=== PATIENT | male | born 1950 ===

== ENCOUNTER 2019-06-25 10:15 | Outpatient (REF) | payer MEDICARE, SELFPAY ==
[2019-06-25 19:25] LABS: Abs Immature Grans 0.01 k/cumm (0.0-0.09); Absolute Basophil Count 0.08 k/cumm (0.0-0.2); Absolute Eosinophil Count 0.44 k/cumm (0.0-0.7); Absolute Lymphocyte Count 1.58 k/cumm (1.2-3.4); Absolute Monocyte Count 0.69 k/cumm (0.11-0.7); Absolute Neutrophil Count 3.56 k/cumm (1.2-6.7); Basophils % 1.3; Eosinophils % 6.9; HCT 45.3 % (40.0-50.0); HGB 15.1 g/dL (13.5-17.5); Immature Grans % 0.2; Lymphocytes % 24.8; Mean Corp. HGB Concentration 33.3 g/dL (32.0-36.0); Mean Corpuscular Hemoglobin 30.9 pg (27.0-33.0); Mean Corpuscular Volume 92.6 fL (80-95); Mean Platelet Volume 9.4 fL (8.0-11.0); Monocytes % 10.8; Platelet Count 316 x1000/uL (130-400); RBC 4.89 m/cumm (4.50-6.00); RBC Distribution Width 13.6 % (11.8-14.1); White Blood Cell Count 6.36 k/cumm (4.4-10.8)
[2019-06-25 19:59] LABS: Anion Gap 9.7 mmol/L (3-11); BUN 18 mg/dL (7-18); CO2 27.3 mmol/L (21.0-32.0); CREATININE 1.27 mg/dL (0.70-1.30); Calcium 10.9 mg/dL (8.5-10.1); Chloride 105 mmol/L (98-107); Estimated GFR 56.74 (mL/min/1.73m2); Glucose 99 mg/dL (74-106); Potassium 5.6 mmol/L (3.5-5.1); Sodium 142 mmol/L (136-145); TSH (W/Ref FT4) 1.16 uIU/mL (0.36-3.74); Vitamin B12 272 pg/mL (193-986)
[2019-06-26 14:32] LABS: ALT 32 U/L (16-63); AST 23 U/L (15-37); Albumin 4.5 g/dL (3.4-5.0); Alkaline Phosphatase 120 U/L (46-116); Bilirubin, Direct 0.14 mg/dL (0.00-0.20); Bilirubin, Total 0.6 mg/dL (0.2-1.0); Total Protein 7.9 g/dL (6.4-8.2)
[2019-06-27 16:11] LABS: Lyme Ab w Rflx to Lyme Confirm Equivocal (Negative)
[2019-07-02 15:36] LABS: IgG Band(s) p45; IgG Immunoblot Negative (Negative); IgM Immunoblot Negative (Negative)
== END 2019-06-25 10:35 ==
LOC: NCHCN 10:15
PROVIDERS: PCP Family Medicine; Visit Provider Nurse Practitioner Family
DX: R20.2 Paresthesia of skin (principal); E87.5 Hyperkalemia; E83.52 Hypercalcemia
CPT/HCPCS: 80048; 80076; 86617; 82607; 84443; 85025; 86618

== ENCOUNTER 2019-06-28 09:00 | Outpatient (CLI) | payer MEDICARE, SELFPAY ==
[2019-06-28 11:06] LABS: ALT 32 U/L (16-63); AST 26 U/L (15-37); Alkaline Phosphatase 108 U/L (46-116); Bilirubin, Direct 0.14 mg/dL (0.00-0.20); Bilirubin, Total 0.5 mg/dL (0.2-1.0); Total Protein 7.2 g/dL (6.4-8.2)
== END 2019-06-28 09:20 ==
PROVIDERS: PCP Family Medicine; Visit Provider Family Medicine
DX: E87.5 Hyperkalemia (principal); E83.52 Hypercalcemia
CPT/HCPCS: 36415; 80076

== ENCOUNTER 2019-07-15 07:04 | Outpatient (CLI) | payer MEDICARE, SELFPAY ==
[2019-07-15 07:38] LABS: Bilirubin Negative (Negative); Blood Negative (Negative); Clarity Clear (Clear); Glucose Negative (Negative); Ketones Negative (Negative); Leukocyte Esterase Negative (Negative); Nitrite Negative (Negative); Specific Gravity 1.025 (1.005-1.025); Urobilinogen 0.2 EU/dL (Up TO 0.2); pH 5.5 (5-8)
[2019-07-15 08:43] LABS: ALT 34 U/L (16-63); AST 34 U/L (15-37); Albumin 4.2 g/dL (3.4-5.0); Alkaline Phosphatase 127 U/L (46-116); Anion Gap 10.6 mmol/L (3-11); BUN 14 mg/dL (7-18); Bilirubin, Total 0.4 mg/dL (0.2-1.0); CO2 26.4 mmol/L (21.0-32.0); CREATININE 1.33 mg/dL (0.70-1.30); Calcium 10.2 mg/dL (8.5-10.1); Chloride 104 mmol/L (98-107); GGT 57 U/L (15-85); Glucose 98 mg/dL (74-106); Potassium 4.4 mmol/L (3.5-5.1); Sodium 141 mmol/L (136-145); Total Protein 7.3 g/dL (6.4-8.2)
[2019-07-15 08:56] LABS: Bilirubin, Direct 0.12 mg/dL (0.00-0.20)
[2019-07-16 10:26] LABS: Parathyroid Hormone,Intact 32 pg/mL (19-88)
[2019-07-18 14:19] LABS: Total Protein 7.5 g/dL (6.3-8.2)
== END 2019-07-15 07:24 ==
PROVIDERS: PCP Family Medicine; Visit Provider Nurse Practitioner Family
DX: R74.8 Abnormal levels of other serum enzymes (principal); E83.52 Hypercalcemia; E87.5 Hyperkalemia; E03.9 Hypothyroidism, unspecified
CPT/HCPCS: 36415; 80048; 80076; 81003; 82977; 83915; 83970; 84165

== ENCOUNTER 2019-07-26 07:11 | Outpatient (CLI) | payer MEDICARE, SELFPAY ==
[2019-07-29 06:16] LABS: Vitamin D 25 Total 28.7 ng/ml (30-100)
[2019-07-29 10:42] LABS: PSA, Screening 0.5 ng/mL (0.0-4.5)
[2019-07-31 16:11] LABS: PTH-Related Peptide 0.5 pmol/L (< or = 4.2)
== END 2019-07-26 07:31 ==
PROVIDERS: PCP Family Medicine; Visit Provider Family Medicine
DX: E83.52 Hypercalcemia (principal); Z12.5 Encounter for screening for malignant neoplasm of prostate
CPT/HCPCS: 36415; 82306; 84153; 82397

== ENCOUNTER 2020-09-07 15:41 | Outpatient (REF) | payer OTHER, SELFPAY ==
[2020-09-07 16:17] LABS: Anion Gap 6.9 mmol/L (3-11); BUN 15 mg/dL (7-18); CO2 26.1 mmol/L (21.0-32.0); CREATININE 1.3 mg/dL (0.70-1.30); Calcium 10.1 mg/dL (8.5-10.1); Chloride 106 mmol/L (98-107); Glucose 108 mg/dL (74-106); Potassium 4.6 mmol/L (3.5-5.1); Sodium 139 mmol/L (136-145); TSH (W/Ref FT4) 1.51 uIU/mL (0.36-3.74)
== END 2020-09-07 15:42 | disposition home or self-care (01) ==
LOC: NCHCN 15:41
PROVIDERS: PCP Family Medicine; Visit Provider Family Medicine
DX: E83.52 Hypercalcemia (principal); E03.9 Hypothyroidism, unspecified
CPT/HCPCS: 80048; 82040; 84443

== ENCOUNTER 2021-01-18 19:38 | Outpatient (REF) | payer OTHER, SELFPAY ==
[2021-01-19 16:59] LABS: PSA, Screening 0.8 ng/mL (0.0-4.5)
== END 2021-01-18 19:39 | disposition home or self-care (01) ==
LOC: NCHCN 19:38
PROVIDERS: PCP Family Medicine; Visit Provider Family Medicine
DX: Z00.00 Encounter for general adult medical examination without abnormal findings (principal); Z80.42 Family history of malignant neoplasm of prostate; Z12.5 Encounter for screening for malignant neoplasm of prostate
CPT/HCPCS: 84153

== ENCOUNTER → 2022-03-02 14:29 | Outpatient (BNVA) | payer OTHER, SELFPAY | PROVIDERS: PCP Family Medicine; Referring Provider Family Medicine; Visit Provider Surgery | DX: K21.9 Gastro-esophageal reflux disease without esophagitis (principal); Z86.010 Personal history of colon polyps; K62.5 Hemorrhage of anus and rectum | CPT/HCPCS: 99203 ==

== ENCOUNTER 2022-03-04 00:57 | Outpatient (CLI) | payer OTHER, SELFPAY ==
[2022-03-04 15:46] LABS: Source Nasal/Nares
[2022-03-04 16:00] LABS: HCT 44.3 % (40.0-50.0); HGB 14.5 g/dL (13.5-17.5); MCH 30.3 pg (27.0-33.0); MCHC 32.7 % (32.0-36.0); MCV 93 fL (80-95); MPV 8.9 fL (8.0-11.0); Platelet Count 316 10^3/uL (130-400); RBC 4.79 10^6/uL (4.36-5.78); RDW 12.9 % (11.8-14.1); RDW-SD 43.7 fL; WBC 8.11 10^3/uL (4.4-10.8)
[2022-03-04 16:48] LABS: Calculated LDL 147 mg/dL (<100); Cholesterol 230 mg/dL (<200); HDL Cholesterol 66 mg/dL (40-60); TSH (W/Ref FT4) 0.16 uIU/mL (0.36-3.74); Triglyceride 87 mg/dL (<150)
[2022-03-04 17:12] LABS: FREE T4 1.31 ng/dL (0.76-1.46)
[2022-03-04 18:32] LABS: COVID-19 PCR Negative (Negative)
[2022-03-04 21:24] LABS: ALT 31 U/L (16-63); AST 16 U/L (15-37); Albumin 4.1 g/dL (3.4-5.0); Alkaline Phosphatase 131 U/L (46-116); Anion Gap 6.5 mmol/L (3-11); BUN 15 mg/dL (7-18); Bilirubin, Total 0.4 mg/dL (0.2-1.0); CO2 27.5 mmol/L (21.0-32.0); CREATININE 1.3 mg/dL (0.70-1.30); Calcium 10.3 mg/dL (8.5-10.1); Chloride 104 mmol/L (98-107); Estimated GFR 54.73 (mL/min/1.73m2); Glucose 105 mg/dL (74-106); Sodium 138 mmol/L (136-145); Total Protein 7.8 g/dL (6.4-8.2)
[2022-03-07 05:45] LABS: Vitamin D 25 Total 30.1 ng/mL (30-100)
== END 2022-03-04 00:58 | disposition home or self-care (01) ==
LOC: LBO 00:57
PROVIDERS: PCP Family Medicine; Visit Provider Surgery
DX: Z01.818 Encounter for other preprocedural examination (principal); E03.9 Hypothyroidism, unspecified; K92.1 Melena; E83.52 Hypercalcemia; R74.8 Abnormal levels of other serum enzymes
CPT/HCPCS: 36415; 80053; 80061; 82306; 85027; 87635; 84439; 84443

== ENCOUNTER 2022-03-07 10:38 | Day surgery (SDC) | payer OTHER, SELFPAY ==
--- NOTE | 2022-03-07 06:42 | COLE_ITS ---
Colonoscopy Report Date of procedure: 03/07/22 Pre-op diagnosis general: Colonoscopy/EGD Post-op diagnosis procedure note: other (mild inflammation of the stomach and esophagus, diverticulosis, inflammation of the colon, polyps) Procedure: 1. EGD with biopsies 2. Colonoscopy with biopsies and polypectomy Surgeon: Augustina Salcido Anesthesia Type: General:No Airway Estimated blood loss (mL): 3 Pathology: other (bx of duodenum, antrum and GE junction, bx of sigmoid inflammation, Transverse polyp and sigmoid polyps x2) Complications: None Disposition: same day Indications: We talked about the differential diagnosis for hematochezia, with hemorrhoids and diverticulosis the unlikely culprits in this scenario.? However, given his history of colorectal polyps, in the interval since his last colonoscopy, I think it is very reasonable to proceed with another colon to help better define any colorectal pathology.? Additionally, given his longstanding symptoms of gastroesophageal reflux disease, and what sounds like some noncompliance with medical therapy 3 years, I think diagnostic esophagogastroduodenoscopy is also indicated here.? We will make arrangements for this procedures in the coming weeks trying to accommodate his schedule which includes an upcoming wedding (that of his daughter). Prep: Miralax/Dulcolax Procedure Start Time: 12:33 Procedure End Time: 13:02 Retraction Time: 9 minutes Findings: Inflammation of the duodenum, stomach and esophagus Colorectal polyps colon diverticulosis 4 cm area of inflammation Procedure Description: After informed consent was obtained the patient was take to the procedure room and placed in a supine position. Monitors were applied and a time out was done. The patients name, date of , procedure type, allergies to medications and metal in their body was reviewed. A bite block was placed and the patient was sedated. Once sedated and comfortable the gastroscope was advanced through the oropharynx which was grossly normal into the esophagus. The proximal and mid- esophagus were notrmal. In the distal esophagus there was mild inflammation noted. The scope was advanced into the stomach and through the pylorus into the 3rd portion of the duodenum. The duodenum was noted to have some mild inflammation in the first portion of the duodenum. Biopsies were done. The scope was retracted back into the stomach. There was mild inflammation noted in the antrum. Biopsies were done to rule out H. pylori. There were no ulcers. The scope was retro-flexed. The cardia and fundus were noted to be normal. There was no hiatal hernia noted. There was a solitary diverticulum noted in the fundus of the stomach. The scope was retracted back into the esophagus and biopsies were done of the GE junction to rule out Garnett's. The Z line was regular. The GE junction was at 34 cm. While the patient was still sedated they were placed in a left decubitous position. A rectal exam was done. External exam was normal. Internal exam revealed a normal sphincter tone and no palpable masses. The prostate felt s lightly enlarged but smooth. The scope was then introduced and retro-flexed. No internal hemorrhoids, masses or polyps were identified on retroflexion. The scope was then advanced to the cecum without difficulty. The ileocecal valve and appendiceal orifice were identified. The prep was good. The scope was then slowly retracted over 9 minutes back into the rectum. Polyps were removed with cold snare in the descending colon and with cold forvceps in the transverse colon and sigmoid colon x2. There was mild diverticulosis noted in the descending and sigmoid colon. There was inflammation and edema noted at around 20 cm in the sigmoid colon. The scope was removed and the patient was woken up and taken back to Same day surgery in stable condition. The patient tolerated the procedure well and there were no immediate complications.
--- NOTE | 2022-03-07 06:45 | W.PM.DSUDISC ---
Discharge Plan Disposition Patient Disposition: HOME Condition: Good Discharge Details Reason For Visit: colonoscopy/EGD Attending Provider: Augustina Salcido Primary Care Provider: Jakub Abrams Home Meds and New Rx's Prescriptions: Continued levothyroxine [Synthroid] 150 mcg tablet 150 mcg PO DAILY omeprazole magnesium [Prilosec OTC] 20 mg tablet,delayed release (DR/EC) 20 mg PO DAILY Discontinued polyethylene glycol 3350 17 gram/dose powder 238 g PO ONCE Qty: 238 0RF Rx Instructions: take per colonoscopy instructions bisacodyl [Dulcolax (bisacodyl)] 5 mg tablet,delayed release (DR/EC) 5 mg PO ONCE Qty: 4 0RF Rx Instructions: take per colonoscopy instructions Discharge Instructions Instructions: Colorectal Polyps (DC), Diverticulosis (DC) Additional Instructions: Findings: mild inflammation of the duodenum and distal esophagus colorectal polyps diverticulosis inflammation of small area of the large intestine Follow up: will depend on pathology results Please call if you develop: fevers >101.5 Nausea or Vomiting Abdominal pain that is not transient Rectal bleeding that is more then a tbsp A hard abdomen and inability to pass gas DAY SURGERY UNIT POST ENDOSCOPY INSTRUCTIONS Instructions for everyone who is given Anesthesia: For your safety, please do the following for the next 24 Hours: a. Do not drive or operate dangerous equipment b. Do not drink alcohol beverages or use any recreational drugs for the first 24 hours or while taking pain medications. The medications in your body may have a reaction that can be dangerous. c. Do not make any important decisions or sign any important papers 1. Generally there are no restrictions on your activity after a day or so has gone by, but you may feel a bit fatigued for a few days. 2. After you arrive home you may have a light meal and return to a normal diet as you can tolerate it without feeling sick to your stomach. 3. After surgery, you may feel pain or discomfort. This should be only transient, but if it persists please contact your doctor. 4. If there are any questions regarding the findings of your procedure, please feel free to contact your doctor. 6. If you are unable to contact your doctor with a problem, contact the hospital at [phone]. 7. Continue all your regular medications unless directed otherwise. I understand the above instructions and have no questions. Signature of Patient or Responsible Adult Escort Date/Time Name of Responsible Adult Escort Signature of Nurse Date/Time Activity:: Activity as Tolerated Diet:: As Tolerated Discharge Orders Discharge Orders: Discharge Order (Routine); Ordered 03/07/22 Ordered By: Augustina Salcido
[2022-03-07 10:55] VITALS: BP 123/90; PULSE 73; RESP 19; TEMP 36.2; O2SAT 95
[2022-03-07] MEDS: Lactated Ringers 1,000 ML 80 ML IV (11:15)
--- NOTE | 2022-03-07 11:58 | ANES.PREOP_ITS ---
General Info Date of Service Date Performed: 03/07/22 Height: 6 ft Weight: 92.9 kg Body Mass Index (BMI): 27.8 Surgical Procedure: Operation Date: 03/07/22 13:35 Proposed Procedure Side Surgeon p Colonoscopy/Gastroscopy Augustina Salcido MD Meds Allergies and Home Medications Allergies Allergy/AdvReac Type Severity Reaction Status Date / Time No Known Allergies Allergy Verified 03/07/22 11:05 Home Medication Medication Instructions Recorded bisacodyl 5 mg tablet,delayed 5 mg PO ONCE colonscopy bowel prep 03/02/22 release (Dulcolax (bisacodyl)) #4 tabs levothyroxine 150 mcg tablet 150 mcg PO DAILY 03/02/22 (Synthroid) omeprazole magnesium 20 mg 20 mg PO DAILY 03/02/22 tablet,delayed release (Prilosec OTC) polyethylene glycol 3350 17 238 g PO ONCE colonoscopy prep 03/02/22 gram/dose oral powder #238 grams Current Visit Medications: Current Medications Generic Name Dose Route Start Last Admin Trade Name Bruna PRN Reason Stop Dose Admin Hyoscyamine Sulfate 0.125 mg 03/07/22 06:45 Hyoscyamine 0.125 Mg Sl/Oral/Chew SL DIRECTED PRN Ringer's Solution 1,000 mls @ 80 mls/hr 03/07/22 06:00 03/07/22 11:15 IV 04/03/22 23:59 80 mls/hr INFUSION ANNA Administration IV Miscellaneous Supplies 1 each 03/07/22 06:00 Iv Access IV 04/03/22 23:59 DIRECTED ANNA Ondansetron HCl 4 mg 03/07/22 06:45 Ondansetron 4 Mg/2 Ml Vial IVP Q4H PRN PRN Nausea / Vomiting Sodium Chloride 0 ml 03/07/22 06:00 Normal Saline Flush 10 Ml Syr IV 04/03/22 23:59 PRN PRN Sodium Chloride 0 ml 03/07/22 06:00 Normal Saline 10 Ml Vial IJ 04/03/22 23:59 DIRECTED PRN Sterile Water 0 ml 03/07/22 06:00 Water,Injection,Sterile 10 Ml Vial IJ 04/03/22 23:59 DIRECTED PRN PFSH Active Problems Active Problems: Problem Status Onset Code Shoulder pain M25.519 Blood in stool K92.1 Medical History Medical History Adenomatous colon polyp (~12/02/13) Dr. Sorenson 2013 was to repeat in 3 yrs. 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 Dystrophic nail Elevated alkaline phosphatase level Hypercalcemia Hyperlipidemia Hypothyroidism Osteoarthritis Polyp of colon Tingling sensation Surgical History Surgical History History of umbilical hernia repair Tobacco Smoking/Tobacco Use Status: Never Alcohol Alcohol Intake: current Alcohol intake frequency: holidays/special occasions only Substance Use Substance use: Never Substance use type: does not use Vital Signs and Lab Results Vital Signs Most Recent Vital Signs in EMR: Most Recent Vital Signs Temp Pulse Resp BP Pulse Ox 36.2 C L 73 19 123/90 95 03/07/22 10:55 03/07/22 10:55 03/07/22 10:55 03/07/22 10:55 03/07/22 10:55 Lab Results Blood Type / Crossmatch: No Data to Display Complete Blood Count: White Blood Count 8.11 10^3/uL (4.4-10.8) 03/04/22 15:53 Red Blood Count 4.79 10^6/uL (4.36-5.78) 03/04/22 15:53 Hemoglobin 14.5 g/dL (13.5-17.5) 03/04/22 15:53 Hematocrit 44.3 % (40.0-50.0) 03/04/22 15:53 Platelet Count 316 10^3/uL (130-400) 03/04/22 15:53 Complete Metabolic Panel: Sodium Level 138 mmol/L (136-145) 03/04/22 15:53 Potassium Level 4.0 mmol/L (3.5-5.1) 03/04/22 15:53 Chloride Level 104 mmol/L (98-107) 03/04/22 15:53 Carbon Dioxide Level 27.5 mmol/L (21.0-32.0) 03/04/22 15:53 Blood Urea Nitrogen 15 mg/dL (7-18) 03/04/22 15:53 Creatinine 1.3 mg/dL (0.70-1.30) 03/04/22 15:53 Estimated GFR/1.73 m2 54.73 (mL/min/1.73m2) 03/04/22 15:53 Calcium Level 10.3 mg/dL (8.5-10.1) H 03/04/22 15:53 Albumin 4.1 g/dL (3.4-5.0) 03/04/22 15:53 Glucose Level 105 mg/dL (74-106) 03/04/22 15:53 Liver Function Panel: Alanine Aminotransferase (ALT/SGPT) 31 U/L (16-63) 03/04/22 15: 53 Aspartate Amino Transf (AST/SGOT) 16 U/L (15-37) 03/04/22 15:53 Coagulation Panel: No Data to Display Cardiac Panel: No Data to Display Arterial Blood Gas: No Data to Display Venous Blood Gas: 2 No Data to Display Pancreas Panel: No Data to Display Thyroid Panel: Thyroid Stimulating Hormone (TSH) 0.16 uIU/mL (0.36-3.74) L 03/04/22 15:53 Infectious Disease: Coronavirus (COVID-19)(PCR) Negative (Negative) 03/04/22 15:45 Coronavirus 2019 Source Nasal/Nares 03/04/22 15:45 Blood Cultures: No Data to Display Toxicology Panel: No Data to Display Anesthesia Assessment and Plan Anesthesia History Personal History: No History of Anesthesia Complications Family History: No Family History of Anesthesia Complications Exercise Tolerance Exercise Tolerance: Metabolic Equivalents>4 Pertinent Negatives Pertinent Negatives: No Major Cardiovascular Symptoms or Complaints, No Major Pulmonary Symptoms or Complaints and No History of CVA/TIA Cardiac & Pulmonary Exam Cardiac Exam: Normal S1/S2 Heart Sounds Pulmonary Exam: Clear Bilateral Breath Sounds Implantable Cardiac Device Does patient have a Pacemaker or an ICD?: No Airway Exam Known Difficult Airway: No Mallampati Class: 2 Mouth Opening: Normal (> 3cm) Thyromental Distance: Greater than 3 cm Neck Range of Motion: Full ROM Neck Circumference: Normal Teeth Condition: Normal Dentition ASA Classification ASA Score: ASA 2 Emergency Case?: No NPO Status NPO Status: NPO Clears >2 hours, Solids >8 hours Anesthesia Plan Resuscitation Status: Full Code Anesthesia Technique: General Anesthesia Airway Planned: Natural Airway Monitors Used: Standard Monitors
[2022-03-07 12:24] VITALS: BMI 27.8
--- NOTE | 2022-03-07 12:36 | BOWEL_PTH ---
PATIENT: Jakub Fuller LOC: [facility] U#:[id number] AGE/SX: 71/M ROOM: RE03/07/[address]: Augustina Salcido MD : 1950 BED: DIS: 03/07/2022 SPEC #: [id number] RECD: 03/07/22 14:43 STATUS: NIURKA RE #: [id number] MATT: 03/07/22 12:[address]: Augustina Salcido DEPT: Surgical Specimen RECD BY: Dalila Mullins ENTERED: 03/07/22 14:46 SP TYPE: Bowel OTHR DR: Jakub Abrams Tissues: 1 - BIOPSY BOWEL 2 - STOMACH BIOPSY 3 - ESOPHAGUS BIOPSY 4 - BIOPSY BOWEL 5 - BIOPSY BOWEL 6 - BIOPSY BOWEL 7 - BIOPSY BOWEL Procedures: GROSS AND MICRO LEVEL 4 Comments: [id number]
--- NOTE | 2022-03-07 13:12 | W.ANESPOSTOP ---
Postoperative Evaluation Date, Time and Location Date Performed: 03/07/22 Time Performed: 13:12 Patient Location: Day Surgery Unit Vital Signs Most Recent Imported Vital Signs: Most Recent Vital Signs Temp Pulse Resp BP Pulse Ox 36.2 C L 73 19 123/90 95 03/07/22 10:55 03/07/22 10:55 03/07/22 10:55 03/07/22 10:55 03/07/22 10:55 Most Recent Manually Entered Vital Signs: Adult Blood Pressure: 108/63 Heart Rate: 68 Respirations: 12 Oxygen Saturation (%): 94 Temperature (C): 36.3 C Pain Score (0-10 Scale): 0 Pain Score Most Recent Pain Score: Most Recent Pain Score Pain Level 0 03/07/22 10:55 Assessment Mental Status: Awake (Alert & Oriented to Patient Baseline) Airway and Respiratory Function: Patent airway with normal (patient baseline) respiratory exam Cardiovascular Function: Hemodynamically Stable Hydration Status: Adequately Hydrated Nausea & Vomiting: No Nausea or Vomiting Pain: Pt. Denies Any Pain Peripheral Nerve Block: Patient did not receive a nerve block
[2022-03-07 13:13] VITALS: BP 108/63; PULSE 68; RESP 12; TEMPC 36.3; O2SAT 94
[2022-03-07 13:14] VITALS: BP 108/63; PULSE 70; RESP 17; TEMP 36.7; O2SAT 95
[2022-03-07 13:35] VITALS: BP 123/88; PULSE 67; RESP 18; TEMP 36.5; O2SAT 95
== END 2022-03-07 14:18 | disposition home or self-care (01) ==
PROVIDERS: PCP Family Medicine; Visit Provider Surgery
PROC: (CPT 45385; principal; 2022-03-07 13:30)
DX: K62.5 Hemorrhage of anus and rectum (principal); K57.30 Diverticulosis of large intestine without perforation or abscess without bleeding; K20.90 Esophagitis, unspecified without bleeding; K29.70 Gastritis, unspecified, without bleeding; K31.4 Gastric diverticulum; K63.5 Polyp of colon; K52.9 Noninfective gastroenteritis and colitis, unspecified; Z86.010 Personal history of colon polyps; E78.5 Hyperlipidemia, unspecified; E03.9 Hypothyroidism, unspecified; K29.80 Duodenitis without bleeding; K31.89 Other diseases of stomach and duodenum; K22.89 Other specified disease of esophagus; K63.89 Other specified diseases of intestine
CPT/HCPCS: 45385; 45380; 43239; 88305

== ENCOUNTER → 2022-04-05 07:30 | Outpatient (BNVA) | payer OTHER, SELFPAY | PROVIDERS: PCP Family Medicine; Referring Provider Family Medicine; Visit Provider Surgery | DX: K52.9 Noninfective gastroenteritis and colitis, unspecified (principal) | CPT/HCPCS: 99212 ==

== ENCOUNTER 2022-04-05 08:01 | Outpatient (CLI) | payer OTHER, SELFPAY ==
[2022-04-05 08:20] LABS: ESR 9 mm/hr (0-20)
[2022-04-05 17:16] LABS: CRP, High Sensitivity 4.85 mg/L (See Note)
[2022-04-12 12:14] LABS: ACCA 60 units (0-90); ALCA 33 units (0-60); gASCA 55 units (0-50)
[2022-04-12 12:16] LABS: AMCA 11 units (0-100)
== END 2022-04-05 08:02 | disposition home or self-care (01) ==
LOC: LBO 08:04
PROVIDERS: PCP Family Medicine; Visit Provider Surgery
DX: K52.9 Noninfective gastroenteritis and colitis, unspecified (principal)
CPT/HCPCS: 36415; 83516; 85652; 86141; 86671

== ENCOUNTER → 2022-04-19 07:28 | Outpatient (BNVA) | payer OTHER, SELFPAY | PROVIDERS: PCP Family Medicine; Referring Provider Family Medicine; Visit Provider Surgery | DX: K62.5 Hemorrhage of anus and rectum (principal) | CPT/HCPCS: 99212 ==

== ENCOUNTER 2022-05-02 16:26 | Outpatient (REF) | payer OTHER, SELFPAY ==
[2022-05-02 15:24] LABS: TSH (W/Ref FT4) 0.37 uIU/mL (0.36-3.74)
== END 2022-05-02 16:27 | disposition home or self-care (01) ==
LOC: NCHCN 16:26
PROVIDERS: PCP Family Medicine; Visit Provider Family Medicine
DX: E03.9 Hypothyroidism, unspecified (principal)
CPT/HCPCS: 84443

== ENCOUNTER 2023-01-26 10:46 | Observation (INO) | payer OTHER, SELFPAY ==
[2023-01-26] VITALS (104 sets, daily range): BP systolic 86–125; BP diastolic 51–92; PULSE 52–94; RESP 12–80; TEMP 36.3–37.1; O2SAT 90–99
--- NOTE | 2023-01-26 11:00 | DI.CT_ITS ---
Exam(s) CT HEAD WO EXAM: CT HEAD WO CLINICAL HISTORY: new onset headache. TECHNIQUE: Imaging Protocol: Axial computed tomography images with coronal and sagittal reformatted images were created and reviewed COMPARISON: No exams were available for comparison FINDINGS: Ventricles and Extra axial spaces: Normal in size and morphology for the patient's age. Hemorrhage: None. Cerebral parenchyma: Normal. Midline shift: None. Brainstem/Cerebellum: Normal. Calvarium: Normal. Visualized Paranasal sinuses/Mastoids: Mild ethmoid sinus mucosal thickening. Small amount of fluid in the lower right mastoid air cells. Soft Tissues: Unremarkable. IMPRESSION: No acute intracranial process. RADIATION DOSE DELIVERED: 832.81mGy.cm Total DLP DATA REPOSITORY: All CT scans at this facility are submitted to the National Radiology Data Registry (NRDR) Dose Index Registry (DIR) with the [employer] ([employer]). RADIATION OPTIMIZATION: All CT scans at this facility use at least one of these dose optimization te chniques: automated exposure control; mA and/or kV adjustment per patient size (includes targeted exa ms where dose is matched to clinical indication); or iterative reconstruction.
--- NOTE | 2023-01-26 11:00 | RT.EKG_ITS ---
APPROVED REPORT Exam: Resting ECG Reason for Exam: weakness, pre syncope Patient Location: E HR:76 bpm ECG Measurements Heart Rate 76 AXIS MO 158 P 63 QRSd 97 QRS 15 QT 352 T 17 QTc 398 Conclusion Sinus rhythm...normal P axis, V-rate 60- 99 sinus rhythm, normal axis, normal intervals, non ischemic
[2023-01-26] MEDS: Lactated Ringers 1,000 ML 1000 ML IV ×3 (11:22→15:45)
[2023-01-26 11:26] LABS: Abs Immature Grans 0.02 10^3/uL (0.0-0.06); Absolute Basophil Count 0.02 10^3/uL (0.0-0.2); Absolute Lymphocyte Count 0.27 10^3/uL (1.2-3.4); Absolute Monocyte Count 0.12 10^3/uL (0.1-0.8); Absolute Neutrophil Count 4.62 10^3/uL (1.2-6.7); Basophils % 0.4; HCT 42.3 % (40.0-50.0); HGB 14.3 g/dL (13.5-17.5); Immature Grans % 0.4; Lymphocytes % 5.3; MCH 30.7 pg (27.0-33.0); MCHC 33.8 % (32.0-36.0); MCV 91 fL (80-95); MPV 8.9 fL (8.0-11.0); Monocytes % 2.4; Neutrophils % 91.5; Platelet Count 156 10^3/uL (130-400); RBC 4.66 10^6/uL (4.36-5.78); RDW 13.9 % (11.8-14.1); RDW-SD 46.3 fL; WBC 5.05 10^3/uL (4.4-10.8)
[2023-01-26 11:43] LABS: Source Nasal/Nares
[2023-01-26] MEDS: Prochlorperazine 10 MG/2 ML VIAL 5 MG IVP ×2 (11:44→12:20)
[2023-01-26] MEDS: ACETAMINOPHEN 1,000 MG/100 ML BTL 400 MG IVPB (11:44)
[2023-01-26 11:50] LABS: ALT 39 U/L (16-63); AST 39 U/L (15-37); Albumin 3.5 g/dL (3.4-5.0); Alkaline Phosphatase 144 U/L (46-116); Anion Gap 11.8 mmol/L (3-11); BUN 13 mg/dL (7-18); Bilirubin, Total 0.7 mg/dL (0.2-1.0); CO2 22.2 mmol/L (21.0-32.0); CREATININE 1.4 mg/dL (0.70-1.30); Chloride 100 mmol/L (98-107); Creatine Kinase 65 U/L (39-308); Estimated GFR 54.07 (mL/min/1.73m2); Glucose 162 mg/dL (74-106); Lipase 37 U/L (16-77); Magnesium 1.7 mg/dL (1.8-2.4); Potassium 3.9 mmol/L (3.5-5.1); Sodium 134 mmol/L (136-145); TSH (W/Ref FT4) 0.41 uIU/mL (0.36-3.74); Total Protein 7.5 g/dL (6.4-8.2); Troponin I < 50 ng/L (<or=60)
[2023-01-26] MEDS: Ketorolac 15 MG/ML VIAL IVP (12:20)
[2023-01-26 12:51] LABS: Procalcitonin 0.8 ng/mL
--- NOTE | 2023-01-26 13:42 | DI.RAD_ITS ---
Exam(s) XR PORTABLE CHEST AP EXAM: XR PORTABLE CHEST AP CLINICAL HISTORY: weakness TECHNIQUE: 2D digital imaging was performed. COMPARISON: CR CHEST 2 VIEWS PA,LAT from 07/16/2012 FINDINGS: Leads overlie the chest. LUNGS: Clear. No pleural abnormality seen. HEART: Normal size. AORTA: Normal diameter. BONES: Advanced degenerative changes both shoulders. Soft tissues: Unremarkable. IMPRESSION: No acute findings. DATA REPOSITORY: RADIATION DOSE DELIVERED:
[2023-01-26 13:52] LABS: COVID-19 PCR Negative (Negative)
[2023-01-26] MEDS: Dexamethasone 10 MG/ML VIAL IVP (14:16)
--- NOTE | 2023-01-26 14:26 | NUR.NOTE ---
Nursing Note: App[facility]. for pt made @ [facility] for MondayJanuary 30 @ [id number].
--- NOTE | 2023-01-26 14:49 | W.ED.GENAD ---
Discharge Plan Disposition Patient Disposition: Admit to [facility] Discharge Details Clinical Impression: Tick bite, Weakness, Acute hypotension Admit Date/Time: 01/26/23 15:17 Admit Provider: Cintia Portillo Attending Provider: Cintia Portillo Primary Care Provider: Jakub Abrams ED Provider: Paula Vang Discharge Data Discharge Date/Time-TO BE ENTERED AT DEPARTURE: 01/26/23 16:20 Medical Decision Making 72-year-old male is alert and oriented, he appears tired, his vitals are relatively stable but his blood pressure is on the low end of normal, his discharge blood pressure is 115/70 2:06 liters of fluid, I do suspect there is an element of dehydration but he does have persistent although improved headache He is fully alert and oriented and of decisional capacity, he has no meningismus clinically, his headache is improved mildly per patient He is ambulatory with steady gait, his left hip has no tenderness and the the operative site looks great His abdomen is nontender, his lungs are clear to auscultation, his chest x-ray per radiology interpretation and my review does not show evidence of acute abnormality, his neurology exam is nonfocal he is not orthostatic, he is ambulatory with steady gait His lactate is within normal limits he has no leukocytosis he has lymphopenia which is curious to know what to make of this I am going to treat him empirically for Lyme disease with the mild elevation in LFT and the lymphopenia, blood cultures are pending at this time He will need close outpatient follow-up, he is requesting to leave the hospital He will leave pending blood culture and tick panel return On reassessment, nurse has rechecked his blood pressure and he is 90/60, at this time I am very uncomfortable with the patient leaving the hospital I will initiate ceftriaxone and doxycycline after discussing the case with the hospitalist On reassessment, patient appears generally unwell again, he is laying down, he appears quite tired and his blood pressure is now soft at 90/60, the remainder of his vitals are within normal limits, temperature has been reassessed and is 0.6 orally He still alert and oriented although appears very fatigued His procalcitonin was 0.8 and he does have mild lymphopenia, certainly sepsis is in the differential and I did consider this, I will treat him empirically for bacterial etiology of his complaints at this time, ceftriaxone 2 g and doxycycline [address] Portillo is agreeable to admitting the patient at this time He is alert and oriented without meningismus with resolving headache and in no acute pain complaints Pending blood cultures, tick panel, and urinalysis Medical Records Medical records reviewed: Yes I reviewed the patient's medical records. Lab Data Lab results reviewed: Yes I reviewed the patient's lab results. HPI General Date/Time Provider Initiated Documentation: 01/26/23 11:02. HPI Narrative: This 72-year-old male presents with report of weakness, fatigue, generally feeling unwell, headache which all started approximately 3 days ago. Patient is status post left hip replacement approximately 5 weeks ago, he has no pain to this area and states he feels otherwise great in regard to his left hip, he does state he was bitten by a tick a few weeks ago and is wondering if this could be contributing. He states he does not have a history of headache. Its been persistent for 3 days. He has not taken any [id number] medication. He denies chest pain, shortness of breath. He feels exhausted per patient. He denies any illicit drug use or alcohol consumption. He does state he works fairly hard and moved a bunch of [employer] 3 days prior to arrival. He denies any additional new medications. He does have a history of IBD, but denies any current abdominal pain. Related Data Home Medications Medication Instructions Recorded Confirmed levothyroxine 150 mcg tablet 150 mcg PO DAILY 03/02/22 01/26/23 (Synthroid) omeprazole magnesium 20 mg 20 mg PO DAILY 03/02/22 01/26/23 tablet,delayed release (Prilosec OTC) balsalazide 750 mg capsule 2,250 mg PO TID 05/02/22 01/26/23 magnesium 250 mg tablet 250 mg PO DAILY #10 tabs 01/26/23 ondansetron 4 mg disintegrating 4 mg PO Q8H PRN #10 tabs 01/26/23 tablet doxycycline hyclate 100 mg tablet 100 mg PO BID #28 tabs 01/27/23 Previous Rx's Medication Instructions Recorded magnesium 250 mg tablet 250 mg PO DAILY #10 tabs 01/26/23 ondansetron 4 mg disintegrating 4 mg PO Q8H PRN #10 tabs 01/26/23 tablet doxycycline hyclate 100 mg tablet 100 mg PO BID #28 tabs 01/27/23 Allergies Allergy/AdvReac Type Severity Reaction Status Date / Time No Known Allergies Allergy Verified 01/26/23 10:57 General Stated Complaint: Headache PURA: 3 PFSH All Active Problems (Updated 01/28/23 @ 00:01 by DOMENICA BULLOCK) Weakness (Acute) Tick bite (Acute) Gastritis (Acute) Inflammatory polyps (Acute) Hyperplastic colon polyp (Acute) Tubular adenoma of colon (Acute) Inflammatory bowel diseases (IBD) (Acute) Shoulder pain (Acute) Blood in stool (Acute) Medical History Adenomatous colon polyp (~12/02/13) Dr. Sorenson 2013 was to repeat in 3 yrs. 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 Dystrophic nail Elevated alkaline phosphatase level Hypercalcemia Hyperlipidemia Hypothyroidism Osteoarthritis Polyp of colon Tingling sensation Surgical History History of colonoscopy (~02/2022) History of esophagogastroduodenoscopy (EGD) (~02/2022) History of umbilical hernia repair Family History (Updated 01/26/23 @ 20:01 by Cintia Portillo MD) Brother Cancer prostate Brother IBD (inflammatory bowel disease) Social History Smoking/Tobacco Use Status: Never Smoking risk assessment performed?: Yes Alcohol Intake: current Alcohol Intake frequency: holidays/special occasions only Drug use: Never Substance use type: does not use Housing: apartment Do you feel safe at home: Yes Do you feel safe in your relationship?: Yes Exam Const General: cooperative, no acute distress and ill appearing Eyes Conjunctivae: conjunctivae normal Sclera: sclerae normal Pupils: PERRL Neck Other: no meningismus Resp Effort & Inspection: normal respiratory effort Auscultation: clear to auscultation bilaterally Cardio Rate: regular rate Rhythm: regular rhythm Heart Sounds: no murmurs GI Inspection: normal to inspection Auscultation: normal bowel sounds Other: non-tender no abdominal bruit or pulsatile mass Back/Spine/Pelvis Other: no midline back tenderness Skin General skin exam: no rashes or lesions noted Neuro General: patient alert and patient oriented x3 Cranial Nerves: CN's II-XI intact bilaterally and tongue midline Cognition: normal cognition Extrem General: normal to inspection Other: distal pulses intact no erythema or swelling overlying left hip, ROM intact Course Vital Signs Vital signs: Vital Signs Temperature 36.9 C 01/26/23 10:54 Pulse 85 01/26/23 10:54 Respiratory Rate 16 01/26/23 10:54 Blood Pressure 91/69 L 01/26/23 10:54 Pulse Oximetry 95 01/26/23 10:54 Temperature 37.0 C 01/26/23 12:25 Temperature Source Oral 01/26/23 12:25 Pulse 58 L 01/26/23 14:30 Pulse 62 01/26/23 14:31 Respiratory Rate 14 01/26/23 14:31 Respiratory Effort Normal 01/26/23 11:09 Blood Pressure 102/65 01/26/23 14:30 Blood Pressure Mean 72 01/26/23 14:30 Blood Pressure Position Supine 01/26/23 11:04 Pulse Oximetry 94 01/26/23 14:31 Oxygen Delivery Method Nasal Cannula 01/26/23 12:25 Oxygen Flow Rate 2.5 01/26/23 12:25 Pain Level 9 01/26/23 10:54 Lab/Test Results Lab/Test Results: 01/26/23 14:12 Blood Blood Culture - Pending 01/26/23 14:12 Blood Blood Culture - Pending Laboratory Tests Range/Units 01/26/23 01/26/23 01/26/23 11:15 11:15 11:15 WBC (4.4-10.8) 10^3/uL 5.05 RBC (4.36-5.78) 10^6/uL 4.66 Hgb (13.5-17.5) g/dL 14.3 Hct (40.0-50.0) % 42.3 MCV (80-95) fL 91 MCH (27.0-33.0) pg 30.7 MCHC (32.0-36.0) % 33.8 RDW (11.8-14.1) % 13.9 Plt Count (130-400) 10^3/uL 156 MPV (8.0-11.0) fL 8.9 Immature Gran % 0.4 Neutrophils % 91.5 Lymphocytes % 5.3 Monocytes % 2.4 Eosinophils % 0.0 Basophils % 0.4 Nucleated RBC % (0.0-0.3) % 0.0 Absolute Neutrophils (1.2-6.7) 10^3/uL 4.62 Absolute Lymphocytes (1.2-3.4) 10^3/uL 0.27 L Absolute Monocytes (0.1-0.8) 10^3/uL 0.12 Absolute Eosinophils (0.0-0.7) 10^3/uL 0.00 Absolute Basophils (0.0-0.2) 10^3/uL 0.02 VBG Lactate (0.6-1.4) mmol/L Sodium (136-145) mmol/L 134 L Potassium (3.5-5.1) mmol/L 3.9 Chloride (98-107) mmol/L 100 Carbon Dioxide (21.0-32.0) mmol/L 22.2 Anion Gap (3-11) mmol/L 11.8 H BUN (7-18) mg/dL 13 Creatinine (0.70-1.30) mg/dL 1.4 H Est GFR (CKD-EPI 2020) (mL/min/1.73m2) 54.07 Glucose (74-106) mg/dL 162 H Calcium (8.5-10.1) mg/dL 10.0 Magnesium (1.8-2.4) mg/dL 1.7 L Total Bilirubin (0.2-1.0) mg/dL 0.7 AST (15-37) U/L 39 H ALT (16-63) U/L 39 Alkaline Phosphatase (46-116) U/L 144 H Creatine Kinase (39-308) U/L 65 Troponin I (<or=60) ng/L < 50 Cancelled Total Protein (6.4-8.2) g/dL 7.5 Albumin (3.4-5.0) g/dL 3.5 Lipase (16-77) U/L 37 Procalcitonin ng/mL TSH (0.36-3.74) uIU/mL 0.41 COVID-19 Source SARS-CoV-2 (PCR) (Negative) Range/Units 01/26/23 01/26/23 11:41 12:10 WBC (4.4-10.8) 10^3/uL RBC (4.36-5.78) 10^6/uL Hgb (13.5-17.5) g/dL Hct (40.0-50.0) % MCV (80-95) fL MCH (27.0-33.0) pg MCHC (32.0-36.0) % RDW (11.8-14.1) % Plt Count (130-400) 10^3/uL MPV (8.0-11.0) fL Immature Gran % Neutrophils % Lymphocytes % Monocytes % Eosinophils % Basophils % Nucleated RBC % (0.0-0.3) % Absolute Neutrophils (1.2-6.7) 10^3/uL Absolute Lymphocytes (1.2-3.4) 10^3/uL Absolute Monocytes (0.1-0.8) 10^3/uL Absolute Eosinophils (0.0-0.7) 10^3/uL Absolute Basophils (0.0-0.2) 10^3/uL VBG Lactate (0.6-1.4) mmol/L 1.0 Sodium (136-145) mmol/L Potassium (3.5-5.1) mmol/L Chloride (98-107) mmol/L Carbon Dioxide (21.0-32.0) mmol/L Anion Gap (3-11) mmol/L BUN (7-18) mg/dL Creatinine (0.70-1.30) mg/dL Est GFR (CKD-EPI 2020) (mL/min/1.73m2) Glucose (74-106) mg/dL Calcium (8.5-10.1) mg/dL Magnesium (1.8-2.4) mg/dL Total Bilirubin (0.2-1.0) mg/dL AST (15-37) U/L ALT (16-63) U/L Alkaline Phosphatase (46-116) U/L Creatine Kinase (39-308) U/L Troponin I (<or=60) ng/L Total Protein (6.4-8.2) g/dL Albumin (3.4-5.0) g/dL Lipase (16-77) U/L Procalcitonin ng/mL 0.8 TSH (0.36-3.74) uIU/mL COVID-19 Source Nasal/Nares SARS-CoV-2 (PCR) (Negative) Negative
[2023-01-26] MEDS: cefTRIAXone 2 GM/50 ML BAG IVPB (15:37)
[2023-01-26] MEDS: DOXYCYCLINE 100 MG in Normal Saline 100 ML IVPB (16:14)
[2023-01-26 16:25] LABS: Troponin I < 50 ng/L (<or=60)
[2023-01-26 16:36] LABS: Lab Add On Test DONE
[2023-01-26 16:43] LABS: Bilirubin Negative (Negative); Blood Negative (Negative); Clarity Clear (Clear); Glucose Negative (Negative); Ketones Negative (Negative); Leukocyte Esterase Negative (Negative); Nitrite Negative (Negative); pH 5.5 (5-8)
[2023-01-26 17:24] LABS: C-Reactive Protein 10.57 mg/dL (0.0-0.3)
[2023-01-26] MEDS: Enoxaparin 40 MG/0.4 ML SYR SC (17:28)
--- NOTE | 2023-01-26 18:44 | HPE_ITS ---
Date of service: 01/26/23 Time of Service: 18:45 Assessment and Plan Assessment and plan (1) Acute hypotension: Status: Acute Assessment and plan: I worry that this could be impending sepsis. Given h/o recent surgery, bacteremia is a possibility. I have added vancomycin to ceftriaxone and doxycycline ordered in the ED. Await blood cultures. Will continue intravenous hydration for another liter. Introduce TEDs. Consider midodrine. OBtain an echocardiogram. Trend CRP and procalcitonin. (2) Tick bite: Status: Acute Assessment and plan: Started on empiric doxycycline/ceftriaxone. Await tick studies. (3) Hypomagnesemia: Status: Acute Assessment and plan: Replete. (4) Orthostasis: Status: Acute Assessment and plan: Continue IVF. TEDs. Consider midodrine. Monitor orthostatics twice daily (5) Myalgia: Status: Acute Assessment and plan: No evidence of rhabdo. I suspect this is a combination of systemic effects of either tick-borne illness or bacteremia (6) DVT prophylaxis: Status: Acute Assessment and plan: SC enoxaparin (7) Discharge planning issues: Status: Acute Assessment and plan: Full code Admit to the ICU History of Present Illness History of Present Illness Chief Complaint: weakness, maylgias, headache Narrative: Mr Fuller is a 72 year old male with PMHx of non-oxygen dependent COPD, IBD, hyp othyroidism, GERD, who [place] L [place] 5 [place] [facility] [place] had [facility] ED today c/o feeling weak, exhausted, having a headache x 3 days, which he describes as mild since arriving to the hospital, but was severe for three days. He also reported having had a recent tick bite, possibly a week ago, although it could have been a skin tag that he had pulled off - he is not s ure. He had worked outside for the last several days and felt he might be dehydrated. In the ED, he was found to be orthostatic and symptomatic. While he was afebrile and did not have leucocytosis, he did have am elevated procalcitonin of 0.8 and a CRP of 10.57. His hip was not painful and the jacinta gical site did not look infected. He was empirically started on ceftriaxone and doxycycline. He received 3L of IVF in the ER. Hospitalist admission was requested. Since arrival to the ICU, the patient has had an episode of symptomatic orthostatic hypotension with BPs going down to 94/58 and with the symptom of dizziness. Since arrival to the ICU, he has been having episodes of sweating. Denies fevers, chills, runny nose, sore throat, cough, CP, SOB, abdominal pain. He did vomit this morning after having an orage gatorade. He is constipated - he cannot tell us the exact date of his last BM. He has no visual changes, numbness, tingling. He has no neck pain. Headache is now mild and frontal. Review of Systems All systems reviewed & are unremarkable except as noted in HPI and below PFSH All Active Problems (Updated 01/26/23 @ 18:58 by Cintia Portillo MD) Discharge planning issues (Acute) DVT prophylaxis (Acute) Myalgia (Acute) Orthostasis (Acute) Hypomagnesemia (Acute) Weakness (Acute) Tick bite (Acute) Acute hypotension (Acute) Gastritis (Acute) Inflammatory polyps (Acute) Hyperplastic colon polyp (Acute) Tubular adenoma of colon (Acute) Inflammatory bowel diseases (IBD) (Acute) Shoulder pain (Acute) Blood in stool (Acute) Medical History Adenomatous colon polyp (~12/02/13) Dr. Sorenson 2013 was to repeat in 3 yrs. 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 Dystrophic nail Elevated alkaline phosphatase level Hypercalcemia Hyperlipidemia Hypothyroidism Osteoarthritis Polyp of colon Tingling sensation Surgical History History of colonoscopy (~02/2022) History of esophagogastroduodenoscopy (EGD) (~02/2022) History of umbilical hernia repair Family History (Updated 01/26/23 @ 20:01 by Cinita Portillo MD) Brother Cancer prostate Brother IBD (inflammatory bowel disease) Social History Smoking/Tobacco Use Status: Never Smoking risk assessment performed?: Yes Alcohol Intake: current Alcohol Intake frequency: holidays/special occasions only Drug use: Never Substance use type: does not use Housing: apartment Do you feel safe at home: Yes Do you feel safe in your relationship?: Yes Meds Allergies and Home Medications Allergies Allergy/AdvReac Type Severity Reaction Status Date / Time No Known Allergies Allergy Verified 01/26/23 10:57 Home Medications Medication Instructions Recorded Confirmed Type levothyroxine 150 mcg tablet 150 mcg PO DAILY 03/02/22 01/26/23 History (Synthroid) omeprazole magnesium 20 mg 20 mg PO DAILY 03/02/22 01/26/23 History tablet,delayed release (Prilosec OTC) budesonide 3 mg See Rx Instructions PO DAILY #126 04/12/22 01/26/23 Rx capsule,delayed,extended release caps balsalazide 750 mg capsule 2,250 mg PO TID 05/02/22 01/26/23 History doxycycline hyclate 100 mg capsule 100 mg PO BID 10 days #20 caps 01/26/23 Rx magnesium 250 mg tablet 250 mg PO DAILY #10 tabs 01/26/23 Rx ondansetron 4 mg disintegrating 4 mg PO Q8H PRN #10 tabs 01/26/23 Rx tablet Exam Narrative Exam Narrative: General: Pleasant male who is resting, easily arousable, A&Ox3, appears comfortable in bed Neurological: A&Ox3, no focal deficits Psychiatric: Appropriate speech pattern/content Skin: A small erythematous lesion in R axilla which appears to be either a small area of folliculitis or a tick bite HEENT: Atraumatic, normocephalic, EOMI, dry MM, clear oropharynx, no submandibular or cervical lymphadenopathy, no goiter or JVD Cardiovascular: RRR, no m/r/g Lungs: CTAB Gastrointestinal: soft, nontender, nondistended Genitourinary: deferred Extremities: L hip incision well healed, no evidence of erythema/drainage, no edema, clubbing, or cyanosis, wearing TEDS Results Imaging Additional studies: CT head: No acute intracranial process. CXR: No acute? findings. Labs 01/26/23 11:15 01/26/23 11:15 Labs: Laboratory Results - last 24 hr 01/26/23 01/26/23 01/26/23 11:15 11:15 11:15 WBC 5.05 RBC 4.66 Hgb 14.3 Hct 42.3 MCV 91 MCH 30.7 MCHC 33.8 RDW 13.9 Plt Count 156 MPV 8.9 Immature Gran % 0.4 Neutrophils % 91.5 Lymphocytes % 5.3 Monocytes % 2.4 Eosinophils % 0.0 Basophils % 0.4 Nucleated RBC % 0.0 Absolute Neutrophils 4.62 Absolute Lymphocytes 0.27 L Absolute Monocytes 0.12 Absolute Eosinophils 0.00 Absolute Basophils 0.02 VBG Lactate Sodium 134 L Potassium 3.9 Chloride 100 Carbon Dioxide 22.2 Anion Gap 11.8 H BUN 13 Creatinine 1.4 H Est GFR (CKD-EPI 2020) 54.07 Glucose 162 H Calcium 10.0 Magnesium 1.7 L Total Bilirubin 0.7 AST 39 H ALT 39 Alkaline Phosphatase 144 H Creatine Kinase 65 Troponin I < 50 Cancelled C-Reactive Protein Total Protein 7.5 Albumin 3.5 Lipase 37 Procalcitonin TSH 0.41 Urine Color Urine Clarity Urine pH Ur Specific [place] Urine Protein Urine Ketones Urine Blood Urine Nitrite Urine Bilirubin Urine Urobilinogen Ur Leukocyte Esterase Urine Glucose COVID-19 Source SARS-CoV-2 (PCR) Add-On Test Request 01/26/23 01/26/23 01/26/23 11:41 12:10 16:04 WBC RBC Hgb Hct MCV MCH MCHC RDW Plt Count MPV Immature Gran % Neutrophils % Lymphocytes % Monocytes % Eosinophils % Basophils % Nucleated RBC % Absolute Neutrophils Absolute Lymphocytes Absolute Monocytes Absolute Eosinophils Absolute Basophils VBG Lactate 1.0 Sodium Potassium Chloride Carbon Dioxide Anion Gap BUN Creatinine Est GFR (CKD-EPI 2020) Glucose Calcium Magnesium Total Bilirubin AST ALT Alkaline Phosphatase Creatine Kinase Troponin I < 50 C-Reactive Protein Total Protein Albumin Lipase Procalcitonin 0.8 TSH Urine Color Urine Clarity Urine pH Ur Specific [place] Urine Protein Urine Ketones Urine Blood Urine Nitrite Urine Bilirubin Urine Urobilinogen Ur Leukocyte Esterase Urine Glucose COVID-19 Source Nasal/Nares SARS-CoV-2 (PCR) Negative Add-On Test Request 01/26/23 01/26/23 01/26/23 16:04 16:04 16:21 WBC RBC Hgb Hct MCV MCH MCHC RDW Plt Count MPV Immature Gran % Neutrophils % Lymphocytes % Monocytes % Eosinophils % Basophils % Nucleated RBC % Absolute Neutrophils Absolute Lymphocytes Absolute Monocytes Absolute Eosinophils Absolute Basophils VBG Lactate Sodium Potassium Chloride Carbon Dioxide Anion Gap BUN Creatinine Est GFR (CKD-EPI 2020) Glucose Calcium Magnesium Total Bilirubin AST ALT Alkaline Phosphatase Creatine Kinase Troponin I C-Reactive Protein 10.57 H Total Protein Albumin Lipase Procalcitonin TSH Urine Color Yellow Urine Clarity Clear Urine pH 5.5 Ur Specific [place] 1.010 Urine Protein Negative Urine Ketones Negative Urine Blood Negative Urine Nitrite Negative Urine Bilirubin Negative Urine Urobilinogen 1.0 H Ur Leukocyte Esterase Negative Urine Glucose Negative COVID-19 Source SARS-CoV-2 (PCR) Add-On Test Request DONE Last Vital Signs Temp 36.3 C L 01/26/23 17:19 Pulse 66 01/26/23 18:31 Resp 18 01/26/23 18:31 BP 93/58 L 01/26/23 18:31 Pulse Ox 95 01/26/23 18:16 PAWSS Have you Been Recently Intoxicated or Drunk Within the Last 30 days?: No Have you Ever Experienced Previous Episodes of Alcohol Withdrawal?: No Have you ever Experienced Withdrawal Seizures?: No Have you ever Experienced Delirium Tremens(DT)s?: No Have you ever undergone Alcohol Rehabilitation Treatment (i.e, inpt ot outpatient treatment programs)?: No Have you ever Experienced Blackouts?: No Have you ever Combined Alcohol with other Downers within the last 90 days?: No Have you ever Combined Alcohol with any other Substance of Abuse during the last 90 days?: No Positive Blood Alcohol level on Presentation? [PCS.BAL]: No Evidence of Increased Autonomic Activity (i.e. HR>120, tremor, sweating, agitation, nausea)?: No Result: 0 Time Spent Time spent with Patient: 40-54 minutes Time was spent: preparing to see the patient(eg.review tests), obtaining and/or reviewing separately otained hiistory, ordering medications,tests, procedures, referring, communicating with other health lawn care technician, indepentently interpreting results, counseling the patient and care coordination
[2023-01-26] MEDS: Lactated Ringers 1,000 ML 150 ML IV (19:39)
[2023-01-26] MEDS: MAGNESIUM SULFATE 2 GM/50 ML BAG IVPB (19:39)
[2023-01-26] MEDS: Docusate Sodium 100 MG CAP PO (20:27)
[2023-01-26] MEDS: VANCOMYCIN 2,000 MG in Normal Saline 500 ML 250 MG IVPB (20:45)
[2023-01-26] MEDS: Normal Saline Flush 10 ML SYR IVP (21:23)
[2023-01-27] VITALS (68 sets, daily range): BP systolic 94–124; BP diastolic 57–87; PULSE 56–86; RESP 13–24; TEMP 36.7–37.5; O2SAT 91–97
[2023-01-27] MEDS: DOXYCYCLINE 100 MG in Normal Saline 100 ML IVPB (03:56)
[2023-01-27] MEDS: Levothyroxine 75 MCG TAB 150 MCG PO (06:03)
[2023-01-27] MEDS: Acetaminophen 325 MG TAB PO (06:10)
[2023-01-27 07:30] LABS: Abs Immature Grans 0.01 10^3/uL (0.0-0.06); Absolute Lymphocyte Count 0.43 10^3/uL (1.2-3.4); Absolute Monocyte Count 0.29 10^3/uL (0.1-0.8); Absolute Neutrophil Count 2.81 10^3/uL (1.2-6.7); HCT 38.1 % (40.0-50.0); HGB 12.8 g/dL (13.5-17.5); Immature Grans % 0.3; Lymphocytes % 12.1; MCH 30.7 pg (27.0-33.0); MCHC 33.6 % (32.0-36.0); MCV 91 fL (80-95); MPV 10.5 fL (8.0-11.0); Monocytes % 8.2; Neutrophils % 79.4; Platelet Count 122 10^3/uL (130-400); RBC 4.17 10^6/uL (4.36-5.78); RDW 13.8 % (11.8-14.1); RDW-SD 46.7 fL; WBC 3.54 10^3/uL (4.4-10.8)
[2023-01-27 07:52] LABS: Anion Gap 7.5 mmol/L (3-11); BUN 11 mg/dL (7-18); C-Reactive Protein 7.31 mg/dL (0.0-0.3); CO2 25.5 mmol/L (21.0-32.0); Calcium 10.1 mg/dL (8.5-10.1); Chloride 105 mmol/L (98-107); Estimated GFR 80.97 (mL/min/1.73m2); Glucose 134 mg/dL (74-106); Magnesium 1.9 mg/dL (1.8-2.4); Potassium 4.1 mmol/L (3.5-5.1); Sodium 138 mmol/L (136-145)
[2023-01-27] MEDS: Omeprazole 20 MG CAPCR PO (08:20)
[2023-01-27] MEDS: Docusate Sodium 100 MG CAP PO (08:20)
--- NOTE | 2023-01-27 11:08 | PT.INIE ---
PT Notes Visit Reasons: ?Impending Septic Shock, Tick-Borne Illness Inpatient Physical Therapy Evaluation Date: 01/27/23 Referring Doctor: Dr. Portillo PT Orders: PT CONSULT: limited ability to ambulate Precautions: standard Patient Profile/Admitting Diagnosis: Patient admitted 01/26/23 after presenting to ED with headache and fatigue. Admitted to ICU for hypotension and possible sepsis. He is 6 weeks s/p left RAFIQ (Mr. Umaña, [facility] [place]) PMHX: All Active Problems?(Updated 01/26/23 @ 18:58 by Cintia Portillo MD) Discharge planning issues (Acute) DVT prophylaxis (Acute) Myalgia (Acute) Orthostasis (Acute) Hypomagnesemia (Acute) Weakness (Acute) Tick bite (Acute) Acute hypotension (Acute) Gastritis (Acute) Inflammatory polyps (Acute) Hyperplastic colon polyp (Acute) Tubular adenoma of colon (Acute) Inflammatory bowel diseases (IBD) (Acute) Shoulder pain (Acute) Blood in stool (Acute) Medical History? Adenomatous colon polyp (~12/02/13) Dr. Sorenson 2013 was to repeat in 3 yrs.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 Dystrophic nail Elevated alkaline phosphatase level Hypercalcemia Hyperlipidemia Hypothyroidism Osteoarthritis Polyp of colon Tingling sensation Social History/Home Situation: Active and independent. 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 Equipment Owned/DME: [employer] post-operatively; does not use currently or at baseline Subjective: Jakub states that he's feeling really good. He is hopeful that he just overdid it yesterday and that he'll be cleared to go home today. He's currently awaiting test results. He denies dizziness or lightheadedness. Feels somewhat fatigued, which he attributes to being in bed all day. States that he had been participating in outpatient PT for post-op rehab following his recent left RAFIQ. That's been going well. No pain in the left hip currently. Objective: General Observation: Resting in bed. No lines. Mental Status: A&Ox3. Somewhat impulsive with movement during evaluation. Pain: denies ROM: Right Upper Extremity: WFL Left Upper Extremity: WFL Right Lower Extremity: WFL Left Lower Extremity: WFL Strength: Right Upper Extremity: WFL Left Upper Extremity: WFL Right Lower Extremity: Hip flexion 5/5. Quads 5/5. Hamstrings 5/5. Ankle DF 5/5 Left Lower Extremity: Hip flexion 5/5. Quads 5/5. Hamstrings 5/5. Ankle DF 5/5 Bed Mobility/Transfers: supine-sit: independent sit-supine: independent sit-stand: independent stand-sit: independent Gait: Ambulates 300' without AD, independent. No path deviation or losses of balance. Post-ambulation, BP 116/69. Balance: Static Sitting: NL Dynamic Sitting: NL Static Standing: NL Dynamic Standing: NL 4-Position Balance Test: Small DAVINA: 10 seconds Partial Tandem: 10 seconds Full Tandem: 10 seconds Single Leg Stance: 20 seconds right, 10 seconds left Special Tests: Mobility Limitations Standardized Measure [facility] AM-PAC 6 clicks Basic Mobility Inpatient Short Form: Raw Score: 24 CMS Score: 0% impairment Informed Consent/Education: Patient instructed in purpose of PT consult and plan of care. Treatment: Initial Evaluation (15332) Therapeutic Exercises ([id number]): Review HEP and encourage continuation during hospitalization: 1. glute sets 2. quad sets 3. standing heel raises 4. standing hip AB- verbal and tactile cues for avoidance of compensatory trunk motion 5. bridges Assessment: Patient is a 72 year old male referred to physical therapy services with the diagnosis of limited ability to ambulate. On evaluation today, he demonstrates good independence with transfers and ambulation. He is safe for independent ambulation during hospital stay, and has been encouraged to walk and resume his HEP for post-op management of his hip. He is appropriate for safe discharge to community once medically stable, with recommendation of resumption of outpatient PT services at that time. No further PT intervention required in acute care setting. He currently demonstrates the following impairment level findings: 1. decreased single leg stand time on the left vs right Impairments are contributing to the following functional limitations: 1. minor balance impairment, consistent with post-op status Patient is assessed as a Low 80743 complexity based on the following: History: Jakub is an active and independent 72 year old male, presenting for evaluation of mobility during acute care stay for possible sepsis. He is 6 weeks s/p left RAFIQ. Examination: functional limitations as above Presentation: evolving Decision Making: low complexity Plan of Care/Treatment Plan: No further PT intervention required during acute care stay. Resume PT HEP independently in room. DISCHARGE RECOMMENDATIONS: Home with outpatient PT TREATMENT CODE/TIME: 50063, [id number] 11:10-11:40 Anjana Wilkins, PT, DPT [facility]
[2023-01-27 11:41] LABS: Lyme Ab w Rflx to Lyme Confirm Negative (Negative)
[2023-01-27] MEDS: VANCOMYCIN/WATER (PEG) 1.5 GM/300 ML BAG IVPB (13:32)
[2023-01-27] MEDS: cefTRIAXone 2 GM/50 ML BAG IVPB (13:32)
--- NOTE | 2023-01-27 14:46 | INITIAL_ITS ---
Date of service: 01/27/23 Time of Service: 14:46 Care Management Initial Assmt Initial Assessment REASON FOR HOSPITALIZATION:: Acute hypotension PREVIOUS FUNCTIONAL STATUS/SOCIAL/FAMILY SUPPORTS:: Jakub lives in [place], alone. His brother, Moise lives in [place]. He also has two daughters, whom he is close with. His neighbor is helpful in the event he needs support, but he is overall very independent. 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 He stays busy doing projects on his home, drives, and is independent with all ADL's. CURRENT FUNCTIONAL STATUS:: Jakub was lying in bed when CM met with him. He stated that he is feeling much better today, and is looking forward to being discharged. Per MD, if his blood cultures are negative he will be discharged today, which were still pending at the time CM met with him. He stated that he is very independent and does not require any services in the community at this time. CM will continue to follow. ADVANCE DIRECTIVES:: Not on file, CM will offer forms. Has patient been provided with info about the portal/API?: Yes Did the patient sign up for the portal?: Yes CODE STATUS:: Full Code INSURANCE COVERAGE / FINANCIAL ISSUES:: [employer], MCR replacement CURRENT HOME/COMMUNITY SERVICES/EQUIPMENT:: none known PRIMARY CARE PHYSICIAN:: Jakub Abrams POTENTIAL DISCHARGE NEEDS:: Evaluations for further needs, follow up appointments. PATIENT/FAMILY EDUCATION NEEDS:: Review discharge instructions and limitations, discussion of self care needs including ask me three. ANTICIPATED BARRIERS TO DISCHARGE:: None identified. TRANSPORTATION:: Via private vehicle. PLAN:: Anticipate Jakub will return home once medically cleared, and will transport via private vehicle. He will follow up with his PCP and discharge plan of care. CM will continue to follow. PFSH All Active Problems (Updated 01/27/23 @ 15:45 by Cintia Portillo MD) Discharge planning issues (Acute) DVT prophylaxis (Acute) Weakness (Acute) Tick bite (Acute) Gastritis (Acute) Inflammatory polyps (Acute) Hyperplastic colon polyp (Acute) Tubular adenoma of colon (Acute) Inflammatory bowel diseases (IBD) (Acute) Shoulder pain (Acute) Blood in stool (Acute) Medical History Adenomatous colon polyp (~12/02/13) Dr. Yas Lockwood was to repeat in 3 yrs. 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 Dystrophic nail Elevated alkaline phosphatase level Hypercalcemia Hyperlipidemia Hypothyroidism Osteoarthritis Polyp of colon Tingling sensation Surgical History History of colonoscopy (~02/2022) History of esophagogastroduodenoscopy (EGD) (~02/2022) History of umbilical hernia repair Family History (Updated 01/26/23 @ 20:01 by Cintia Portillo MD) Brother Cancer prostate Brother IBD (inflammatory bowel disease) Social History Smoking/Tobacco Use Status: Never Smoking risk assessment performed?: Yes Alcohol Intake: current Alcohol Intake frequency: holidays/special occasions only Drug use: Never Substance use type: does not use Housing: apartment Do you feel safe at home: Yes Do you feel safe in your relationship?: Yes
--- NOTE | 2023-01-27 15:11 | CHAPLAIN ---
Jakub was resting in bed when I visited. He is a member of the [facility] but declined my offer to contact the sikh for him. Jakub said he thinks he'll be discharged after he gets the results from some tests. He's being checked for Lymn disease and a staff infection. Jakub explained that he was up early yesterday doing some physical work, was very active thorough out the day, then stayed out late to watch fireworks, without probably drinking enough on day with very high temperatures. Jakub remember Rev. Tammi De, the first manager club here. 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
--- NOTE | 2023-01-27 15:42 | W.PM.DS.N ---
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 (5) Lyme disease: Status: Suspected (6) Dehydration: Status: Resolved (7) Hypomagnesemia: Status: Resolved (8) Myalgia: Status: Resolved Discharge Plan Disposition Patient Disposition: Home Condition: Improving Discharge Details Reason For Visit: ?Impending Septic Shock, Tick-Borne Illness Admit Date/Time: 01/26/23 15:17 Admit Provider: Cintia Portillo Attending Provider: Cintia Portillo Primary Care Provider: Jakub Abrams [facility] Hospital Course: Mr Fuller is a 72 year old male with PMHx of non-oxygen dependent COPD, IBD, L total hip replacement 5 weeks ago ([facility] [place]), hypothyroidism, who was admitted to [facility] ICU under the hospitalist service having presented with systemic symptoms of headache, fatigue, generalized weakness, myalgias, and nausea/vomiting. While some of this could have been due to dehydration, with the patient admitting to spending three days outdoors without sufficient fluid intake, he did also report a possible recent tick bite. There were no meningeal signs. There was no evidence of infection of his L hip - no pain, no fever, no erythema/drainage. He was hypotensive in the ED (and orthostatic). He was started on empiric doxycycline, ceftriaxone, and, due to the history of a recent hip surgery, vancomycin, as well as aggressive IV hydration as he was hypotensive and orthostatic. His BP normalized by the 2nd day in the hospital, and we were able to transfer him to the medical surgical floor. His blood cultures came back negative, as I have confirmed with microbiology. While his tick panel is pending at the time of discharge, there is a strong clinical suspicion for anaplasmosis and Lyme disease based on the symptoms. The patient is being prescribed a two week course of doxycycline on discharge. He is medically stable and ready for discharge home today. He should follow up with his PCP in 1-2 weeks. Care for patient as well as completion of his discharge summary on day of discharge took 45 minutes. Home Meds and New Rx's Prescriptions: New magnesium 250 mg tablet 250 mg PO DAILY Qty: 10 0RF ondansetron 4 mg tablet,disintegrating 4 mg PO Q8H PRNQty: 10 0RF doxycycline hyclate 100 mg tablet 100 mg PO BID Qty: 28 0RF Continued levothyroxine [Synthroid] 150 mcg tablet 150 mcg PO DAILY omeprazole magnesium [Prilosec OTC] 20 mg tablet,delayed release (DR/EC) 20 mg PO DAILY balsalazide 750 mg capsule 2,250 mg PO TID Discharge Instructions Instructions: Doxycycline (By mouth), Tick Bite (ED), Weakness (ED) Additional Instructions: Take the doxycycline as prescribed. Return to the hospital with any fever, bleeding, chest pain, or shortness of breath. Stay well hydrated! Wear bug spray! Doxycycline causes sun sensitivity - it is important to stay out of the sun while on therapy. Follow up with the PCP in 1-2 weeks. Referrals: Jakub Abrams [Primary Care Provider] - Activity:: Activity as Tolerated Equipment/Supplies:: No Equipment Needed Diet:: As Tolerated Discharge Orders Discharge Orders: Discharge Order (Routine); Ordered 01/27/23 Ordered By: Cintia Portillo DS: Summary Time Spent with Patient providing and/or coordinating discharge services: Greater than 30 minutes Status at Discharge Functional status at discharge: independent ambulation Overall status at discharge: patient is progressing back to baseline Mental Status: mental status grossly normal Speech and Movement: speech and movement normal Mood: congruent mood Affect: normal affect Exam Narrative Exam Narrative: General: Patient seen ambulating in the garcia, looks much better HEENT: EOMI, MMM Cardiovascular: RRR, no m/r/g Lungs: CTAB Gastrointestinal: soft, nontender, nondistended Extremities: L hip incision well healed, no evidence of erythema/drainage, no edema, clubbing, or cyanosis Psych Mental Status: mental status grossly normal Speech and Movement: speech and movement normal Mood: congruent mood Affect: normal affect DS: Data Vitals/I&O Vitals and I&O: Vital Signs Temperature 37.5 C 01/27/23 14:32 Temperature Source Temporal Artery Scan 01/27/23 14:32 Pulse 66 01/27/23 11:34 Pulse 64 01/27/23 09:30 Respiratory Rate 16 01/27/23 09:30 Respiratory Effort Normal 01/27/23 07:37 Respiratory Depth Normal 01/27/23 07:37 Respiratory Pattern Normal 01/27/23 07:37 Blood Pressure 116/69 01/27/23 11:34 Blood Pressure Mean 79 01/27/23 11:34 Blood Pressure Position Sitting 01/26/23 17:10 Pulse Oximetry 96 01/27/23 09:30 Oxygen Delivery Method Room Air 01/27/23 07:37 Oxygen Flow Rate 0 01/27/23 07:37 Pain Level 0 01/27/23 08:00 Intake & Output 01/26/23 01/27/23 01/27/23 23:59 11:59 23:59 Intake Total 3270 / 3270 2240 / 2830 590 / 2830 Output Total 1999 1950 / 2675 725 / 2675 Balance 1270 / 1270 290 / 155 -135 / 155 Weight 93.4 kg Intake: IV 3270 / 3270 1600 / 1950 350 / 1950 Oral 640 / 880 240 / 880 Output: Urine 1999 1450 / 2175 725 / 2175 Stool 500 / 500 Other: Urine Color Light Gabriella Yellow Yellow Urine Appearance Clear Clear Clear Urine Odor Normal Normal None Comment Pt voided 525 mL into urinal has voided a large amount so far this shift. Uses urinal without difficulty Stool Size Large Stool Characteristics Soft Formed Voiding Methods Urinal Bedside Commode Urinal Data Completed and Pending Completed studies during hospitalization [Text1]: CT head w/o contrast: No acute intracranial process. CXR: No acute? findings. Labs on day of discharge: Labs from last 24 hours 01/27/23 01/27/23 01/27/23 18:00 06:15 06:15 WBC 3.54 L RBC 4.17 L Hgb 12.8 L Hct 38.1 L MCV 91 MCH 30.7 MCHC 33.6 RDW 13.8 Plt Count 122 L MPV 10.5 Immature Gran % 0.3 Neutrophils % 79.4 Lymphocytes % 12.1 Monocytes % 8.2 Eosinophils % 0.0 Basophils % 0.0 Nucleated RBC % 0.0 Absolute Neutrophils 2.81 Absolute Lymphocytes 0.43 L Absolute Monocytes 0.29 Absolute Eosinophils 0.00 Absolute Basophils 0.00 Sodium 138 Potassium 4.1 Chloride 105 Carbon Dioxide 25.5 Anion Gap 7.5 BUN 11 Creatinine 1.0 Est GFR (CKD-EPI 2021) 80.97 Glucose 134 H Calcium 10.1 Magnesium 1.9 Troponin I C-Reactive Protein 7.31 H Urine Color Urine Clarity Urine pH Ur Specific [place] Urine Protein Urine Ketones Urine Blood Urine Nitrite Urine Bilirubin Urine Urobilinogen Ur Leukocyte Esterase Urine Glucose Vancomycin Trough Pending Lyme Disease Antibody Add-On Test Request 01/26/23 01/26/23 01/26/23 16:21 16:04 16:04 WBC RBC Hgb Hct MCV MCH MCHC RDW Plt Count MPV Immature Gran % Neutrophils % Lymphocytes % Monocytes % Eosinophils % Basophils % Nucleated RBC % Absolute Neutrophils Absolute Lymphocytes Absolute Monocytes Absolute Eosinophils Absolute Basophils Sodium Potassium Chloride Carbon Dioxide Anion Gap BUN Creatinine Est GFR (CKD-EPI 2020) Glucose Calcium Magnesium Troponin I C-Reactive Protein 10.57 H Urine Color Yellow Urine Clarity Clear Urine pH 5.5 Ur Specific [place] 1.010 Urine Protein Negative Urine Ketones Negative Urine Blood Negative Urine Nitrite Negative Urine Bilirubin Negative Urine Urobilinogen 1.0 H Ur Leukocyte Esterase Negative Urine Glucose Negative Vancomycin Trough Lyme Disease Antibody Add-On Test Request DONE 01/26/23 01/26/23 16:04 12:10 WBC RBC Hgb Hct MCV MCH MCHC RDW Plt Count MPV Immature Gran % Neutrophils % Lymphocytes % Monocytes % Eosinophils % Basophils % Nucleated RBC % Absolute Neutrophils Absolute Lymphocytes Absolute Monocytes Absolute Eosinophils Absolute Basophils Sodium Potassium Chloride Carbon Dioxide Anion Gap BUN Creatinine Est GFR (CKD-EPI 2020) Glucose Calcium Magnesium Troponin I < 50 C-Reactive Protein Urine Color Urine Clarity Urine pH Ur Specific [place] Urine Protein Urine Ketones Urine Blood Urine Nitrite Urine Bilirubin Urine Urobilinogen Ur Leukocyte Esterase Urine Glucose Vancomycin Trough Lyme Disease Antibody Negative Add-On Test Request 01/26/23 21:53 Nose MRSA Screen - Pending 01/26/23 14:48 Blood Blood Culture - Pending 01/26/23 14:38 Blood Blood Culture - Pending Preliminary micro results at discharge 01/26/23 16:21 Urine Culture - Preliminary Urine - Voided 01/26/23 21:53 MRSA Screen - Pending Nose 01/26/23 14:48 Blood Culture - Pending Blood 01/26/23 14:38 Blood Culture - Pending Blood PFSH All Active Problems (Updated 01/27/23 @ 15:45 by Cintia Portillo MD) Discharge planning issues (Acute) DVT prophylaxis (Acute) Weakness (Acute) Tick bite (Acute) Gastritis (Acute) Inflammatory polyps (Acute) Hyperplastic colon polyp (Acute) Tubular adenoma of colon (Acute) Inflammatory bowel diseases (IBD) (Acute) Shoulder pain (Acute) Blood in stool (Acute) Medical History Adenomatous colon polyp (~12/02/13) Dr. Sorenson 2013 was to repeat in 3 yrs. 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 Dystrophic nail Elevated alkaline phosphatase level Hypercalcemia Hyperlipidemia Hypothyroidism Osteoarthritis Polyp of colon Tingling sensation Surgical History History of colonoscopy (~02/2022) History of esophagogastroduodenoscopy (EGD) (~02/2022) History of umbilical hernia repair Family History (Updated 01/26/23 @ 20:01 by Cintia Portillo MD) Brother Cancer prostate Brother IBD (inflammatory bowel disease) Social History Smoking/Tobacco Use Status: Never Smoking risk assessment performed?: Yes Alcohol Intake: current Alcohol Intake frequency: holidays/special occasions only Drug use: Never Substance use type: does not use Housing: apartment Do you feel safe at home: Yes Do you feel safe in your relationship?: Yes Time Spent with Patient Time Spent with Patient: 45-69 minutes Time was spent: preparing to see the patient(eg.review tests), obtaining and/or reviewing separately otained hiistory, ordering medications,tests, procedures, referring, communicating with other health personal care worker, indepentently interpreting results, counseling the patient and care coordination
--- NOTE | 2023-01-27 18:41 | PDOC.CMDIS ---
Date of service: 01/27/23 Time of Service: 18:41 LACE Index Scoring Tool Questions: Length of Stay (in days): 1 Was the patient admitted via the E.D.?: Yes E.D. Visits: 0 Answers: Total Score: 4 Risk of Readmission: Low Risk Care Management Discharge Plan Reason for Hospitalization: Acute hypotension Discharge Plan: Jakub will return home today with no new services, after his blood cultures returned negative, per MD. His neighbor will drive him home via private vehicle. He will follow up with his PCP and discharge plan of care. He is happy to be going home. Patient/Family Education Needs: Review discharge instructions and limitations, discussion of self care needs including ask me three.
[2023-01-29 16:58] LABS: B. miyamotoi PCR Negative (Negative); Babesia divergens/MO-1 Negative (Negative); Babesia duncani Negative (Negative); Babesia microti Negative (Negative); Ehrlichia chaffeensis Negative (Negative); Ehrlichia ewingii/canis Negative (Negative); Ehrlichia muris eauclairensis Negative (Negative)
[2023-01-29 18:03] LABS: Anaplasma phagocytophilum Positive (Negative)
== END 2023-01-27 16:40 | disposition home or self-care (01) | DRG 868 ==
LOC: ER 16:01 → ICU 18:08
PROVIDERS: Admitting Provider Internal Medicine; Emergency Provider Physician Assistant; PCP Family Medicine; Visit Provider Internal Medicine
DX: A77.49 Other ehrlichiosis (principal); I95.1 Orthostatic hypotension; R53.1 Weakness; E83.42 Hypomagnesemia; M79.10 Myalgia, unspecified site; E86.0 Dehydration; J44.9 Chronic obstructive pulmonary disease, unspecified; K58.9 Irritable bowel syndrome, unspecified; K21.9 Gastro-esophageal reflux disease without esophagitis; Z96.642 Presence of left artificial hip joint; K57.30 Diverticulosis of large intestine without perforation or abscess without bleeding; S40.861A Insect bite (nonvenomous) of right upper arm, initial encounter; E03.9 Hypothyroidism, unspecified; W57.XXXA Bitten or stung by nonvenomous insect and other nonvenomous arthropods, initial encounter
CPT/HCPCS: 36415; 80048; 80053; 82550; 83690; 84145; 87040; 87081; 87635; 87798; 93005; 96361; 96365; 96366; 96368; 96375; 96376; 97110; 97161; 99285; J1650; 70450; 71045; 80202; 81003; 83605; 83735; 84443; 84484; 85025; 86140; 86618; 87086; 93010; 99223; 99239; J0131; J0780; J1100; J1885

== ENCOUNTER → 2023-04-06 01:13 | Outpatient (CLI) | payer OTHER, SELFPAY ==
--- NOTE | 2023-04-06 08:30 | DI.DEXA_ITS ---
Exam(s) XR DEXA BONE DENSITY W/WO ALEX EXAM: XR DEXA BONE DENSITY W/WO ALEX CLINICAL HISTORY: PRIMARY HYPERPARATHYROIDISM, E21.0,EVAL 1/3 RADIUS TECHNIQUE: Routine DEXA evaluation of the lumbar spine, hip, or forearm. COMPARISON: No exams were available for comparison FINDINGS: Performed on a Hologic unit. Lateral image: No compression fracture evident. Lumbar Spine total T-score: 1.3 Hip total T-score:-1.1 Independent reading at the level of the femoral neck yields T-score of -1.6 Forearm total T-score: -0.5 IMPRESSION: Bone mineral density measures in the osteopenia range. Fracture risk is moderate. Note: Any spine fracture indicates 5x risk for subsequent spine fracture and 2x risk for subsequent h ip fracture. World Health Organization criteria for BMD interpretation classify patients: Normal...... T- Score at or above -1.0 Osteopenic... T- Score between -1.0 and -2.5 Osteoporosis... T-Score at or below -2.5
== END ==
PROVIDERS: PCP Family Medicine; Visit Provider Internal Medicine Endocrinology, Diabetes & Metabolism
DX: E21.0 Primary hyperparathyroidism (principal); Z13.820 Encounter for screening for osteoporosis; M81.0 Age-related osteoporosis without current pathological fracture
CPT/HCPCS: 77080

== ENCOUNTER 2023-05-24 09:40 | Outpatient (REF) | payer OTHER, SELFPAY ==
[2023-05-25 09:07] LABS: Calcium Urine 11.1 mg/dL (See Note); Calcium Urine 24 hr 361 mg/24hr (100-300); Timed Urine Volume 3250 mL
== END 2023-05-24 09:41 | disposition home or self-care (01) ==
LOC: LBN 09:40
PROVIDERS: PCP Family Medicine; Visit Provider Internal Medicine Endocrinology, Diabetes & Metabolism
DX: E83.52 Hypercalcemia (principal)
CPT/HCPCS: 81050; 82340

== ENCOUNTER 2023-06-05 20:52 | Outpatient (CLI) | payer OTHER, SELFPAY ==
[2023-06-05 16:05] LABS: Abs Immature Grans 0.02 10^3/uL (0.0-0.06); Absolute Basophil Count 0.11 10^3/uL (0.0-0.2); Absolute Eosinophil Count 0.57 10^3/uL (0.0-0.7); Absolute Lymphocyte Count 2.38 10^3/uL (1.2-3.4); Absolute Neutrophil Count 4.81 10^3/uL (1.2-6.7); Basophils % 1.3; Eosinophils % 6.6; HCT 50.6 % (40.0-50.0); HGB 16.9 g/dL (13.5-17.5); Immature Grans % 0.2; Lymphocytes % 27.7; MCH 31.3 pg (27.0-33.0); MCHC 33.4 % (32.0-36.0); MCV 94 fL (80-95); MPV 8.7 fL (8.0-11.0); Monocytes % 8.1; Neutrophils % 56.1; Platelet Count 322 10^3/uL (130-400); RDW 14.2 % (11.8-14.1); RDW-SD 49.5 fL; WBC 8.59 10^3/uL (4.4-10.8)
[2023-06-05 16:32] LABS: ALT 24 U/L (16-63); AST 12 U/L (15-37); Albumin 4.2 g/dL (3.4-5.0); Alkaline Phosphatase 178 U/L (46-116); Anion Gap 8.5 mmol/L (3-11); BUN 18 mg/dL (7-18); Bilirubin, Total 0.3 mg/dL (0.2-1.0); CO2 28.5 mmol/L (21.0-32.0); CREATININE 1.4 mg/dL (0.70-1.30); Chloride 104 mmol/L (98-107); Estimated GFR 54.07 (mL/min/1.73m2); Glucose 109 mg/dL (74-106); Potassium 4.2 mmol/L (3.5-5.1); Sodium 141 mmol/L (136-145); Total Protein 8.6 g/dL (6.4-8.2)
[2023-06-05 16:41] LABS: Calcium 11.6 mg/dL (8.5-10.1)
[2023-06-07 10:32] LABS: Lyme Ab w Rflx to Lyme Confirm Negative (Negative)
== END 2023-06-05 20:53 | disposition home or self-care (01) ==
LOC: LBO 20:53
PROVIDERS: PCP Family Medicine; Visit Provider Family Medicine
DX: D69.9 Hemorrhagic condition, unspecified (principal)
CPT/HCPCS: 36415; 80053; 85025; 86618

== ENCOUNTER → 2023-10-17 13:11 | Outpatient (CLI) | payer OTHER, SELFPAY ==
--- NOTE | 2023-10-17 13:03 | DI.RAD_ITS ---
Exam(s) XR WRIST RT COMPLETE EXAM: XR WRIST RT COMPLETE CLINICAL HISTORY: M25.5603 Pain in right wrist, assess for arthritis. TECHNIQUE: 2D digital imaging was performed of the right wrist. Three views were obtained. PA, lat eral and oblique views were obtained. COMPARISON: No exams were available for comparison FINDINGS: BONES: No acute fracture is present. No bony destructive lesion is seen. JOINTS: The carpal bones are normally aligned. No significant arthritic changes seen. No joint space narrowing or osteophytes are seen. No periarticular osteopenia or erosions are present. SOFT TISSUE: Normal. IMPRESSION: No acute abnormality. The joint spaces are all well maintained. DATA REPOSITORY: RADIATION DOSE DELIVERED:
== END ==
PROVIDERS: PCP Family Medicine; Visit Provider Student in an Organized Health Care Education/Training Program
DX: M25.561 Pain in right knee (principal)
CPT/HCPCS: 73110

== ENCOUNTER 2023-10-17 20:26 | Outpatient (REF) | payer OTHER, SELFPAY ==
[2023-10-17 15:08] LABS: Abs Immature Grans 0.01 10^3/uL (0.0-0.06); Absolute Basophil Count 0.07 10^3/uL (0.0-0.2); Absolute Eosinophil Count 0.41 10^3/uL (0.0-0.7); Absolute Lymphocyte Count 1.59 10^3/uL (1.2-3.4); Absolute Monocyte Count 0.72 10^3/uL (0.1-0.8); Absolute Neutrophil Count 3.31 10^3/uL (1.2-6.7); Basophils % 1.1; Eosinophils % 6.7; HCT 45.6 % (40.0-50.0); HGB 15.4 g/dL (13.5-17.5); Immature Grans % 0.2; MCH 31.5 pg (27.0-33.0); MCHC 33.8 % (32.0-36.0); MCV 93 fL (80-95); MPV 8.8 fL (8.0-11.0); Monocytes % 11.8; Neutrophils % 54.2; Platelet Count 304 10^3/uL (130-400); RBC 4.89 10^6/uL (4.36-5.78); RDW 12.6 % (11.8-14.1); RDW-SD 43.6 fL; WBC 6.11 10^3/uL (4.4-10.8)
[2023-10-17 15:35] LABS: ALT 29 U/L (16-63); AST 22 U/L (15-37); Albumin 3.9 g/dL (3.4-5.0); Alkaline Phosphatase 124 U/L (46-116); Anion Gap 7.4 mmol/L (3-11); BUN 16 mg/dL (7-18); Bilirubin, Total 0.5 mg/dL (0.2-1.0); C-Reactive Protein < 0.50 mg/dL (<or=0.5); CO2 27.6 mmol/L (21.0-32.0); CREATININE 1.3 mg/dL (0.70-1.30); Calcium 10.1 mg/dL (8.5-10.1); Chloride 104 mmol/L (98-107); Estimated GFR 58.73 (mL/min/1.73m2); Glucose 114 mg/dL (74-106); Potassium 4.8 mmol/L (3.5-5.1); Sodium 139 mmol/L (136-145); TSH (W/Ref FT4) 3.88 uIU/mL (0.36-3.74); Total Protein 7.2 g/dL (6.4-8.2)
[2023-10-17 15:52] LABS: FREE T4 0.93 ng/dL (0.76-1.46)
== END 2023-10-17 20:27 | disposition home or self-care (01) ==
LOC: NCHCN 20:26
PROVIDERS: PCP Family Medicine; Referring Provider Student in an Organized Health Care Education/Training Program; Visit Provider Student in an Organized Health Care Education/Training Program
DX: E03.9 Hypothyroidism, unspecified (principal); N28.9 Disorder of kidney and ureter, unspecified; K51.011 Ulcerative (chronic) pancolitis with rectal bleeding
CPT/HCPCS: 80053; 84439; 84443; 85025; 86140

== ENCOUNTER 2023-12-07 14:59 | Outpatient (REF) | payer OTHER, SELFPAY ==
[2023-12-07 20:32] LABS: Abs Immature Grans 0.03 10^3/uL (0.0-0.06); Absolute Basophil Count 0.07 10^3/uL (0.0-0.2); Absolute Lymphocyte Count 1.91 10^3/uL (1.2-3.4); Absolute Monocyte Count 0.65 10^3/uL (0.1-0.8); Absolute Neutrophil Count 4.75 10^3/uL (1.2-6.7); Basophils % 0.9 %; Eosinophils % 5.1 %; HCT 44.3 % (40.0-50.0); HGB 14.7 g/dL (13.5-17.5); Immature Grans % 0.4 %; Lymphocytes % 24.5 %; MCHC 33.2 % (32.0-36.0); MCV 94 fL (80-95); MPV 9.1 fL (8.0-11.0); Monocytes % 8.3 %; Neutrophils % 60.8 %; Platelet Count 316 10^3/uL (130-400); RBC 4.74 10^6/uL (4.36-5.78); RDW 12.6 % (11.8-14.1); RDW-SD 43.4 fL; WBC 7.81 10^3/uL (4.4-10.8)
[2023-12-07 20:37] LABS: ESR 20 mm/hr (0-20)
[2023-12-07 20:45] LABS: ALT 40 U/L (16-63); AST 23 U/L (15-37); Albumin 4.1 g/dL (3.4-5.0); Alkaline Phosphatase 133 U/L (46-116); Anion Gap 9.1 mmol/L (3-11); BUN 19 mg/dL (7-18); Bilirubin, Total 0.6 mg/dL (0.2-1.0); CO2 25.9 mmol/L (21.0-32.0); CREATININE 1.7 mg/dL (0.70-1.30); Calcium 8.7 mg/dL (8.5-10.1); Chloride 106 mmol/L (98-107); Estimated GFR 42.57 (mL/min/1.73m2); Glucose 119 mg/dL (74-106); Potassium 4.3 mmol/L (3.5-5.1); Sodium 141 mmol/L (136-145); Total Protein 7.6 g/dL (6.4-8.2)
== END 2023-12-07 15:00 | disposition home or self-care (01) ==
LOC: NCHCN 14:59
PROVIDERS: PCP Student in an Organized Health Care Education/Training Program; Visit Provider Student in an Organized Health Care Education/Training Program
DX: K51.011 Ulcerative (chronic) pancolitis with rectal bleeding (principal)
CPT/HCPCS: 80053; 85652; 85025; 86140

== ENCOUNTER 2024-02-21 17:12 | Outpatient (REF) | payer OTHER, SELFPAY ==
--- OUTSIDE RECORDS SUMMARY | 2024-02-21 17:15 | XMS_ITS | Encounter Summary ---
Author Organization [facility] [place] [address] Care Team Providers Care Autocad Designer Name Role Phone Armond Morel Primary Care Provider + Encounter Details Date Type Department Care Team (J[address] st Contact Info) Description 12/14/2023 [place]phone [place] [phone] Meagan Guerrero Social History Tobacco Use Types Packs/Day Years Used Date Smoking Tobacco: Never Smokeless Tobacco: Never Alcohol Use Standard Drinks/Week Comments Not Currently 0 (1 standard drink = 0.6 oz pur e alcohol) occasional [facility] Inpatient Questions Answer Date Recorded Does Anyone Try to Keep You From Having Contact with Others or Doing Things Outside Your Home? no 10/24/2023 Feels Threatened by Someone no 08/2023 Feels Unsafe at Home or Work/School no 10/24/2023 Physical Signs of Abuse Present no 10/24/2023 Sex and Gender Information Value Date Recorded Sex Assigned at Not on file Gender Identity Not on file Sexual Orientation Not on file documented as of this encounter Plan of Treatment Not on file documented as of this encounter Visit Diagnoses Not on filedocumented in this encounter Care Teams Autocad Designer Relationship Specialty Start Date End Date Armond Morel PA [address] [place] [address] [place] [address] PCP - General Internal Medicine 10/19/23 documented as of this encounter
--- OUTSIDE RECORDS SUMMARY | 2024-02-21 17:15 | XMS_ITS | Encounter Summary ---
[place] [address] Care Team Providers Care Director Industrial Name Role Phone Armond Morel Primary Care Provider + Encounter Details Date Type Department Care Team (Latest Contact Info) Description 11/20/2023 Travel Social History Tobacco Use Types Packs/Day Years Used Date Smoking Tobacco: Never Smokeless Tobacco: Never Alcohol Use Standard Drinks/Week Comments Not Currently 0 (1 standard drink = 0.6 oz pur e alcohol) occasional [facility] Inpatient Questions Answer Date Recorded Does Anyone [...] on filedocumented in this encounter Care Teams Director Industrial Relationship Specialty Start Date End [place] [address] PCP - General Internal Medicine 10/19/23 documented as of this encounter
--- OUTSIDE RECORDS SUMMARY | 2024-02-21 17:15 | XMS_ITS | Encounter Summary ---
Author Organization Formerly [facility] [place] [address] Care Team Providers Care Human Resources Analyst Name Role Phone Jakub Abrams MD Primary Care Provider [phone] Encounter Details Date Type Department Care Team (Late st Contact Info) Description 10/17/2023 Ancillary Procedure [place] [address] Mikel Anaya MD [facility] DR [place] [address] Social History Tobacco Use Types Packs/Day Years Used Date Smoking Tobacco: Never Smokeless Tobacco: Never Alcohol Use Standard Drinks/Week Comments Not Currently 0 (1 standard drink = 0.6 oz pur e alcohol) occasional [facility] Inpatient Questions Answer Date Recorded Does Anyone Try to Keep You From Having Contact with Others or Doing Things Outside Your Home? no 12/05/2022 Feels Threatened by Someone no 11/21 Feels Unsafe at Home or Work/School no 12/05/2022 Physical Signs of Abuse Present no 12/05/2022 Sex and Gender Information Value Date Recorded Sex Assigned at Not on file Gender Identity Not on file Sexual Orientation Not on file documented as of this encounter Plan of Treatment Not on file documented as of this encounter Procedures Procedure Name Priority Date/Time Associated Diagnosis Comments FILM LIBRARY STORAGE ONLY DX WRIST Routine 10/17/2023 12:00 AM EDT documented in this encounter Results * Film Library- Storage Only DX Wrist (10/17/2023 12:00 AM EDT) Narrative [facility] - 11/20/2023 9:59 AM EDT This exam is auto-finalizing. It's purpose is for storage only. Mikel Anaya MD IMG FILM LIBRARY ORD ERABLES [place], [place] documented in this encounter Visit Diagnoses Not on filedocumented in this encounter Care Teams Human Resources Analyst Relationship Specialty Start Date End Date Jakub Abrams MD [address] [place] [address] PCP - General Family Medicine 04/05/21 10/18/23 documented as of this encounter
--- OUTSIDE RECORDS SUMMARY | 2024-02-21 17:15 | XMS_ITS | Encounter Summary ---
Author Organization Formerly [facility] Address [facility] [address] [place] [id number] Care Team Providers Care Glass Decorator Name Role Phone Jakub Abrams MD Primary Care Provider Reason for Visit * Reason Comments Establish Care * Consultation (Routine) - Closed Specialty Diagnoses / Procedures Referred By Contjocelyn t Referred To Contact General Surgery Diagnoses Primary hyperparathyroidism Eva Hernandez MD [facility] [place] [address] Sussy Moraes MD [facility] [place] [address] Referral ID Status Reason Start Date Expiration Date V isits Requested Visits Authorized [id number] Closed Consult, Test & Treat 07/03/2023 07/02/2024 1 1 Encounter Details Date Type Department Care Team (Late st Contact Info) Description 08/10/2023 9:00 AM EST Office Visit General Surgery at [place] [phone] Sussy Moraes MD [facility] [place] [address] Linda Hoffman APRN [facility] [address] Thyroid nodule Social History Tobacco Use Types Packs/Day Years [...] on file documented as of this encounter Last Filed Vital Signs Vital Sign Reading Time Taken Comments Blood Pressure 149/92 08/10/2023 9:11 AM EST Pulse 67 08/10/2023 9:11 AM EST Temperature 36.6 ??C (97.9 ??F) 08/10/2023 9:11 AM ES T Respiratory Rate 16 08/10/2023 9:11 AM EST Oxygen Saturation 96% 08/10/2023 9:11 AM EST Inhaled Oxygen Concentration - - Weight 99 kg (218 lb 3.2 oz) 08/10/2023 9:11 AM EST Height 182.9 cm (6' 0.01) 08/10/2023 9:11 AM ES T Body Mass Index 29.59 08/10/2023 9:11 AM EST documented in this encounter Progress Notes * Sussy Moraes MD - 08/10/2023 9:00 AM EST Endocrine Surgery Initial Consultation HPI: Mr. Jakub Fuller is a very pleasant 72 y.o. year old male who presents for evaluation of primary hyperparathyroidism as a referral from Dr. Hernandez. His hypercalcemia was initially detected on routine labs There is not a history of nephrolithiasis. He does not have a history of osteoporosis. There isnot a recent history of fractures. He reports symptoms of hyperparathyroidism includingfatigue. There is not a history of previous anterior neck surgery. He has a family history of possible thyroid cancer in his sister (she was on speaker phone today and stated that her nodules were precancerous), no other endocrinopathies, hypercalcemia or endocrine malignancy. He presents today for consideration of surgical management of his hyperparathyroidism. Recent labs: Serum calcium Lab Results Component Value Date CALCIUM 10.7 (H) 03/13/2023 mg/dL PTH Lab Results Component Value Date PTH 54 03/13/2023 pg/mL 25-OH Vitamin D Lab Results Component Value Date 25OHVITD 31 03/13/2023 ng/mL Ionized Calcium mmol/L Phosphorus Lab Results Component Value Date PHOS 2.6 03/13/2023 mg/dL 24 hour urine calcium 361 mg/24hr Recent studies: Recent DEXA scan: osteopenia (lowest T score -1.6 in the femoral neck) Sestamibi scan: 11 mm sestamibi avid nodule in the right high paratracheal region approximately 2 cm above the sternal notch, highly suspicious for a parathyroid adenoma. Cervical ultrasound has not yet been performed. Past Medical History: Diagnosis Date Diverticulitis Hypothyroid Ulcerative colitis Has chronic bleeding with his UC. Past Surgical History: Procedure Laterality Date PRG RADEX HIP UNILATERAL WITH PELVIS MINIMUM 4 VIEWS Left 12/13/2022 HIP INTRAOP RADIOLOGIC EXAMINATION, UNILATERAL, W PELVIS; 4+ VIEWS (WRVU 0.27) performed by Mynor Umaña MD at [facility] MAIN OR PRO ARTHROPLASTY ACETABULAR/PROX FEM PROSTC AGRFT/ALGRFT Left 12/13/2022 TOTAL HIP ARTHROPLASTY, ANTERIOR APPROACH (WRVU 19.6) performed by Mynor Umaña MD at [facility] MAIN OR UMBILICAL HERNIA REPAIR XR FLUORO INJECTION DRAINAGE JOINT LG LEFT Left 04/19/2021 XR Fluoro Guided Joint Injection Large Left 04/19/2021 [facility] RAD XRAY XR FLUORO INJECTION DRAINAGE JOINT LG LEFT Left 05/10/2021 XR Fluoro Guided Joint Injection Large Left 05/10/2021 Keri Dugan MD [facility] RAD XRAY XR FLUORO INJECTION DRAINAGE JOINT LG RIGHT Right 05/10/2021 XR Fluoro Guided Joint Injection Large Right 05/10/2021 Keri Dugan MD [facility] RAD XRAY Current Outpatient Medications on File Prior to Visit Medication Sig Dispense Refill celecoxib (CeleBREX) 200 mg Capsule Take 200 mg by mouth as needed. Synthroid 137 mcg Tablet Take 137 mcg by mouth daily. No current facility-administered medications on file prior to visit. Allergies as of 08/10/2023 (No Known Allergies) Family History: Sister had a thyroidectomy for precancerous nodules. No pituitary, pancreas or adrenal tumors. No parathyroid disease. Social History: He lives alone. He is not working. He does not smoke. Occasional etoh. No professional public speaking or singing Review of Systems: 10 of 14 systems reviewed and all negative except as per HPI Encounter Vitals: BP (!) 149/92 Pulse 67 Temp 36.6 ??C (97.9 ??F) Resp 16 Ht 182.9 cm (6' 0.01) Wt 99 kg (218 lb 3.2 oz) SpO2 96% BMI 29.59 kg/m?? Physical Exam: System Normal Abnl Findings General [x] [] Well nourished, appears well Skin [x] [] Warm and dry Neck [x] [] No thyromegaly, no masses, trachea midline Lymph Nodes [x] [] No cervical lymphadenopathy Lungs [x] [] Normal respiratory effort, clear to auscultation bilaterally Cardiovascular [x] [] Regular rate and rhythm, no murmurs Extremities [x] [] Warm, no edema, full ROM Neuro [x] [] Motor intact, voice normal Psych [x] [] Normal mood and affect; responds to questions appropriately Procedures performed this visit: Thyroid, Parathyroid and Cervical Ultrasound I performed a thyroid, parathyroid and cervical ultrasound at the time of the clinic visit today using the 12 mHz linear ultrasound transducer. The thyroid, parathyroid and central and bilateral lateral neck lymph node basins were evaluated. The findings include: Thyroid Isthmus: Thickness: 0.16 cm Nodules: none Right lobe: Lobe: 2.75 x 1.01 x 0.94 cm Nodules: atrophied, heterogeneous Left lobe: Lobe: 3.17 x 0.98 x 1.14 cm Nodules: there is a nodule measuring 1.15 x 0.71 x 0.80cm with anterior interrupted eggshell calcifications causing significant posterior shadowing preventing further characterization of the nodule In the right lower parathyroid location is a hypoechoic nodule measuring 1.46 x 0.77 x 0.86cm that is located just above the medial head of the right clavicle Cervical lymph nodes Central neck: Normal ultrasonographic appearing lymph nodes Right lateral neck: Normal ultrasonographic appearing lymph nodes Left lateral neck: Normal ultrasonographic appearing lymph nodes Ultrasound-Guided Thyroid Nodule Fine Needle Aspiration (FNA) I attempted to perform an ultrasound-guided fine needle aspiration biopsy today in clinic as a separately identifiable procedure. I first performed a diagnostic thyroid and cervical ultrasound with the findings as noted above. Verbal informed consent was then obtained after discussing the risks of fine needle biopsy, including bleeding, infection, and damage to surrounding structures. Then, usingthe 12mHz ultrasound transducer for guidance, I prepped the area with alcohol and infiltrated the dermal layer with 1% lidocaine with epinephrine. I then attempted to sample the left thyroid nodule. The path of the needle was in very close proximity to the carotid artery, and the calcified rim of the nodule could not be penetrated. Three needle passes were attempted and ultimately I decided to abort the attempt at biopsy. Assessment and Plan: Mr. Jakub Fuller is a 72 y.o. year old male with symptomatic biochemical primary hyperparathyroidism. Localization studies including ultrasound and sestamibi scan indicate a right lower parathyroid abnormality. We discussed the typical work up and management of primary hyperparathyroidism. In addition, he has the intermediately-suspicious left thyroid nodule that I was unable to biopsy today. We discussed empiric total thyroidectomy, especially since he is already on 137mcg synthroid daily. However, he was not enthusiastic about doing this if it was unnecessary. We talked about trying to keep his parathyroidectomy targeted to the right side, but planning to at least do a left hemithyroidectomy if we needed to explore the left side as part of the parathyroid operation. I discussed the risks of parathyroidectomy with the patient including, but not limited to, nerve injury resulting in voice changes or hoarseness of voice, low calcium related to removal of parathyroid tissue, bleeding which may require reoperation, infection and complications related to anesthesia.He confirmed understanding of these risks and consent was obtained today. Surgery will be scheduledfor the soonest mutually convenient date. [facility] Patient Characteristics Body mass index is 29.59 kg/m??. Prior neck irradiation: no Prior anterior neck surgery: no Pre-operative laryngoscopy: no Anti-coagulation meds (warfarin, heparin, oral thrombin or factor Xa inhibitors): no Plan to hold for surgery: no Anti-platelet meds (aspirin, clopidogrel): no Plan to hold for surgery: no Disease Characteristics Primary Pre-Operative Diagnosis: sporadic primary hyperparathyroidism Persistent/Recurrent Hyperparathyroidism: No Calcium: high 24-hour Urine calcium: high GFR decreased: No PTH:normal [id number] D: normal Subjective Symptoms: yes Objective Symptoms: yes Imaging Studies: Localization studies performed: yes Localization study type: sestamibi Ultrasound result: Localized single gland with high confidence Sestamibi result: Localized single gland with high confidence documented in this encounter Plan of Treatment Not on file documented as of this encounter Procedures Procedure Name Priority Date/Time Associated Diagnosis Comments CYTOPATHOLOGY NON-GYNECOLOGICAL Routine 08/10/2023 12:37 PM EST Thyroid nodule documented in this encounter Results * Cytopathology Non-Gynecological (08/10/2023 12:37 PM EST) AP Specimen 08/10/2023 12:3 7 PM EST 08/10/2023 12:37 PM EST Narrative [facility] - 08/10/2023 12:37 PM EST Specimen requisition ordered. ??Separate Pathology report to follow Sussy Moraes MD PATHOLOGY/CYTOLOG Y ORDERABLES Performing Organization Address City/State/[facility] Co de Phone Number [facility] [place] [address] documented in this encounter Visit Diagnoses Diagnosis Thyroid nodule Nontoxic uninodular goiter documented in this encounter Care Teams Glass Decorator Relationship Specialty Start Date End Date Jakub Abrams MD [address] [place] [address] PCP - General Family Medicine 04/05/21 10/18/23 documented as of this encounter
--- OUTSIDE RECORDS SUMMARY | 2024-02-21 17:15 | XMS_ITS | Encounter Summary ---
Author Organization [facility] Address [facility] [place] [address] Care Team Providers Care Radio Technician Name Role Phone Jakub Abrams MD Primary Care Provider [phone] Reason for Visit * Diagnostic Test (Routine) - Closed Specialty Diagnoses / Procedures Referred By Louann t Referred To Contact Radiology Diagnoses Primary hyperparathyroidism Procedures NM Parathyroid w Spect CT & Thyroid Imaging ([facility]eb) Eva Hernandez MD [facility] [place] [address] [place] [address] Referral ID Status Reason Start Date Expiration Date V isits Requested Visits Authorized [id number] Closed Specialty Service Requested 07/03/2023 01/01/2025 1 1 Encounter Details Date Type Department Care Team (Late st Contact Info) Description 07/20/2023 10:19 AM EST - 07/20/2023 11:59 PM [facility] Hospital [place] [phone] Eva Hernandez MD [facility] [address] Discharge Disposition: Home Social History Tobacco Use Types Packs/Day Years [...] on file documented as of this encounter Medications at Time of Discharge Medication Sig Dispensed Refills Start Date End Date celecoxib (CeleBREX) 200 mg Capsule Take 200 mg by mouth as needed. 07/19/2022 Synthroid 137 mcg Tablet Take 137 mcg by mouth daily. 07/12/2022 documented as of this encounter Plan of Treatment Not on file documented as of this encounter Procedures Procedure Name Priority Date/Time Associated Diagnosis Comments NM PARATHYROID W/SPECT CT AND THYROID IMAGING Routine 07/20/2023 11:19 AM EST Primary hyperparathyroidism documented in this encounter Results * NM Parathyroid w Spect CT & Thyroid Imaging (Leb) (07/20/2023 11:19 AM EST) Anatomical Region Laterality Modality Nuclear Medicine Impressions 07/20/2023 3:24 PM EST 11 mm sestamibi avid nodule in the right high paratracheal region approximately 2 cm above the sternal notch, highly suspicious for a parathyroid adenoma. Thank you for letting us participate in the care of this patient. ??If you are a health care provider and have any questions regarding this report, please contact the number below. ??For patients who have questions please contact the health daycare provider that requested your imaging first. ? Narrative 07/20/2023 3:24 PM EST EXAMINATION: NM PARATHYROID W SPECT CT AND THYROID IMAGING (LEB) CLINICAL HISTORY: primary hyperparathyroidism, evaluate for parathyroid adenoma TECHNIQUE: Technetium-99m sestamibi was administered intravenously at a dose of 20 mCi. 15 minutes later, anterior image of the neck and chest was obtained. Two hours later, the anterior image of the neck and chest was repeated. Tomographic imaging of the neck and chest was then performed with the images reconstruction in the axial, coronal and sagittal planes. A low dose CT scan was acquired for attenuation correction and anatomic localization. Technetium-99m pertechnetate was then administered intravenously at a dose of 20 mCi. 20 minutes later, the anterior image of the neck and chest was repeated. COMPARISON: None FINDINGS: Early and delayed planar sestamibi scans: Small focus of sestamibi uptake in the right high paratracheal region, with mild persistence on delayed imaging. SPECT-CT sestamibi scan: Confirms the presence of an 11 mm sestamibi avid nodule in the right high paratracheal region approximately 2 cm above the sternal notch (CT axial image 46). Pertechnetate thyroid scan: No pertechnetate uptake consistent with status post thyroidectomy. Incidental CT findings: Aortic calcifications. Procedure Note Sea Ramos MD - 07/20/2023 EXAMINATION: NE PARATHYROID W SPECT CT AND THYROID IMAGING (LEB) CLINICAL HISTORY: primary hyperparathyroidism, evaluate for parathyroidadenoma TECHNIQUE: Technetium-99m sestamibi was administered intravenously at a dose of 20mCi. 15 minutes later, anterior image of the neck and chest was obtained. Two hours later, the anterior image of the neck and chest was repeated. Tomographic imaging of the neck and chest was then performed with theimages reconstruction in the axial, coronal and sagittal planes. A low dose CTscan was acquired for attenuation correction and anatomic localization. Technetium-99m pertechnetate was then administered intravenously at a doseof 20 mCi. 20 minutes later, the anterior image of the neck and chest wasrepeated. COMPARISON: None FINDINGS: Early and delayed planar sestamibi scans: Small focus of sestamibi uptakein the right high paratracheal region, with mild persistence on delayedimaging. SPECT-CT sestamibi scan: Confirms the presence of an 11 mm sestamibi avidnodule in the right high paratracheal region approximately 2 cm above the sternalnotch (CT axial image 46). Pertechnetate thyroid scan: No pertechnetate uptake consistent with statuspost thyroidectomy. Incidental CT findings: Aortic calcifications. IMPRESSION 11 mm sestamibi avid nodule in the right high paratracheal regionapproximately 2 cm above the sternal notch, highly suspicious for a parathyroidadenoma. Thank you for letting us participate in the care of this patient. If youare a health care provider and have any questions regarding this report,please contact the number below. For patients who have questions please contactthe health daycare provider that requested your imaging first. Eva Hernandez MD IMG NM ORDERABLES documented in this encounter Visit Diagnoses Not on filedocumented in this encounter Care Teams Radio Technician Relationship Specialty Start Date End Date Jakub Abrams MD [facility] [place] [address] PCP - General Family Medicine 04/05/21 10/18/23 documented as of this encounter
--- OUTSIDE RECORDS SUMMARY | 2024-02-21 17:15 | XMS_ITS | Encounter Summary ---
Author Organization [facility] [place] [address] Care Team Providers Care Canal Equipment Mechanic Name Role Phone Armond Morel Primary Care Provider + Encounter Details Date Type Department Care Team (Late st Contact Info) Description 11/09/2023 Telephone [place] [phone] Linda Hoffman ORDER CHECKER PACKER PROCESSER [facility] [place] [address] Social History Tobacco Use Types Packs/Day Years Used Date Smoking Tobacco: Never Smokeless Tobacco: Never Alcohol Use Standard Drinks/Week Comments Not Currently 0 (1 standard drink = 0.6 oz pur e alcohol) occasional [facility] Inpatient Questions Answer Date Recorded Does Anyone [...] on file documented as of this encounter Miscellaneous Notes * Telephone Encounter - Linda Hoffman APRN - 11/09/2023 2:45 PM EDT I called Mr. Jakub Fuller today to discuss the results of his pathology. Specifically, this demonstrated: A - RIGHT UPPER PARATHYROID, excision: - Hypercellular parathyroid tissue with oncocytic changes, 0.15 g. B - RIGHT LOWER PARATHYROID, excision: - Hypercellular parathyroid tissue, 1.54 g. He is doing well. His voice sounds normal. He is not complaining of perioral numbness/tingling, numbness/tingling in the hands, or muscle spasms. He will taper off his calcium supplementation. I answered his questions, and we will discuss further at his regularly-scheduled postoperative follow up appointment. Linda Hoffman APRN documented in this encounter Plan of Treatment Not on file documented as of this encounter Visit Diagnoses Not on filedocumented in this encounter Care Teams Canal Equipment Mechanic Relationship Specialty Start Date End Date Armond Morel [place] [address] PCP - General Internal Medicine 10/19/23 documented as of this encounter
--- OUTSIDE RECORDS SUMMARY | 2024-02-21 17:15 | XMS_ITS | Continuity of Care Document ---
Author Organization [facility] Address [address] [place] [address] Care Team Providers Care Barrel Tester And Drainer Name Role Phone ANNIE LANDAVERDE Primary Care Physician Encounter [facility] NBR [id number] Date(s): 07/21/22 - 07/21/22 [facility] [address] [place] [phone] Social History Social History Type Response Sex Male Patient Care team information Personnel Name: ANNIE LANDAVERDE Address: Address: [address] [place] [id number]
--- OUTSIDE RECORDS SUMMARY | 2024-02-21 17:15 | XMS_ITS | Encounter Summary ---
[place] [address] Care Team Providers Care Branch Sales Manager Name Role Phone Jakub Abrams MD Primary Care Provider [phone] Reason for Referral * Diagnostic Test (Routine) - Closed Specialty Diagnoses / Procedures Referred By Contac t Referred To Contact Radiology Diagnoses Primary hyperparathyroidism Procedures NM Parathyroid w Spect CT & Thyroid Imaging (Leb) Eva Hernandez MD [facility] [place] [address] [place] [address] Referral ID Status Reason Start Date Expiration Date V isits Requested Visits Authorized [id number] Closed Specialty Service Requested 07/03/2023 01/01/2025 1 1 Reason for Visit * Diagnostic Test (Routine) - Closed Specialty Diagnoses / Procedures Referred By Contac t Referred To Contact Radiology Diagnoses Primary hyperparathyroidism Procedures NM Parathyroid w Spect CT & Thyroid Imaging (Leb) Eva Hernandez MD [facility] [place] [address] [place] [address] Referral ID Status Reason Start Date Expiration Date V isits Requested Visits Authorized [id number] Closed Specialty Service Requested 07/03/2023 01/01/2025 1 1 Encounter Details Date Type Department Care Team (Latest Contact Info) Description 07/20/2023 7:50 AM EST - 07/20/2023 7:51 AM EST Hospital En[place] [address] Eva Hernandez MD [facility] [place] [address] Primary hyperparathyroidism Discharge Disposition: Home Social History Tobacco Use [...] who have questions please contact the health wound care coordinator that requested your imaging first. ? Narrative [...] Note Sea Ramos MD - 07/20/2023 EXAMINATION: NM PARATHYROID W SPECT CT AND [...] patients who have questions please contactthe health wound care coordinator that requested your imaging first. Eva Hernandez MD [facility] NM ORDERABLES documented in this encounter Visit Diagnoses Diagnosis Primary hyperparathyroidism documented in this encounter Administered Medications Inactive Administered Medications - up to 3 most recent administrations Medication Order MAR Action Action Date Dose Rate Site technetium (Tc-99m) sestamibi injection 0-30 mCi 0-30 mCi, Intravenous, 2 TIMES DAILY PRN, 2 doses, Starting on Alysha 07/20/23 at 0839, Until 07/21/23 at 0432, Per Protocol, Radiology Contrast, Routine Given 07/20/2023 8:35 AM EST 20 mCi Right Arm documented in this encounter Care Teams Branch Sales Manager Relationship Specialty Start Date End Date Jakub Abrams MD [address] [place] [address] PCP - General Family Medicine 04/05/21 10/18/23 documented as of this encounter
--- OUTSIDE RECORDS SUMMARY | 2024-02-21 17:15 | XMS_ITS | Encounter Summary ---
Author Organization [facility] Address [facility] [place] [address] Care Team Providers Care Industrial Design Engineer Name Role Phone Armond Morel Primary Care Provider + Reason for Visit * Reason Comments Follow-up Encounter Details Date Type Department Care Team (Late st Contact Info) Description 11/23/2023 11:20 AM EDT Office [place] [address] Sussy Moraes MD [facility] [place] [address] S/P parathyroidectomy Social History Tobacco Use Types Packs/Day Years [...] Sign Reading Time Taken Comments Blood Pressure - - Pulse - - Temperature 36.3 ??C (97.4 ??F) 11/23/2023 12:04 PM E DT Respiratory Rate - - Oxygen Saturation - - Inhaled Oxygen Concentration - - Weight 96.3 kg (212 lb 6.4 oz) 11/23/2023 12:04 PM EDT Height 181.6 cm (5' 11.5) 11/23/2023 12:04 PM E DT Body Mass Index 29.21 11/23/2023 12:04 PM EDT documented in this encounter Progress Notes * Sussy Moraes MD - 11/23/2023 11:20 AM EDT Parathyroidectomy Post-Op Visit Subjective: Mr. Jakub Fuller is a very pleasant 73 y.o. year old male who is 6 weeks s/p right upper and rightlower parathyroidectomy for primary hyperparathyroidism. IOPTH fell from 72 to 15. He states that he got worse in terms of overall well- being after surgery, with increased joint pain and even his teeth are hurting. He is having some intermittent symptoms that may be associated with hypoparathyroidism with cramps in calves and left arm. No issues with pain or difficulty swallowing. He is still taking once-a-day calcium (600mg) and vitamin D3 (1000 IU). He did not get his labs drawn prior to our appointment, so I was unable to discuss them in person. Exam: Patient Vitals for the past 24 hrs: Temp 11/23/23 1204 36.3 ??C (97.4 ??F) Healing anterior neck incision with underlying healing ridge. No hematoma or seroma. Voice appears normal. Pathology results: A - RIGHT UPPER PARATHYROID, excision: - Hypercellular parathyroid tissue with oncocytic changes, 0.15 g. B - RIGHT LOWER PARATHYROID, excision: - Hypercellular parathyroid tissue, 1.54 g. Labs: Latest Reference Range & Units 11/23/23 12:47 Calcium 8.5 - 10.5 mg/dL 9.3 25-OH Vit D Total 21 - 100 ng/mL 30 25-OH Vit D Interp Sufficient TSH 0.27 - 4.20 mcIU/mL 1.81 PTH 15 - 65 pg/mL 51 Assessment and Plan: Mr. Jakub Fuller is a very pleasant 73 y.o. year old male s/p right-sided parathyroidectomy (both glands removed) for primary hyperparathyroidism who is doing very well post-operatively without evidence of complications. I discussed the pathology results with the patient and recommended no furthertreatment. Of note, he had a left-sided thyroid nodule that could not be biopsied due to its calcification, and he elected not to have this removed. His TSH was checked today and remains normal on his stable dose of synthroid. Labs resulted after our visit and are consistent with biochemical cure. I called him to discuss. Delfino not need to continue taking post-operative supplemental doses of calcium. His vitamin D level remains borderlines, so I encouraged him to continue vitamin D and encouraged him to discuss calciumsupplementation for general bone health purposes with his PCP. I explained that he should have his s deanna calcium checked annually, and that we do not need to follow PTH levels unless his calcium level rises again. I discussed scar massage with vitamin E to aid in incisional appearance and discussed the importance of UV light protection on scar healing. I recommended follow up with me on an as needed basis hereafter. Unfortunately, I cannot explain his worsening joint and tooth pain, and encouraged him to follow up with his PCP as needed. documented in this encounter Plan of Treatment Not on file documented as of this encounter Results * TSH (11/23/2023 12:47 PM EDT) TSH 1.81 0.27 - 4.20 mcIU/mL [facility] Comment: Reference Interval (mcIU/mL): Females: ??First Trimester: 0.23-3.88 ??Second Trimester: 0.22-3.90 ??Third Trimester: 0.44-4.66 Blood 11/23/2023 12:4 7 PM EDT 11/23/2023 1:10 PM EDT Narrative Resulting Agency Comment Spec In Lab Sussy Moraes MD CHEMISTRY ORDERAB LES [facility] [place] [address] * Calcium (11/23/2023 12:47 PM EDT) Calcium 9.3 8.5 - 10.5 mg/dL [facility] Blood 11/23/2023 12:4 7 PM EDT 11/23/2023 1:10 PM EDT Narrative Resulting Agency Comment Spec In Lab Sussy Moraes MD CHEMISTRY ORDERAB LES Performing Organization Address City/[facility]/ZIP Co de Phone Number [facility] [place] [address] * PTH (11/23/2023 12:47 PM EDT) PTH 51 15 - 65 pg/mL [facility] Blood 11/23/2023 12:4 7 PM EDT 11/23/2023 1:10 PM EDT Narrative Resulting Agency Comment Spec In Lab Sussy Moraes MD CHEMISTRY ORDERAB LES Performing Organization Address City/[facility] Co de Phone Number [facility] [place] [address] * Vitamin D, 25-Hydroxy (11/23/2023 12:47 PM EDT) 25-OH Vit D Total 30 21 - 100 ng/mL [facility] 25-OH Vit D Interp Sufficient [facility] Blood 11/23/2023 12:4 7 PM EDT 11/23/2023 1:10 PM EDT Narrative Resulting Agency Comment Spec In Lab Sussy Moraes MD CHEMISTRY ORDERAB LES Performing Organization Address City/[facility]/ZIP Co de Phone Number [facility] [place] [address] documented in this encounter Visit Diagnoses Diagnosis S/P parathyroidectomy Other postprocedural status documented in this encounter Care Teams Industrial Design Engineer Relationship Specialty Start Date End Date Armond Morel [place] [address] [place] [address] PCP - General Internal Medicine 10/19/23 documented as of this encounter
--- OUTSIDE RECORDS SUMMARY | 2024-02-21 17:15 | XMS_ITS | Continuity of Care Document ---
Author Organization [facility] Address [address] [place] [address] Care Team Providers Care Software Implementation Project Manager Name Role Phone ANNIE LANDAVERDE MD Primary Care Physician [phone] Encounter [facility] NBR [id number] Date(s): 09/15/22 - 09/15/22 [facility] [address] [place], [place] [address] Encounter Diagnosis History of total hip arthroplasty(Discharge Diagnosis) - 09/15/22 Arthritis of left hip(Discharge Diagnosis) - 09/15/22 Discharge Disposition: Home or Self Care Attending Physician: uJs Morelos DO Allergies, Adverse Reactions, Alerts No Known Allergies Assessment and Plan Future Appointments Functional Status 09/15/22 Other exposure to Infectious Disease Non e Medications CeleBREX 200 mg oral capsule 200 mg = 1 cap, Oral, Daily, PRN as needed for pain, # 10 cap, 0 Refill(s) Start Date: 09/14/22 Status: Ordered Synthroid 137 mcg (0.137 mg) oral tablet 137 mcg = 1 tab, Oral, Daily, 0 Refill(s) Start Date: 09/14/22 Status: Ordered Problem List Condition Confirmation Course Effective Dates Status Health St atus Informant Diverticulitis Confirmed Active Hyperlipidemia Confirmed Active Hypothyroidism Confirmed Active Ulcerative colitis Confirmed Active Vital Signs Most recent to oldest [Reference Range]: 1 Peripheral Pulse Rate [60-100 bpm] 73 bp m (09/15/22 8:12 AM) Blood Pressure [90-140/60-90 mmHg] 116/7 2mmHg (09/15/22 8:12 AM) Weight 91.63 kg (09/15/22 8:12 AM) Weight Measured (lbs) 202.009 lb (09/15/22 8:12 AM) Height 180.97 cm (09/15/22 8:12 AM) Height/Length Measured (inches) 71.25 in ch (09/15/22 8:12 AM) BSA Measured 2.15 m2 (09/15/22 8:12 AM) Body Mass Index 27.98 kg/m2 (09/15/22 8:12 AM) Social History Social History Type Response Tobacco Never tobacco user T obacco Use:. 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 He has had progressive and insidious left hip pain??and??although I do not have notes to review he has apparently been??seen at [facility]??and has discussed??left total hip arthroplasty.?? He complains of progressive and insidious??left groin pain, thigh pain, mid buttocks pain and progressive loss of range of motion.?? He has treated this with stretching??and attempts at strengthening, Celebrex 200 mg daily on an as-needed basis.?? Despite that over the past 2 years his function and pain??has??progressed??with increasing pain and decreasing function and he is finding it debilitating.?? He is here today to discuss potential left anterior total hip arthroplasty.?? He has a history of ulcerative colitis but he does not take any medication for it and he handles it mainly with diet. Review of Systems Constitutional:?No??fevers,?No??chills,?No??sweats Eye:?No??recent visual problems ENT:?No??ear pain,?No??nasal congestion,?No??sore throat Respiratory:?No??shortness of breath,?No??cough Cardiovascular:?No??Chest pain,?No??palpitations,?No??syncope Gastrointestinal:?Nonausea,?No??vomiting,?No??diarrhea Genitourinary:?No??hematuria Yobany/Lymph:?No??bruising tendency,?No??swollen lymph glands Endocrine:?No??excessive thirst,??No??excessive hunger Musculoskeletal:??No??back pain,??No??neck pain,??Positive for??joint pain,??No??muscle pain,??No??decreased range of motion Integumentary:?No??rash,?No??pruritus,?No??abrasions Neurologic: Alert & oriented X 4 Psychiatric:?No??anxiety,?No??depression Physical Exam Vitals & Measurements HR:??73??(Peripheral)?? BP:??116/72?? SpO2:??97%?? HT:??180.97??cm?? WT:??91.63??kg?? BMI:??27.98?? BSA:??2.15?? He Beth physical exam he is well-dressed and pleasant and cooperative. ??He ambulates in the officewith a slightly antalgic gait. ??Laying on the exam table leg lengths are approximately symmetric.?? The affected??left hip??is nontender at the trochanter. ??He extends to neutral in a guarded manner. ??He flexes??to about 80 degrees. ??5 degrees of external rotation is his position of comfort. ??He has no internal rotation available and attempting to do so??causes fairly marked left groin pain.??He externally rotates only to about 20 degrees.?? Intact distally. 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 Assessment/Plan 1.??Arthritis of left hip??M16.12 We reviewed his images together as well as models and perioperative protocols and risk stratification??and reasonable??postop expectations and protocols.?? To proceed with left anterior total hip.?? We will??request a preoperative medical optimization visit with his primary care provider and get him on schedule at his convenience.?? Discussing??all of this information??takes place in 35 minutes wi th 30 of those 35 minutes direct [id number] counseling discussing this. Ordered: Surgical Procedure Booking Request LTTL, 09/15/22 11:30:00 EST, 12/13/22 8:00:00 EDT, left hip osteoarthrosis, Arthritis of left hip, Outpatient, Left total hip arthroplas, Primary Procedure, 90, Special equipment needed (include C-Arm requests)?, Veneer Taper contacted by ?, Spinal, 27,... ?? History of total hip arthroplasty??Z96.649 ?? Problem List/Past Medical History Ongoing Diverticulitis Hyperlipidemia Hypothyroidism Ulcerative colitis Historical No qualifying data Medications CeleBREX 200 mg oral capsule, 200 mg= 1 cap, Oral, Daily, PRN Synthroid 137 mcg (0.137 mg) oral tablet, 137 mcg= 1 tab, Oral, Daily Allergies No Known Allergies Electronically Signed on 09/15/22 12:00 PM Jus Morelos, Patient Care team information Care Team Personnel Name: ANNIE LANDAVERDE MD Position: No Access Member Role: Primary Care Physician Address: Address: [address] [place] [address]- Care Team Related Persons Name: JAJA CARY Address: Home [address] [place] [address], [phone]
--- OUTSIDE RECORDS SUMMARY | 2024-02-21 17:15 | XMS_ITS | Encounter Summary ---
Author Organization [facility] [place] [address] Care Team Providers Care It Program Manager Name Role Phone Armond Morel Primary Care Provider + Encounter Details Date Type Department Care Team (Late st Contact Info) Description 11/01/2023 Telephone General Surgery at [facility] [place] [phone] Teresa Bartlett, RN Social History Tobacco Use Types Packs/Day Years Used Date Smoking Tobacco: Never Smokeless Tobacco: Never Alcohol Use Standard Drinks/Week Comments Not Currently 0 (1 standard drink = 0.6 oz pur e alcohol) occasional DH [facility] Inpatient Questions Answer Date Recorded Does [...] encounter Miscellaneous Notes * Telephone Encounter - Teresa Bartlett RN - 11/01/2023 11:12 AM EDT Jakub Fuller is a 73 y.o. male patient of Dr. Moraes who is s/p: PARATHYROIDECTOMY OR EXPLORATION OF PARATHYROID(S) with FACIAL NERVE MONITORING, SETUP LARYNGEAL on10/24/23. Specimen: Right upper parathyroid and right lower parathyroid. Jakub left a VM on the clinic line today hoping to discuss the details of his procedure, and what was actually removed. I called Jakub back, he was unable to answer my call at the time. I was unable toleave the patient a VM as he had no identifying information on his VM message. He does not have [facility] setup at this time either. Addendum: Attempted to call Santy second time later in the day, he was again unable to answer my call. documented in this encounter Plan of Treatment Not on file documented as of this encounter Visit Diagnoses Not on filedocumented in this encounter Care Teams It Program Manager Relationship Specialty Start Date End Date Armond Morel PA [address] [place] [address] PCP - General Internal Medicine 10/19/23 documented as of this encounter
--- OUTSIDE RECORDS SUMMARY | 2024-02-21 17:15 | XMS_ITS | Encounter Summary ---
Author Organization [facility] [place] [address] Care Team Providers Care Freight Loader Name Role Phone Armond Morel Primary Care Provider + Reason for Visit * Auth/Cert (Routine) Specialty Diagnoses / Procedures Referred By Contjocelyn t Referred To Contact Diagnoses Hyperparathyroidism Hyperparathyroidism Procedures PRO EXPLORE PARATHYROID GLANDS PRG EMG, LARYNX PARATHYROIDECTOMY OR EXPLORATION OF PARATHYROID(S) (WRVU 15.6) FACIAL NERVE MONITORING, SETUP LARYNGEAL (WRVU 1.57) Jeremie Angelo MD [facility] [place] [address] [place] [address] [facility] Referral ID Status Reason Start Date Expiration Date Visits Re quested Visits Authorized [id number] 1 1 Encounter Details Date Type Department Care Team (Late st Contact Info) Description 10/24/2023 7:30 AM EDT - 10/24/2023 9:56 AM EDT Surgery [place] [address] Jeremie Angelo MD [facility] [place] [address] [place] [address] PARATHYROIDECTOMY OR EXPLORATION OF PARATHYROID(S) (WRVU 15.6) Social History Tobacco Use Types Packs/Day Years [...] no 10/24/2023 Feels Threatened by Someone no 0 08/2023 Feels Unsafe at Home or Work/School no 10/24/2023 Physical Signs of Abuse Present no 10/24/2023 Sex and Gender Information Value Date Recorded Sex Assigned at Not on file Gender Identity Not on file Sexual Orientation Not on file documented as of this encounter Last Filed Vital Signs Vital Sign Reading Time Taken Comments Blood Pressure 128/88 10/24/2023 9:45 AM EDT Pulse 60 10/24/2023 9:45 AM EDT Temperature 36 ??C (96.8 ??F) 10/24/2023 9:09 AM EDT Respiratory Rate 14 10/24/2023 9:45 AM EDT Oxygen Saturation 95% 10/24/2023 9:45 AM EDT Inhaled Oxygen Concentration - - Weight 93.9 kg (207 lb) 10/24/2023 6:27 AM EDT Height 181.6 cm (5' 11.5) 10/24/2023 6:27 AM ED T Body Mass Index 28.47 10/24/2023 6:27 AM EDT documented in this encounter Discharge Instructions * Discharge Instructions* Tina Hyatt RN - 10/24/2023 6:25 AM EDT General Anesthesia Discharge Instructions Go home and rest. You may be sleepy for several hours. Take it easy as sudden position changes may cause nausea and/or dizziness. Use caution on stairs. Do not smoke if you are alone. Follow a light to regular diet as tolerated today. If nausea occurs, start with clear liquids, and progress slowly to a regular diet. Do not drive, operate machinery, drink alcoholic beverages or make any legal decisions after havinggeneral anesthesia. The medications given change your reaction time and alter your judgement. IV site -- slight redness is normal, you can use warm compresses. If tenderness and redness increases or foul drainage occurs, please contact your M.D. Patients who have had endotracheal tubes/LMA (tubes used by the anesthesia staff to ensure a safe airway during your operation) may have a sore throat. This is normal and cold liquids or soothing lozenges will help ease this discomfort. Narcotic pain medications can cause constipation, please ask the surgeons office what they recommend for prevention of this. Some non-pharmaceutical means of constipation prevention include increasing intake of fluids, eating more fruits and vegetables as well as fruit juices. If you are uncomfortable and/or unable to urinate within 8 hours of discharge and it is before 5 pm, call your physician. If it is after 5pm go to the closest emergency room or call the hospital audio/visual operator at [phone] and ask for physician data center solutions architect covering for your physician. Questions or problems after 5pm or on a weekend: Call the [facility] audio/visual operator at and ask for the physician data center solutions architect covering for your doctor. You received Toradol, an nsaid medication at 0900 am. Your next dose should not be taken before 3 pm today. * Patient Instructions* Carmela Pinon MD - 10/24/2023 7:25 AM EDT PARATHYROIDECTOMY PATIENT DISCHARGE INSTRUCTIONS What to Expect Following Surgery: Swelling and/or bruising under and around the incision is normal. It is usually greatest on the second or third day following surgery. You may also feel the sensation of swelling or firmness that canlast for a month or more Your scar will be most visible for 1-2 months following your operation and will gradually fade overthe next 6-8 months. As it heals, a scar often looks more pink or red than the skin around it. You may feel a ???healing ridge?? directly under the incision. This is completely normal and is the result of swelling, healing, and scar formation. Usually, this will go away when healing is complete in 3-6 months. The skin just above and below your incision will feel numb. This will improve over several months but some patients may have long-term decrease in sensation over these areas. You may notice minor difficulty in swallowing which will improve over time. Your voice may be hoarse or weak at first--this is normal and does not mean there was damage done to the nerves that make the vocal cords move. Your voice will usually go back to normal after severaldays to a few weeks. Incision Care: Neck incisions heal rapidly--usually within a week or two. The incision can get wet in the shower 24 hours after surgery. However, do not submerge the incision underwater (i.e. bath tub, swimming pool, hot tub, etc.) for at least 2 weeks after your operation. Pat the incision dry immediately following your shower. Do not scrub the area vigorously for the next 2 weeks. You have a skin glue closure, and you may notice tiny pieces of yellow/white/silva material on your washcloth or there may be a thin clear or purplish/silva crust around the edges of the incision. Thisis normal. The glue will start to come off about a week after surgery. Do not pull off the skin glue in order to allow time for the incision to heal completely. If there is still some glue on your skin 2 weeks after surgery, you may gently wash it away. Do not use any ointments/salves/Vitamin E on the incision for 2 weeks as these may impair early wound healing. After 2 weeks (and after the skin glue is gone), you may apply vitamin E oil or scar creams to the incision. Gentle massage may help soften your scar tissue. Incisions are sensitive to sunlight. For at least 1 year after surgery you should use sunscreen when outdoors for long periods of time to prevent permanent darkening of the scar. This includes tanning booths. Pain Management: You may apply ice or cold packs to the incision for 15-20 minutes several times a day for the first2-3 days following surgery to help with discomfort. You may feel some stiffness/soreness in your shoulders, back, and neck. This may take a few days orweeks to go away completely. You may use moist warm heat, a heating pad, or massage to these areas for 15-20 minutes several times a day. Do not be afraid to move your neck - gently flexing and stretching your neck muscles and light massage will help prevent stiffness NSAIDs (non-steroidal anti-inflammatory drugs) such as ibuprofen (Motrin, Advil) and naproxen (Naprosyn, Aleve) or acetaminophen (Tylenol) are most helpful for the pain experienced after surgery. Generally, these are even more effective than the stronger pain medications (narcotics or opioids) after parathyroid surgery. Take NSAIDS or Tylenol every 6 hours [id number]-[id number] for the first 3-5 days following surgery to help minimize pain. It is unusual to require opioid pain medications after parathyroid surgery. If you were prescribed oxycodone, use only for severe pain, and never take with alcohol. Opioid medications typically causeconstipation, so we suggest using a stool softener in addition (metamucil, colace...etc.). Diet & Activity: No restrictions in your diet are necessary. Activity as tolerated by your comfort level. You may return to work as soon as you would like. However, if your job requires heavy lifting or strenuous physical activity, your surgeon may ask you to wait to return to work for two weeks. NO DRIVING for at least 8 hours following any dose of an opioid pain medication if one was prescribed for you. Pathology Report: All specimens removed at surgery are analyzed by a pathologist. This report usually takes approximately 5-7 business days to be ready. As of October 2020, the reports are released directly to your electronic patient portal as soon as they are available. THIS MAY MEAN THAT YOU WILL SEE THE RESULTS BEFORE YOUR SURGEON DOES!!! Dr. Angelo or Linda Hoffman APRN, will call you to discuss the report within 72 hours of its release. Follow-up Appointment: Will be scheduled with Dr. Angelo and/or Linda Hoffman APRN, in 6 weeks If you do not already have a follow up appointment, the date and time as well as any required labs will be mailed to you Please call [phone] to confirm the date and time of your appointment if you do not hear from us in the next 2 weeks Call Doctor for: Call if you have trouble talking or breathing (call 911 if this is severe) Call if you develop numbness or tingling around your mouth/lips or on the tips of your fingers or your hands, as this may mean your calcium is low. This may also be related to pain medication, where the breathing tube was positioned against your lips, the positioning of your arms and hands in the operating room, or how you were positioned when sleeping. If the sensation does not go away within a half hour, or if it worsens prior to that, call us immediately so we can discuss increasing your calcium if we think you need it. Call if your incision becomes red or begins to drain fluid. Call if you have fevers greater than 101 degrees F Call if you have persistent nausea or vomiting (this may be related to opioid pain medications). Call if you begin feeling worse, rather than better, several days after surgery. Information about Calcium Supplementation WHAT IS THE EFFECT OF SURGERY ON MY CALCIUM LEVELS? The parathyroid glands are responsible for controlling the body???s calcium levels, and you probably needed parathyroid surgery because your calcium level was too high. However, after we remove the abnormal gland(s), the remaining parathyroids frequently do not work perfectly right away. This can result in a decrease in blood calcium levels. This is usually temporary and the remaining parathyroidglands almost always make a full recovery. WHAT ARE THE SYMPTOMS OF LOW CALCIUM? If the calcium level in the blood stream decreases after surgery, you may experience symptoms of numbness, tingling, or cramps in the fingers, toes, legs, or around the mouth. WHAT ARE CALCIUM SUPPLEMENTS? Each over the counter calcium supplement tablet is approximately 500-600 mg. There are several different types of calcium sold over the counter. Some of the more common brands you will see include: Tums, Viactiv, Citracal, Caltrate. The two main forms of calcium in supplements are carbonate and citrate. Calcium carbonate (Tums, Viactiv) is absorbed most efficiently when taken with food, whereas calcium citrate (Citracal) is absorbed equally well when taken with or without food. HOW MUCH CALCIUM SHOULD I TAKE AFTER SURGERY? The exact dose of calcium that is right for you after surgery depends on several factors including the type and extent of surgery. Most patients will temporarily require some extra calcium as the parathyroid glands recover. You probably already purchased calcium supplements after reviewing your preoperative handout. A good guideline is to start with 600-1200 mg (1-2 over the counter supplements) twice a day. If you notice symptoms of numbness/tingling, you may need to take it more frequently (up to 3-4 times perday). If you have no symptoms, the dose can be gradually decreased and the extra calcium stopped altogether within a few days of surgery. WHAT ABOUT VITAMIN D? Vitamin D can be very helpful with calcium levels, as adequate vitamin D stores in the body help your body absorb calcium. If you were on Vitamin D prior to surgery, this can be resumed post-operatively. Additional Vitamin D may be included in your calcium supplement, this is fine as well. If you are not on Vitamin D and would like to start after surgery, an over the counter supplement of 400-800 IU is the usual recommended dosage, however, if you are on other medications or have otherhealth issues, you will want to discuss this with your PCP. If your surgeon is concerned about your calcium levels, (s)he may prescribe a different form of vitamin D called Rocaltrol (Calcitriol). This should be taken as instructed. Note that this is not a replacement for calcium, it should be taken in addition to the recommended calcium supplements to helpwith absorption. COMMONLY ASKED QUESTIONS: Are there side effects to calcium supplements? The most common side effect is constipation and stomach upset. If you are taking high doses of calcium after surgery, be sure to include a stool softener or laxative as needed. Minimize narcotics, as these can also cause constipation. Finally, decreaseyour calcium supplements if you note no symptoms of low calcium as noted above. Do I need a blood test after surgery to check my calcium levels? Your calcium level will be checkedat your routine follow up visit to make sure it has returned to normal. You will most likely be offthe postoperative supplements by then. Our bodies will signal us that the calcium level is low withthe symptoms noted above. If you do not have these symptoms, then most likely your calcium level isjust fine. Should I take a long-term calcium supplement? Routine calcium supplements can be good for general bone health, especially if you have osteoporosis as a result of your hyperparathyroidism. We recommend that you discuss long-term supplementation with your PCP. Phone number for questions: [phone] before 5 PM on weekdays [phone] after 5 PM and on weekends/holidays. Ask for the general surgery resident data center solutions architect. documented in this encounter Medications at Time of Discharge Medication Sig Dispensed Refills Start Date End Date celecoxib (CeleBREX) 200 mg Capsule Take 200 mg by mouth as needed. 07/19/2022 Synthroid 137 mcg Tablet Take 137 mcg by mouth daily. 07/12/2022 documented as of this encounter Progress Notes * Tina Hyatt RN - 10/24/2023 10:01 AM EDT Discharge instructions, AVS, and medications reviewed with patient and escort. All questions answered and written copy sent home with patient. Tylenol x1 for reported pain. Patient ambulated to car for discharge accompanied by [facility] staff member. documented in this encounter H&P Notes * Carmela Pinon MD - 10/24/2023 7:18 AM EDT Patient Name: Jakub Fuller Patient Age: 73 y.o. Birthdate: 1950 Admit date: 10/24/2023 Attending Physician: Jeremie Angelo MD HPI obtained from 08/10 clinic note: Mr. Jakub Fuller is a 72 y.o. [...] side as part of the parathyroid operation. He denies any changes in health (medications, allergies, emergency room visits, hospitalizations, procedures); he also denies fevers, chills, nausea, vomiting. Objective: BP (!) 134/92 (BP Location (NBP): Left arm) Pulse 55 Temp 36.4 ??C (97.5 ??F) (Temporal) Resp16 Ht 181.6 cm (5' 11.5) Wt 93.9 kg (207 lb) SpO2 98% BMI 28.47 kg/m?? GA: NAD CV: RRR Pulm: Breathing comfortably on RA Abd: Non-tender, non-distended Assessment and Plan: 73 y.o. male presents for parathyroidectomy possible hemithyroidectomy. Carmela Pinon MD 10/24/23 documented in this encounter Miscellaneous Notes * Brief Op Note - Jeremie Angelo MD - 10/24/2023 9:08 AM EDT Brief Operative Note Patient Name: Jakub Fuller : [id number] MR#: [id number] Case Date: 10/24/2023 Surgeon: Surgeon(s) and Role: * Jeremie Angelo MD - Primary * Carmela Pinon MD Preoperative diagnosis: Hyperparathyroidism Postoperative diagnosis: Hyperparathyroidism Procedure(s) (LRB): PARATHYROIDECTOMY OR EXPLORATION OF PARATHYROID(S) (WRVU 15.6) (N/A) FACIAL NERVE MONITORING, SETUP LARYNGEAL (WRVU 1.57) (N/A) Anesthesia: General Findings: markedly enlarged right lower parathyroid in the thyrothymic ligament. Normal-appearing right upper parathyroid, removed due to shared soft tissue attachments with the right lower parathyroid. Right RLN preserved throughout. Baseline PTH 74. Final level to be checked in PACU. Complications: none apparent Intake: Intraprocedure Crystalloid Total Intake lactated ringers 700.00 mL Total Intake 700 mL Output Blood Loss 11 mL Total Output 11 mL Net Net Volume 689 mL Transfusion No data found in the last 1 encounters. Output: Estimated Blood Loss: 11 mL Urine Output:: (no urine output recorded) Other Output: (no other output recorded) Drains: none Specimens removed during surgery: Order Name Source Comment Collection Info Order Time PATHOLOGY ORDER UPDATE 10/24/2023 8:24 AM Additional information: Cancellation Enter requested changes: NO PRE-EXCISION DRAWN eD-H Order Id number [id number] SPECIMEN TO PATHOLOGY Hyperparathyroidism RIGHT UPPER PARATHYROID excision 10/24/2023 8:38 AM Time specimen removed from patient: 8:38 AM Number of tissue samples (in container) 1 SPECIMEN TO PATHOLOGY Hyperparathyroidism RIGHT LOWER PARATHYROID excision 10/24/2023 8:38 AM Time specimen removed from patient: 8:38 AM Number of tissue samples (in container) 1 Disposition: awakened from anesthesia, extubated and taken to the recovery room in a stable condition, having suffered no apparent untoward event. Condition: doing well without problems Attestation: Case Date: 10/24/2023 I was present and I participated during the entire procedure (does not need to include opening and closing). (Please see the Surgical Encounter Summary for any Implant and Specimen details pertinent to this patient.) Surgical Infection Prevention Bundle Used? N/A * Op Note - Jeremie Angelo MD - 10/24/2023 8:08 AM EDT [facility] Operative Note Patient Name: Jakub Fuller : [id number] MR#: [id number] Case Date: 10/24/2023 Surgeon: Surgeon(s) and Role: * Jeremie Angelo MD - Primary * Carmela Pinon MD Preoperative diagnosis: Hyperparathyroidism Postoperative diagnosis: Hyperparathyroidism Procedure(s) (LRB): PARATHYROIDECTOMY OR EXPLORATION OF PARATHYROID(S) (WRVU 15.6) (N/A) FACIAL NERVE MONITORING, SETUP LARYNGEAL (WRVU 1.57) (N/A) Anesthesia: General Estimated Blood Loss: Specimens removed during surgery: Order Name Source Comment Collection Info Order Time PATHOLOGY ORDER UPDATE 10/24/2023 8:24 AM Additional information: Cancellation Enter requested changes: NO PRE-EXCISION DRAWN eD-H Order Id number [id number] SPECIMEN TO PATHOLOGY Hyperparathyroidism RIGHT UPPER PARATHYROID excision 10/24/2023 8:38 AM Time specimen removed from patient: 8:38 AM Number of tissue samples (in container) 1 SPECIMEN TO PATHOLOGY Hyperparathyroidism RIGHT LOWER PARATHYROID excision 10/24/2023 8:38 AM Time specimen removed from patient: 8:38 AM Number of tissue samples (in container) 1 Drains: * No LDAs found * Surgical Closure: Primary Closure - skin incision is completely closed without any wires, kaiden, drains or other devices Disposition: awakened from anesthesia, extubated and taken to the recovery room in a stable condition, having suffered no apparent untoward event. Condition: doing well without problems (Please see the Surgical Encounter Summary for any Implant and Specimen details pertinent to this patient.) HPI/Surgical Indications: Mr. Jakub Fuller is a 72 y.o. year old male with symptomatic biochemicalprimary hyperparathyroidism. Localization studies including ultrasound and sestamibi scan indicate a right lower parathyroid abnormality. We discussed the typical work up and management of primary hyp erparathyroidism. In addition, he has an intermediately-suspicious left thyroid nodule that could not be biopsied due to calcifications. We discussed empiric total thyroidectomy, especially since he is already on 137mcg synthroid daily. However, he was not enthusiastic about doing this if it was unnecessary. We talked about trying to keep his parathyroidectomy targeted to the right side, but planning to at least do a left hemithyroidectomy if we needed to explore the left side as part of the parathyroid operation. Procedure Description: The patient was taken to the operating room and placed on the operating table in the supine position. Adequate general anesthesia was completed by anesthesiology with the Gild recurrent laryngeal nerve monitoring system. A crease on the anterior neck was identified and marked, and this area was infiltrated with 10 cc 0.25% marcaine with epinephrine. He was then prepped and draped in the usual sterile fashion over theanterior neck. A timeout procedure was done, and all members of the OR team were in agreement. The procedure began by making a curvilinear incision along the lower anterior neck along the previously marked skin crease with a scalpel. Electrocautery was used to continue dissection through the subcutaneous tissue and through the platysma muscle. Subplatysmal flaps were created in cranial and caudal directions. The median raphe of the strap muscles was divided with electrocautery. We developed a plane between the right strap muscles down to the right internal jugular vein. The internal jugular vein was accessed with a catheter and syringe. Samples drawn during the case were sent to the bio chemistry lab with results reported and interpreted in real-time while in the operating room to inform the need for further exploration. We ra a baseline PTH from the internal jugular vein. IOPTH levels are noted in the table below. We then dissected the strap muscles off the markedly atrophied right thyroid lobe out to its lateral aspect. We dissected into the paratracheal and paraesophageal space and identified the recurrent laryngeal nerve as it ran into the tracheoesophageal groove and carefully preserved this. We identified a right lower parathyroid gland in the normal anatomic position (thyrothymic ligament) which was markedly enlarged. We also visualized a normal-appearing right upper parathyroid gland essentially adjacent to the enlarged right lower gland. Weremoved the right lower parathyroid gland by ligating its vascular pedicle with the Ligasure device. After removing it, we inspected the specimen and realized the right upper gland had also come out due to soft tissue attachments. The glands were and passed off the table as permanent specimens. We elected not to explore the left side since it had been the patient's preference not to have the thyroidectomy and since we did not think it was indicated from a parathyroid pathology perspective. We then irrigated the operative field. A Valsalva to 30 millimeters of mercury was accomplished by Anesthesia. Hemostasis was assured. The recurrent laryngeal nerve was tested again, and it was fullyfunctional on the nerve monitor. We placed Surgicel in the paratracheal space, closed the strap muscles using running 3-0 Vicryl suture, the platysma with interrupted 3-0 Vicryl suture, and the skin with running 5-0 Prolene subcuticular suture. We then placed Dermabond on the incision and removed the Prolene suture. A final PTH level will be checked in recovery. IOPTH findings: Baseline: 74 pg/mL Surgical Infection Prevention Bundle Used? N/A Attestation: Case Date: 10/24/2023 I was present and I participated during the entire procedure (does not need to include opening and closing). JEREMIE ANGELO MD 10/24/2023 documented in this encounter Plan of Treatment Not on file documented as of this encounter Procedures Procedure Name Priority Date/Time Associated Diagnosis Comments HC PARATHYROID HORMONE(PTH INTACT Routine 10/24/2023 9:20 AM EDT SPECIMEN TO PATHOLOGY Routine 10/24/2023 8:39 AM EDT SPECIMEN TO PATHOLOGY Routine 10/24/2023 8:39 AM EDT SURGICAL PATHOLOGY REPORT Routine 2023 8:38 AM EDT HC INTRAOPERATIVE PTH STAT 10/24/2023 8:19 AM EDT Needle Electromyography, Larynx Global (18499) 10/24/2023 7:36 AM EDT Hyperparathyroidi sm Explore Parathyroid Glands ([id number]) 10/24/2023 7:36 AM EDT Hyperparathyroidi sm FACIAL NERVE MONITORING, SETUP LARYNGEAL Routine 10/24/2023 6:24 AM EDT PARATHYROIDECTOMY OR EXPLORATION OF PARATHYROID(S) Routine 10/24/2023 6:24 AM EDT documented in this encounter Results * PTH (10/24/2023 9:20 AM EDT) PTH 15 15 - 65 pg/mL [facility] Blood 10/24/2023 9:20 AM EDT 10/24/2023 9:37 AM EDT Narrative Resulting Agency Comment Spec In Lab Jeremie Angelo MD CHEMISTRY ORDERAB LES Performing Organization Address City/[facility]/ZIP Co de Phone Number [facility] [place] [address] * Specimen to Pathology (10/24/2023 8:39 AM EDT) AP Specimen 10/24/2023 8:39 AM EDT 10/24/2023 8:39 AM EDT Narrative [facility] - 10/24/2023 8:39 AM EDT Specimen requisition ordered. ??Separate Pathology report to follow Jeremie Angelo MD PATHOLOGY/CYTOLOG Y ORDERABLES Performing Organization Address City/[facility]/[place] [address] * Specimen to Pathology (10/24/2023 8:39 AM EDT) AP Specimen 10/24/2023 8:39 AM EDT 10/24/2023 8:39 AM EDT Narrative [facility] - 10/24/2023 8:39 AM EDT Specimen requisition ordered. ??Separate Pathology report to follow Jeremie Angelo MD PATHOLOGY/CYTOLOG Y ORDERABLES Performing Organization Address City/[facility]/ZIP Co de Phone Number [facility] [place] [address] * Surgical Pathology Report (10/24/2023 8:38 AM EDT) FINAL DIAGNOSIS (AP) [id number] ? Location: [facility] The signing pathologist has (i) examined the relevant preparation(s) for the specimen(s) and (ii) rendered or confirmed the diagnosis(es). . ?Surgical Pathology DIAGNOSIS A - RIGHT UPPER PARATHYROID, excision: - Hypercellular parathyroid tissue with oncocytic changes, 0.15 g. B - RIGHT LOWER PARATHYROID, excision: - Hypercellular ??parathyroid tissue, 1.54 g. Electronically signed by: ?Bladimir Mendoza MD Verified: ??10/30/2023 14:08 ??Pathologist Performed at: ??-[facility] Dept. of Pathology, [place] [address] Schedule Analyst: Jose Koenig MD, FCAP, ??CLIA Certificate: [id number] SPECIMEN(S) SUBMITTED A - RIGHT UPPER PARATHYROID, excision (1) B - RIGHT LOWER PARATHYROID, excision (1) CLINICAL INFORMATION Hyperparathyroidi sm SPECIMEN PROCESSING A - Labeled/Fixative: Right upper parathyroid, formalin. Quantity/Size/Serjio ght: Single, 0.8 x 0.7 x 0.3 cm, 0.15 g. Tissue Description: Yellow-brown soft tissue. Sections/Processi ng: Entirely submitted in 1 cassette labeled A1. B - Labeled/Fixative: Right lower parathyroid, formalin. Quantity/Size/Serjio ght: Single, 2.9 x 1.0 x 0.8 cm, 1.54 g. Tissue Description: Red-brown nodular tissue. Sections/Processi ng: Bisected and entirely submitted in 2 cassettes labeled B1-B2. ??ajw 10/30/2023 2:08 PM EDT [facility] PARATHYROID STRUCTURE / Unknown 10/24/2023 8:38 AM EDT 10/24/2023 8:38 AM EDT PARATHYROID STRUCTURE / Unknown 10/24/2023 8:38 AM EDT 10/24/2023 8:38 AM EDT Jeremie Angelo MD PATHOLOGY/CYTOLOG Y ORDERABLES Performing Organization Address [facility] Co de Phone Number [facility] [place] [address] * (ABNORMAL) Intraoperative PTH ([facility]) (10/24/2023 8:19 AM EDT) Intraoper PTH 74(H) 15 - 65 pg/mL [facility] Comment: BASELINE Called by: lopez, Read back by: Jeremie Angelo, Date/Time:10/24/23 08:54. A 50 % decrease in venous iPTH levels at 10 min post adenoma excision is expected if all the hypersecreting parathyroid tissue has been removed (Taiwo GL et al. Surgery 1993:114; 2893-1289) Blood 10/24/2023 8:19 AM EDT 10/24/2023 8:32 AM EDT Narrative Resulting Agency Comment Spec In Lab Jeremie Angelo MD CHEMISTRY ORDERAB LES Performing Organization Address [facility] Co de Phone Number [facility] [place] [address] documented in this encounter Visit Diagnoses Not on filedocumented in this encounter Administered Medications Inactive Administered Medications - up to 3 most recent administrations Medication Order MAR Action Action Date Dose Rate Site acetaminophen (Tylenol) 325 mg tablet 1 dose, Starting on Mon10/24/23 at 0925, Until Mon10/24/23 at 0926, Tina Hyatt: cabinet override acetaminophen (Tylenol) tablet 975 mg 975 mg, Oral, ONCE, 1 dose, On Mon10/24/23 at 0945, Administer with a SIP of water only. Maximum dose of acetaminophen is 4,000 mg from all sources in 24 hours., PACU Recovery, Routine Given 10/24/2023 9:26 AM EDT 975 mg BUpivacaine-EPINEPHrine (Marcaine-epiNEPHrine) 0.25 %-1:200,000 injection PRN, Starting on Mon10/24/23 at 0753, Until Mon10/24/23 at 1201, Intra-Operative (Intra-Procedure), Routine Given 10/24/2023 7:53 AM EDT 10 mLs 19- Surgical Site documented in this encounter Active and Recently Administered Medications Times are shown in EDT. Scheduled Medication Order 10/22/2023 10/23/2023 10/24/2023 acetaminophen (Tylenol) tablet 975 mg (COMPLETED) 975 mg, Oral, ONCE, 1 dose, On Mon10/24/23 at 0945, Administer with a SIP of water only. Maximum dose of acetaminophen is 4,000 mg from all sources in 24 hours., PACU Recovery, Routine 09 (Given - Provid er: Tina Hyatt RN) PRN Medication Order 10/22/2023 10/23/2023 10/24/2023 BUpivacaine-EPINEPHrine (Marcaine-epiNEPHrine) 0.25 %-1:200,000 injection (CANCELED) PRN, Starting on Mon10/24/23 at 0753, Until Mon10/24/23 at 1201, Intra-Operative (Intra-Procedure), Routine 0753 (Given - Provid er: Jeremie Angelo MD) documented in this encounter Care Teams Freight Loader Relationship Specialty Start Date End Date Armond Morel [place] [address] PCP - General Internal Medicine 10/19/23 documented as of this encounter
--- OUTSIDE RECORDS SUMMARY | 2024-02-21 17:15 | XMS_ITS | Encounter Summary ---
Author Organization [facility] Address [facility] [place] [address] Care Team Providers Care Production Control Analyst Name Role Phone Armond Morel Primary Care Provider + Reason for Referral * Occupational Therapy (Routine) - Authorized Specialty Diagnoses / Procedures Referred By Louann dawson Referred To Contact Occupational Therapy Diagnoses Subluxation of right extensor carpi ulnaris tendon, initial encounter Bekah Hui PA [facility] [place] [address] [facility] [address] [place] [address] Referral ID Status Reason Start Date Expiration Date Visits Requested Visits Authorized [id number] Authorized Evaluate and Treat 11/20/2023 11/19/2024 12 12 Reason for Visit * Reason Comments Follow-up XR (REQ [facility]) R W RIST PAIN DOI: 2022 * Consultation (Routine) - Authorized Specialty Diagnoses / Procedures Referred By Louann dawson Referred To Contact Orthopaedics Diagnoses Right wrist pain PT WITH RIGHT WRIST PAIN WITH UNSATISFACTORY PAIN RELIEF AFTER DOING PT. PAIN IS MOSTLY ON EXTENSION, BUT HE WILL HAVE PAIN WITH KYLE AND BACKHAND WHILE PLAYING TENNIS. ON EXAM THERE IS CREPITUS IN WRIST ON EXTENION, HE IS PAIN LIMITED TO STRENGHT TESTING ON WRIST EXTENSION. HE HAS FROM IN THE WRIST, BUT IT IS A BIT PAINFUL. Armond Morel PA [address] [place] [address] [facility] [address] [place] [phone] Referral ID Status Reason Start Date Expiration Date Visits Requested Visits Authorized [id number] Authorized Consult, Test & Treat PCP Updated and/or Approved 10/17/2023 10/16/2024 6 6 Encounter Details Date Type Department Care Team (Late st Contact Info) Description 11/20/2023 9:00 AM EDT Office [place] [address] Bekah Hui PA [facility] [place] [address] Subluxation of right extensor carpi ulnaris tendon, initial encounter Social History Tobacco Use Types Packs/Day Years Used Date Smoking Tobacco: Never Smokeless Tobacco: Never Alcohol Use Standard Drinks/Week Comments Not Currently 0 (1 standard drink = 0.6 oz pur e alcohol) occasional IPV Inpatient Questions Answer Date Recorded Does [...] on file documented as of this encounter Progress Notes * Bekah Hui PA - 11/20/2023 9:00 AM EDT PATIENT NAME: Jakub Fuller AGE: 73 y.o. MR#: [id number] DATE OF VISIT: 11/20/2023 DATE OF INJURY/ONSET: Summer 2022 STAFF: Dr. Anaya CHIEF COMPLAINT: Right wrist pain/clicking HISTORY OF PRESENT ILLNESS: Mr. Fuller is a right hand dominant 73 y.o. male who comes into clinic today for evaluation of the right wrist. He states he injured his right wrist last summer while playing tennis. He reports that he forcefully swung his tennis racquet and developed pain along the ulnar aspect of his wrist and forearm. He states he immobilized his wrist for about 1 week after the inju ry. He also completed a course of physical therapy. He states he was working on strengthening in therapy. He is not having much pain at this point. He would like to return to playing tennis and he isunsure whether he would be able to do so because he still has noticed some clicking in his wrist. He was able to return to pickleball without increased symptoms. He has not had any prior wrist or hand surgery. Medications and Allergies were reviewed in [facility]D-[facility] PAST MEDICAL HX: Past Medical History: Diagnosis Date Diverticulitis Hypothyroid Ulcerative colitis Has chronic bleeding with his UC. PAST SURGICAL HX: Past Surgical History: Procedure Laterality Date PRG EMG, LARYNX N/A 10/24/2023 FACIAL NERVE MONITORING, SETUP LARYNGEAL (WRVU 1.57) performed by Sussy Moraes MD at [facility] PRG RADEX HIP UNILATERAL WITH PELVIS MINIMUM 4 VIEWS Left 12/13/2022 HIP INTRAOP RADIOLOGIC EXAMINATION, UNILATERAL, W PELVIS; 4+ VIEWS (WRVU 0.27) performed by Mynor Umaña MD at [facility] MAIN OR PRO ARTHROPLASTY ACETABULAR/PROX FEM PROSTC AGRFT/ALGRFT Left 12/13/2022 TOTAL HIP ARTHROPLASTY, ANTERIOR APPROACH (WRVU 19.6) performed by Mynor Umaña MD at [facility] MAIN OR PRO EXPLORE PARATHYROID GLANDS N/A 10/24/2023 PARATHYROIDECTOMY OR EXPLORATION OF PARATHYROID(S) (WRVU 15.6) performed by Sussy Moraes MD at [facility] UMBILICAL HERNIA REPAIR XR FLUORO INJECTION DRAINAGE JOINT LG LEFT Left 04/19/2021 XR Fluoro Guided Joint Injection Large Left 04/19/2021 [facility] RAD XRAY XR FLUORO INJECTION DRAINAGE JOINT LG LEFT Left 05/10/2021 XR Fluoro Guided Joint Injection Large Left 05/10/2021 Keri Dugan MD [facility] RAD XRAY XR FLUORO INJECTION DRAINAGE JOINT LG RIGHT Right 05/10/2021 XR Fluoro Guided Joint Injection Large Right 05/10/2021 Keri Dugan MD [facility] RAD XRAY SOCIAL HX: Social History Occupational History 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 Tobacco Use Smoking status: Never Smokeless tobacco: Never Vaping Use Vaping Use: Never used Substance and Sexual Activity Alcohol use: Not Currently Comment: occasional Drug use: Never Sexual activity: Yes Partners: Female 01/16/2023 General Health, Prior Treatments, PreExisting Condition, Health Habits, About You PROMIS-10 General Health Excellent PROMIS-10 Quality of Life Excellent PROMIS-10 Physical Health Excellent PROMIS-10 Mental Health Excellent PROMIS-10 Social Activity Very Good PROMIS-10 Everyday Activities Completely PROMIS-10 Pain 1 PROMIS-10 Fatigue Mild PROMIS-10 Social Roles Excellent PROMIS-10 Anxious or Depressed Rarely PROMIS PHYSICAL SCORE (range 16-68) 57.7 PROMIS MENTAL SCORE (range 21-68) 59 HOOS JR Scores 92.34 RAFIQ Grade 10 01/16/2023 [facility] Response HOOS JR Scores 92.34 01/16/2023 [facility] Response HOOS JR Scores 92.34 PHYSICAL EXAM: Mr. Fuller is a 73 y.o. male who is in no apparent distress, alert, and cooperative. Inspection: There is some swelling over the ulnar styloid. There is no erythema or ecchymosis Palpation: There is palpable clicking over the ulnar styloid which seems to be related to subluxation of the ECU tendon. He does not have any significant point tenderness elsewhere in the wrist. He has some mild discomfort when his clicking occurs. ROM/Strength: He is able to flex and extend all of his fingers without significant restriction. He is able to perform active wrist range of motion without significant stiffness, but he is able to reproduce clicking over the ulnar aspect of the wrist with forearm rotation Orthopedic testing: DRUJ remains stable with piano hartman testing in all planes. There is no evidence of any midcarpal instability Neurovascular: Sensate distally with good perfusion DIAGNOSTIC STUDIES: X-rays of the right wrist were obtained from [facility] and were personally reviewed.No acute fracture or dislocation is appreciated. His joint space remains intact, but there is some mild spurring involving the wrist joints consistent with mild arthritis ASSESSMENT: Right ulnar-sided wrist pain and clicking consistent with ECU subluxation PLAN: She continues to have clicking over the ulnar aspect of his wrist. His pain does not seem to be as severe. He very much would like to return to playing tennis. We discussed that he could try stabilizing his wrist with a soft wrist wrap to see if this would control his symptoms enough to allowhim to return to playing tennis. He may want to try using a wrist widget. He will also meet with hand therapy today to discuss other splinting options. If his symptoms are not adequately controlled by splinting then we may need to discuss whether a period of cast immobilization would be helpful. Italso would be helpful to obtain a dynamic ultrasound to confirm the diagnosis. We also discussed that surgical reconstruction of the ECU subsheath can be an option, but both cast immobilization or surgery would keep him out of playing tennis for several months. He will contact us for follow-up if his symptoms fail to improve. The patient understands to contact us if they have any other questions or concerns. The above documentation was completed using [employer] voice recognition software. documented in this encounter Plan of Treatment Scheduled Referrals Name Type Priority Associated Diagnoses Order Schedule Referral to Occupational Therapy Outpatient Referral Routine Subluxation of right extensor carpi ulnaris tendon, initial encounter Ordered: 11/20/2023 documented as of this encounter Visit Diagnoses Diagnosis Subluxation of right extensor carpi ulnaris tendon, initial encounter documented in this encounter Care Teams Production Control Analyst Relationship Specialty Start Date End Date Armond [place] [address] [place] [address] PCP - General Internal Medicine 10/19/23 documented as of this encounter
--- OUTSIDE RECORDS SUMMARY | 2024-02-21 17:15 | XMS_ITS | Continuity of Care Document ---
Author Organization [facility] Address [address] [place] [phone] Care Team Providers Care Pulpwood Contractor Name Role Phone SAIMA ZARCO, ANNIE Wiggins Primary Care Physician Encounter [facility] FIN NBR [id number] Date(s): 09/15/22 - 09/15/[address] [address]- [place] Discharge Disposition: Home or Self Care Attending Physician: Jus Morelos DO Admitting Physician: Jus Morelos DO Allergies, Adverse Reactions, Alerts No Known Allergies Assessment and Plan Future Appointments Medications CeleBREX 200 mg oral capsule 200 mg = 1 cap, Oral, Daily, PRN as needed for pain, # 10 cap, 0 Refill(s) Start Date: 09/14/22 Status: Ordered Synthroid 137 mcg (0.137 mg) oral tablet 137 mcg = 1 tab, Oral, Daily, 0 Refill(s) Start Date: 09/14/22 Status: Ordered Problem List Condition Confirmation Course Effective Dates Status [facility] at Informant Diverticulitis Confirmed Active Hyperlipidemia Confirmed Active Hypothyroidism Confirmed Active Ulcerative colitis Confirmed Active Results Radiology Reports * Exam Date Time Procedure Performing Provider Status 09/15/22 9:53 AM XR Hip 2-3 Views w/AP Pelvis Left Perr as, Bozena; Joe (Verified) Notes: (XR Hip 2-3 Views w/AP Pelvis Left) Reason For Exam: left hip pain XR Hip 2-3 Views w/AP Pelvis Left EXAM DESCRIPTION: XR Hip 2-3 Views w/AP Pelvis Left 09/15/2022 INDICATION: LEFT HIP PAIN TECHNIQUE: Pelvis and left hip, three views COMPARISON: None IMPRESSION: No acute fracture or dislocation. SI joints appear symmetric and pubic symphysis appears intact. Significant left hip arthritic changes with significant joint space narrowing most pronounced superiorly with subchondral sclerosis and subchondral cystic change involving the superior femoral head and superior acetabulum. Sclerotic changes in the femoral head raise the possibility of underlying AVN. No significant right hip arthritic changes Spondylotic changes in the visualized lower lumbar spine. JOB #: [id number] Final Signed by: Chetan Ribeiro MD Signed (Electronic Signature): 09/15/2022 9:58 am Social History Social History Type Response Tobacco Never tobacco user T obacco Use:. Sex Male XR Pelvis and Hip - right 2 Views * Chetan Ribeiro MD: VERIFY, VERIFY Event Display: Report EXAM DESCRIPTION: XR Hip 2-3 Views w/AP Pelvis Left 09/15/2022 INDICATION: LEFT HIP PAIN TECHNIQUE: Pelvis and left hip, three views COMPARISON: None IMPRESSION: No acute fracture or dislocation. SI joints appear symmetric and pubic symphysis appears intact. Significant left hip arthritic changes with significant joint space narrowing most pronounced superiorly with subchondral sclerosis and subchondral cystic change involving the superior femoral head and superior acetabulum. Sclerotic changes in the femoral head raise the possibility of underlying AVN. No significant right hip arthritic changes Spondylotic changes in the visualized lower lumbar spine. JOB #: [id number] Final Signed by: Chetan Ribeiro MD Signed (Electronic Signature): 09/15/2022 9:58 am Patient Care team information Care Team Personnel Name: ANNIE LANDAVERDE MD Position: No Access Member Role: Primary Care Physician Address: Address: [address] [place] [address]- Care Team Related Persons Name: JAJA CARY Anselmo Address: Home [address] [place] [phone]
--- OUTSIDE RECORDS SUMMARY | 2024-02-21 17:15 | XMS_ITS | Encounter Summary ---
[place] [address] Care Team Providers Care Operations Supervisor 2Nd Shift Name Role Phone Armond Morel Primary Care Provider + Reason for Referral * Consultation (Routine) - Authorized Specialty Diagnoses / Procedures Referred By Louann t Referred To Contact Orthopaedics Diagnoses Right wrist pain PT WITH RIGHT WRIST PAIN WITH UNSATISFACTORY PAIN RELIEF AFTER DOING PT. PAIN IS MOSTLY ON EXTENSION, BUT HE WILL HAVE PAIN WITH YKLE AND BACKHAND WHILE PLAYING TENNIS. ON EXAM THERE IS CREPITUS IN WRIST ON EXTENION, HE IS PAIN LIMITED TO STRENGHT TESTING ON WRIST EXTENSION. HE HAS FROM IN THE WRIST, BUT IT IS A BIT PAINFUL. Armond Morel PA [address] [place] [address] [facility] [address] [place] [phone] Referral ID Status Reason Start Date Expiration Date Visits Requested Visits Authorized [id number] Authorized Consult, Test & Treat PCP Updated and/or Approved 10/17/2023 10/16/2024 6 6 Encounter Details Date Type Department Care Team (Late st Contact Info) Description 10/23/2023 Transcribe Orders eDH Incoming Referrals [phone] Armond Morel PA [address] [place] [address] Right wrist pain Social History Tobacco Use Types Packs/Day Years [...] as of this encounter Plan of Treatment Scheduled Referrals Name Type Priority Associated Diagnoses Order Schedule Referral to Orthopaedics Outpatient Referral Routine Right wrist pain Ordered: 10/23/2023 documented as of this encounter Visit Diagnoses Diagnosis Right wrist pain Pain in joint, forearm documented in this encounter Care Teams Operations Supervisor 2Nd Shift Relationship Specialty Start Date End Date Armond [place] [address] PCP - General Internal Medicine 10/19/23 documented as of this encounter
--- OUTSIDE RECORDS SUMMARY | 2024-02-21 17:15 | XMS_ITS | Encounter Summary ---
[place] [address] Care Team Providers Care Ball Racker Name Role Phone Jakub Abrams MD Primary Care Provider [phone] Encounter Details Date Type Department Care Team (Latest Contact Info) Description 07/03/2023 Travel Social History Tobacco Use Types Packs/Day [...] on filedocumented in this encounter Care Teams Ball Racker Relationship Specialty Start Date End [place] [address] PCP - General Family Medicine 04/05/21 10/18/23 documented as of this encounter
--- OUTSIDE RECORDS SUMMARY | 2024-02-21 17:15 | XMS_ITS | Encounter Summary ---
Author Organization [facility] Address [facility] [place] [address] Care Team Providers Care National Van Owner Operator Name Role Phone Jakub Abrams MD Primary Care Provider [phone] Reason for Visit * Diagnostic Test (Routine) - Closed Specialty Diagnoses / Procedures Referred By Louann t Referred To Contact Radiology Diagnoses Primary hyperparathyroidism Procedures NM Parathyroid w Spect CT & Thyroid Imaging (Leb) Eva Hernandez MD [facility] [place] [address] [place] [address] Referral ID Status Reason Start Date Expiration Date V isits Requested Visits Authorized [id number] Closed Specialty Service Requested 07/03/2023 01/01/2025 1 1 Encounter Details Date Type Department Care Team (Late st Contact Info) Description 07/20/2023 7:52 AM EST - 07/20/2023 10:18 AM [facility] Hospital En[place] [phone] Eva Hernandez MD [facility] [place] [address] Discharge Disposition: Home Social History [...] EST Primary hyperparathyroidism documented in this encounter Visit Diagnoses Not on filedocumented in this encounter Administered Medications Inactive Administered Medications - up to 3 most recent administrations Medication Order MAR Action Action Date Dose Rate Site technetium (Tc-99m) pertechnetate (TC04) injection 0-20 mCi 0-20 mCi, Intravenous, ONCE PRN, 1 dose, Starting on Alysha 07/20/23 at 1546, Until Alysha 07/20/23 at 1015, Per Protocol, Radiology Contrast, Routine Given 07/20/2023 10:15 AM EST 20 mCi Right Arm documented in this encounter Care Teams National Van Owner Operator Relationship Specialty Start Date End Date Jakub Abrams [place] [phone] PCP - General Family Medicine 04/05/21 10/18/23 documented as of this encounter
--- OUTSIDE RECORDS SUMMARY | 2024-02-21 17:15 | XMS_ITS | Encounter Summary ---
[place] [address] Care Team Providers Care Lap Cutter Truer Operator Name Role Phone Jakub Abrams MD Primary Care Provider Encounter Details Date Type Department Care Team (Latest Contact Info) Description 08/10/2023 Travel Social History Tobacco Use Types Packs/Day [...] on filedocumented in this encounter Care Teams Lap Cutter Truer Operator Relationship Specialty Start Date End [place] [address] PCP - General Family Medicine 04/05/21 10/18/23 documented as of this encounter
--- OUTSIDE RECORDS SUMMARY | 2024-02-21 17:15 | XMS_ITS | Encounter Summary ---
[place] [address] Care Team Providers Care Senior Clinical Project Manager Name Role Phone Armond Morel Primary Care Provider + Encounter Details Date Type Department Care Team (Latest Contact Info) Description 11/23/2023 10:20 AM EDT Laboratory Appointment Lab [address] [place] [id number] S/P parathyroidectomy Social History Tobacco Use Types [...] Diagnosis Comments HC PARATHYROID HORMONE(PTH INTACT Routine 11/23/2023 12:47 PM EDT S/P parathyroidectomy HC VITAMIN D TOTAL-25 HYDROXY Routine 11/23/2023 12:47 PM EDT S/P parathyroidectomy HC THYROID STIMULATING HORMONE, SERUM Routine 11/23/2023 12:47 PM EDT S/P parathyroidectomy HC CALCIUM, SERUM Routine 11/23/2023 12: 47 PM EDT S/P parathyroidectomy documented in this encounter Results * Vitamin D, 25-Hydroxy (11/23/2023 12:47 PM EDT) 25-OH Vit D Total 30 21 - 100 ng/mL [facility] 25-OH Vit D Interp Sufficient [facility] Blood 11/23/2023 12:4 7 PM EDT 11/23/2023 1:10 PM EDT Narrative Resulting Agency Comment Spec In Lab Sussy Moraes MD CHEMISTRY ORDERAB LES Performing Organization Address City/[facility]/ZIP Co de Phone Number [facility] [place] [address] * PTH (11/23/2023 12:47 PM EDT) PTH 51 15 - 65 pg/mL [facility] Blood 11/23/2023 12:4 7 PM EDT 11/23/2023 1:10 PM EDT Narrative Resulting Agency Comment Spec In Lab Sussy Moraes MD CHEMISTRY ORDERAB LES Performing Organization Address City/[facility]/ZIP Co de Phone Number [facility] [place] [address] * Calcium (11/23/2023 12:47 PM EDT) Calcium 9.3 8.5 - 10.5 mg/dL [facility] Blood 11/23/2023 12:4 7 PM EDT 11/23/2023 1:10 PM EDT Narrative Resulting Agency Comment Spec In Lab Sussy Moraes MD CHEMISTRY ORDERAB LES Performing Organization Address City/[facility]/ZIP Co de Phone Number [facility] [place] [address] * TSH (11/23/2023 12:47 PM EDT) TSH 1.81 0.27 - 4.20 mcIU/mL [facility] Comment: Reference Interval (mcIU/mL): Females: ??First Trimester: 0.23-3.88 ??Second Trimester: 0.22-3.90 ??Third Trimester: 0.44-4.66 Blood 11/23/2023 12:4 7 PM EDT 11/23/2023 1:10 PM EDT Narrative Resulting Agency Comment Spec In Lab Sussy Moraes MD CHEMISTRY ORDERAB LES [facility] [place] [address] documented in this encounter Visit Diagnoses Diagnosis S/P parathyroidectomy Other postprocedural status documented in this encounter Care Teams Senior Clinical Project Manager Relationship Specialty Start Date End Date Armond [place] [address] PCP - General Internal Medicine 10/19/23 documented as of this encounter
--- OUTSIDE RECORDS SUMMARY | 2024-02-21 17:15 | XMS_ITS | Encounter Summary ---
[place] [address] Care Team Providers Care Water Resource Agent Name Role Phone Armond Morel Primary Care Provider + Encounter Details Date Type Department Care Team (Latest Contact Info) Description 11/23/2023 Travel Social History Tobacco Use Types Packs/Day [...] on filedocumented in this encounter Care Teams Water Resource Agent Relationship Specialty Start Date End [place] [address] PCP - General Internal Medicine 10/19/23 documented as of this encounter
--- OUTSIDE RECORDS SUMMARY | 2024-02-21 17:15 | XMS_ITS | Encounter Summary ---
[place] [address] Care Team Providers Care Dosier Operator Name Role Phone Armond Morel Primary Care Provider + Reason for Visit * Auth/Cert (Routine) Specialty Diagnoses / Procedures Referred By Contac t Referred To Contact Diagnoses Hyperparathyroidism Hyperparathyroidism Procedures PRO EXPLORE PARATHYROID GLANDS PRG EMG, LARYNX PARATHYROIDECTOMY OR EXPLORATION OF PARATHYROID(S) (WRVU 15.6) FACIAL NERVE MONITORING, SETUP LARYNGEAL (WRVU 1.57) Sussy Moraes MD [facility] [place] [address] [facility] Referral ID Status Reason Start Date Expiration Date Visits Re quested Visits Authorized [id number] 1 1 Encounter Details Date Type Department Care Team (Late st Contact Info) Description 10/24/2023 7:36 AM EDT Anesthesia Event [facility] [place] [address] Hussein Rodriguez MD [facility] [place] [address] Delmi Valdez CRNA [facility] [place] [address] Anesthesia Record Procedure Summary Procedure Name Responsible Anesthesiologist Anesthesia Start Time Anesthesia Stop Time PARATHYROIDECTOMY OR EXPLORATION OF PARATHYROID(S) (WRVU 15.6) (Neck) Hussein Rodriguez MD 10/24/23 0736 10/24/23 0907 Events Date Time Event Comment 10/24/2023 0727 0736 AN Verify 0736 Start 0736 An Start Data 0743 An Induction 0746 An Intubation 0752 Anesthesia Ready 0808 Procedure Start 09 Extubation/LMA Out 0906 an stop data 0907 Recovery or ICU Handoff Colleen ent care was transferred to the destination unit staff after review of the patient's medical history, current anesthetic/surgical status and plan, according to the Provider Handoff Checklist. 0907 Stop Meds Name Total fentaNYL 150 mcg IV Lidocaine 100 mg Propofol 250 mg Propofol INF 264.38 mg Dexamethasone 8 mg Ondansetron 8 mg Ketorolac 15 mg Succinylcholine 100 mg PHENYLephrine 200 mcg ePHEDrine 32.5 mg lactated ringers 700 mL * Agents Name O2 * Blood No blood administrations on file. Lines, Drains, and Airways Type Details Placement Removal Incision 10/24/23; midline; neck 10/24/23 0000 by Mica Russell RN PIV 10/24/23; 0703; [id number] catheter system; 20 gauge; median cubital vein (antecubital fossa), left; distraction, appears comfortable, tolerated well; no longer indicated, catheter/device intact; 10/24/23; 0952 10/24/23 07 by Christelle Nicholson RN 10/24/23 0952 by Tina Muniz, RN ETT Mask Ventilation: Ea sy (1); ETT Type: Cuffed, Oral, NIM; ETT Size: 7 mm; Mac Blade: 4; Notes: Asleep, Pre-O2, Stylette; Attempts: 1; Laryngoscopy Grade: 1; ETT Placement Verified By: Auscultation, Capnometry, Visual; Secured at Teeth: 24 cm; Inserted by: Janessa; Removal Date: 10/24/23; Removal Time: 90010/24/23 0746 by Shayla Riddle 10/24/23 09 by Delmi Valdez CRNA documented in this encounter Social History Tobacco Use Types Packs/Day [...] on file documented as of this encounter OR Notes * Anesthesia Postprocedure Evaluation - Hussein Rodriguez MD - 10/24/2023 11:42 AM EDT Department of Anesthesiology Post-procedure Note Patient: Jakub Fuller Procedure Summary Date: 10/24/23 Room / Location: [address] Anesthesia Start: 735 Anesthesia Stop: 906 Procedures: PARATHYROIDECTOMY OR EXPLORATION OF PARATHYROID(S) (WRVU 15.6) (Neck) FACIAL NERVE MONITORING, SETUP LARYNGEAL (WRVU 1.57) (Neck) Diagnosis: (Hyperparathyroidism) Surgeons: Sussy Moraes MD Responsible Provider: Hussein Rodriguez MD Anesthesia Type: general ASA Status: 2 All Anesthesia Providers: Anesthesiologist: Hussein Rodriguez MD PERFORMANCE IMPROVEMENT DIRECTOR: Delmi Valdez CRNA Student Nurse Beef Selector: Shayla Riddle Vitals Value Taken Time BP 128/88 10/24/23 0945 Temp 36 ??C (96.8 ??F) 10/24/23 0909 Pulse 59 10/24/23 0948 Resp 14 10/24/23 0945 SpO2 96 % 10/24/23 0948 Pain Level 4 10/24/23 0945 Vitals shown include unfiled device data. Patient Location: PACU/[facility] Level of Consciousness: Awake and Alert Pain Management: Satisfactory Analgesia PONV: None Cardiovascular Status: At Baseline and Hemodynamically Stable Respiratory Status: At Baseline and Room Air Postoperative Fluid Status: Intravascular EUvolemia Possible Anesthetic Complications: NONE apparent at time of evaluation Final Primary Anesthesia Type: General (The anesthetic type performed was the same as planned.) Comments: Hussein Rodriguez MD * Anesthesia Preprocedure Evaluation - Hussein Rodriguez MD - 10/23/2023 2:16 PM EDT Pre-Anesthesia Evaluation for: Jakub Fuller a 73 y.o. male. Procedure(s): PARATHYROIDECTOMY OR EXPLORATION OF PARATHYROID(S) (WRVU 15.6) (Neck) FACIAL NERVE MONITORING, SETUP LARYNGEAL (WRVU 1.57) (Neck) Patient Active Problem List Diagnosis Date Noted ??? s/p Left RAFIQ on 12/13/22 (Dr Umaña) 12/13/2022 ??? Ulcerative colitis 12/05/2022 ??? Hypothyroidism 12/05/2022 ??? Hyperlipidemia 12/05/2022 ??? Diverticulitis 12/05/2022 ??? 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 Diverticulitis ??? Hypothyroid ??? Ulcerative colitis Has chronic bleeding with his UC. Past Surgical History: Procedure Laterality Date ??? PRG RADEX HIP UNILATERAL WITH PELVIS MINIMUM 4 VIEWS Left 12/13/2022 HIP INTRAOP RADIOLOGIC EXAMINATION, UNILATERAL, W PELVIS; 4+ VIEWS (WRVU 0.27) performed by Mynor Umaña MD at [facility] MAIN OR ??? PRO ARTHROPLASTY ACETABULAR/PROX FEM PROSTC AGRFT/ALGRFT Left 12/13/2022 TOTAL HIP ARTHROPLASTY, ANTERIOR APPROACH (WRVU 19.6) performed by Mynor Umaña MD at [facility] MAIN OR ??? UMBILICAL HERNIA REPAIR ??? XR FLUORO INJECTION DRAINAGE JOINT LG LEFT Left 04/19/2021 XR Fluoro Guided Joint Injection Large Left 04/19/2021 [facility] RAD XRAY ??? XR FLUORO INJECTION DRAINAGE JOINT LG LEFT Left 05/10/2021 XR Fluoro Guided Joint Injection Large Left 05/10/[address] [facility] RAD XRAY ??? XR FLUORO INJECTION DRAINAGE JOINT LG RIGHT Right 05/10/2021 XR Fluoro Guided Joint Injection Large Right 05/10/[address] [facility] RAD XRAY Social History Tobacco Use ??? Smoking status: Never ??? Smokeless tobacco: Never Substance Use Topics ??? Alcohol use: Not Currently Comment: occasional Social History Substance and Sexual Activity Drug Use Never No Known Allergies Medications: MAR and/or home medications have been reviewed. Physical Exam: Preprocedure Vitals Current as of 12/12/22 1419 No BP, pulse, respiration, SpO2, or temperature recorded. Height: 180.3 cm (5' 11) (12/05/22) Weight: 93.4 kg (206 lb) (12/05/22) BMI: 28.73 IBW: 75.3 kg (165 lb 14.8 oz) Airway Assessment: Mallampati: I TM distance: >3 FB Neck ROM: full Cardiovascular Assessment: Rhythm: regular Rate: normal system normal Pulmonary Assessment: breath sounds clear to auscultation pulmonary exam normal Dental Assessment: - normal exam Misc Assessment: Patient is wearing No contact(s). IV access: Peripheral line Last Filed Perioperative Cognitive Screening Value Time User AD8 Total Score: 0 12/05/2022 1:00 PM Gavi Prather RN AD8 Informant: Other Informant 12/05/2022 1:00 PM Gavi Prather RN Anesthesia Plan: ASA 2 general, with a(n) intravenous induction 73 yo, 99 kg (BMI 28), male, with a PMHx of Hypothyroidism, Hyperlipidemia, and hyperparathyroidismscheduled for parathyroidectomy.. NKDA Anesthesia Plan: GETA, Nim tube, PIV x 1, standard ASA monitors Region - Other Informed Consent: Anesthetic plan and risks discussed with patient. Use of blood products discussed with patient who consented to blood products. Plan discussed with attending and PERFORMANCE IMPROVEMENT DIRECTOR. Anesthesia Screening documented in this encounter Miscellaneous Notes * Addendum Note - Shayla Riddle - 10/24/2023 2:27 PM EDT Addendum created 10/24/23 1427 by Shayla Riddle Intraprocedure Meds edited documented in this encounter Plan of Treatment Not on file documented as of this encounter Visit Diagnoses Not on filedocumented in this encounter Administered Medications Inactive Administered Medications - up to 3 most recent administrations Medication Order MAR Action Action Date Dose Rate Site dexAMETHasone (Decadron) injection Intravenous, PRN, Starting on Mon10/24/23 at 0747, Until Mon10/24/23 at 0907, Anesthesia Intra-op, Routine Given 10/24/2023 7:47 AM EDT 8 mg ePHEDrine sulfate (5 mg/mL) multi-dose injection Intravenous, PRN, Starting on Mon10/24/23 at 0756, Until Mon10/24/23 at 0907, Anesthesia Intra-op, Routine Given 10/24/2023 8:20 AM EDT 7.5 mg Given 10/24/2023 8:12 AM EDT 5 mg Given 10/24/2023 8:08 AM EDT 5 mg fentaNYL (pf) (50 mcg/mL) multi-dose injection Intravenous, PRN, Starting on Mon10/24/23 at 0743, Until Mon10/24/23 at 0907, Anesthesia Intra-op, Routine Given 10/24/2023 8:16 AM EDT 25 mcg Given 10/24/2023 8:15 AM EDT 25 mcg Given 10/24/2023 7:44 AM EDT 50 mcg ketorolac (Toradol) (30 mg/mL) injection Intravenous, PRN, Starting on Mon10/24/23 at 0856, Until Mon10/24/23 at 0907, Anesthesia Intra-op, Routine Given 10/24/2023 8:56 AM EDT 15 mg lactated ringers infusion Intravenous, CONTINUOUS PRN, Starting on Mon10/24/23 at 0736, Until Mon10/24/23 at 0907, Anesthesia Intra-op New Bag 10/24/2023 7:36 AM EDT lidocaine (pf) (Xylocaine) (20 mg/mL) 2% injection syringe Intravenous, PRN, Starting on Mon10/24/23 at 0743, Until Mon10/24/23 at 0907, Anesthesia Intra-op, Routine Given 10/24/2023 7:43 AM EDT 100 mg ondansetron (pf) (Zofran) (2 mg/mL) injection Intravenous, PRN, Starting on Mon10/24/23 at 0847, Until Mon10/24/23 at 0907, Anesthesia Intra-op, Routine Given 10/24/2023 8:47 AM EDT 8 mg PHENYLephrine in NS (PF) (BERONICA-SYNEPHRINE) 0.8 mg/10 mL (80 mcg/mL) multi-dose injection Syringe Intravenous, PRN, Starting on Mon10/24/23 at 0800, Until Mon10/24/23 at 0907, Anesthesia Intra-op, Routine Given 10/24/2023 8:12 AM EDT 120 mcg Given 10/24/2023 8:00 AM EDT 80 mcg propofoL (Diprivan) (10 mg/mL) infusion Intravenous, CONTINUOUS PRN, Starting on Mon10/24/23 at 0746, Until Mon10/24/23 at 0907, Anesthesia Intra-op, Routine Rate/Dose Change 10/24/2023 8:47 AM EDT 20 mcg/kg/min 10.008 mL/hr New Bag 10/24/2023 7:46 AM EDT 50 mcg/kg/min 25.02 mL/h r propofoL (Diprivan) 10 mg/mL bolus injection (Anesthesia) Intravenous, PRN, Starting on Mon10/24/23 at 0743, Until Mon10/24/23 at 0907, Anesthesia Intra-op Given 10/24/2023 8:15 AM EDT 50 mg Given 10/24/2023 7:43 AM EDT 200 mg succinylcholine (Anectine;Quelicin) (20 mg/mL) injection Intravenous, PRN, Starting on Mon10/24/23 at 0743, Until Mon10/24/23 at 0907, Anesthesia Intra-op, Routine Given 10/24/2023 7:43 AM EDT 100 mg documented in this encounter Care Teams Dosier Operator Relationship Specialty Start Date End Date Armond Morel PA Dhav[place] [address] PCP - General Internal Medicine 10/19/23 documented as of this encounter
--- OUTSIDE RECORDS SUMMARY | 2024-02-21 17:15 | XMS_ITS | Encounter Summary ---
Author Organization [facility] [place] [address] Care Team Providers Care Tower Operator Name Role Phone Armond Morel Primary Care Provider + Reason for Visit * Auth/Cert (Routine) Specialty Diagnoses / Procedures Referred By Contac t Referred To Contact Diagnoses Hyperparathyroidism Hyperparathyroidism Procedures PRO EXPLORE PARATHYROID GLANDS PRG EMG, LARYNX PARATHYROIDECTOMY OR EXPLORATION OF PARATHYROID(S) (WRVU 15.6) FACIAL NERVE MONITORING, SETUP LARYNGEAL (WRVU 1.57) Jeremie Angelo MD [facility] [place] [address] [place] Referral ID Status Reason Start Date Expiration Date Visits Re quested Visits Authorized [id number] 1 1 Encounter Details Date Type Department Care Team (Latest Contact Info) Description 10/24/2023 6:20 AM EDT - 10/24/2023 10:00 AM EDT Hospital En[place] [address] Jeremie Angelo MD [facility] [place] [address] Primary hyperparathyroidism Discharge Disposition: Home Social History [...] no 10/24/2023 Feels Threatened by Someone no 040 08/2023 Feels Unsafe at Home or Work/School [...] closest emergency room or call the hospital pump operator at [phone] and ask for physician safety consultant covering for your physician. Questions or problems after 5pm or on a weekend: Call the [facility] pump operator at and ask for the physician safety consultant covering for your doctor. You received Toradol, [...] Take NSAIDS or Tylenol every 6 hours [id number] for the first 3-5 days following surgery [...] will be mailed to you Please call [phone] to confirm the date and time of [...] with your PCP. Phone number for questions: [phone] before 5 PM on weekdays [phone] after 5 PM and on weekends/holidays. Ask for the general surgery resident safety consultant. documented in this encounter Medications at Time [...] Operative Note Patient Name: Jakub Fuller : [id number] MR#: [id number] Case Date: 10/24/2023 Surgeon: Surgeon(s) and Role: [...] NO PRE-EXCISION DRAWN eD-H Order Id number [id number] SPECIMEN TO PATHOLOGY Hyperparathyroidism RIGHT UPPER PARATHYROID [...] Angelo MD - 10/24/2023 8:08 AM EDT [facility] Operative Note Patient Name: Jakub Fuller : [id number] MR#: [id number] Case Date: 10/24/2023 Surgeon: Surgeon(s) and Role: [...] NO PRE-EXCISION DRAWN eD-H Order Id number [id number] SPECIMEN TO PATHOLOGY Hyperparathyroidism RIGHT UPPER PARATHYROID [...] anesthesia was completed by anesthesiology with the [employer] recurrent laryngeal nerve monitoring system. A crease [...] 8:19 AM EDT Needle Electromyography, Larynx Global (97204) 10/24/2023 7:36 AM EDT Hyperparathyroidi sm Explore Parathyroid Glands (46947) 10/24/2023 7:36 AM EDT Hyperparathyroidi sm FACIAL [...] MD CHEMISTRY ORDERAB LES Performing Organization Address [facility]/[place] [address] * Specimen to Pathology (10/24/2023 8:39 AM EDT) AP Specimen 10/24/2023 8:39 AM EDT 10/24/2023 8:39 AM EDT Narrative [facility] - 10/24/2023 8:39 AM EDT Specimen requisition ordered. ??Separate Pathology report to follow Jeremie Angelo MD PATHOLOGY/CYTOLOG Y ORDERABLES Performing Organization Address City/[facility]/ZIP Co de Phone Number [facility] [place] [address] * Specimen to Pathology (10/24/2023 8:39 AM EDT) AP Specimen 10/24/2023 8:39 AM EDT 10/24/2023 8:39 AM EDT Narrative [facility] - 10/24/2023 8:39 AM EDT Specimen requisition ordered. ??Separate Pathology report to follow Jeremie Angelo MD PATHOLOGY/CYTOLOG Y ORDERABLES Performing Organization Address City/[facility]/ZIP Co de Phone Number [facility] [place] [address] * Surgical Pathology Report (10/24/2023 8:38 AM EDT) FINAL DIAGNOSIS (AP) [id number] ? Location: [facility] The signing pathologist has [...] MD Verified: ??10/30/2023 14:08 ??Pathologist Performed at: ??-[facility] Dept. of Pathology, [place] [address] Crew Member: Jose Koenig MD, FCAP, ??CLIA Certificate: [id number] SPECIMEN(S) SUBMITTED A - RIGHT UPPER PARATHYROID, [...] MD PATHOLOGY/CYTOLOG Y ORDERABLES Performing Organization Address [facility] Co de Phone Number [facility] [place] [address] * (ABNORMAL) Intraoperative PTH ([facility]) (10/24/2023 8:19 AM EDT) Intraoper PTH 74(H) 15 - 65 pg/mL [facility] Comment: BASELINE Called by: lopez, Read back by: Jeremie Angelo, Date/Time:10/24/23 08:54. A 50 % decrease in venous iPTH levels at 10 min post adenoma excision is expected if all the hypersecreting parathyroid tissue has been removed (Taiwo GL et al. Surgery 1993:114; 1017-7689) Blood 10/24/2023 8:19 AM EDT 10/24/2023 8:32 AM EDT Narrative Resulting Agency Comment Spec In Lab Jeremie Angelo MD CHEMISTRY ORDERAB LES Performing Organization Address [facility] Co de Phone Number [facility] [place] [address] documented in this encounter Visit Diagnoses Diagnosis [...] Given 10/24/2023 9:26 AM EDT 975 mg documented in this encounter Active and Recently Administered Medications Times are shown in EDT. Scheduled Medication Order 10/22/2023 10/23/2023 10/24/2023 acetaminophen (Tylenol) tablet 975 mg (COMPLETED) 975 mg, Oral, ONCE, 1 dose, On Mon10/24/23 at 0945, Administer with a SIP of water only. Maximum dose of acetaminophen is 4,000 mg from all sources in 24 hours., PACU Recovery, Routine 0926 (Given - Provid er: Tina Hyatt RN) PRN Medication Order 10/22/2023 10/23/2023 10/24/2023 BUpivacaine-EPINEPHrine (Marcaine-epiNEPHrine) 0.25 %-1:200,000 injection (CANCELED) PRN, Starting on Mon10/24/23 at 0753, Until Mon10/24/23 at 1201, Intra-Operative (Intra-Procedure), Routine 0753 (Given - Provid er: Jeremie Angelo MD) documented in this encounter Care Teams Tower Operator Relationship Specialty Start Date End Date Armond [place] [address] [place] [address] PCP - General Internal Medicine 10/19/23 documented as of this encounter
--- OUTSIDE RECORDS SUMMARY | 2024-02-21 17:15 | XMS_ITS | Clinical Summary ---
Author Organization [facility] Address [facility] [place] [address] Care Team Providers Care Inspector Precision Name Role Phone Armond Morel Primary Care Provider + Allergies No known active allergies Medications Medication Sig Dispensed Refills Start Date End Date Status celecoxib (CeleBREX) 200 mg Capsule Take 200 mg by mouth as needed. 07/19/2022 Active Synthroid 137 mcg Tablet Take 137 mcg by mouth daily. 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] on file Sexual Orientation Not on file Last Filed Vital Signs Vital Sign Reading Time Taken Comments Blood Pressure 128/88 10/24/2023 9:45 AM EDT Pulse 60 10/24/2023 9:45 AM EDT Temperature 36.3 ??C (97.4 ??F) 11/23/2023 12:04 PM E DT Respiratory Rate 14 10/24/2023 9:45 AM EDT Oxygen Saturation 95% 10/24/2023 9:45 AM EDT Inhaled Oxygen Concentration - - Weight 96.3 kg (212 lb 6.4 oz) 11/23/2023 12:04 PM EDT Height 181.6 cm (5' 11.5) 11/23/2023 12:04 PM E DT Body Mass Index 29.21 11/23/2023 12:04 PM EDT Plan of Treatment Health Maintenance Due Date Last Done Comments CT Colonography 1952 Colonoscopy 1952 Colorectal Cancer Screening 1952 FIT DNA 1952 FIT 1952 Sigmoidoscopy (10 year) with FIT yearly 1952 Sigmoidoscopy 1952 Hepatitis C Screening 1970 Lipid Screening 1970 Tdap adult 1971 Tetanus vaccine 1971 Zoster vaccine (1 of 2) 2002 Advance Directive 2007 Pneumoccocal Vaccine: 65+ (1 of 1 - PCV) 2017 Covid-19 Vaccine ( - 2022-24 season) 2023 Influenza (Flu) vaccine (1 o f 1 - Influenza standard series) 03/24/2024 Diabetes Screening (HgbA1C or Glucose) Discontinued , 08/01/2022 Medical Devices Implanted Type Area Fire Protection Fabricator Device Identifier Shelf Expiration Date Model / Serial / Lot Shell Acet Hip 62mm Por Ctd Multi Hole Ti [place] Gription ([id number]) (Autoreq) - [id number] Implanted:Qty: 1 on 12/13/2022 by Mynor Umaña MD at [facility] IMPLANTS Left: Hip [employer] - EMANI ANTONIO 02/21/2032 2 / / [id number] Liner Acet Hip [id number] Stnd Poly Cold [place] Altrx ([id number]) (Autoreq) - [id number] Implanted:Qty: 1 on 12/13/2022 by Mynor Umaña MD at [facility] IMPLANTS Left: Hip [employer] - EMANI ANTONIO 05/23/2027 2 / / [id number] Stem Femoral Hip Sz 9 Prox 07/06 Taper Por Cllr High Ofst Ti ([id number]) ([employer]oreq) - [id number] Implanted:Qty: 1 on 12/13/2022 by Mynor Umaña MD at [facility] IMPLANTS Left: Hip [employer] - EMANI ANTONIO 07/23/2032 1010-07-01 0 / / [id number] Head Femoral Hip 40mm +1.5mm Offset 07/06 Tpr Ceramic ([id number]) ([employer]oreq) - [id number] Implanted:Qty: 1 on 12/13/2022 by Mynor Umaña MD at [facility] IMPLANTS Left: Hip [employer] - E[employer]I ANTONIO 11/21/2027 0 / / [id number] Procedures Procedure Name Priority Date/Time Associated Diagnosis Comments HC VITAMIN D TOTAL-25 HYDROXY Routine 11/23/2023 12:47 PM EDT S/P parathyroidectomy HC PARATHYROID HORMONE(PTH INTACT Routine 11/23/2023 12:47 PM EDT S/P parathyroidectomy HC CALCIUM, SERUM Routine 11/23/2023 12: 47 PM EDT S/P parathyroidectomy HC THYROID STIMULATING HORMONE, SERUM Routine 11/23/2023 12:47 PM EDT S/P parathyroidectomy BASIC METABOLIC PANEL (NON-FASTING) Routine 12/05/2022 1:22 PM EDT Debility Pain of left lower extremity Primary osteoarthritis of left hip from Last 3 Months or Most Recently Relevant to Health Maintenance Results * PTH (11/23/2023 12:47 PM EDT) PTH 51 15 - 65 pg/mL [facility] Blood 11/23/2023 12:4 7 PM EDT 11/23/2023 1:10 PM EDT Narrative Resulting Agency Comment Spec In Lab Sussy Moraes MD CHEMISTRY ORDERAB LES Performing Organization Address [facility]/ZIP Co de Phone Number [facility] [place] [address] * Vitamin D, 25-Hydroxy (11/23/2023 12:47 PM EDT) 25-OH Vit D Total 30 21 - 100 ng/mL [facility] 25-OH Vit D Interp Sufficient [facility] Blood 11/23/2023 12:4 7 PM EDT 11/23/2023 1:10 PM EDT Narrative Resulting Agency Comment Spec In Lab Sussy Moraes MD CHEMISTRY ORDERAB LES Performing Organization Address City/[facility]/ZIP Co de Phone Number [facility] [place] [address] * TSH (11/23/2023 12:47 PM EDT) TSH 1.81 0.27 - 4.20 mcIU/mL [facility] Comment: Reference Interval (mcIU/mL): Females: ??First Trimester: 0.23-3.88 ??Second Trimester: 0.22-3.90 ??Third Trimester: 0.44-4.66 Blood 11/23/2023 12:4 7 PM EDT 11/23/2023 1:10 PM EDT Narrative Resulting Agency Comment Spec In Lab Sussy Moraes MD CHEMISTRY ORDERAB LES Performing Organization Address City/[facility] Co de Phone Number [facility] [place] [address] * Calcium (11/23/2023 12:47 PM EDT) Calcium 9.3 8.5 - 10.5 mg/dL [facility] Blood 11/23/2023 12:4 7 PM EDT 11/23/2023 1:10 PM EDT Narrative Resulting Agency Comment Spec In Lab Sussy Moraes MD CHEMISTRY ORDERAB LES Performing Organization Address [facility] Co de Phone Number [facility] [place] [address] * (ABNORMAL) Basic Metabolic Panel (non-fasting) (12/05/2022 1:22 PM EDT) Glucose Lvl 120 65 - 199 mg/dL [facility] Comment:Diabetes: >=200 mg/d L plus symptoms BUN 12 10 - 20 mg/dL [facility] Creatinine 1.28 0.80 - 1.50 mg/dL [facility] Sodium 137 135 - 145 mmol/L [facility] Potassium 5.3(H) 3.5 - 5.0 mmol/L [facility] Comment: Please note: ??Patients with WBC >100,000 may have falsely elevated Potassium levels. ??For accurate Potassium quantification in these patients send serum separator tube (gold top) for subsequent determinations. ??Contact the Clinical Chemistry Laboratory if there are any questions. Chloride 102 98 - 107 mmol/L [facility] CO2 27 22 - 31 mmol/L [facility] Anion Gap 8 5 - 15 mmol/L [facility] Calcium 11.3(H) 8.5 - 10.5 mg/dL [facility] Estimated GFR 60 >=60 mL/min/1. 73 m?? [facility] Comment: This patient's estimated GFR was calculated using the 2020 CKD-EPI equation. The estimated GFR can vary from the measured GFR by up to 30% in the absence of rapidly changing kidney function. Assessment of the estimated GFR is not appropriate when creatinine concentrations are rapidly changing. For clinical situations in which a more precise estimate of GFR is necessary, consider alternative methods of GFR estimation such as a 24-hour urine creatinine clearance. Assignment of CKD stage 1-5 for patients with an eGFR near the transition point between stages may be based on clinical assessment of muscle mass and symptoms in addition to eGFR. Blood 12/05/2022 1:22 PM EDT 12/05/2022 1:24 PM EDT Narrative Resulting Agency Comment Spec In Lab Mynor Umaña MD CHEMISTRY ORDERABLE S [facility] [place] [address] from Last 3 Months or Most Recently Relevant to Health Maintenance Advance Directives Documents on File Type Date Recorded Patient Stna Expl anation Personal Stna 11/15/2022 7:40 AM * Attempt Cardiopulmonary Resuscitation - Inpatient (Latest Code Status on File) Date Activated Date Inactivated Comments 10/24/2023 7:22 AM 10/24/2023 12:06 PM Question Answer Comments Code Status decision made by: Patient Care Teams Inspector Precision Relationship Specialty Start Date End Date Armond Morel PA [facility] [place] [address] PCP - General Internal Medicine 10/19/23
--- OUTSIDE RECORDS SUMMARY | 2024-02-21 17:15 | XMS_ITS | Continuity of Care Document ---
Author Organization [facility] Address [address] [place] [id number] Care Team Providers Care Park Maintenance Technician Name Role Phone SAIMA ZARCO, ANNIE Wiggins Primary Care Physician Encounter LTTL_AL FIN NBR [id number] Date(s): 12/08/22 - 12/08/[address] [address] [place] Discharge Disposition: Home or Self Care Attending Physician: ENRIQUETA COMBS Admitting Physician: ENRIQUETA COMBS Referring Physician: ENRIQUETA COMBS Allergies, Adverse Reactions, Alerts No Known Allergies Medications CeleBREX 200 mg oral capsule 200 mg = 1 cap, Oral, Daily, PRN as needed for pain, # 10 cap, 0 Refill(s) Start Date: 09/14/22 Status: Ordered Synthroid 137 mcg (0.137 mg) oral tablet 137 mcg = 1 tab, Oral, Daily, 0 Refill(s) Start Date: 09/14/22 Status: Ordered Problem List Condition Confirmation Course Effective Dates Status [facility] atus Informant Diverticulitis Confirmed Active Hyperlipidemia Confirmed Active Hypothyroidism Confirmed Active Ulcerative colitis Confirmed Active Results Radiology Reports * Exam Date Time Procedure Performing Provider Status 12/08/22 12:20 PM XR Hip 2-3 Views w/A P Pelvis Left Naren, Gael; Auth (Verified) Notes: (XR Hip 2-3 Views w/AP Pelvis Left) Reason For Exam: osteoarthritis of left hip unspecified osteoarthritis type, left hip pain, debility XR Hip 2-3 Views w/AP Pelvis Left EXAM DESCRIPTION: XR Hip 2-3 Views w/AP Pelvis Left 12/08/2022 INDICATION: OSTEOARTHRITIS OF LEFT HIP UNSPECIFIED OSTEOARTHRITIS TYPE, LEFT HIP PAIN, DEBILITY TECHNIQUE: Pelvis and left hip, three views COMPARISON: 09/15/2022 IMPRESSION: No acute fracture or dislocation. SI joints appear symmetric and pubic symphysis appears intact. Significant left hip arthritic changes with joint space narrowing with subchondral sclerosis and subchondral cystic changes involving the superior femoral head and superior acetabulum. Sclerotic changes in the from head raise the possibility of underlying AVN as described previously. No significant change in appearance since previous study. No significant right hip arthritic changes Spondylotic changes in the visualized lower lumbar spine. JOB #: [id number] Final Signed by: Chetan Ribeiro MD Signed (Electronic Signature): 12/08/2022 1:47 pm Social History Social History Type Response Tobacco Never tobacco user T obacco Use:. Sex Male XR Pelvis and Hip - right 2 Views * Chetan Ribeiro MD: VERIFY, VERIFY Event Display: Report EXAM DESCRIPTION: XR Hip 2-3 Views w/AP Pelvis Left 12/08/2022 INDICATION: OSTEOARTHRITIS OF LEFT HIP UNSPECIFIED OSTEOARTHRITIS TYPE, LEFT HIP PAIN, DEBILITY TECHNIQUE: Pelvis and left hip, three views COMPARISON: 09/15/2022 IMPRESSION: No acute fracture or dislocation. SI joints appear symmetric and pubic symphysis appears intact. Significant left hip arthritic changes with joint space narrowing with subchondral sclerosis and subchondral cystic changes involving the superior femoral head and superior acetabulum. Sclerotic changes in the from head raise the possibility of underlying AVN as described previously. No significant change in appearance since previous study. No significant right hip arthritic changes Spondylotic changes in the visualized lower lumbar spine. JOB #: [id number] Final Signed by: Chetan Ribeiro MD Signed (Electronic Signature): 12/08/2022 1:47 pm Patient Care team information Care Team Personnel Name: ANNIE LANDAVERDE MD Position: No Access Member Role: Primary Care Physician Address: Address: [address] [place] [id number]- Care Team Related Persons Name: JAJA CARY Address: Home [address] [place] [address], [id number]
--- OUTSIDE RECORDS SUMMARY | 2024-02-21 17:15 | XMS_ITS | Encounter Summary ---
[place] [address] Care Team Providers Care Epitaxial Reactor Technician Name Role Phone Jakub Abrams MD Primary Care Provider [phone] Encounter Details Date Type Department Care Team (Latest Contact Info) Description 07/20/2023 Travel Social History Tobacco Use Types Packs/Day [...] on filedocumented in this encounter Care Teams Epitaxial Reactor Technician Relationship Specialty Start Date End [place] [address] PCP - General Family Medicine 04/05/21 10/18/23 documented as of this encounter
--- OUTSIDE RECORDS SUMMARY | 2024-02-21 17:15 | XMS_ITS | Encounter Summary ---
Author Organization [facility] Address [facility] [place] [address] Care Team Providers Care Batch Plant Operator Name Role Phone Armond Morel Primary Care Provider + Reason for Visit * Occupational Therapy (Routine) - Authorized Specialty Diagnoses / Procedures Referred By Louann dawson Referred To Contact Occupational Therapy Diagnoses Subluxation of right extensor carpi ulnaris tendon, initial encounter Bekah Hui PA [facility] [address] ORTHOPAEDIC [place] [address] [facility] [address] [place] [address] Referral ID Status Reason Start Date Expiration Date Visits Requested Visits Authorized [id number] Authorized Evaluate and Treat 11/20/2023 11/19/2024 12 12 Encounter Details Date Type Department Care Team (Late st Contact Info) Description 11/20/2023 10:00 AM EDT Office [place] [address] Emilie Boston, OT Pain in right wrist Social History Tobacco Use Types Packs/Day Years Used Date Smoking Tobacco: Never Smokeless Tobacco: Never Alcohol Use Standard Drinks/Week Comments Not Currently 0 (1 standard drink = 0.6 oz pur e alcohol) occasional [facility] Inpatient Questions Answer Date Recorded Does Anyone [...] as of this encounter Miscellaneous Notes * Initial Evaluation - Emilie Boston OT - 11/20/2023 10:00 AM EDT OCCUPATIONAL THERAPY ORTHOTIC EVALUATION- ORTHO CLINIC Referral Source: Bekah Moran MD Follow-up: PRN Total Treatment time: 15 Minutes Timed Code Treatment Time: 15 minutes OCCUPATIONAL PROFILE: Jakub Fuller is a 73 y.o. year old Right hand dominant person who has RIGHT ulnar-sided wrist pain, which he attributes to a hard swing with a tennis racquet. Jakub Fuller is referred to Occupational Therapy for fabrication of a custom orthosis. Patient presents today alone. Date of onset of symptoms: Late 2022 Pertinent History and/or Co-morbidities: 1. 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 Jakub Fuller is able to independently verbalize and demonstrate the recommended home program following instructions today. Jakub Fuller has fair potential for gains with therapy/home program use. Patient knows to call with any questions or concerns. Plan for ongoing therapy is follow up PRN at a clinic closer to his home. Short Term Goals (to be met by end of the visit today): Date Goal Met: Today 1. Jakub Fuller will demonstrate independence with donning and doffing of his orthosis and verbalization of purpose. Goal Status: Meets. (X) Jakub Fuller participated in the evaluation, collaborated on treatment goals, and agrees to the treatment plan. documented in this encounter Plan of Treatment Not on file documented as of this encounter Procedures Procedure Name Priority Date/Time Associated Diagnosis Comments OT PLAN OF CARE CERT/RE-CERT Routine 11/20/2023 1:31 PM EDT Pain in right wrist documented in this encounter Visit Diagnoses Diagnosis Pain in right wrist Pain in joint, forearm documented in this encounter Care Teams Batch Plant Operator Relationship Specialty Start Date End Date Armond Morel [place] [address] [place] [address] PCP - General Internal Medicine 10/19/23 documented as of this encounter
--- OUTSIDE RECORDS SUMMARY | 2024-02-21 17:16 | XMS_ITS | Encounter Summary ---
Author Organization [facility] [place] [address] Care Team Providers Care Dental Hygiene Professor Name Role Phone Jakub Abrams MD Primary Care Provider Encounter Details Date Type Department Care Team (Latest Contact Info) Description 12/26/2022 2:00 AM EDT Anti-Coag Telephone Visit [facility] [place] [phone] Jad Montgomery, [facility] S/P total left hip arthroplasty Social History Tobacco Use Types Packs/Day Years Used Date Smoking Tobacco: Never Smokeless Tobacco: Never Alcohol Use Standard Drinks/Week Comments Not Currently 0 (1 standard drink = 0.6 oz pur e alcohol) occasional [facility] Inpatient Questions Answer Date Recorded [...] as of this encounter Progress Notes * Jad Montgomery [facility] - 12/26/2022 2:00 AM EDT Images from the original note were not included. Anticoagulation Therapy Note Anticoagulation Summary As of 12/26/2022 INR goal: 1.7-2.2 TTR: -- INR used for dosin.8 (12/26/2022) Warfarin maintenance plan: 7.5 mg (5 mg x 1.5) every Mon, Wed, Fri; 5 mg (5 mg x 1) all other days;Starting 12/26/2022 Weekly warfarin total: 42.5 mg Plan last modified: Jad Montgomery, [facility] (12/26/2022) Next INR check: 12/29/2022 Target end date: 01/13/2023 Indications s/p Left RAFIQ on 12/13/22 (Dr Umaña) [Z96.642] Anticoagulation Episode Summary INR check location: [facility] Preferred lab: Send INR reminders to: [facility] Comments: [facility] [phone] Anticoagulation Care Providers Provider Role Specialty Phone number Mynor Umaña MD [facility] Orthopaedic Surgery [phone] Patient Assessment Service Type: INR Test Result INR Result: In Range Clinical Outcomes Negatives: Major bleeding event, Thromboembolic event, Anticoagulation-related hospital admission, Anticoagulation-related ED visit Patient Findings Negatives: Upcoming Travel, Planning or Currently , Recent Fall, Signs/symptoms of thrombosis, Signs/symptoms of bleeding, Laboratory test error suspected, Change in health, Change in alcoholuse, Change in activity, Upcoming invasive procedure, Emergency department visit, Upcoming dental procedure, Missed doses, Extra doses, Change in medications, Change in diet/appetite, Hospital admission, Bruising, Other complaints Warfarin Therapy Instructions December 2022 Details Sun Mon Sat 1 2 3 4 5 7.5 mg See details 6 5 mg 7 7.5 mg 8 5 mg 9 10 11 12 13 14 15 16 17 18 19 20 21 22 23 24 25 26 27 28 29 30 Date Details 12/26 This INR check Date of next INR: 12/29/2022 How to take your warfarin dose To take: 5 mg Take 1 of the 5 mg tablets. To take: 7.5 mg Take 1.5 of the 5 mg tablets. Description 12/26 INR in range. Last 7 day total of 42.5mg. Continue with current dose and retest 12/22 INR slightly below range but starting to trend upwards. Last 7 day total of 35mg with daily average of 5mg. Increase dose to 6mg daily average and retest Wednesday 12/20 INR low. Daily average of 4.64mg which is 7% lower than protocol initiation. Will increase dose to 10mg tonight then 7.5mg daily. Retest per [facility] 12/15 INR low after 2 days of warfarin. Given Jakub was tested sooner than protocol suggests, it is likely the INR could trend upwards this weekend. Holiday Monday makes it hard to continue Jakub safelyon 5mg daily especially with low INR range. Dosing and warfarin education provided to Jakub verballyand [facility] phone # provided. Give the BID dosing Monday I will have Jakub pull back the dose later. Next INR Monday. -Jakub does eat some vitamin K in diet and has been taking tramadol, tylenol, celebrex as prescribed 12/14 No INR. agency going tomorrow. Jakub will take 5mg tonight. On warfarin for PEPPER trial. Updated referral range from 2-3 to 1.7-2.2 as it should be for this trial. Jakub has no history of thromboembolic event. Confirmed with Dr. Armstrong via secure chat 1.7-2.2is correct range. Admitted: 12/13 Discharged: 12/13 Facility: [facility] Reason for Admission: Left RAFIQ Warfarin RX strength: 5mg Lovenox Bridge: N/A Expected treatment duration: 30 days Instructed test date: Unspecified Medications that increase bleed risk: APAP, tramadol, celebrex, synthroid Medications that decrease effects of warfarin: N/A Tracker has been updated with inpatient warfarin dosing and discharge instructions Warfarin Education provided tomorrow documented in this encounter Plan of Treatment Not on file documented as of this encounter Visit Diagnoses Diagnosis S/P total left hip arthroplasty documented in this encounter Care Teams Dental Hygiene Professor Relationship Specialty Start Date End Date Jakub Abrams MD [address] [place] [address] PCP - General Family Medicine 04/05/21 10/18/23 documented as of this encounter
--- OUTSIDE RECORDS SUMMARY | 2024-02-21 17:16 | XMS_ITS | Encounter Summary ---
[facility] Organization [facility] [place] [address] Care Team Providers Care Coding Manager Name Role Phone Jakub Abrams MD Primary Care Provider [phone] Encounter Details Date Type Department Care Team (Latest Contact Info) Description 01/02/2023 2:00 AM EDT Anti-Coag Telephone Visit [facility] [place] [phone] Libby Sanchez [facility] S/P total left hip arthroplasty Social History Tobacco Use Types Packs/Day Years Used Date Smoking Tobacco: Never Smokeless Tobacco: Never Alcohol Use Standard Drinks/Week Comments Not Currently 0 (1 standard drink = 0.6 oz pur e alcohol) occasional [facility] Inpatient Questions Answer Date Recorded Does Anyone [...] as of this encounter Progress Notes * Libby Sanchez [facility] - 01/02/2023 2:00 AM EDT Images from the original note were not included. Anticoagulation Therapy Note Anticoagulation Summary As of 01/02/2023 INR goal: 1.7-2.2 TTR: -- INR used for dosin.20 (01/02/2023) Warfarin maintenance plan: 7.5 mg (5 mg x 1.5) every Mon, Mon; 5 mg (5 mg x 1) all other days; Starting 01/02/2023 Weekly warfarin total: 40 mg Plan last modified: Libby Sanchez, [facility] (01/02/2023) Next INR check: 01/05/2023 Target end date: 01/13/2023 Indications s/p Left RAFIQ on 12/13/22 (Dr Umaña) [Z96.642] Anticoagulation Episode Summary INR check location: [facility] Preferred lab: Send INR reminders to: [facility] Comments: [facility] [phone] Anticoagulation Care Providers Provider Role Specialty Phone number Mynor Umaña MD Responsible Orthopaedic Surgery [phone] Patient Assessment Service Type: INR Test Result INR Result: In Range Warfarin Therapy Instructions December 2022 Details Sun Mon Sat 1 2 3 4 5 6 7 8 9 10 11 12 5 mg See details 13 5 mg 14 7.5 mg 15 5 mg 16 17 18 19 20 21 22 23 24 25 26 27 28 29 30 Date Details 01/02 This INR check Date of next INR: 01/05/2023 How to take your warfarin dose To take: 5 mg Take 1 of the 5 mg tablets. To take: 7.5 mg Take 1.5 of the 5 mg tablets. Description 01/02/23: INR in range. Given trend in INR since I will drop tonight dose 5%. Test INR . Left message with BRADLY Mckeon, (Scanned [place] on file), patient was in the store. Requested he call back with questions or changes to report. 12/29 INR low after the same 7 day total as Monday. Increase dose 11% and retest Tuesday 12/26 INR in range. Last 7 day [...] and warfarin education provided to Jakub verballyand [facility] phone # provided. Give the BID dosing Monday I will have Jakub pull back the dose laterthis . Next INR Monday. -Jakub does eat some [...] Armstrong via secure chat 1.7-2.2is correct range. documented in this encounter Plan of Treatment Not on file documented as of this encounter Visit Diagnoses Diagnosis S/P total left hip arthroplasty documented in this encounter Care Teams Coding Manager Relationship Specialty Start Date End Date Jakub Abrams MD [address] [place] [address] PCP - General Family Medicine 04/05/21 10/18/23 documented as of this encounter
--- OUTSIDE RECORDS SUMMARY | 2024-02-21 17:16 | XMS_ITS | Encounter Summary ---
Author Organization [facility] Address [facility] [place] [address] Care Team Providers Care Cosmetology Educator Name Role Phone Jakub Abrams MD Primary Care Provider [phone] Reason for Visit * Consultation (Routine) - Closed Specialty Diagnoses / Procedures Referred By Louann dawson Referred To Contact Endocrinology Diagnoses Hypercalcemia Hyperparathyroidism Dean Obando PA [facility] [place] [address] [facility] Endocr[facility]ology [address] [place] [address] Referral ID Status Reason Start Date Expiration Date V isits Requested Visits Authorized [id number] Closed Consult, Test & Treat 12/07/2022 12/07/2023 1 1 Encounter Details Date Type Department Care Team (Late st Contact Info) Description 03/13/2023 9:00 AM EDT Office [place] [address] [facility] [place] [address] Hypercalcemia; Primary hyperparathyroidism; Hypothyroidism, acquired Social History Tobacco Use Types Packs/Day Years Used Date Smoking Tobacco: Never Smokeless Tobacco: Never Alcohol Use Standard Drinks/Week Comments Not Currently 0 (1 standard drink = 0.6 oz pur e alcohol) occasional [facility] Inpatient Questions Answer Date Recorded Does Anyone [...] Sign Reading Time Taken Comments Blood Pressure 119/81 03/13/2023 8:46 AM EDT Pulse 59 03/13/2023 8:46 AM EDT Temperature 35.7 ??C (96.2 ??F) 03/13/2023 8:46 AM ED T Respiratory Rate - - Oxygen Saturation 98% 03/13/2023 8:46 AM EDT Inhaled Oxygen Concentration - - Weight 91.9 kg (202 lb 9.6 oz) 03/13/2023 8:46 A M EDT Height 182.9 cm (6') 03/13/2023 8:46 AM EDT Body Mass Index 27.48 03/13/2023 8:46 AM EDT documented in this encounter Progress Notes * Eva Hernandez MD - 03/13/2023 9:00 AM EDT [facility] New Patient Chief complaint: hypercalcemia, hyperparathyroidism History: Jakub Fuller is a 72 y.o. male with significant PMH of hypothyroidism, ulcerative colitis (not on medications), here for evaluation of hyperparathyroidism. He tells me today that he went biking thisst weekend. He had COVID about 3 weeks ago. He had left hip surgery earlier this year. No historyof fragility fractures. Diagnosed: Found to have hypercalcemia incidentally on blood work - noted on labs from early 2022. Sister may also have a history of hypercalcemia. DEXA: never performed History of Hyperparathyroidism: yes History of nephrolithiasis: no History of renal disease: no History of vitamin D insufficiency/deficiency: no History of hypercalcemia: yes History of falls/fractures: fractured wrist in 5th grade, had other sports related fractures of hands/leg as an adolescent History of osteoporosis: no Family history of nephrolithiasis: no Family history of hypercalcemia: yes, in sister Family history of osteoporosis:no Family history of fractures: no History of thyroid disease: prescribed for LT4 137 mcg daily - adherent, although he did not take it this morning Calcium supplement: no Vitamin D supplement: no HCTZ use: no Dairy intake: minimal dairy intake, has some almond milk with his milk Dental: next visit in 06/2023; last visit in early 2022 - does not require major dental work to be done Also with hypothyroidism on LT4. No recent TSH. Past Medical History: Past Medical History: Diagnosis Date Diverticulitis Hypothyroid Ulcerative colitis Has chronic bleeding with his UC. Past Surgical History: Past Surgical History: Procedure Laterality Date PRG RADEX HIP UNILATERAL WITH PELVIS MINIMUM 4 VIEWS Left 12/13/2022 HIP INTRAOP RADIOLOGIC EXAMINATION, UNILATERAL, W PELVIS; 4+ VIEWS (WRVU 0.27) performed by Mynor Umaña MD at [facility] MAIN OR PRO ARTHROPLASTY ACETABULAR/PROX FEM PROSTC AGRFT/ALGRFT Left 12/13/2022 TOTAL HIP ARTHROPLASTY, ANTERIOR APPROACH (WRVU 19.6) performed by Mynor Umaña MD at [facility] MAIN OR UMBILICAL HERNIA REPAIR XR FLUORO INJECTION DRAINAGE JOINT LG LEFT Left 04/19/2021 XR Fluoro Guided Joint Injection Large Left 04/19/2021 [facility] RAD XRAY XR FLUORO INJECTION DRAINAGE JOINT LG LEFT Left 05/10/2021 XR Fluoro Guided Joint Injection Large Left 05/10/2021 Keri Dugan MD [facility] RAD XRAY XR FLUORO INJECTION DRAINAGE JOINT LG RIGHT Right 05/10/2021 XR Fluoro Guided Joint Injection Large Right 05/10/2021 Keri Dugan MD [facility] RAD XRAY Medications: Current Outpatient Medications: acetaminophen (Tylenol) 500 mg tablet, Take 2 tablets by mouth every 8 hours. Take as directed around the clock for ten days after your surgery. After that you can take Tylenol as needed per package insert. (Patient taking differently: Take 1,000 mg by mouth as needed. Take as directed around the clock for ten days after your surgery. After that you can take Tylenol as needed per package insert.), Disp: , Rfl: celecoxib (CeleBREX) 200 mg Capsule, Take 200 mg by mouth as needed., Disp: , Rfl: Synthroid 137 mcg Tablet, Take 137 mcg by mouth daily., Disp: , Rfl: Allergies: Patient has no known allergies. Family history: Family History Problem Relation Age of Onset Ulcerative Colitis Brother Prostate Cancer Brother Sister with history of thyroid cancer Social history: Occasional beer use Has a girlfriend Review of systems: As noted in HPI, all other systems reviewed and negative Patient Vitals for the past 24 hrs: Temp Pulse BP SpO2 03/13/23 0846 35.7 ??C (96.2 ??F) 59 119/81 98 % Physical Exam: General: No acute distress, well appearing Eyes: no proptosis, no erythema Neck: supple, non-tender to palpation, no goiter noted Resp: breathing comfortably; chest expansion bilaterally ABD: soft, non-tender, non-distended Extremities: no clubbing; no cyanosis Psych: AAO x 3; normal affect; memory intact Skin: warm to touch; no jaundice Labs/Imaging: Latest Reference Range & Units 12/05/22 13:22 PTH 15 - 65 pg/mL 99 (H) (H): Data is abnormally high Latest Reference Range & Units 08/01/22 10:16 12/05/22 13:22 Sodium 135 - 145 mmol/L 141 137 Potassium 3.5 - 5.0 mmol/L 5.2 (H) 5.3 (H) Chloride 98 - 107 mmol/L 106 102 CO2 22 - 31 mmol/L 27 27 Anion Gap 5 - 15 mmol/L 8 8 BUN 10 - 20 mg/dL 15 12 Creatinine 0.80 - 1.50 mg/dL 1.20 1.28 Estimated GFR >=60 mL/min/1.73 m?? 65 60 Calcium 8.5 - 10.5 mg/dL 10.8 (H) 11.3 (H) (H): Data is abnormally high Latest Reference Range & Units 08/01/22 10:16 Total Protein 6.1 - 8.0 g/dL 6.8 Albumin 3.2 - 5.2 g/dL 4.2 Total Bilirubin 0.2 - 1.3 mg/dL 0.3 Alk Phos 40 - 130 unit/L 145 (H) AST 0 - 39 unit/L 19 ALT 0 - 55 unit/L 19 (H): Data is abnormally high Assessment and Plan: 72 year old man with mild hypercalcemia most likely due to primary hyperparathyroidism Hypercalcemia: Noted to have mild hypercalcemia on blood work from earlier this year, which appearsto be PTH mediated. Although vitamin D 25 was not available, he most likely has primary hyperparathyroidism, although cannot rule out FHH. Repeat calcium with PTH, phosphorous and vitamin D 25 now. Will also obtain 24 hour urine calcium (sample to be dropped off at [facility]) as well as DEXA. We discussed that indications for parathyroidectomy include age < 50, GFR< 60, serum calcium > 1 unit above the upper limit of normal, history of nephrolithiasis, elevated 24 hour urine calcium > 400 mg in 24 hours, as well as history of osteoporosis. If labs confirm primary hyperparathyroidism and he is a surgical candidate, will plan on obtaining Sestamibi scan and referring to endocrine surgery for parathyroidectomy. Will have him follow up in several months for reassessment once above evaluation is complete. Hypothyroidism, acquired: On LT4 137 mcg daily, check TSH. 60 minutes total time spent seeing patient today, pre-charting/reviewing previous labs/office notes, discussing management of primary hyperparathyroidism, placing orders and on documentation. Thank you for allowing me to participate in the care of Jakub Fuller. If you have any questions regarding the management/treatment plan as outlined above, or if I can be of further assistance, please do not hesitate to contact me. Eva Hernandez MD Agricultural Sciences Professorfood service assistant Endocrinology Section [facility] documented in this encounter Plan of Treatment Not on file documented as of this encounter Procedures Procedure Name Priority Date/Time Associated Diagnosis Comments HC THYROID STIMULATING HORMONE, SERUM Routine 03/13/2023 10:05 AM EDT Hypothyroidism, acquired HC PARATHYROID HORMONE(PTH INTACT Routine 03/13/2023 10:05 AM EDT Hypercalcemia HC VITAMIN D TOTAL-25 HYDROXY Routine 03/13/2023 10:05 AM EDT Hypercalcemia HC PHOSPHORUS, SERUM Routine 03/13/2023 10:05 AM EDT Hypercalcemia HC CALCIUM, SERUM Routine 03/13/2023 10: 05 AM EDT Hypercalcemia documented in this encounter Results * TSH Foster (03/13/2023 10:05 AM EDT) TSH 1.62 0.27 - 4.20 mcIU/mL [facility] Comment: Reference Interval (mcIU/mL): Females: ??First Trimester: 0.23-3.88 ??Second Trimester: 0.22-3.90 ??Third Trimester: 0.44-4.66 Blood 03/13/2023 10:0 5 AM EDT 03/13/2023 10:35 AM EDT Narrative Resulting Agency Comment Spec In Lab Eva Hernandez MD CHEMISTRY ORDERABLES Performing Organization Address City/[facility]/ZIP Co de Phone Number [facility] [place] [address] * Phosphorus (03/13/2023 10:05 AM EDT) Phosphorus 2.6 2.5 - 4.5 mg/dL [facility] Blood 03/13/2023 10:0 5 AM EDT 03/13/2023 10:35 AM EDT Narrative Resulting Agency Comment Spec In Lab Eva Hernandez MD CHEMISTRY ORDERABLES Performing Organization Address [facility]/ZIP Co de Phone Number [facility] [place] [address] * Vitamin D, 25-Hydroxy (03/13/2023 10:05 AM EDT) 25-OH Vit D Total 31 21 - 100 ng/mL [facility] 25-OH Vit D Interp Sufficient [facility] Blood 03/13/2023 10:0 5 AM EDT 03/13/2023 10:35 AM EDT Narrative Resulting Agency Comment Spec In Lab Eva Hernandez MD CHEMISTRY ORDERABLES Performing Organization Address City/[facility]/ZIP Co de Phone Number [facility] [place] [address] * (ABNORMAL) Calcium (03/13/2023 10:05 AM EDT) Calcium 10.7(H) 8.5 - 10.5 mg/dL [facility] Blood 03/13/2023 10:0 5 AM EDT 03/13/2023 10:35 AM EDT Narrative Resulting Agency Comment Spec In Lab Eva Hernandez MD CHEMISTRY ORDERABLES Performing Organization Address [facility]/ZIP Co de Phone Number [facility] [place] [address] * PTH (03/13/2023 10:05 AM EDT) PTH 54 15 - 65 pg/mL [facility] Blood 03/13/2023 10:0 5 AM EDT 03/13/2023 10:35 AM EDT Narrative Resulting Agency Comment Spec In Lab Eva Hernandez MD CHEMISTRY ORDERABLES Performing Organization Address City/[facility]/ZIP Co de Phone Number [facility] [place] [address] documented in this encounter Visit Diagnoses Diagnosis Hypercalcemia Primary hyperparathyroidism Hypothyroidism, acquired Unspecified hypothyroidism documented in this encounter Care Teams Cosmetology Educator Relationship Specialty Start Date End Date Jakub Abrams MD [facility] [address] PCP - General Family Medicine 04/05/21 10/18/23 documented as of this encounter
--- OUTSIDE RECORDS SUMMARY | 2024-02-21 17:16 | XMS_ITS | Encounter Summary ---
Author Organization [facility] Address [facility] [place] [address] Care Team Providers Care Instructional Materials Director Name Role Phone Jakub Abrams MD Primary Care Provider [phone] Reason for Visit * Reason Comments Post Op L RAFIQ 12/13/22 Encounter Details Date Type Department Care Team (Late st Contact Info) Description 01/16/2023 10:40 AM EDT Office [place] [address] Mynor Combs MD [facility] [place] [address] s/p Left RAFIQ on 12/13/22 (Dr Combs) Social History Tobacco Use Types Packs/Day Years Used Date Smoking Tobacco: Never Smokeless Tobacco: Never Alcohol Use Standard Drinks/Week Comments Not Currently 0 (1 standard drink = 0.6 oz pur e alcohol) occasional [facility] Inpatient Questions Answer Date Recorded Does [...] Pressure - - Pulse - - Temperature - - Respiratory Rate - - Oxygen Saturation - - Inhaled Oxygen Concentration - - Weight 93.4 kg (206 lb) 01/16/2023 10:23 AM EDT Height 180.3 cm (5' 11) 01/16/2023 10:23 AM EDT Body Mass Index 28.73 01/16/2023 10:23 AM EDT documented in this encounter Progress Notes * Mynor Combs MD - 01/16/2023 10:40 AM EDT Arthroplasty/Orthopaedic History: Left RAFIQ 12/13/22 HPI: Jakub Fuller is a very pleasant 72 y.o. year-old male and is now 4 weeks post left total hip replacement. The patient has been doing great. The patient is not having any pain.. No fevers, chills, nausea, vomiting, or symptoms of infection. Jakub has been ambulating with no assistive device anddoing FORCE. Anticoagulation status ROS: Denies: fever, chills, night sweats, nausea, or vomiting Ht 180.3 cm (5' 11) Wt 93.4 kg (206 lb) BMI 28.73 kg/m?? Physical Exam: Well-appearing male in no acute distress. Alert and Oriented x 3 and answers all questions appropriately. The incision is well healed, with no signs of infection. Hip Exam: Left Leg Length: Longer leg: equal Limb Length discrepancy: 0cm Motion: Flexion contracture: 0 Total degrees of Flexion: 95 Total degrees of Abduction: 45 Total degrees of Ext Rotation: 30 Total degrees of Internal Rotation: 10 Gait Abnormality: Normal Pulses Palpable: Left PT: Yes Left DP: Yes Motor/Sensory: Left Distal Motor: Normal Distal Sensory: Normal Hip Abductors: 5 X-RAYS: Multiple radiographic views were obtained at my request and personally reviewed by me with the patient. X-rays show a well-placed prosthesis with no evidence of fracture, subsidence, loosening, or periprosthetic complication. Questionnaire Responses: 01/16/2023 10:13 AM [facility] Surgical Postop Visit PROMIS-10 General Health Excellent PROMIS-10 Quality of Life Excellent PROMIS-10 Physical Health Excellent PROMIS-10 Mental Health Excellent PROMIS-10 Social Activity Very Good PROMIS-10 Everyday Activities Completely PROMIS-10 Pain 1 PROMIS-10 Fatigue Mild PROMIS-10 Social Roles Excellent PROMIS-10 Anxious or Depressed Rarely PROMIS PHYSICAL HEALTH SCORE 57.7 PROMIS MENTAL HEALTH SCORE 59 Problems with surgical incision/wound after surgery No Gone to ER since knee surgery No Admitted to hospital since recent ortho surgery No Additional surgery on same body part No RAFIQ Grade 10 Pain in other HIP None Back pain at this moment Very mild Satisfaction with Treatment Satisfied Choose Same Treatment Again Definitely yes 01/16/2023 10:10 AM [facility] Response HOOS JR Scores 92.34 01/16/2023 10:10 AM Sp[facility] Response HOOS JR Scores 92.34 ASSESSMENT/PLAN: Mr. Fuller is a 72 y.o. year old male status post left total hip replacement. Doing well postoperatively. Continue weightbearing as tolerated and working on range of motion. We will see him back in 1 years for repeat examination. X-rays will be needed at that time. Patient may return to normal activities as his pain and function allow. We discussed the appropriate precautions surrounding dental prophylaxis; according to the AAOS Appropriate Use Criteria we do not recommend antibiotic use prior to dental procedures for Jakub. If Jakub has any changes in health status we recommend he contact our office prior to dental procedures for updated recommendations All questions were answered. Signed: MYNOR COMBS MD 01/16/2023 documented in this encounter Plan of Treatment Not on file documented as of this encounter Visit Diagnoses Diagnosis s/p Left RAFIQ on 12/13/22 (Dr Combs) documented in this encounter Care Teams Instructional Materials Director Relationship Specialty Start Date End Date Jakub Abrams MD [facility] [place] [address] [place] [address] PCP - General Family Medicine 04/05/21 10/18/23 documented as of this encounter
--- OUTSIDE RECORDS SUMMARY | 2024-02-21 17:16 | XMS_ITS | Encounter Summary ---
[place] [address] Care Team Providers Care Manager Rail Name Role Phone Jakub Abrams MD Primary Care Provider [phone] Encounter Details Date Type Department Care Team (Latest Contact Info) Description 01/09/2023 2:00 AM EDT Anti-Coag Telephone Visit [facility] [place]ized [place] [phone] Jad [place], [facility] S/P total left hip arthroplasty Social History Tobacco Use Types Packs/Day Years Used Date Smoking Tobacco: Never Smokeless Tobacco: Never Alcohol Use Standard Drinks/Week Comments Not Currently 0 (1 standard drink = 0.6 oz pur e alcohol) occasional [facility] Inpatient Questions Answer Date Recorded Does Anyone [...] * Jad Montgomery [facility] - 01/09/2023 2:00 AM EDT Images from the original note were not included. Anticoagulation Therapy Note Anticoagulation Summary As of 01/09/2023 INR goal: 1.7-2.2 TTR: 0.0 % (6 d) INR used for dosin.6 (01/09/2023) Warfarin maintenance plan: 5 mg (5 mg x 1) every day; Starting 01/09/2023 Weekly warfarin total: 35 mg Plan last modified: Jad [place], [facility] (01/09/2023) Next INR check: Target end date: 01/13/2023 Indications s/p Left RAFIQ on 12/13/22 (Dr Umaña) [Z96.642] Anticoagulation Episode Summary INR check location: [facility] Preferred lab: Resolved date: 01/14/2023 Resolved reason: Therapy Completed Send INR reminders to: [facility] Comments: [facility] [phone] Anticoagulation Care Providers Provider Role Specialty Phone number Mynor Umaña MD Responsible Orthopaedic Surgery [phone] Patient Assessment Service Type: INR Test Result INR Result: Out of Range Clinical Outcomes Negatives: Major bleeding event, [...] 6 7 8 9 10 11 12 13 14 15 16 17 18 19 2.5 mg See details 20 5 mg 21 5 mg 22 5 mg 23 5 mg 24 25 26 27 28 29 30 Date Details 01/09 This INR check Therapy discontinued on 01/14/2023 How to take your warfarin dose To take: 2.5 mg Take 0.5 of a 5 mg tablet. To take: 5 mg Take 1 of the 5 mg tablets. Description 01/09 INR increased and is high with a decrease in dose. One time 5% decrease today then decrease the dose 6% to plan and continue warfarin with last dose being Monday evening. 01/05 INR slightly elevated. Last 7 day total of 45mg and plan set to 11% lower at 40mg. 01/02/23: INR in range. Given trend in INR since I will drop tonight dose 5%. Test INR . Left message with BRADLY Mckeon, (Scanned [place] on file), patient was in the store. [...] likely the INR could trend upwards this . Holiday Monday makes it hard to continue Jakub safelyon 5mg daily especially with low INR range. Dosing and warfarin education provided to Jakub verballyand [facility] phone # provided. Give the BID dosing [...] arthroplasty documented in this encounter Care Teams Manager Rail Relationship Specialty Start Date End Date Jakub Abrams MD [address] [place] [address] PCP - General Family Medicine 04/05/21 10/18/23 documented as of this encounter
--- OUTSIDE RECORDS SUMMARY | 2024-02-21 17:16 | XMS_ITS | Encounter Summary ---
[place] [address] Care Team Providers Care Welt Trimming Machine Operator Name Role Phone Jakub Abrams MD Primary Care Provider [phone] Encounter Details Date Type Department Care Team (Latest Contact Info) Description 12/20/2022 2:00 AM EDT Anti-Coag Telephone Visit [facility] [place] [phone] Jad Montgomery RPH S/P total left hip arthroplasty Social History Tobacco Use Types Packs/Day Years Used Date Smoking Tobacco: Never Smokeless Tobacco: Never Alcohol Use Standard Drinks/Week Comments Not Currently 0 (1 standard drink = 0.6 oz pur e alcohol) occasional [facility] Inpatient Questions Answer Date Recorded [...] this encounter Progress Notes * Jad Montgomery RPH - 12/20/2022 2:00 AM EDT Images from the original note were not included. Anticoagulation Therapy Note Anticoagulation Summary As of 12/20/2022 INR goal: 1.7-2.2 TTR: -- INR used for dosin.1 (12/20/2022) Warfarin maintenance plan: No maintenance plan Plan last modified: Jad Montgomery RPH (12/14/2022) Next INR check: 12/22/2022 Target end date: 01/13/2023 Indications s/p Left RAFIQ on 12/13/22 (Dr Umaña) [Z96.642] Anticoagulation Episode Summary INR check location: [facility] Preferred lab: Send INR reminders to: [facility] Comments: [facility]?? [phone] Anticoagulation Care Providers Provider Role Specialty Phone number Mynor Umaña MD [facility] Orthopaedic Surgery [phone] Patient Assessment Service Type: INR Test Result [...] admission, Bruising, Other complaints Warfarin Therapy Instructions November 2022 Details Mon Sat 1 2 3 4 5 6 7 8 9 10 11 12 13 14 15 16 17 18 19 20 21 22 23 24 25 26 27 28 29 30 10 mg See details 31 7.5 mg Date Details 12/20 This INR check How to take your warfarin dose To take: 7.5 mg Take 1.5 of the 5 mg tablets. To take: 10 mg Take 2 of the 5 mg tablets. Warfarin Therapy Instructions December 2022 Details Mon Sat 1 2 3 4 5 6 7 8 9 10 11 12 13 14 15 16 17 18 19 20 21 22 23 24 25 26 27 28 29 30 Date Details No additional details Date of next INR: 12/22/2022 Description 12/20 INR low. Daily average of 4.64mg [...] and warfarin education provided to Jakub verballyand [facility] phone # provided. Give the BID [...] correct range. Admitted: 12/13 Discharged: 12/13 Facility: [facility] Reason for Admission: Left RAFIQ Warfarin RX [...] arthroplasty documented in this encounter Care Teams Welt Trimming Machine Operator Relationship Specialty Start Date End Date Jakub Abrams MD [address] [place] [address] PCP - General Family Medicine 04/05/21 10/18/23 documented as of this encounter
--- OUTSIDE RECORDS SUMMARY | 2024-02-21 17:16 | XMS_ITS | Encounter Summary ---
[place] [address] Care Team Providers Care Director Of Ancillary Services Name Role Phone Jakub Abrams MD Primary Care Provider [phone] Encounter Details Date Type Department Care Team (Latest Contact Info) Description 01/16/2023 Travel Social History Tobacco Use Types Packs/Day [...] filedocumented in this encounter Care Teams Director Of Ancillary Services Relationship Specialty Start Date End Date [place] [address] PCP - General Family Medicine 04/05/21 10/18/23 documented as of this encounter
--- OUTSIDE RECORDS SUMMARY | 2024-02-21 17:16 | XMS_ITS | Encounter Summary ---
Author Organization [facility] [place] [address] Care Team Providers Care Senior Manufacturing Technician Name Role Phone Jakub Abrams MD Primary Care Provider Encounter Details Date Type Department Care Team (Latest Contact Info) Description 12/22/2022 2:00 AM EDT Anti-Coag Telephone Visit [facility] [place] [phone] Jad Montgomery RPH S/P total left hip arthroplasty Social History Tobacco Use Types Packs/Day Years Used Date Smoking Tobacco: Never Smokeless Tobacco: Never Alcohol Use Standard Drinks/Week Comments Not Currently 0 (1 standard drink = 0.6 oz pur e alcohol) occasional [facility] Inpatient Questions Answer Date Recorded Does [...] Progress Notes * Jad Montgomery RPH - 12/22/2022 2:00 AM EDT Images from the original note were not included. Anticoagulation Therapy Note Anticoagulation Summary As of 12/22/2022 INR goal: 1.7-2.2 TTR: -- INR used for dosin.4 (12/22/2022) Warfarin maintenance plan: No maintenance plan Plan last modified: Jad Montgomery RPH (12/14/2022) Next INR check: 12/26/2022 Target end date: 01/13/2023 Indications s/p Left RAFIQ on 12/13/22 (Dr Umaña) [Z96.642] Anticoagulation Episode Summary [facility]R check location[facility] Preferred lab: Send INR reminders to: [facility] Comments: [facility]?? [phone] Anticoagulation Care Providers Provider Role Specialty Phone number Mynor Umaña MD [facility] Orthopaedic Surgery [phone] Patient Assessment Service Type: INR Test Result [...] December 2022 Details Sun Mon Sat 1 7.5 mg See details 2 5 mg 3 5 mg 4 5 mg 5 6 7 8 9 10 11 12 13 14 15 16 17 18 19 20 21 22 23 24 25 26 27 28 30 Date Details 12/22 This INR check Date of next INR: 12/26/2022 How to take your warfarin dose To take: 5 mg Take 1 of the 5 mg tablets. To take: 7.5 mg Take 1.5 of the 5 mg tablets. Description 12/22 INR slightly below range but starting [...] and warfarin education provided to Jakub verballyand [facility] phone # provided. Give the [...] correct range. Admitted: 12/13 Discharged: 12/13 Facility: [facility] Reason for Admission: Left RAFIQ Warfarin RX [...] arthroplasty documented in this encounter Care Teams Senior Manufacturing Technician Relationship Specialty Start Date End Date Jakub Abrams MD [address] [place] [address] PCP - General Family Medicine 04/05/21 10/18/23 documented as of this encounter
--- OUTSIDE RECORDS SUMMARY | 2024-02-21 17:16 | XMS_ITS | Encounter Summary ---
[place] [address] Care Team Providers Care Ring Conductor Name Role Phone Jakub Abrams MD Primary Care Provider [phone] Reason for Visit * Auth/Cert (Routine) Specialty Diagnoses / Procedures Referred By Louann t Referred To Contact Diagnoses Primary osteoarthritis of left hip Hip osteoarthritis Procedures PRO ARTHROPLASTY ACETABULAR/PROX FEM PROSTC AGRFT/ALGRFT PRG RADEX HIP UNILATERAL WITH PELVIS MINIMUM 4 VIEWS TOTAL HIP ARTHROPLASTY, ANTERIOR APPROACH (WRVU 19.6) HIP INTRAOP RADIOLOGIC EXAMINATION, UNILATERAL, W PELVIS; 4+ VIEWS (WRVU 0.27) MODIFIER ACTIS HIP STEM DEPUY MODIFIER PINNACLE ACETABULUM DEPUY Mynor Umaña MD [facility] [place] [address] [facility] Referral ID Status Reason Start Date Expiration Date Visits Re quested Visits Authorized [id number] 1 1 Encounter Details Date Type Department Care Team (Late st Contact Info) Description 12/13/2022 7:30 AM EDT - 12/13/2022 9:45 AM EDT Surgery [place] [id number] Mynor Umaña MD [facility] [place] [address] TOTAL HIP ARTHROPLASTY, ANTERIOR APPROACH (WRVU 19.6) Social History Tobacco Use Types Packs/Day Years [...] Sign Reading Time Taken Comments Blood Pressure 100/65 12/13/2022 9:45 AM EDT Pulse 58 12/13/2022 6:41 AM EDT Temperature 36.3 ??C (97.3 ??F) 12/13/2022 8:51 AM ED T Respiratory Rate 16 12/13/2022 9:45 AM EDT Oxygen Saturation 98% 12/13/2022 9:45 AM EDT Inhaled Oxygen Concentration - - Weight - - Height - - Body Mass Index - - documented in this encounter Discharge Instructions * Patient Instructions* Elier Armstrong MD - 12/13/2022 6:34 AM EDT Activity: 1. Your weight-bearing status is - weight bearing as tolerated of left leg. 2. Remember to use a walker or crutches as needed for balance and protection. Your physical therapist may progress you to using a cane when appropriate. 3. Remember your hip precautions: Standard: You should transition from sit to stand and stand to sit utilizing a broad based stance with feet and knees wider than hips. Anticoagulation follow-up: You are being discharged home on Coumadin??, see below for instructions. Coumadin?? (warfarin) Management upon Discharge Reason for anticoagulation therapy: DVT (blood clot) prevention after Orthopedic surgery. Your Coumadin?? (warfarin) dosing instruction upon discharge is: - Day of discharge (12/13/2022): Take 5mg (1 tablet of the 5mg pills) at 5 PM. Your next INR is scheduled on: This will be checked by the Visiting Nurses. It is very important that you have your PT/INR checked regularly as your dose may change based on your lab values, at least twice per week (usually every Monday and ). INR Goal: 2 - 3 Expected duration of treatment: 30 days (last day = 01/13/23) - After your dose on 01/13/23, stop the Coumadin??. Provider/Team responsible for ongoing outpatient anticoagulation management: - Provider/Team/Clinic: [facility] - - If you have not received a call from your provider, by 4pm, after having your INR drawn, please call the Orthopedic Clinic Nurse at [phone] for further dose instructions. If it is after 5pm or on the weekends, the Orthopedic resident disability liaison officer will be managing your dosing (please call [phone] and ask for them to be paged). Warfarin (Coumadin??) should be taken at the same time every day, usually at 5pm. The following table shows your most recent INR results and Coumadin?? doses: Date Notes INR Coumadin?? dose 12/13/2022 day of operation 1 5mg If your INR level is ever above 3.5 you should not participate in aggressive Physical therapy exercises - you can mobilize/ambulate. This will decrease the possibility of more bleeding into your joint. Once your INR is less than 3.5 you can resume Physical therapy. One of the Orthopedic nurses willcall you with further instructions as needed. Warfarin Education that was reviewed with you in the hospital: (please see your warfarin (Coumadin??) reference sheet for more information) Diet and medications can affect your INR Maintaining a diet with a consistent amount of vitamin K containing foods is important to keep yourINR in range Avoid major changes in dietary habits Do not take or discontinue any prescription or wvvi-qeq-mrhlwph medications without asking your doctor or pharmacist Inform all your doctors, pharmacists and other healthcare providers that you take warfarin Warfarin increases your risk of bleeding If you experience any of these signs or symptoms of bleeding or blood clot please seek immediate medical attention: Increased pain, swelling or sudden shortness of breath Severe headache Dizziness Unusual bleeding or bruising Changes in urine or bowel movement color Coughing or spitting up blood or nosebleeds that do not stop or occur more often Diet: Resume your usual diet but increase your intake of fluids and fiber while you are on narcoticpain meds to prevent constipation. Driving: None until you are cleared to do so by your Orthopedic surgeon. You should not drive whileyou are on narcotic pain meds as they can affect your judgment and reaction time. Call your surgeonwith any questions/concerns. Medications: 1. The pain medication you are on can cause constipation so increase your intake of fluids and fiber while you are on them. The stool softener, Pericolace, that has been prescribed can also be taken to facilitate a bowel movement. You can also take an buht-hln-uormirq medication, Miralax if needed to combat constipation. 2. If you need a renewal on your narcotic pain medication, you need to give the Orthopedic clinic enough time to process your request. This can take up to three days, so plan accordingly. 3. Continue acetaminophen (Tylenol) 1,000mg every 8 hours around the clock until 12/24/22 (for ten days after your surgery). This can be effective in controlling pain along with your other medications.After that you can take Tylenol as needed per package insert. Do not take more than 3,000mg of acetaminophen in a 24 hour period. 4. You have been discharged on a short acting narcotic, tramadol. You will be on this medication for a limited period of time only. Take the smallest dose possible to control your pain. As your pain improves take smaller, less frequent doses. You may break the tablet to achieve a smaller dose. 5. You are being discharged on gabapentin (Neurontin), a non-narcotic medication that will help with your pain at night and allow you to sleep better. Take this at night for the next 30 days. Shower (internal sutures): 1. You can shower but remember your activity limitations and always have a chair available for balance and protection. DO NOT submerge the dressing/incision. 2. (Mepilex) Do not let water run over the operative dressing. If it becomes wet lightly pat the dressing dry. DO NOT submerge the incision. When this operative dressing is removed you can let water gently run over the incision. Wound (Mepilex): 1. You do NOT have any external darrius or sutures in place. Your sutures are internal and will be absorbed over time. 2. You have a Mepilex dressing in place. Do not lift the edge of the Mepilex dressing to inspect the incision, it will not re-adhere. Remove your operative dressing 7 days after your surgery (12/20/22). When it is removed you can leave the incision open to air or cover it with a light dressing. Somepatients have an additional item called Lenka on their skin. If you have this it will appear as a mesh dressing directly over the incision. Please leave this in place until your follow up with orthopedics. 3. If you have lots of drainage when you get home (and it is before 12/20), remove the operative dressing and replace it with dry sterile gauze. Continue with daily dressing changes (and as needed) until the drainage stops, then remove the dressing and leave the incision open to air or lightly covered. Misc: Remember that ICE and elevation are very important after surgery to help decrease swelling and control pain. Use ICE for 20-30 minutes at a time and keep your leg elevated as much as possible. Call your doctor ([phone]) if you develop: Fever greater than 100.5 Severe nausea or vomiting Increasing pain that is not controlled by pain medications Increasing redness, swelling, or drainage from incisions Change in sensation FOLLOW-UP APPOINTMENTS: 1. You will have follow-up appointments at [facility] as indicated below in Future Appointment and Orders. 2. You will need to have x-rays prior to your follow-up appointment on 01/16/23. Please come to Radiology, desk 3T, 1 hour BEFORE that appointment for these x-rays. Future Appointments Date Time Provider Department Center 01/16/2023 9:45 AM [facility] DX ROOM 3 Xray [facility] Rad 01/16/2023 10:40 AM Mynor Umaña MD [facility] ORTH [address] [place] [address] If you have questions or concerns: Monday through Monday, 8 AM - 5 PM, please call Dr. Mynor Umaña MD's office at . If it is after 5 PM, the weekend, or holidays, please call and ask to speak with theOrthopedic resident on-call. * Attachments The following attachments cannot be sent through Care Everywhere. * Walker Instructions: General Info (Martiniquais) * Vitamin K Diet (Martiniquais) * Warfarin Safety Tips (Martiniquais) documented in this encounter Medications at Time of Discharge Medication Sig Dispensed Refills Start Date End Date celecoxib (CeleBREX) 200 mg Capsule Take 200 mg by mouth as needed. 07/19/2022 Synthroid 137 mcg Tablet Take 137 mcg by mouth daily. 07/12/2022 gabapentin (Neurontin) 300 mg capsule Take 1 capsule by mouth nightly for 28 days. 28 capsule 12/13/2022 01/10/2023 acetaminophen (Tylenol) 500 mg tablet Take 2 tablets by mouth every 8 hours. Take as directed around the clock for ten days after your surgery. After that you can take Tylenol as needed per package insert. 12/13/2022 07/03/2023 senna-docusate (Pericolace) 8.6-50 mg Tablet Take 2 tablets by mouth 2 times daily. Take to maintain normal bowel pattern while taking narcotic pain medication. 12/13/2022 01/16/2023 polyethylene glycoL (Miralax) 17 gram oral powder packet Take 17 g by mouth 2 times daily. Take to maintain normal bowel pattern while taking narcotic pain medication. 12/13/2022 01/16/2023 ondansetron ODT (Zofran-ODT) 4 mg disintegrating tablet Take 1 tablet by mouth every 8 hours as needed for Nausea. 20 tablet 12/13/2022 01/16/2023 warfarin (Coumadin) 5 mg tablet Take 1 tablet by mouth daily. 30 tablet 1 12/13/2022 01/05/2023 traMADoL (Ultram) 50 mg tablet Take 1 tablet by mouth every 6 hours as needed for Pain. 50 tablet 12/13/2022 01/16/2023 documented as of this encounter Progress Notes * Shelly Emery RN - 12/13/2022 2:30 PM EDT Patient meets discharge criteria at this time. VSS. Dressing to left hip cdi, +cmst. Pain well managed at time of discharge. Patient ambulated in hallway w/o issue. AVS reviewed w/ patient and significant other, both verbalized understanding. Patient discharged home w/ significant other. * Janice Taveras RN - 12/13/2022 12:16 PM EDTSumileney: AJ Progress note Confirmed demographic data. Pt is understanding about the plan for HH and would like to go to [facility] when ready for outpt therapy. The Patient has been provided a list of Home Health Agencies/DME vendors which serve their preferred geographic area. A letter describing our affiliations was reviewed with them and they were educated about their right to choose where referrals are placed. Provided patient with [facility] Star Quality Rating for Home care hand out. Patient requests referral to : [facility] [address] [place] [id number] Expected date of discharge: 12/13/22. Referral routed to the Bird Trapper for matching with agency/vendor and to provide any required information. Janice Taveras RN, BSN, ACM-MACHINE SETTER AUTOMATICworkers compensation attorney Office of Care Management Pager: [phone] documented in this encounter H&P Notes * Elier Armstrong MD - 12/13/2022 6:16 AM EDT Patient Name: Jakub Fuller Patient Age: 72 y.o. Birthdate: 1950 Admit date: 12/13/2022 Attending Physician: Mynor Umaña MD The patient's history and physical exam have been reviewed and completed.There has there is no change since the H&P done within 30 days of today (on 12/05/22 by OLIVIA Tolentino). Please see H&P and Dr. Pickard's clinic notes for more details. Exam: NAD, AOx3 RRR with no MRG Lungs CTAB with no wheeze, rhonchi, or rales LLE sensation and motor intact, 2+ DP OR plan for today: left RAFIQ Elier Armstrong MD Orthopaedic Surgery Pager [phone] documented in this encounter Miscellaneous Notes * Op Note - Elier Armstrong MD - 12/13/2022 7:45 AM EDT [facility] Operative Note Patient Name: Jakub Fuller : [id number] MR#: [id number] Case Date: 12/13/2022 Surgeon: Surgeon(s) and Role: * Mynor Umaña MD - Primary * Elier Armstrong MD - Resident - Assisting * Romario Reza PA - Physician Stable Helper Preoperative Diagnosis: Osteoarthritis left Hip Postoperative Diagnosis: Same Procedure Performed: left Total Hip Arthroplasty (CPT code 07773) Anesthesia: spinal IVF: See anesthesia record Estimated Blood Loss: 200ml Urine Output: no latif Drains: none Specimens removed during surgery: None Surgical Closure: Primary Closure - skin incision is completely closed without any wires, kaiden, drains or other devices Complications: None apparent Indications for the Procedure: Mr. Fuller is a 72 y.o. year old male who has been followed in the out-patient clinic with a history of progressively worsening left hip pain secondary to degenerative arthritis. After having failed conservative, non-surgical attempts at managing the pain and limitations of functional capabilities,it was felt that the only remaining option was surgical. A detailed conversation regarding the risks and benefits of hip arthroplasty surgery was had with the patient. The risks discussed included but were not limited to: bleeding (which may or may not require transfusion), infection, damage to nerves (specifically the LFCN) or blood vessels, deep venous thrombosis, pulmonary embolus, prosthetic failure, loosening, prosthetic fracture, femur or pelvic fracture, dislocation, leg- length inequality, persistent pain, need for future surgery, medical complications (including cardiac, respiratory and neurologic complications), anaesthetic complications, and . Subsequent to this conversation,all of the patient???s questions were answered in great detail and informed consent was obtained for a left total hip arthroplasty. He received preoperative medical clearance and was felt optimized for surgery. Today, he identified the left hip as the correct operative side. Implants: Femoral Stem: DePuy Actis, Size 9 Femoral Stem Type: High Offset Femoral Head: 40mm +1.5 Acetabulum: DePuy [place] Gription, Size 62 Liner: Altrx polyethylene, Size 40 x 62mm, neutral Intraoperative Findings: Arthritic changes in both the femoral head and acetabulum as evidenced by loss of cartilage, exposed eburnated bone and osteophyte formation. Procedure: The patient was met in the pre-operative holding area where the appropriate site was marked, 24 hour update completed, and the pre-operative checklist completed. He was then brought to the operating room on a stretcher where the above anesthetic was administered. With the patient still on their hospital stretcher, the feet and ankles were wrapped in webril and coban. The well-padded feet were then placed into the traction boots, which were then tightened. SCDs were applied to both legs. Distal perfusion was checked to ensure good capillary refill into the toes while in the boots. The patient was carefully transfered onto HANA table with the leg support under the non-op leg. The boots were co nnected into the leg spars. A well padded central post was placed and the patient was carefully positioned to abut the post. The arms were placed on well padded arm boards. A clinical time-out was held confirming the correct patient name, MRN, , planned procedure, site, antibiotic start time andagent, and outline of any surgical concerns. All in attendance were in agreement to proceed. Weightbased dosing of tranexamic acid was administered prior to making an incision. Skin Preparation: The skin was prepped using alcohol and Duraprep from midline, posterior to the greater trochanter, from one hand breadth above the ASIS extending distally to allow access to the lateral femoral condyle. The prep was allowed to fully dry and sterile drapes were applied. Surgical Approach: The skin was infiltrated with 10cc of plain .25% marcaine prior to making the incision. The skin was then incised starting approximately 1-2 cm distal and posterior to the ASIS and angled posteriorlyapproximately 30 degrees towards the fibular head and lateral femoral condyle. Hemostasis was obtained using bovie electrocautery. The fascia over the TFL was exposed and the muscle and deep tissue was injected using a combination of MACEY. Throughout the case this anesthetic mixture was used to inject any tissue in the surgical field for a total of 50cc. The translucent fascia of the TFL was incised at the junction of the anterior 1/3 and posterior 2/3s in line with the muscle fibers being cauti ous to stay within the fascial compartment to minimize the risk to the lateral femoral cutaneous nerve. The anterior edge of the fascia was identified and finger dissection was used to come around the medial side of the TFL which was retracted laterally using a cerebellar retractor (Hueter approach). The lateral femoral circumflex vessels were identified distally in the incision where they were clamped and cauterized using the bovie. A blunt cobra was then placed over the superior femoral neck.The pre-capsular fat and fascial tissue was excised using electrocautery. The vastus lateralis was identified distally and a black handle cobra was placed anterior to this over the inferior femoral neck. The direct head of the rectus femoris was elevated off the capsule medially using a Dominguez and a sharp bent fernando retractor was placed under it. An inverted T-shaped capsulotomy was performed starting on the superior edge of the acetabulum extending down toward the intertrochanteric line then releasing the capsule inferior towards the narcisa and around the neck. The superior capsular was release around the medial aspect of the trochanter. #3 vicryl tagging suture was then placed in the capsular limbs. The leg was then externally rotated to 50 degrees to aid in exposure for the neck cut. An oscillating saw was used to make the femoral neck osteotomy starting at the calcar using the pre-operative template as a guide and exiting the lateral neck near the shoulder being cautious to protect the greater trochanter. Three cranks of traction was applied to the operative leg. A corkscrew on power was drilled into the center of the femoral head and it was removed being careful to protect the soft tissues. Acetabular Prep: A narrow bent fernando retractor was placed anteriorly under the rectus over the anterior column and a wide cobra was placed posteriorly around the posterior column. The labrum and pulvinar were completely removed and the true floor of the acetabulum was identified. The acetabulum was reamed under direct visualization and using fluoroscopic guidance up to 61mm at which excellent hemispheric contactwas noted. A healthy bed of bleeding bone was identified and the acetabulum was irrigated. The definitive 62mm acetabular implant was then impacted into place and fully seated. Appropriate abduction and anterversion were assessed clinically and with the C-arm. The socket was irrigated and the definitive liner was impacted into place and noted to fully seat and engage the locking mechanism. Femoral Prep: Traction was removed from the leg. The black handle cobra was then placed outside the superior limbof the capsule and it was released towards the trochanter avoiding any damage to the surrounding muscle. The cobra was then placed around the inferior limb of capsule and as the leg was externally rotated the capsule was released around the femur. Once the proximal femur was adequately exposed by splitting the capsule towards the protuberance on the trochanter and it could be maximally rotated without significant tension, the leg was adducted and hyperextended by lowering the leg spar to the ground. Care was taken to assure the greater trochanter was free from behind the acetabulum. The blackhandle cobra was placed over the femoral neck and a Hernandez retractor was placed around the greatertrochanter. Any residual lateral femoral neck was removed with a rongeur. A box osteotome was used to enter the canal laterally. A starter broach was advanced in the appropriate version and a curved rasp was used to identify the canal. The canal was sequentially broached up to a size 9 using the preoperative template as a guide. Excellent torsional stability was noted. A calcar planar was used toplane the proximal femur even with the broach. A trial high offset neck was placed and a trial size 40 +1.5mm head was affixed. The leg spar was brought up to level. Light traction and internal rotation was used and gentle pressure was applied tothe head to reduce it into the acetabulum. All traction was released. C-Arm was used to assess component positioning, verify leg length, and offset jehovah's witness. Based on the images, intra-op stability, and template I elected to proceed with a size 9 highoffset with 40mm +1.5mm head at final implantation. Satisfied, the hip was dislocated using traction and external rotation. The retractors were repositioned around the proximal femur and the leg was externally rotated, extended and adducted again. Thebroach trial was removed after confirming continued stability. The canal was irrigated, the definitive stem was pressfit, noted to seat fully, and achieve excellent stablity. The definitive head was impacted onto a cleansed and dried mauro taper. All retractors were removed and the hip was reduced without issue. Definitive implant position, alignment and fit were re-verified with C-Arm and the relevant images were saved into the medical record. Closure: The wound was copiously irrigated. The capsule was repaired with #3 vicryl. The wound was irrigatedagain. The fascia of the TFL was closed using a running barbed suture. The wound was irrigated again and the deep tissues were closed using a 0 vicryl. A running 2-0 vicryl was used to close the subcutaneous layer. The skin was closed with a running monocryl and skin glue was used as biologic sealant. A sterile Mepilex dressing was applied to the wound. The needle, sponge and instrument counts were correct at the end of the procedure. The patient was then [facility] Elier Armstrong MD 12/13/2022 Post-operative Plan: (avoid IV narcotics) ?? Tramadol 50mg q6hr PRN if patient sensitive to narcotics ?? for breakthrough pain 15 mg Toradol iv or im q 6 hours (max 4 doses) ?? 1000mg Tylenol po??? q8 hour ?? Celebrex 200 mg po q 12 hours while in house and PRN as an outpatient ?? Protonix 20mg qd x 2 weeks (or other PPI) ?? Zofran 4 mg po/iv q 8 hours PRN nausea ?? Weight bearing status of operative extremity: Weight bearing as tolerated ?? Wound closure: Subcuticular absorbable suture with skin glue ?? Dressing changes: Mepilex Silver (Do not change for 7 days then a dry sterile dressing). Prineo skin glue to fall off on it's own. ?? Follow-up Plan: As scheduled prior to surgery (approx. 5 weeks with x-rays) ?? Anticoagulation: Warfarin (goal INR ~2) for 30 days ?? Any possible barriers to discharge: None ?? Plan for hospital stay: outpatient surgery Implant Summary: Implant Name Type Inv. Item Serial No. Fish Worm Grower Lot No. [facility] No. Used Action SHELL ACET HIP 62MM POR CTD MULTI HOLE TI PINNACLE GRIPTION ([id number]) (AutoReq) - [id number] IMPLANTS SHELL ACET HIP 62MM POR CTD MULTI HOLE TI PINNACLE GRIPTION ([id number]) (AutoReq) [facility] [id number] Left 1 Implanted LINER ACET HIP [id number] STND POLY PINNACLE ALTRX ([id number]) (AutoReq) - [id number] IMPLANTS LINER ACET HIP [id number] STND POLY PINNACLE ALTRX ([id number]) (AutoReq) LYYN ANTONIO [id number] Left 1 Implanted STEM FEMORAL HIP SZ 9 PROX 12/14 TAPER POR CLLR HIGH OFST TI ([id number]) (AutoReq) - [id number] IMPLANTS STEM FEMORAL HIP SZ 9 PROX 12/14 TAPER POR CLLR HIGH OFST TI ([id number]) (AutoReq) LYYN ANTONIO [id number] Left 1 Implanted HEAD FEMORAL HIP 40MM +1.5MM OFFSET 12/14 TPR CERAMIC ([id number]) (AutoReq) - [id number] IMPLANTS HEAD FEMORAL HIP 40MM +1.5MM OFFSET 12/14 TPR CERAMIC ([id number]) (AutoReq) LYYN ANTONIO [id number] Left 1 Implanted Associated attestation - Mynor Umaña MD - 12/13/2022 1:33 PM EDT Attestation: Case Date: 12/13/2022 I was present and I participated during the entire procedure (does not need to include opening and closing). Romario Reza PA-C worked under my direction for the duration of the operative session. The assistantwas critical for patient positioning, prepping the operative site and retraction to maintain the best possible exposure of anatomy during the case. They also assisted in closure because no additionalqualified resident was available. MYNOR UMAÑA MD 12/13/2022 documented in this encounter Plan of Treatment Scheduled Referrals Name Type Priority Associated Diagnoses Orde r Schedule Referral for Anticoagulation Monitoring Outpatient Referral Routine S/P total left hip arthroplasty Ordered: 12/13/2022 Referral to Home Health Outpatient Referral Routine s/p Left RAFIQ on 12/13/22 (Dr Umaña) Ordered: 12/13/2022 documented as of this encounter Procedures Procedure Name Priority Date/Time Associated Diagnosis Comments XR PELVIS Routine 12/13/2022 9:40 AM EDT XR FLUORO NO RAD <1HR - OR USE Routine 12/13/2022 8:28 AM EDT MODIFIER PINNACLE GRIPTION ACETABULUM DEPUY Yes 12/13/2022 7:17 AM EDT Hip osteoarthritis MODIFIER ACTIS HIP STEM DEPUY Yes 12/13/2022 7:17 AM EDT Hip osteoarthritis Radex Hip Unilateral With Pelvis Minimum 4 Views ([id number]) Yes 12/13/2022 7:17 AM EDT Hip osteoarthritis Arthroplasty Acetabular/Prox Fem Prostc Agrft/Algrft ([id number]) Yes 12/13/2022 7:17 AM EDT Hip osteoarthritis TOTAL HIP ARTHROPLASTY, ANTERIOR APPROACH Routine 12/13/2022 6:13 AM EDT HIP INTRAOP RADIOLOGIC EXAMINATION, UNILATERAL, W PELVIS; 4+ VIEWS Routine 12/13/2022 6:13 AM EDT documented in this encounter Results * XR Pelvis (Generic) (12/13/2022 9:40 AM EDT) Anatomical Region Laterality Modality Pelvis N/A Digital Radiogra phy Impressions 12/13/2022 10:46 AM EDT Status post left total hip arthroplasty without radiographic evidence of acute complication on AP only imaging. Thank you for letting us participate in the care of this patient. ??If you are a health care provider and have any questions regarding this report, please contact the number below. ??For patients who have questions please contact the health health care specialist that requested your imaging first. ? Narrative 12/13/2022 10:46 AM EDT EXAMINATION: XR PELVIS (GENERIC) CLINICAL HISTORY: s/p left RAFIQ TECHNIQUE: Single portable low AP pelvis radiograph 12/13/2022 at 0935 hours COMPARISON: Intraoperative spot images of the pelvis/left hip from earlier same day 12/13/2022 Radiographs of the pelvis and left hip from [facility] 09/15/2022 FINDINGS: Status post left total hip arthroplasty. The femoral head component is centered over the acetabular cup, similar alignment to the intraoperative spot images. No periprosthetic fracture identified. Postoperative gas is seen in the adjacent soft tissues of the left hip/thigh. No widening of the symphysis pubis. Right hip joint space appears largely preserved. Procedure Note Zohreh Kwok MD - 12/13/2022 EXAMINATION: XR PELVIS (GENERIC) CLINICAL HISTORY: s/p left RAFIQ TECHNIQUE: Single portable low AP pelvis radiograph 12/13/2022 at 0935 hours COMPARISON: Intraoperative spot images of the pelvis/left hip from earlier same day 12/13/2022 Radiographs of the pelvis and left hip from [facility] 09/15/2022 FINDINGS: Status post left total hip arthroplasty. The femoral head component iscentered over the acetabular cup, similar alignment to the intraoperative spotimages. No periprosthetic fracture identified. Postoperative gas is seen in theadjacent soft tissues of the left hip/thigh. No widening of the symphysis pubis.Right hip joint space appears largely preserved. IMPRESSION Status post left total hip arthroplasty without radiographic evidence ofacute complication on AP only imaging. Thank you for letting us participate in the care of this patient. If youare a health care provider and have any questions regarding this report,please contact the number below. For patients who have questions please contactthe health health care specialist that requested your imaging first. Mynor CARBAJAL DX ORDERABLES * XR Fluoro No Rad <1Hr - OR Use (12/13/2022 8:28 AM EDT) Narrative Dicom, Auditing User - 12/13/2022 8:28 AM EDT This exam is auto-finalizing. No interpretation was done. Mynor CARBAJAL FLUORO ORDERABL ES documented in this encounter Visit Diagnoses Not on filedocumented in this encounter Administered Medications Inactive Administered Medications - up to 3 most recent administrations Medication Order MAR Action Action Date Dose Rate Site acetaminophen (Tylenol) tablet 1,000 mg 1,000 mg, Oral, ONCE, 1 dose, On Mon12/13/22 at 0715, Administer on arrival in Same Day Program, Day of Surgery (Day of Procedure), Routine Given 12/13/2022 6:53 AM EDT 1,000 mg BUpivacaine (Sensorcaine) (2.5 mg/mL) 0.25% injection PRN, Starting on Mon12/13/22 at 0756, Until Mon12/13/22 at 1646, Intra-Operative (Intra-Procedure), Routine Given 12/13/2022 7:56 AM EDT 10 mLs 19- Surgical Site celecoxib (CeleBREX) capsule 400 mg 400 mg, Oral, ONCE, 1 dose, On Mon12/13/22 at 0715, Administer on arrival to Same Day Program, Day of Surgery (Day of Procedure), Routine Given 12/13/2022 6:53 AM EDT 400 mg HYDROmorphone (Dilaudid) (0.2 mg/1 mL) injection syringe 0.2 mg 0.2 mg, Intravenous, EVERY 10 MIN PRN, Starting on Mon12/13/22 at 0921, Until Mon12/13/22 at 1442, Pain, For Mild to Moderate Pain (1-5 out of 10), Hold for respiratory rate less than 10 per minute. Maximum dose 2 mg over one hour including administrations in the OR. If multiple pain medications are ordered, start with HYDROmorphone and use fentaNYL for breakthrough pain. Notify anesthesia team if the maximum of 100 mcg of fentaNYL AND 2 mg of HYDROmorphone has been administered and patient still complains of moderate to severe pain (6-10)., PACU Recovery, Routine Given 12/13/2022 12:03 PM EDT 0.2 mg oxyCODONE (Roxicodone) tablet 5 mg 5 mg, Oral, ONCE, 1 dose, On Mon12/13/22 at 1145, STAT Given 12/13/2022 11:27 AM EDT 5 mg povidone-iodine (Betadine Ophthalmic Prep) 5 % ophthalmic solution PRN, Starting on Mon12/13/22 at 0757, Until Mon12/13/22 at 1646, Intra-Operative (Intra-Procedure), Routine Given 12/13/2022 7:57 AM EDT 30 mLs 19- Surgical Site ZWrhkuejbyv-XKOEQXRvclm-xd oNIDine-ketorolac (MACEY) (2.46 mg-0.005 mg-0.0008 mg-0.3 mg/mL) armando-articular inj soln in sodium chloride PRN, Starting on Mon12/13/22 at 0757, Until Mon12/13/22 at 1646, Intra-Operative (Intra-Procedure), Routine Given 12/13/2022 7:57 AM EDT 50 mLs 19- Surgical Site warfarin (Coumadin) tablet 5 mg 5 mg, Oral, ONCE, 1 dose, On Mon12/13/22 at 0715, DO NOT SPLIT, CRUSH OR OPEN, Day of Surgery (Day of Procedure), STAT Given 12/13/2022 7:02 AM EDT 5 mg documented in this encounter Active and Recently Administered Medications Times are shown in EDT. Scheduled Medication Order 12/11/2022 12/12/2022 12/13/2022 acetaminophen (Tylenol) tablet 1,000 mg (COMPLETED) 1,000 mg, Oral, ONCE, 1 dose, On Mon12/13/22 at 0715, Administer on arrival in Same Day Program, Day of Surgery (Day of Procedure), Routine 0653 (Given - Provid er: Hansa Edmonds RN) ceFAZolin (Ancef) 2 g vial attach to sodium chloride 0.9% 100 mL Mini-Bag Plus (COMPLETED) 2 g, Intravenous, EVERY 4 HOURS, 1 dose, First dose on Mon12/13/22 at 0715, Administer over 30 Minutes, Redose after 4 hours., Day of Surgery (Day of Procedure), Indication for (Active or Suspected): Prophylaxis 728 (New Bag - Prov ider: Min Shi CRNA) celecoxib (CeleBREX) capsule 400 mg (COMPLETED) 400 mg, Oral, ONCE, 1 dose, On Mon12/13/22 at 0715, Administer on arrival to Same Day Program, Day of Surgery (Day of Procedure), Routine 0653 (Given - Provid er: Hansa Edmonds RN) oxyCODONE (Roxicodone) tablet 5 mg (COMPLETED) 5 mg, Oral, ONCE, 1 dose, On Mon12/13/22 at 1145, STAT 1127 (Given - Provid er: Shelly Emery RN) tranexamic acid (Cyklokapron) (100 mg/mL) infusion 1,000 mg (COMPLETED) 1,000 mg, Intravenous, ONCE, 1 dose, On Mon12/13/22 at 0715, The maximum infusion rate for Tranexamic Acid is 100 mg/min., Day of Surgery (Day of Procedure), STAT 0729 (Given - Provid er: Min Shi CRNA) warfarin (Coumadin) tablet 5 mg (COMPLETED) 5 mg, Oral, ONCE, 1 dose, On Mon12/13/22 at 0715, DO NOT SPLIT, CRUSH OR OPEN, Day of Surgery (Day of Procedure), STAT 0702 (Given - Provid er: Hansa Edmonds RN) PRN Medication Order 12/11/2022 12/12/2022 12/13/2022 BUpivacaine (Sensorcaine) (2.5 mg/mL) 0.25% injection (CANCELED) PRN, Starting on Mon12/13/22 at 0756, Until Mon12/13/22 at 1646, Intra-Operative (Intra-Procedure), Routine 0756 (Given - Provid er: Mynor Umaña MD) HYDROmorphone (Dilaudid) (0.2 mg/1 mL) injection syringe 0.2 mg (CANCELED)(Linked Group 1) 0.2 mg, Intravenous, EVERY 10 MIN PRN, Starting on Mon12/13/22 at 0921, Until Mon12/13/22 at 1442, Pain, For Mild to Moderate Pain (1-5 out of 10), Hold for respiratory rate less than 10 per minute. Maximum dose 2 mg over one hour including administrations in the OR. If multiple pain medications are ordered, start with HYDROmorphone and use fentaNYL for breakthrough pain. Notify anesthesia team if the maximum of 100 mcg of fentaNYL AND 2 mg of HYDROmorphone has been administered and patient still complains of moderate to severe pain (6-10)., PACU Recovery, Routine 1203 (Given - Provid er: Shelly Emery RN) povidone-iodine (Betadine Ophthalmic Prep) 5 % ophthalmic solution (CANCELED) PRN, Starting on Mon12/13/22 at 0757, Until Mon12/13/22 at 1646, Intra-Operative (Intra-Procedure), Routine 0757 (Given - Provid er: Mynor Umaña MD - Comment: mixed into 500 mL NS as irrigation) OLpswantwfw-ABYRMROnych-pqxIZOdfd- ketorolac (MACEY) (2.46 mg-0.005 mg-0.0008 mg-0.3 mg/mL) armando-articular inj soln in sodium chloride (CANCELED) PRN, Starting on Mon12/13/22 at 0757, Until Mon12/13/22 at 1646, Intra-Operative (Intra-Procedure), Routine 0757 (Given - Provid er: Mynor Umaña MD) Linked Groups Order Group 1: HYDROmorphone (Dilaudid) (0.2 mg/1 mL) injection syringe 0.2 mg (CANCELED)Jump to med 0.2 mg, Intravenous, EVERY 10 MIN PRN, Starting on Mon12/13/22 at 0921, Until Mon12/13/22 at 1442, Pain, For Mild to Moderate Pain (1-5 out of 10), Hold for respiratory rate less than 10 per minute. Maximum dose 2 mg over one hour including administrations in the OR. If multiple pain medications are ordered, start with HYDROmorphone and use fentaNYL for breakthrough pain. Notify anesthesia team if the maximum of 100 mcg of fentaNYL AND 2 mg of HYDROmorphone has been administered and patient still complains of moderate to severe pain (6-10)., PACU Recovery, Routine Or HYDROmorphone (Dilaudid) (0.2 mg/1 mL) injection syringe 0.4 mg (CANCELED) 0.4 mg, Intravenous, EVERY 10 MIN PRN, Starting on Mon12/13/22 at 0921, Until Tu12/13/22 at 1442, Pain, For Moderate to Severe Pain (6-10 out of 10), Hold for respiratory rate less than 10 per minute. Maximum dose 2 mg over one hour including administrations in the OR. If multiple pain medications are ordered, start with HYDROmorphone and use fentaNYL for breakthrough pain. Notify anesthesia team if the maximum of 100 mcg of fentaNYL AND 2 mg of HYDROmorphone has been administered and patient still complains of moderate to severe pain (6-10)., PACU Recovery, Routine documented in this encounter Care Teams Ring Conductor Relationship Specialty Start Date End Date Jakub Abrams MD [address] [place] [address] PCP - General Family Medicine 04/05/21 10/18/23 documented as of this encounter
--- OUTSIDE RECORDS SUMMARY | 2024-02-21 17:16 | XMS_ITS | Encounter Summary ---
[place] [address] Care Team Providers Care Field Court Researcher Name Role Phone Jakub Abrams MD Primary Care Provider Encounter Details Date Type Department Care Team (Latest Contact Info) Description 12/14/2022 2:00 AM EDT Anti-Coag Telephone Visit [facility] [place] [phone] Jad Montgomery RPH S/P total left hip arthroplasty Social History Tobacco Use Types Packs/Day Years Used Date Smoking Tobacco: Never Smokeless Tobacco: Never Alcohol Use Standard Drinks/Week Comments Not Currently 0 (1 standard drink = 0.6 oz pur e alcohol) occasional DH [facility] Inpatient Questions Answer Date Recorded Does Anyone [...] Progress Notes * Jad Montgomery RPH - 12/14/2022 2:00 AM EDT Images from the original note were not included. Anticoagulation Therapy Note Anticoagulation Summary As of 12/14/2022 INR goal: 1.7-2.2 TTR: -- INR used for dosing: No new INR was available at the time of this encounter. Warfarin maintenance plan: No maintenance plan Weekly warfarin total: 0 mg Plan last modified: Jad Montgomery RPH (12/14/2022) Next INR check: 12/15/2022 Target end date: 01/13/2023 Indications s/p Left RAFIQ on 12/13/22 (Dr Umaña) [Z96.642] Anticoagulation Episode Summary INR check location: [facility] Preferred lab: Send INR reminders to: [facility] Comments: [facility]?? [phone] Anticoagulation Care Providers Provider Role Specialty Phone number Mynor Umaña MD Responsible Orthopaedic Surgery [phone] Patient Assessment Service Type: New Patient Consult Type: New Start Patient Findings Positives: Change in health, Change in medications, Hospital admission Warfarin Therapy Instructions November 2022 Details Sun Mon Tue Wed Alysha Fri Sat 1 2 3 4 5 6 7 8 9 10 11 12 13 14 15 16 17 18 19 20 21 22 23 24 5 mg See details 25 26 27 28 29 30 31 Date Details 12/14 This INR check Date of next INR: 12/15/2022 How to take your warfarin dose To take: 5 mg Take 1 of the 5 mg tablets. Description 12/14 No INR. HH agency going tomorrow. Jakub will take 5mg tonight. On warfarin for PEPPER trial. Updated referral range from 2-3 to 1.7-2.2 as it should be for this trial. Jakub has no history of thromboembolic event. Confirmed with Dr. Armstrong via secure chat 1.7-2.2is correct range. Admitted: 12/13 Discharged: 12/13 Facility: [facility] Reason for Admission: Left RAFIQ Warfarin RX [...] arthroplasty documented in this encounter Care Teams Field Court Researcher Relationship Specialty Start Date End Date Jakub Abrams MD [facility] [place] [address] PCP - General Family Medicine 04/05/21 10/18/23 documented as of this encounter
--- OUTSIDE RECORDS SUMMARY | 2024-02-21 17:16 | XMS_ITS | Encounter Summary ---
Author Organization [facility] [place] [address] Care Team Providers Care Supervisor Rol[employer]ing Name Role Phone Jakub Abrams MD Primary Care Provider [phone] Encounter Details Date Type Department Care Team (Late st Contact Info) Description 01/02/2023 External Results C Central[place] [address] Delmi Garcia Social History Tobacco Use Types Packs/Day Years Used Date Smoking Tobacco: Never Smokeless Tobacco: Never Alcohol Use Standard Drinks/Week Comments Not Currently 0 (1 standard drink = 0.6 oz pur e alcohol) occasional DH [facility] Inpatient Questions Answer Date Recorded [...] Procedure Name Priority Date/Time Associated Diagnosis Comments EXTERNAL INR RESULTS PANEL Routine 01/02/2023 12:07 PM EDT documented in this encounter Results * External INR Results Panel (01/02/2023 12:07 PM EDT) INR 2.20 VISITING NURSE Comment:[facility] Blood 01/02/2023 12:0 7 PM EDT Historical Provider POINT OF CARE JEREMIAS T ORDERABLES VISITING NURSE documented in this encounter Visit Diagnoses Not on filedocumented in this encounter Care Teams Supervisor [employer] Relationship Specialty Start Date End Date Jakub Abrams MD [address] [place] [address] PCP - General Family Medicine 04/05/21 10/18/23 documented as of this encounter
--- OUTSIDE RECORDS SUMMARY | 2024-02-21 17:16 | XMS_ITS | Encounter Summary ---
Author Organization [facility] [place] [address] Care Team Providers Care Call Circuit Worker Name Role Phone Jakub Abrams MD Primary Care Provider Encounter Details Date Type Department Care Team (Late st Contact Info) Description 01/05/2023 Orders Only [facility] [place] [address] Jad Montgomery, [facility] s/p Left RAFIQ on 12/13/22 (Dr Umaña) Social History Tobacco Use Types Packs/Day Years [...] Diagnosis s/p Left RAFIQ on 12/13/22 (Dr Umaña) documented in this encounter Care Teams Call Circuit Worker Relationship Specialty Start Date End Date Jakub Abrams MD [address] [place] [address] PCP - General Family Medicine 04/05/21 10/18/23 documented as of this encounter
--- OUTSIDE RECORDS SUMMARY | 2024-02-21 17:16 | XMS_ITS | Encounter Summary ---
Author Organization Formerly [facility] [place] [address] Care Team Providers Care Demographic Analyst Name Role Phone Jakub Abrams MD Primary Care Provider [phone] Reason for Referral * Consultation (Routine) - Closed Specialty Diagnoses / Procedures Referred By Contac t Referred To Contact Endocrinology Diagnoses Hypercalcemia Hyperparathyroidism Dean Obando PA [facility] [place] [address] [facility] [address] [place] [address] Referral ID Status Reason Start Date Expiration Date V isits Requested Visits Authorized [id number] Closed Consult, Test & Treat 12/07/2022 12/07/2023 1 1 Encounter Details Date Type Department Care Team (Latest Contact Info) Description 12/05/2022 11:00 AM EDT [place] [phone] Dean Obando PA [facility] [place] [place] [address] Preop examination; Osteoarthritis of left hip, unspecified osteoarthritis type; Hypercalcemia; Hyperparathyroidism Social History Tobacco Use Types Packs/Day Years Used Date Smoking Tobacco: Never Smokeless Tobacco: Never Alcohol Use Standard Drinks/Week Comments Not Currently 0 (1 standard drink = 0.6 oz pur e alcohol) occasional [facility] Inpatient Questions Answer Date Recorded Does Anyone [...] Sign Reading Time Taken Comments Blood Pressure 136/86 12/05/2022 12:06 PM EDT Pulse 67 12/05/2022 12:06 PM EDT Temperature - - Respiratory Rate - - Oxygen Saturation 96% 12/05/2022 12:06 PM EDT Inhaled Oxygen Concentration - - Weight 93.9 kg (207 lb) 12/05/2022 12:06 PM EDT Height 180.3 cm (5' 11) 12/05/2022 12:06 PM EDT Body Mass Index 28.87 12/05/2022 12:06 PM EDT documented in this encounter Patient Instructions * Attachments The following attachments cannot be sent through Care Everywhere. * Hyperkalemia (Greenlandic) documented in this encounter Progress Notes * Dean Obando PA - 12/05/2022 11:00 AM EDT Images from the original note were not included. CC: Jakub uFller is a 72 y.o. male with the following problems and medications that is being seen in the clinic for consultation at the request of his surgeon Dr. Mynor Umaña for preoperative risk stratification and management recommendations in anticipation of left total hip arthroplasty for symptomatic OA. HPI - Pain: Location - Left hip; Quality - aching; Onset - gradual; Duration -2 years; Intensity - moderate; Aggravating factors - walking, stairs and sleeping; Alleviating factors - NSAIDs, rest, steroid injection; Associated - None. Patient Active Problem List Diagnosis Code ??? Spondylosis of lumbar region without myelopathy or radiculopathy M47.816 ??? Ulcerative colitis K51.90 ??? Hypothyroidism E03.9 ??? Hyperlipidemia E78.5 ??? Diverticulitis K57.92 Current Outpatient Medications Medication Sig Dispense Refill ??? celecoxib (CeleBREX) 200 mg Capsule Take 200 mg by mouth as needed. ??? Synthroid 137 mcg Tablet Take 137 mcg by mouth daily. No current facility-administered medications for this visit. Social History Occupational History ??? 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 Smoking status: Never ??? Smokeless tobacco: Never Vaping Use ??? Vaping Use: Never used Substance and Sexual Activity ??? Alcohol use: Not Currently Comment: occasional ??? Drug use: Never ??? Sexual activity: Yes Partners: Female Family History Problem Relation Age of Onset ??? Ulcerative Colitis Brother ??? Prostate Cancer Brother Review of Systems Constitutional: Negative for chills, diaphoresis, fever, lightheadedness, or CANO. Respiratory: Negative for cough, shortness of breath and wheezing. Cardiovascular: Negative for chest pain, palpitations and leg swelling. Gastrointestinal: Ulcerative colitis controlled with diet as Mesalamine was too expensive; reports some blood in stool all the time; managed by PCP. Negative for abdominal pain, anal bleeding and blood in stool. Endocrine: Negative for polydipsia and polyphagia. Genitourinary: Negative for dysuria, flank pain and hematuria. Skin: Negative for pallor and rash. Allergic/Immunologic: Negative for environmental allergies and immunocompromised state. Neurological: Negative for syncope and speech difficulty. Hematological: Negative for adenopathy. Does not bruise/bleed easily. Psychiatric/Behavioral: Negative for confusion, decreased concentration and dysphoric mood. Allergies: No Known Allergies Physical Exam: Last Set of Vitals and Range over past 24 hours: Last value Range last 24 hrs Heart Rate Heart Rate: 67 Heart Rate: [67] Blood Pressure BP: 136/86 BP: (136)/(86) SpO2 SpO2: 96 % SpO2: [96 %] Estimated body mass index is 28.87 kg/m?? as calculated from the following: Height as of this encounter: 180.3 cm (5' 11). Weight as of this encounter: 93.9 kg (207 lb). Physical Exam Constitutional: He is oriented to person, place, and time. He appears well- developed. No distress. HENT: Head: Normocephalic and atraumatic. Eyes: Right eye exhibits no discharge. Left eye exhibits no discharge. No scleral icterus. Neck: Neck supple. No JVD present. Cardiovascular: Normal rate, regular rhythm and normal heart sounds. Exam reveals no gallop and no friction rub. No murmur heard. Pulmonary/Chest: Effort normal and breath sounds normal. No stridor. No respiratory distress. He has no wheezes, no rales. He exhibits no spinal tenderness. Abdominal: Soft. Bowel sounds are normal. No HSM percussed or palpated. There is no tenderness to palpation of CVA. There is no rebound and no guarding of the abdomen. Musculoskeletal: He exhibits no edema in [place] Bilaterally. LLE: Sensation to light touch intact; Hipflexion 5/5; DF/PF 5/5; DP pulse 2+. Neurological: He is alert and oriented to person, place, and time. He exhibits no resting or intentional tremors, dystonia or dysmetria. Skin: Skin is warm and dry. He is not diaphoretic. No pallor. Psychiatric: He has a normal mood and affect. His behavior is normal. Judgment and thought content normal. Lab Results Component Value Date WBC 9.8 (H) 12/05/2022 RBC 5.08 12/05/2022 HGB 15.7 12/05/2022 HCT 47.4 12/05/2022 MCV 93.3 (H) 12/05/2022 MCH 30.9 12/05/2022 MCHC 33.1 12/05/2022 PLATELET 304 12/05/2022 RDWCV 13.9 (H) 12/05/2022 Lab Results Component Value Date NA 137 12/05/2022 K 5.3 (H) 12/05/2022 CL 102 12/05/2022 CO2 27 12/05/2022 BUN 12 12/05/2022 CREATININE 1.28 12/05/2022 GLUCOSE 120 12/05/2022 CALCIUM 11.3 (H) 12/05/2022 Lab Results Component Value Date AST 19 08/01/2022 ALT 19 08/01/2022 ALKPHOS 145 (H) 08/01/2022 BILITOT 0.3 08/01/2022 Lab Results Component Value Date PT 10.6 12/05/2022 INR 0.9 12/05/2022 PTT 30 12/05/2022 PTH - 99 Estimated Creatinine Clearance: 62.8 mL/min (based on SCr of 1.28 mg/dL). Xray left hip 09/15/22: A/P: Diagnosis: 1. Preop examination PTH 2. Osteoarthritis of left hip, unspecified osteoarthritis type PTH 3. Hypercalcemia PTH 4. Hyperparathyroidism Jakub Fuller is a 72 y.o. male who presents to clinic for preoperative surgical risk evaluation and planning. Ulcerative colitis controlled with diet as Mesalamine was too expensive; reports some blood in stool all the time; managed by PCP; Hgb level is normal and this could explain slightly elevated WBC level. Hyperkalemia; this could be associated with diet and/or NSAID use; the patient was educated with regard to avoiding foods high in potassium; his potassium was elevated at 5.2 on 08/01/22 so this has remained in the same range during this timeframe. He also has hypercalcemia; I have added on a PTH which is elevated at 99; this likely represents primary hyperparathyroidism; I have called the patient and referred him to endocrinology here at [facility] for further management. I willplan to The patient's friend will be at home to help with recovery. The patient elects to proceed with planned surgery. Major Risk Factor per the Revised Cardiac Risk Index (Bold if present) - There is no history of CAD, CHF, CVA or TIA, DM2 on insulin, or a Creatinine >2. Risk diagnosis for MACE (major adverse cardiovascular event = Myocardial infarction, pulmonary edema, ventricular fibrillation, primary cardiac arrest, or complete heart block.) : Low <1%. Alpine skiing, landscaping, snowboarding, which constitutes greater than 4 METS. Based on the ACC/AHA 2014 guideline no further cardiovascular testing is indicated. ARISCAT/CANET Score - estimates the risk of postoperative pulmonary complications as being low ~3.5%. Per the SAUL calculator: Patient instructions: Continue Synthroid Stop Celebrex 4 days before surgery Don't take vit/supp on the morning of surgery Referral to endocrinology; patient called and aware of referral and plan; plan to call and scheduleif he doesn't hear from that department within the next few days. RECOMMENDATION: Continue Synthroid, Celebrex Other orders per Dr. Mynor Umaña Do any of the following risk factors exist: yes - Insulin dependant diabetes or uncontrolled endocrine disease (hyper/hypothyroidism), Hyperparathyroidism Is this patient a candidate for expedited recovery after total joint replacement yes RAPT 06/04 which suggests high likelihood of accelerated recovery and discharge home. documented in this encounter Plan of Treatment Scheduled Referrals Name Type Priority Associated Diagnoses Orde r Schedule Referral to Endocrinology Outpatient Referral Routine Preop examination Osteoarthritis of left hip, unspecified osteoarthritis type Hypercalcemia Hyperparathyroidism Ordered: 12/07/2022 documented as of this encounter Visit Diagnoses Diagnosis Preop examination Preoperative examination, unspecified Osteoarthritis of left hip, unspecified osteoarthritis type Hypercalcemia Hyperparathyroidism Hyperparathyroidism, unspecified documented in this encounter Care Teams Demographic Analyst Relationship Specialty Start Date End Date Jakub Abrams MD [address] [place] [address] PCP - General Family Medicine 04/05/21 10/18/23 documented as of this encounter
--- OUTSIDE RECORDS SUMMARY | 2024-02-21 17:16 | XMS_ITS | Encounter Summary ---
[place] [address] Care Team Providers Care Dairy Powder Mixer Operator Name Role Phone Jakub Abrams MD Primary Care Provider [phone] Encounter Details Date Type Department Care Team (Late st Contact Info) Description 04/06/2023 Ancillary Procedure [place] [phone] Jakub Abrams MD [facility] [address] [place] [address] Social History Tobacco Use Types Packs/Day Years Used Date Smoking Tobacco: Never Smokeless Tobacco: Never Alcohol Use Standard Drinks/Week Comments Not Currently 0 (1 standard drink = 0.6 oz pur e alcohol) occasional [facility] Inpatient Questions Answer Date Recorded [...] Name Priority Date/Time Associated Diagnosis Comments FILM LIBRARY- STORAGE ONLY DXA IMAGES Routine 04/06/2023 12:00 AM EDT documented in this encounter Results * Film Library- Storage Only DXA Images (04/06/2023 12:00 AM EDT) Narrative [facility] - 04/07/2023 1:48 PM EDT This exam is auto-finalizing. It's purpose is for storage only. Jakub Abrams MD IM FILM LIBRARY ORD ERABLES [place], [place] documented in this encounter Visit Diagnoses Not on filedocumented in this encounter Care Teams Dairy Powder Mixer Operator Relationship Specialty Start Date End Date Jakub Abrams MD [address] [place] [address] PCP - General Family Medicine 04/05/21 10/18/23 documented as of this encounter
--- OUTSIDE RECORDS SUMMARY | 2024-02-21 17:16 | XMS_ITS | Encounter Summary ---
[place] [address] Care Team Providers Care Planner Internship Name Role Phone Jakub Abrams MD Primary Care Provider [phone] Encounter Details Date Type Department Care Team (Latest Contact Info) Description 07/02/2023 Travel Social History Tobacco Use Types Packs/Day [...] on filedocumented in this encounter Care Teams Planner Internship Relationship Specialty Start Date End [place] [address] PCP - General Family Medicine 04/05/21 10/18/23 documented as of this encounter
--- OUTSIDE RECORDS SUMMARY | 2024-02-21 17:16 | XMS_ITS | Encounter Summary ---
Author Organization Formerly [facility] [place] [address] Care Team Providers Care Clinical Laboratory Director Name Role Phone Jakub Abrams MD Primary Care Provider [phone] Reason for Visit * Auth/Cert (Routine) Specialty [...] MODIFIER PINNACLE ACETABULUM DEPUY Mynor Umaña MD [facility] [place] [address] [facility] Referral ID Status Reason Start Date Expiration Date Visits Re quested Visits Authorized [id number] 1 1 Encounter Details Date Type Department Care Team (Late st Contact Info) Description 12/13/2022 7:18 AM EDT Anesthesia Event [place] [address] April Carl MD [facility] [address] Asim Alfaro MD [facility] [place] [address] Anesthesia Record Procedure Summary Procedure Name Responsible Anesthesiologist Anesthesia Start Time Anesthesia Stop Time TOTAL HIP ARTHROPLASTY, ANTERIOR APPROACH (WRVU 19.6) (Left: Hip) April Carl MD 12/13/22 0718 12/13/22 0855 Events Date Time Event Comment 12/13/2022 0718 AN Verify 0718 Start 0722 An Start Data 0728 Spinal 0730 Anesthesia Ready 0804 0816 Break/Relief In I assumed ca re for Break Relief before which we: 1. Identified the patient 2. Identified the responsible provider(s) 3. Reviewed the pertinent medical history 4. Discussed the surgical plan and course 5. Reviewed intra-op anesthesia management and issues during anesthesia 6. Set expectations for the relief (and/or post-procedure) period 7. Allowed opportunity for questions and acknowledgement of understanding Asim Alfaro MD 0823 Break/Relief Out 0855 an stop data 0855 Recovery or ICU Handoff Colleen ent care was transferred to the destination unit staff after review of the patient's medical history, current anesthetic/surgical status and plan, according to the Provider Handoff Checklist. 0855 Stop Meds Name Total Midazolam 2 mg Propofol 60 mg Propofol INF 496.89 mg tranexamic acid (Cyklokapron) (100 mg/mL ) infusion 1,000 mg 1,000 mg ceFAZolin (Ancef) 2 g vial a ttach to sodium chloride 0.9% 100 mL Mini-Bag Plus 2 g Mepivacaine (PF) 2% 60 mg Dexamethasone 8 mg Lactated Ringers 750 mL * Agents Name O2 Air N2O * Blood No blood administrations on file. Lines, Drains, and Airways Type Details Placement Removal (RETIRED) Peripheral IV Line - Single Lumen 12/13/22; 0718; metacarpal vein (top of hand), right; ytio-flc-ywrzdy catheter system; Anatomical Landmarks; 20 gauge; Asim Alfaro MD; 12/13/22; 1430 12/13/22 0718 by Min Shi, DONATO 12/13/22 1430 by Shelly Emery RN Incision 12/13/22; 0751; Left , anterior; hip; LDA not present upon assessment; 10/24/23 12/13/22 0751 by Fred Delong RN 10/24/23 0000 by Mica Russell RN documented in this encounter Social History Tobacco [...] OR Notes * Anesthesia Postprocedure Evaluation - Asim Alfaro MD - 12/13/2022 9:02 AM EDT Department of Anesthesiology Post-procedure Note Patient: Jakub Fuller Procedure Summary Date: 12/13/22 Room / Location: [facility] OR [address] [place] [address] MAIN OR Anesthesia Start: 717 Anesthesia Stop: 854 Procedures: TOTAL HIP ARTHROPLASTY, ANTERIOR APPROACH (WRVU 19.6) (Left: Hip) HIP INTRAOP RADIOLOGIC EXAMINATION, UNILATERAL, W PELVIS; 4+ VIEWS (WRVU 0.27) (Left: Pelvis) MODIFIER ACTIS HIP STEM DEPUY (Left: Hip) MODIFIER PINNACLE ACETABULUM DEPUY (Hip) Diagnosis: (Hip osteoarthritis) Surgeons: Mynor Umaña MD Responsible Provider: April Carl MD Anesthesia Type: spinal ASA Status: 2 All Anesthesia Providers: Anesthesiologist: April Carl MD STONEMASON SUPERVISOR: Min Shi CRNA Anesthesia Fellow: Asim Alfaro MD Vitals Value Taken Time BP 88/59 12/13/22 0900 Temp Pulse Resp SpO2 92 % 12/13/22 0901 Pain Level Vitals shown include unvalidated device data. Patient Location: PACU/[facility] Level of Consciousness: Awake and Alert Pain Management: Satisfactory Analgesia PONV: None Cardiovascular Status: At Baseline Respiratory Status: At Baseline Postoperative Fluid Status: Intravascular EUvolemia Possible Anesthetic Complications: NONE apparent at time of evaluation Final Primary Anesthesia Type: Spinal (The anesthetic type performed was the same as planned.) Comments: * Anesthesia Procedure Notes - Min Shi CRNA - 12/13/2022 7:52 AM EDT Associated Order(s): Neuraxial Block Procedure: Neuraxial Block Primary Anesthetic Type: Spinal The patient was greeted. The sedation plan, its benefits, risks and alternatives were discussed with the patient. The patient has consented to the procedure. The medical history and chart were reviewed. The timeout was performed. Start time: 12/13/2022 7:22 AM End time: 12/13/2022 7:28 AM Patient Location: Operating Room Patient Prep Position: Sitting Prep: Hand Hygiene, Hat, Mask, Sterile Gloves, Chlorhexidine and Patient Draped Injection technique: single-shot Skin Anesthetic Lidocaine 1% 3 ml Procedure Technique Level of needle insertion: L2-3 Needle approach: midline Needle Type: Pencan Gauge: 25 Needle length: 3.5 in Number of attempts: 1 Medications: Date/Time: 12/13/2022 7:22 AM Mepivacaine (PF) 2% - Intrathecal 60 mg - 12/13/2022 7:28:00 AMAuthorized by: April Carl MD ~~~~~~~~~~~~~~~~~~~~~~~~~~~~~~~~~~~~~~~~~~~~~~~~~~~~~~~~~~~~ * Anesthesia Preprocedure Evaluation - April Carl MD - 12/12/2022 2:19 PM EDT Pre-Anesthesia Evaluation for: Jakub Fuller a 72 y.o. male. Procedure(s): TOTAL HIP ARTHROPLASTY, ANTERIOR APPROACH (WRVU 19.6) HIP INTRAOP RADIOLOGIC EXAMINATION, UNILATERAL, W PELVIS; 4+ VIEWS (WRVU 0.27) MODIFIER ACTIS HIP STEM DEPUY MODIFIER PINNACLE ACETABULUM DEPUY Patient Active Problem List Diagnosis Date Noted ??? Ulcerative colitis 12/05/2022 ??? Hypothyroidism 12/05/2022 ??? Hyperlipidemia 12/05/2022 ??? Diverticulitis 12/05/2022 ??? 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 Diverticulitis ??? Hypothyroid ??? Ulcerative colitis Has chronic bleeding with his UC. Past Surgical History: Procedure Laterality Date ??? UMBILICAL HERNIA REPAIR ??? XR FLUORO INJECTION DRAINAGE JOINT LG LEFT Left 04/19/2021 XR Fluoro Guided Joint Injection Large Left 04/19/2021 [facility] RAD XRAY ??? XR FLUORO INJECTION DRAINAGE JOINT LG LEFT Left 05/10/2021 XR Fluoro Guided Joint Injection Large Left 05/10/2021 Keri Dugan MD [facility] RAD XRAY ??? XR FLUORO INJECTION DRAINAGE JOINT LG RIGHT Right 05/10/2021 XR Fluoro Guided Joint Injection Large Right 05/10/2021 Keri Dugan MD [facility] RAD XRAY Social History Tobacco Use [...] Dental Assessment: - normal exam Misc Assessment: IV access: Peripheral line Last Filed Perioperative Cognitive Screening Value Time User AD8 Total Score: 0 12/05/2022 1:00 PM Gavi Prather RN AD8 Informant: Other Informant 12/05/2022 1:00 PM Gavi Prather RN Anesthesia Plan: ASA 2 spinal, with a(n) intravenous induction 72 yo, 93 kg (BMI 28), male, with a PMHx of Hypothyroidism, Hyperlipidemia, and Left Hip osteoarthritis, who presents for scheduled RAFIQ. NKDA Anesthesia Plan: Spinal GA as back-up Asim Alfaro MD OR attending Patient seen and examined Plan reviewed All questions answered APRIL CARL MD Region - Other Informed Consent: Anesthetic plan and risks discussed with patient. Use of blood products discussed with patient who consented to blood products. Plan discussed with attending, fellow and STONEMASON SUPERVISOR. Anesthesia Screening documented in this encounter Plan of Treatment Not on file documented as of this encounter Procedures Procedure Name Priority Date/Time Associated Diagnosis Comments ANE NEURAXIAL APS USE Routine 12/13/2022 7:22 AM EDT documented in this encounter Results * Neuraxial Block (12/13/2022 7:22 AM EDT) Narrative Min Shi CRNA - 12/13/2022 7:22 AM EDT Min Shi CRNA ? 12/13/2022 ??7:53 AM Procedure: ?? Neuraxial Block Primary Anesthetic Type: Spinal The patient was greeted. The sedation plan, its benefits, risks and alternatives were discussed with the patient. ??The patient has consented to the procedure. ??The medical history and chart were reviewed. ??The timeout was performed. Start time: 12/13/2022 7:22 AM End time: 12/13/2022 7:28 AM Patient Location: Operating Room Patient Prep Position: Sitting Prep: Hand Hygiene, Hat, Mask, Sterile Gloves, Chlorhexidine and Patient Draped Injection technique: single-shot Skin Anesthetic Lidocaine 1% ??3 ml Procedure Technique Level of needle insertion: L2-3 Needle approach: midline Needle Type: Pencan Gauge: 25 Needle length: 3.5 in Number of attempts: 1 Medications: Date/Time: ??12/13/2022 7:22 AM Mepivacaine (PF) 2% - Intrathecal 60 mg - 12/13/2022 7:28:00 AMAuthorized by: April Carl MD ~~~~~~~~~~~~~~~~~~~~~~~~~~~~~~~~~~~~~~~~~~~~~~~~~~~~~~~~~~~~ April Carl MD TRUST CLERK [facility] documented in this encounter Visit Diagnoses Not on filedocumented in this encounter Administered Medications Inactive Administered Medications - up to 3 most recent administrations Medication Order MAR Action Action Date Dose Rate Site ceFAZolin (Ancef) 2 g vial attach to sodium chloride 0.9% 100 mL Mini-Bag Plus 2 g, Intravenous, EVERY 4 HOURS, 1 dose, First dose on Mon12/13/22 at 0715, Administer over 30 Minutes, Redose after 4 hours., Day of Surgery (Day of Procedure), Indication for (Active or Suspected): Prophylaxis New Bag 12/13/2022 7:29 AM EDT 2 g dexAMETHasone (Decadron) injection Intravenous, PRN, Starting on Mon12/13/22 at 0756, Until Mon12/13/22 at 0855, Anesthesia Intra-op, Routine Given 12/13/2022 7:56 AM EDT 8 mg lactated ringers infusion Intravenous, CONTINUOUS PRN, Starting on Mon12/13/22 at 0836, Until Mon12/13/22 at 0856, Anesthesia Intra-op New Bag 12/13/2022 8:36 AM EDT mepivacaine (PF) (Carbocaine (PF)) 20 mg/mL (2 %) injection Intrathecal, Starting on Mon12/13/22 at 0728, Until Mon12/13/22 at 0728, Anesthesia Intra-op, Routine Given 12/13/2022 7:28 AM EDT 60 mg midazolam (pf) (Versed) (1 mg/mL) multi-dose injection Intravenous, PRN, Starting on Mon12/13/22 at 0722, Until Mon12/13/22 at 0855, Anesthesia Intra-op, Routine Given 12/13/2022 7:22 AM EDT 2 mg propofoL (Diprivan) (10 mg/mL) infusion Intravenous, CONTINUOUS PRN, Starting on Mon12/13/22 at 0733, Until Mon12/13/22 at 0855, Anesthesia Intra-op, Routine Rate/Dose Change 12/13/2022 7:54 AM EDT 70 mcg/kg/min 39.228 mL/hr New Bag 12/13/2022 7:33 AM EDT 50 mcg/kg/min 28.02 mL/h r propofoL (Diprivan) 10 mg/mL bolus injection (Anesthesia) Intravenous, PRN, Starting on Mon12/13/22 at 0733, Until Mon12/13/22 at 0855, Anesthesia Intra-op Given 12/13/2022 7:33 AM EDT 60 mg tranexamic acid (Cyklokapron) (100 mg/mL) infusion 1,000 mg 1,000 mg, Intravenous, ONCE, 1 dose, On Mon12/13/22 at 0715, The maximum infusion rate for Tranexamic Acid is 100 mg/min., Day of Surgery (Day of Procedure), STAT Given 12/13/2022 7:29 AM EDT 1,000 mg documented in this encounter Care Teams Clinical Laboratory Director Relationship Specialty Start Date End Date Jakub Abrams MD [address] [place] [address] PCP - General Family Medicine 04/05/21 10/18/23 documented as of this encounter
--- OUTSIDE RECORDS SUMMARY | 2024-02-21 17:16 | XMS_ITS | Encounter Summary ---
Author Organization [facility] [place] [address] Care Team Providers Care Vehicle Damage Appraiser Name Role Phone Jakub Abrams MD Primary Care Provider [phone] Encounter Details Date Type Department Care Team (Latest Contact Info) Description 12/05/2022 12:00 PM EDT Laboratory Appointment Lab at [facility] [place] [id number] Debility; Pain of left lower extremity; Primary osteoarthritis of left hip Social History Tobacco Use Types Packs/Day Years Used Date Smoking Tobacco: Never Smokeless Tobacco: Never Alcohol Use Standard Drinks/Week Comments Not Currently 0 (1 standard drink = 0.6 oz pur e alcohol) occasional DH [facility] Inpatient Questions Answer Date Recorded Does [...] Procedure Name Priority Date/Time Associated Diagnosis Comments PTH Routine 12/05/2022 1:22 PM EDT HEMOGRAM Routine 12/05/2022 1:22 PM EDT Debility Pain of left lower extremity Primary osteoarthritis of left hip DIFFERENTIAL, AUTOMATED Routine 12/05/2022 1:22 PM EDT Debility Pain of left lower extremity Primary osteoarthritis of left hip HC PARTIAL THROMBOPLASTIN TIME Routine 12/05/2022 1:22 PM EDT Debility Pain of left lower extremity Primary osteoarthritis of left hip HC PROTHROMBIN TIME Routine 12/05/2022 1 :22 PM EDT Debility Pain of left lower extremity Primary osteoarthritis of left hip HC CBC,PLT & AUTO DIFF Routine 1:22 PM EDT Debility Pain of left lower extremity Primary osteoarthritis of left hip BASIC METABOLIC PANEL (NON-FASTING) Routine 12/05/2022 1:22 PM EDT Debility Pain of left lower extremity Primary osteoarthritis of left hip documented in this encounter Results * (ABNORMAL) PTH (12/05/2022 1:22 PM EDT) PTH 99(H) 15 - 65 pg/mL [facility] Blood Venous Draw / Unknown 12/05/2022 1:22 PM EDT 12/05/2022 2:21 PM EDT Narrative Resulting Agency Comment Spec In Lab Dean BAKER CHEMISTRY ORDERABLES [facility] [place] [address] * (ABNORMAL) Differential, Automated (12/05/2022 1:22 PM EDT) Neutrophils % 73.0 % [facility] Neutr Abs (ANC) 7.11(H) 1.70 - 6.10 x10(3)/mc L [facility] Lymphocytes % 15.7 % [facility] Lymphocytes Abs 1.5 0.9 - 3.2 x10(3)/mc L [facility] Monocytes % 8.7 % [facility] Monocyte Abs 0.8 0.3 - 0.9 x10(3)/mc L [facility] Eosinophils % 1.7 % [facility] Eosinophils Abs 0.2 0.0 - 0.4 x10(3)/[facility] Basophils % 0.6 % [facility] Basophils Abs 0.1 0.0 - 0.1 x10(3)/[facility] Immature Gran % 0.30 % [facility] Comment: Immature granulocytes(IG's)percentage and absolute count will include metamyelocytes, myelocytes, and promyelocytes. Blood smears from CBCs yielding IG's will be scanned manually for concordance. If this scan disagrees with the automated IG or if promyelocytes are noted, a manual differential will be performed. Vonda Gran Abs 0.03 0.00 - 0.04 x10(3)/[facility] Blood 12/05/2022 1:22 PM EDT 12/05/2022 1:24 PM EDT Narrative Resulting Agency Comment Spec In Lab Mynor Umaña MD HEMATOLOGY ORDERABL ES [facility] [place] [address] * (ABNORMAL) Hemogram (12/05/2022 1:22 PM EDT) WBC 9.8(H) 4.0 - 9.5 x10(3)/[facility] RBC 5.08 4.58 - 5.54 x10(6)/[facility] Hemoglobin 15.7 13.7 - 16.5 g/dL [facility] Hematocrit 47.4 40.5 - 48.5 % [facility] MCV 93.3(H) 82.9 - 93.1 fL [facility] MCH 30.9 27.5 - 32.1 pg [facility] MCHC 33.1 32.0 - 35.7 g/dL [facility] Platelets 304 145 - 357 x10(3)/[facility] RDWSD 47.9(H) 36.0 - 45.0 fL [facility] RDWCV 13.9(H) 11.4 - 13.8 % [facility] MPV 8.5 7.6 - 12.9 fL [facility] nRBC % Auto 0.0 % [facility] nRBC Abs Auto 0.000 0.000 - 0.000 x10(3)/mcL [facility] Blood 12/05/2022 1:22 PM EDT 12/05/2022 1:24 PM EDT Narrative Resulting Agency Comment Spec In Lab Mynor Umaña MD HEMATOLOGY ORDERABL ES [facility] [place] [address] * (ABNORMAL) Basic Metabolic Panel (non-fasting) (12/05/2022 1:22 PM EDT) Glucose Lvl 120 65 - 199 mg/dL [facility] Comment:Diabetes: >=200 mg/d L plus symptoms BUN 12 10 - 20 mg/dL [facility] Creatinine 1.28 0.80 - 1.50 mg/dL [facility] Sodium 137 135 - 145 mmol/L [facility] Potassium 5.3(H) 3.5 - 5.0 mmol/L [facility] Comment: Please note: ??Patients with WBC >100,000 may have falsely elevated Potassium levels. ??For accurate Potassium quantification in these patients send serum separator tube (gold top) for subsequent determinations. ??Contact the Clinical Chemistry Laboratory if there are any questions. Chloride 102 98 - 107 mmol/L [facility] CO2 27 22 - 31 mmol/L [facility] Anion Gap 8 5 - 15 mmol/L [facility] Calcium 11.3(H) 8.5 - 10.5 mg/dL [facility] Estimated GFR 60 >=60 mL/min/1. 73 m?? [facility] Comment: This patient's estimated GFR was [...] Lab Mynor Umaña MD CHEMISTRY ORDERABLE S Performing Organization Address [facility] de Phone Number [facility] [place] [address] * Prothrombin Time (12/05/2022 1:22 PM EDT) PT 10.6 9.4 - 12.5 sec [facility] INR 0.9 [facility] Comment: An INR <2.0 indicates adequate procoagulant activity for hemostasis in most patients without underlying bleeding disorders, though the INR may not adequately reflect hemostatic capacity in patients with liver disease and synthetic impairment. The recommended target INR range for therapeutic anticoagulation is 2.0 ? 3.0 for most applications, though lower and higher ranges may be appropriate depending on clinical circumstances. Blood 12/05/2022 1:22 PM EDT 12/05/2022 1:24 PM EDT Narrative Resulting Agency Comment Spec In Lab Mynor Umaña MD HEMATOLOGY ORDERABL ES Performing Organization Address [facility] Co de Phone Number [facility] [place] [address] * APTT (12/05/2022 1:22 PM EDT) PTT 30 25 - 37 sec [facility] Comment: The PTT is NOT appropriate for heparin monitoring. Use the Anti-Xa level for heparin monitoring (HEP UFH) or LMWH monitoring (HEP LMW). A PTT less than 37 seconds generally indicates adequate hemostasis. Blood 12/05/2022 1:22 PM EDT 12/05/2022 1:24 PM EDT Narrative Resulting Agency Comment Spec In Lab Mynor Umaña MD HEMATOLOGY ORDERABL ES Performing Organization Address City/State/[facility] Co de Phone Number [facility] [place] [address] documented in this encounter Visit Diagnoses Diagnosis Debility Debility, unspecified Pain of left lower extremity Primary osteoarthritis of left hip Primary localized osteoarthrosis, pelvic region and thigh documented in this encounter Care Teams Vehicle Damage Appraiser Relationship Specialty Start Date End Date Jakub Abrams MD [address] [place] [address] PCP - General Family Medicine 04/05/21 10/18/23 documented as of this encounter
--- OUTSIDE RECORDS SUMMARY | 2024-02-21 17:16 | XMS_ITS | Encounter Summary ---
[place] [address] Care Team Providers Care Dumper Operator Name Role Phone Jakub Abrams MD Primary Care Provider Encounter Details Date Type Department Care Team (Latest Contact Info) Description 01/09/2023 Travel Social History Tobacco Use Types Packs/Day [...] on filedocumented in this encounter Care Teams Dumper Operator Relationship Specialty Start Date End [place] [address] PCP - General Family Medicine 04/05/21 10/18/23 documented as of this encounter
--- OUTSIDE RECORDS SUMMARY | 2024-02-21 17:16 | XMS_ITS | Encounter Summary ---
Author Organization [facility] [place] [address] Care Team Providers Care Retail Center Receptionist Name Role Phone Jakub Abrams MD Primary Care Provider [phone] Encounter Details Date Type Department Care Team (Late st Contact Info) Description 01/05/2023 External Results [facility] Central[facility] [place] [address] Delmi Garcia Social History Tobacco Use Types [...] Diagnosis Comments EXTERNAL INR RESULTS PANEL Routine 01/05/2023 11:08 AM EDT documented in this encounter Results * (ABNORMAL) External INR Results Panel (01/05/2023 11:08 AM EDT) POCT INR 2.5(A) 0.9 - 1.1 VISITING NURSE Comment:YOLANDA Blood 01/05/2023 11:0 8 AM EDT Historical Provider POINT OF CARE JEREMIAS T ORDERABLES VISITING NURSE documented in this encounter Visit Diagnoses Not on filedocumented in this encounter Care Teams Retail Center Receptionist Relationship Specialty Start Date End Date Jakub Abrams MD [address] [place] [address] PCP - General Family Medicine 04/05/21 10/18/23 documented as of this encounter
--- OUTSIDE RECORDS SUMMARY | 2024-02-21 17:16 | XMS_ITS | Encounter Summary ---
Author Organization [facility] [place] [address] Care Team Providers Care Home Assessment Nurse Name Role Phone Jakub Abrams MD Primary Care Provider [phone] Encounter Details Date Type Department Care Team (Late st Contact Info) Description 12/20/2022 External Results [facility] [address] Delmi Garcia Social History Tobacco Use Types Packs/Day Years Used Date Smoking Tobacco: Never Smokeless Tobacco: Never Alcohol Use Standard Drinks/Week Comments Not Currently 0 (1 standard drink = 0.6 oz pur e alcohol) occasional DH [facility] Inpatient Questions Answer Date Recorded Does [...] Diagnosis Comments EXTERNAL INR RESULTS PANEL Routine 12/20/2022 1:26 PM EDT documented in this encounter Results * (ABNORMAL) External INR Results Panel (12/20/2022 1:26 PM EDT) POCT INR 1.1(A) 0.9 - 1.1 VISITING NURSE Comment:YOLANDA [facility] Blood 12/20/2022 1:26 PM EDT Historical Provider POINT OF CARE JEREMIAS T ORDERABLES VISITING NURSE documented in this encounter Visit Diagnoses Not on filedocumented in this encounter Care Teams Home Assessment Nurse Relationship Specialty Start Date End Date Jakub Abrams MD [address] [place] [phone] PCP - General Family Medicine 04/05/21 10/18/23 documented as of this encounter
--- OUTSIDE RECORDS SUMMARY | 2024-02-21 17:16 | XMS_ITS | Encounter Summary ---
Author [facility] [place] [address] Care Team Providers Care Stamping Mill Tender Name Role Phone Jakub Abrams MD Primary Care Provider [phone] Encounter Details Date Type Department Care Team (Late st Contact Info) Description 12/05/2022 12:00 PM EDT Clinical [place] [phone] Social History Tobacco Use Types Packs/Day Years Used Date Smoking Tobacco: Never Smokeless Tobacco: Never Alcohol Use Standard Drinks/Week Comments Not Currently 0 (1 standard drink = 0.6 oz pur e alcohol) occasional DH [facility] Inpatient Questions Answer Date Recorded Does [...] - - Weight 93.4 kg (206 lb) 12/05/2022 1:03 PM EDT Height - - Body Mass Index 28.73 12/05/2022 12:06 PM EDT documented in this encounter Progress Notes * Gavi Prather RN - 12/05/2022 12:00 PM EDT PAT questionnaire reviewed with patient and friend Erika, while in Pre Admission testing. Pre-operative instruction booklet reviewed. Patient verbalizes a good understanding of all information reviewed. Clearfast given with instruction. Pt has no sx/dx Covid in past 4 weeks. PLAN: Testing: Bloodwork Special medication instructions: none Procedure date: 12/13 Chasidy documented in this encounter Plan of Treatment Not on file documented as of this encounter Visit Diagnoses Not on filedocumented in this encounter Care Teams Stamping Mill Tender Relationship Specialty Start Date End Date Jakub Abrams MD [address] [place] [address] PCP - General Family Medicine 04/05/21 10/18/23 documented as of this encounter
--- OUTSIDE RECORDS SUMMARY | 2024-02-21 17:16 | XMS_ITS | Encounter Summary ---
Author Organization Counts Include [address] [facility] [place] [address] Care Team Providers Care Nurse Infection Control Name Role Phone Jakub Abrams MD Primary Care Provider [phone] Reason for Referral * Physical Therapy (Routine) - Closed Specialty Diagnoses / Procedures Referred By Louann dawson Referred To Contact Physical Therapy Diagnoses Debility Pain of left lower extremity Primary osteoarthritis of left hip Mynor Umaña MD [facility] [place] [address] Referral ID Status Reason Start Date Expiration Date V isits Requested Visits Authorized [id number] Closed Evaluate and Treat Non PCP 11/14/2022 05/13/2023 12 12 Reason for Visit * Reason Comments Establish Care Left Hip Pain DISCUSS RAFIQ 2ND O P * Consultation (Routine) - Closed Specialty Diagnoses / Procedures Referred By Louann dawson Referred To Contact Orthopaedics Diagnoses Left hip pain Self mail Mynor Umaña MD [facility] [place] [address] Referral ID Status Reason Start Date Expiration Date Visits Re quested Visits Authorized [id number] Closed 09/30/2022 09/30/2023 1 1 Encounter Details Date Type Department Care Team (Latest Contact Info) Description 11/14/2022 2:00 PM EDT [place] [address] Mynor Umaña MD [facility] [place] [address] Debility; Pain of left lower extremity; Primary osteoarthritis of left hip Social History Tobacco Use Types Packs/Day Years Used Date Smoking Tobacco: Never Smokeless Tobacco: Never Alcohol Use Standard Drinks/Week Comments Not Currently 14 (1 standard drink = 0.6 oz pu re alcohol) Sex and Gender Information Value Date Recorded Sex Assigned at Not on file Gender Identity Not on file Sexual Orientation Not on file documented as of this encounter Last Filed Vital Signs Vital Sign Reading Time Taken Comments Blood Pressure - - Pulse - - Temperature - - Respiratory Rate - - Oxygen Saturation - - Inhaled Oxygen Concentration - - Weight 93 kg (205 lb) 11/14/2022 1:59 PM EDT Height 182.9 cm (6') 11/14/2022 1:59 PM EDT Body Mass Index 27.8 11/14/2022 1:59 PM EDT documented in this encounter Progress Notes * Mynor Umaña MD - 11/14/2022 2:00 PM EDT Images from the original note were not included. Department of Orthopaedics Division of Adult Joint Reconstructive Surgery November 14, 2022 I had the pleasure of evaluating Jakub Fuller in clinic in conjunction with Dr. Paulino. I have seen the patient and reviewed the history/physical and I agree with the details as written. The assessment and plan were formulated in discussion with me and I agree with them as documented. Mr. Fuller is a 72 y.o. year old male with left Hip pain secondary to osteoarthritis. Pain for years. Tried Celebrex and Tumeric. Hx of injection about a year ago. About 1 month of relief. Enjoys snowboarding but this has become more difficult 2/2 hip. Pain in groin. [facility] I personally reviewed and interpreted their imaging studies which demonstrate severe arthritis withjoint space narrowing, osteophyte formation and subchondral sclerosis. We reviewed the multiple treatment options available to him for this condition. Both operative and nonoperative options were discussed as well as the pure elective nature of each. I reviewed the concept of the arthritis ladder with its step-chou approach, rising in invasiveness based on either previous response or symptom severity/impact on lifestyle. We discussed at some length about the fact that there is no cure for primary osteoarthritis. Therefore, management is supportive and nonoperative initially, with the accepted nonoperative treatment options for OA including: (1) activity modification (avoiding activities that hurt where possible, such as kneeling, or stairclimbing, (2) attainment of ideal body weight, (3) reduction of inflammationeither through oral anti-inflammatory agents, topicals, or intra- articular injections,. We also talked about the role of physical therapy to strengthen muscle groups that control lower extremity muscle groups. At this point in time he would like to proceed with Left RAFIQ and I think this is reasonable. I had a long discussion with him regarding the risks and benefits of total hip arthroplasty. I indicated that in my opinion, this is the treatment option most likely to restore a more normal, pain-free level of function and that we have exhausted reasonable non-operative alternatives. I used total hip implants to demonstrate how I perform the procedure and all of their questions were answered. Mr. Fuller expressed a desire to pursue this option. We then discussed in great detail the risks associated with the proposed surgery. These included but were not limited to: bleeding (which may or may not require transfusion), infection, damage to nerves or blood vessels, lateral thigh numbness, blot clot, prosthetic failure, fibrous ingrowth, femuror pelvic fracture, dislocation, leg-length inequality, persistent pain (incomplete pain relief), medical complications and need for revision surgery. The patient seemed to understand the nature of this procedure's risks. We also discussed the likely benefit of improved stride length, improved range of motion, decreased pain, decreased need for pain medications and decrease functional limitations. The patient is aware that it would take on average 1 day in the hospital, followed by approximately 12-18 months to full rehabilitation. I then had him meet with our pre-operative team today in clinic. Wants to get back to snowboarding Discussed same day All questions were answered. 35 minutes were spent in chart review, [id number] time and coordination of care with the patient. Mynor Umaña MD, MS Drive Thru Order Taker, Division of Adult Reconstructive Shale Planer Operator HelperSupervisor Engine Repair of Orthopaedics Department of Orthopaedics [facility] [id number] * Chetan Paulino MD - 11/14/2022 2:00 PM EDT Images from the original note were not included. Department of Orthopaedics Division of Adult Joint Reconstructive Surgery ARTHROPLASTY HISTORY/PREVIOUS HIP SURGERY: 1. None Jakub was referred from Self mail for Chief Complaint Patient presents with ??? Establish Care ??? Left Hip Pain DISCUSS RAFIQ 2ND OP Subjective: Jakub Fuller is a 72 y.o. male who presents with Left hip pain. Onset of the symptoms was several years ago. There was not an inciting event. He has had no prior hip problems. Jakub reports the hip pain is groin. Aggravating symptoms include: any weight bearing, rising after sitting, squatting and standing. He feels that his hip pain is keeping him from skiing, exercising. He can weight bear on the left leg and does not use assistive devices. He climb stairs and does not use the railing. He does have difficulty putting on his shoes and socks. He can sit comfortably in a chair for 30 minutes. He has injections into the joint 1 year ago which offered 1 month of relief. NSAID used and beneficials with the ipsilateral knee and does not have a history of spine or back issues REVIEW OF SYSTEMS: Jakub denies fevers, chills, night sweats, nausea, or vomiting. He does not endorse a history of DVT/PE or clotting disorder. QUESTIONNAIRE RESPONSES: 11/14/2022 2:05 PM General Health, Prior Treatments, PreExisting Condition, Health Habits, About You RAFIQ Grade 3 11/14/2022 1:51 PM Orthopeadics [facility] Response HOOS JR Scores 55.99 11/14/2022 1:51 PM Spine [facility] Response HOOS JR Scores 55.99 ALLERGIES No Known Allergies Allergies to metals: None known. SOCIAL HISTORY: reports that he has never smoked. He has never used smokeless tobacco. He reports that he does not currently use alcohol after a past usage of about 14.0 standard drinks per week. He reports that he does not use drugs. SIGNIFICANT MEDICAL COMORBIDITIES: Patient Active Problem List Diagnosis Code ??? Spondylosis of lumbar region without myelopathy or radiculopathy M47.816 Objective: Ht 182.9 cm (6') Wt 93 kg (205 lb) BMI 27.80 kg/m?? General : alert, appears stated age and cooperative Gait: Normal. The patient can bear weight on the injured extremity. I have made the following determinations: Hip Exam: Left Prior surgery on this joint:No Leg Length: Longer leg: equal Limb Length discrepancy: 0cm Motion: Flexion contracture: 0 Total degrees of Flexion: 130 Total degrees of Abduction: 45 Total degrees of Ext Rotation: 30 Total degrees of Internal Rotation: 5 Gait Abnormality: Normal Radiographic evidence of joint damage: [0= normal; 1=minimal ; 2= some osteophytes , some narrowing ; 3= moderate osteophytes, significantnarrowing, mild deformity; 4= large osteophytes, marked narrowing, obvious deformity]: 4= large ostophytes, marked narrowing, obvious deformity Skin Integrity: Normal Pulses Palpable: Left PT: Yes Left DP: Yes Motor/Sensory: Left Distal Motor: Normal Distal Sensory: Normal Hip Abductors: 5 Trendelenburg test: Not tested Imaging: X-ray left: shows DJD changes, likely chronic personally reviewed with joint space narrowing, osteophytes, and subchondral sclerosis. Assessment: Mr. Fuller is a 72 y.o. year old male with severe osteoarthritis of his left hip. Plan: Natural history and expected course discussed. Questions answered. Educational materials distributed. Home exercises discussed. We reviewed the multiple treatment options available to him for this condition and the hurtful but non-harmful nature of arthritis. Both operative and nonoperative options were discussed as well as the pure elective nature of each. I reviewed the concept of the arthritis ladder with its step-chou approach, rising in invasiveness based on either previous response or symptom severity/impact on lifestyle. Considering the apparent impact on his lifestyle and having explored non- operative treatment options, I indicated that in my opinion total hip arthroplasty would be a reasonable option to attempt to restore a more normal, pain-free level of function. I discussed how the procedure is performed and all of their questions were answered. I discussed the risks of the procedure and the potentially devastating consequences of complications. Mr. uFller expressed a desire to pursue left total hip arthroplasty. Potential barriers to total joint arthroplasty: -BMI > 40: No -Active Tobacco use: No -Diabetes with hemoglobin A1C > 7.5: No He will seek out the needed medical clearance and undergo the needed testing to ensure medical suitability for the proposed surgical intervention. 30 minutes were spent in chart review, tdif-[id number]-[id number] time and coordination of care with the patient. Chetan Paulino MD * Víctor Fischer - 11/14/2022 2:00 PM EDT I saw Jakub and reviewed the pre-operative process with the patient per Dr. Umaña. The patient is pursuing a left total hip replacement. he will need to see Dr. Wasserman for pre-operative clearance and discuss post operative anticoagulation plan before undergoing surgery. We discussed the risks of a total hip arthroplasty: Bleeding, infection, scar formation, dislocation, leg length inequality, persistent pain, stiffness, bursitis, failure/wear/loosening/breakage of implants, implant malposition, need for additional/future surgery, fracture, clot formation, embolus,stroke, nerve palsy, blood vessel injury, skin numbness, anesthetic and/or medical complications, . We also reviewed their preferences regarding use of blood products and confirmed that while we would endeavor to minimize the risks of needing any transfusions, if circumstances were such that one ormore were indeed required, he would NOT refuse a blood transfusion. We reviewed options for postoperative DVT prophylaxis, based on AAOS guidelines. We discussed the pros and cons of different anticoagulants in terms of effectiveness and clot / embolus preventions vs. risks of bleeding and wound complications. The AAOS guidelines for dental procedures were reviewed with the patient. They were advised that nodental work should be performed for a minimum of two weeks prior to surgery. Additionally, no elective dental work, including cleanings, should be done for 6 months after surgery. If urgent dental work is required within six months, the patient understands to contact our office as we will prescribea prophylactic antibiotic, to be taken before the dental procedure. I reviewed risks associated with taking opioid pain medication, and Jakub signed the acute opioid pain management contract with no other questions at this time. Jakub personal risk assessment was completed. 11/14/2022 2:00 PM Opioid PDMP [place] PDMP Query Date 11/14/2022 [place] PDMP Query Date 11/14/2022 [place] PDMP Query Date 11/14/2022 Clotting and Bleeding Assessment Genetic predisposition or history of DVT or PE: No Hypercoaguable state?: No History of bleeding disorder?: No GI bleed or history of hemorrhagic stroke within the past 2 years: No Patient on lifelong anticoagulant for other reasons: No Discharge anticoagulation plan: CHAUNCEY Infection Prevention Patient demonstrated appropriate skin integrity/infection knowledge level after instructions provided: Yes Patient demonstrated appropriate dental prophylaxis knowledge level after instructions provided: Yes Patient demonstrated appropriate understanding of chlorhexideine wash and mupirocin ointment: Yes General Assessment Total joint preparedness for surgery: 1:1 Patient understands when to call the office pre-op and post-op: Verbalizes understanding Assistive device(s) used pre-op: None Patient currently on narcotics: No Patient has narcotic agreement signed: [place] Jakub was given nasal Mupirocin to use twice daily for five days prior to surgery, along with chlorhexidine soap to use the night before and the morning of surgery. Additional instructions were given to the patient if they had other questions as well. The patient prefers two-wheeled walker to help with post-operative ambulation. A DME order has beenplaced. Prep for Surgery Advance Directive: Would like to complete at another time Living arrangement: House Home layout: Multi-level, Able to live on main level, Stairs to enter w/ rails Who will provide post-op care and support: Girlfriend and Daughters Who will provide transportation home: Girlfriend Patient's desired discharge disposition: Home Outpatient PT preference: [facility] or Gregorio Ford, PT Discharge barriers and challenges: None at this time Post operative orthopaedic anti-coagulation plan: CHAUNCEY Hernandez Chronic anti-coagulation: no Expedited Discharge Candidate?: YES and would like to pursue expedited recovery. Patient is planning to be discharged home with Force. Metal allergy? No We discussed using Celebrex while in house. Upon discharge we will give the patient Naprosyn to take for 6 weeks after surgery for post-operative pain management. Julia Katz. LAT, ATC, OTC documented in this encounter Plan of Treatment Scheduled Referrals Name Type Priority Associated Diagnoses Orde r Schedule Referral to Physical Therapy Outpatient Referral Routine Debility Pain of left lower extremity Primary osteoarthritis of left hip Ordered: 11/14/2022 documented as of this encounter Results * XR Pelvis and Hip 2 Views Left (01/16/2023 10:01 AM EDT) Anatomical Region Laterality Modality Pelvis, Hip Left Digital Radiogra phy Impressions 01/16/2023 10:39 AM EDT 1. ??Uncomplicated left total hip arthroplasty. 2. ??Punctate retained foreign bodies versus postsurgical material project in the soft tissues adjacent to the left ilium. 3. ??Unchanged right hip osteoarthropathy. 4. ??Unchanged cam morphology of the proximal right femur may predispose to clinical symptoms of femoral acetabular impingement. Thank you for letting us participate in the care of this patient. ??If you are a health care provider and have any questions regarding this report, please contact the number below. ??For patients who have questions please contact the health healthcare associate that requested your imaging first. ? Narrative 01/16/2023 10:39 AM EDT EXAMINATION: XR PELVIS AND HIP 2 VIEWS LEFT CLINICAL HISTORY: History of hip replacement (as entered by ordering provider in the order requisition) TECHNIQUE: AP view the pelvis. AP and frog leg lateral views of the left hip. COMPARISON: Pelvic radiograph 12/13/2022 FINDINGS: There is a left total hip arthroplasty. The femoral head component is centered within the acetabular cup. No periprosthetic fracture or bone resorption. Punctate radiodensities projecting in the soft tissues adjacent to the left ilium could represent punctate retained foreign bodies or postsurgical material. Mild right hip joint space narrowing. Cam morphology of the proximal right femur. No displaced fracture of the pelvic ring. No widening of the pubic symphysis or sacroiliac joints. Procedure Note Maureen Fry MD - 01/16/2023 EXAMINATION: XR PELVIS AND HIP 2 VIEWS LEFT CLINICAL HISTORY: History of hip replacement (as entered by orderingprovider in the order requisition) TECHNIQUE: AP view the pelvis. AP and frog leg lateral views of the left hip. COMPARISON: Pelvic radiograph 12/13/2022 FINDINGS: There is a left total hip arthroplasty. The femoral head component iscentered within the acetabular cup. No periprosthetic fracture or boneresorption. Punctate radiodensities projecting in the soft tissues adjacent to theleft ilium could represent punctate retained foreign bodies or postsurgicalmaterial. Mild right hip joint space narrowing. Cam morphology of the proximalright femur. No displaced fracture of the pelvic ring. No widening of the pubic symphysis or sacroiliac joints. IMPRESSION 1. Uncomplicated left total hip arthroplasty. 2. Punctate retained foreign bodies versus postsurgical material projectin the soft tissues adjacent to the left ilium. 3. Unchanged right hip osteoarthropathy. 4. Unchanged cam morphology of the proximal right femur may predisposeto clinical symptoms of femoral acetabular impingement. Thank you for letting us participate in the care of this patient. If youare a health care provider and have any questions regarding this report,please contact the number below. For patients who have questions please contactthe health healthcare associate that requested your imaging first. Mynor Umaña MD IMG DX ORDERABLES * APTT (12/05/2022 1:22 PM EDT) PTT 30 25 - 37 sec [facility] Comment: The PTT is NOT appropriate for heparin monitoring. Use the Anti-Xa level for heparin monitoring (HEP UFH) or LMWH monitoring (HEP LMW). A PTT less than 37 seconds generally indicates adequate hemostasis. Blood 12/05/2022 1:22 PM EDT 12/05/2022 1:24 PM EDT Narrative Resulting Agency Comment Spec In Lab Mynor Umaña MD HEMATOLOGY ORDERABL ES Performing Organization Address [facility] de Phone Number [facility] [place] [address] * Prothrombin Time (12/05/2022 1:22 PM EDT) PT 10.6 9.4 - 12.5 sec [facility] INR 0.9 [facility] Comment: An INR <2.0 indicates [...] MD HEMATOLOGY ORDERABL ES Performing Organization Address [facility] de Phone Number [facility] [place] [address] * (ABNORMAL) Basic Metabolic Panel (non-fasting) (12/05/2022 1:22 PM EDT) Glucose Lvl 120 65 - 199 mg/dL [facility] Comment:Diabetes: >=200 mg/d L plus symptoms BUN 12 10 - 20 mg/dL [facility] Creatinine 1.28 0.80 - 1.50 mg/dL [facility] Sodium 137 135 - 145 mmol/L [facility] Potassium 5.3(H) 3.5 - 5.0 mmol/L [facility] Comment: Please note: ??Patients with WBC >100,000 may have falsely elevated Potassium levels. ??For accurate Potassium quantification in these patients send serum separator tube (gold top) for subsequent determinations. ??Contact the Clinical Chemistry Laboratory if there are any questions. Chloride 102 98 - 107 mmol/L [facility] CO2 27 22 - 31 mmol/L [facility] Anion Gap 8 5 - 15 mmol/L [facility] Calcium 11.3(H) 8.5 - 10.5 mg/dL [facility] Estimated GFR 60 >=60 mL/min/1. 73 m?? [facility] Comment: This patient's estimated [...] Lab Mynor Umaña MD CHEMISTRY ORDERABLE S [facility] [place] [address] documented in this encounter Visit Diagnoses Diagnosis Debility Debility, unspecified Pain of left lower extremity Primary osteoarthritis of left hip Primary localized osteoarthrosis, pelvic region and thigh Debility Debility, unspecified Pain of left lower extremity Primary osteoarthritis of left hip Primary localized osteoarthrosis, pelvic region and thigh documented in this encounter Administered Medications Inactive Administered Medications - up to 3 most recent administrations Medication Order MAR Action Action Date Dose Rate Site mupirocin (Bactroban) 2 % ointment 1 each 1 each, Topical (Top), 2 TIMES DAILY, First dose on 11/14/22 at 1600, 10 doses, Last dose on 11/19/22 at 0900 Given 11/14/2022 3:40 PM EDT 1 each documented in this encounter Care Teams Nurse Infection Control Relationship Specialty Start Date End Date Jakub Abrams MD [facility] [place] [place] [id number] PCP - General Family Medicine 04/05/21 10/18/23 documented as of this encounter
--- OUTSIDE RECORDS SUMMARY | 2024-02-21 17:16 | XMS_ITS | Encounter Summary ---
Author Organization [facility] [place] [address] Care Team Providers Care Bark Fitter Name Role Phone Jakub Abrams MD Primary Care Provider [phone] Encounter Details Date Type Department Care Team (Late st Contact Info) Description 12/22/2022 External Results [facility] Central[facility] [place] [address] Delmi Garcia Social History Tobacco Use Types Packs/Day Years Used Date Smoking Tobacco: Never Smokeless Tobacco: Never Alcohol Use Standard Drinks/Week Comments Not Currently 0 (1 standard drink = 0.6 oz pur e alcohol) occasional [facility] Inpatient Questions Answer Date Recorded Does Anyone [...] Diagnosis Comments EXTERNAL INR RESULTS PANEL Routine 12/22/2022 3:10 PM EDT documented in this encounter Results * (ABNORMAL) External INR Results Panel (12/22/2022 3:10 PM EDT) POCT INR 1.4(A) 0.9 - 1.1 VISITING NURSE Comment:[place] Blood 12/22/2022 3:10 PM EDT Historical Provider POINT OF CARE JEREMIAS T ORDERABLES VISITING NURSE documented in this encounter Visit Diagnoses Not on filedocumented in this encounter Care Teams Bark Fitter Relationship Specialty Start Date End Date Jakub Abrams MD [address] [place] [address] PCP - General Family Medicine 04/05/21 10/18/23 documented as of this encounter
--- OUTSIDE RECORDS SUMMARY | 2024-02-21 17:16 | XMS_ITS | Encounter Summary ---
Author Organization [facility] Address [facility] [place] [address] Care Team Providers Care Tank Car Loader Name Role Phone Jakub Abrmas MD Primary Care Provider [phone] Encounter Details Date Type Department Care Team (Latest Contact Info) Description 01/16/2023 9:39 AM EDT - 01/16/2023 11:59 PM EDT Hospital Encounter XRay at [address] [place] [address] Mynor Umaña MD [facility] [place] [address] Debility; Pain of left lower extremity; Primary osteoarthritis of left hip Discharge Disposition: Home Social History Tobacco Use Types Packs/Day Years Used Date Smoking Tobacco: Never Smokeless Tobacco: Never Alcohol Use Standard Drinks/Week Comments Not Currently 0 (1 standard drink = 0.6 oz pur e alcohol) occasional [facility] Inpatient Questions Answer Date Recorded Does [...] Take 137 mcg by mouth daily. 07/12/2022 acetaminophen (Tylenol) 500 mg tablet Take 2 tablets by mouth every 8 hours. Take as directed around the clock for ten days after your surgery. After that you can take Tylenol as needed per package insert. 12/13/2022 07/03/2023 documented as of this encounter Plan of Treatment Not on file documented as of this encounter Procedures Procedure Name Priority Date/Time Associated Diagnosis Comments XR PELVIS AND HIP 2 VIEWS LEFT Routine 01/16/2023 10:01 AM EDT Debility Pain of left lower extremity Primary osteoarthritis of left hip documented in this encounter Results * XR Pelvis and [...] who have questions please contact the health insurance healthcare consultant that requested your imaging first. ? Narrative [...] patients who have questions please contactthe health insurance healthcare consultant that requested your imaging first. Mynor Umaña MD IMG DX ORDERABLES documented in this encounter Visit Diagnoses Diagnosis Debility Debility, unspecified Pain of left lower extremity Primary osteoarthritis of left hip Primary localized osteoarthrosis, pelvic region and thigh documented in this encounter Care Teams Tank Car Loader Relationship Specialty Start Date End Date Jakub Abrams MD [address] [place] [address] PCP - General Family Medicine 04/05/21 10/18/23 documented as of this encounter
--- OUTSIDE RECORDS SUMMARY | 2024-02-21 17:16 | XMS_ITS | Encounter Summary ---
[place] [address] Care Team Providers Care Soap Boiler Name Role Phone Jakub Abrams MD Primary Care Provider [phone] Encounter Details Date Type Department Care Team (Latest Contact Info) Description 12/05/2022 Travel Social History Tobacco Use Types Packs/Day [...] on filedocumented in this encounter Care Teams Soap Boiler Relationship Specialty Start Date End [place] [address] PCP - General Family Medicine 04/05/21 10/18/23 documented as of this encounter
--- OUTSIDE RECORDS SUMMARY | 2024-02-21 17:16 | XMS_ITS | Encounter Summary ---
Author Organization [facility] [place] [address] Care Team Providers Care Fitness Sales Consultant Name Role Phone Jakub Abrams MD Primary Care Provider [phone] Encounter Details Date Type Department Care Team (Late st Contact Info) Description 12/29/2022 External Results [facility] [place] [address] Delmi Garcia Social History Tobacco Use Types [...] Diagnosis Comments EXTERNAL INR RESULTS PANEL Routine 12/29/2022 12:37 PM EDT documented in this encounter Results * (ABNORMAL) External INR Results Panel (12/29/2022 12:37 PM EDT) POCT INR 1.5(A) 0.9 - 1.1 VISITING NURSE Comment:YOLANDA Blood 12/29/2022 12:3 7 PM EDT Historical Provider POINT OF CARE JEREMIAS T ORDERABLES VISITING NURSE documented in this encounter Visit Diagnoses Not on filedocumented in this encounter Care Teams Fitness Sales Consultant Relationship Specialty Start Date End Date Jakub Abrams MD [address] [place] [address] PCP - General Family Medicine 04/05/21 10/18/23 documented as of this encounter
--- OUTSIDE RECORDS SUMMARY | 2024-02-21 17:16 | XMS_ITS | Encounter Summary ---
Author Organization [facility] [place] [address] Care Team Providers Care Drawer Fitter Name Role Phone Jakub Abrams MD Primary Care Provider [phone] Reason for Visit * Reason Onset Date Comments Pre Procedure Call 11/17/2022 Encounter Details Date Type Department Care Team (Late st Contact Info) Description 11/17/2022 Telephone [place] [phone] Mynor Umaña MD [facility] [place] [address] Pre Procedure Call (/) Social History Tobacco Use Types Packs/Day Years Used Date Smoking Tobacco: Never Smokeless Tobacco: Never Alcohol Use Standard Drinks/Week Comments Not Currently 14 (1 standard drink = 0.6 oz pu re alcohol) DH [facility] Inpatient Questions Answer Date Recorded [...] encounter Miscellaneous Notes * Telephone Encounter - Rajeev Escalante - 11/21/2022 9:38 AM EDT Patient returned our call to get his surgery scheduled. Gave him the direct number and transferred him to [facility] per prior notes. * Telephone Encounter - Saba Hart - 11/18/2022 3:59 PM EDT Returned patients call. I called and left a message for patient to call [phone] directly and schedule surgery with Dr. Umaña. * Telephone Encounter - Saba Hart - 11/17/2022 2:57 PM EDT I called and left a message for patient to call [phone] directly and schedule surgery with Dr. Umaña. documented in this encounter Plan of Treatment Not on file documented as of this encounter Visit Diagnoses Not on filedocumented in this encounter Care Teams Drawer Fitter Relationship Specialty Start Date End Date Jakub Abrams MD [facility] [place] [place] [address] PCP - General Family Medicine 04/05/21 10/18/23 documented as of this encounter
--- OUTSIDE RECORDS SUMMARY | 2024-02-21 17:16 | XMS_ITS | Encounter Summary ---
Author Organization [facility] Address [facility] [place] [address] Care Team Providers Care Rotary Soil Stabilizer Name Role Phone Jakub Abrams MD Primary Care Provider [phone] Reason for Referral * Physical Therapy (Routine) - Closed Specialty Diagnoses / Procedures Referred By Contjocelyn t Referred To Contact Physical Therapy Diagnoses S/P total left hip arthroplasty Mynor Umaña MD [facility] [place] [address] Physical Therapy, [facility] [address] [place],[address] [address] Referral ID Status Reason Start Date Expiration Date V isits Requested Visits Authorized [id number] Closed Evaluate and Treat Non PCP 01/04/2023 07/03/2023 12 12 Reason for Visit * Reason Onset Date Comments Post Hospital Discharge 01/04/2023 Physical Therapy and PT INR outpatient orders. Encounter Details Date Type Department Care Team (Late st Contact Info) Description 01/04/2023 Telephone [place] [phone] Mynor Umaña MD [facility] [place] [address] Post Hospital Discharge (Physical Therapy and PT INR outpatient orders. ) Social History Tobacco Use Types Packs/Day Years [...] encounter Miscellaneous Notes * Telephone Encounter - Kenny Brock - 01/04/2023 2:39 PM EDTSummary: Transfer to Outpatient. Caller: Aniceto Hinton, physical therapist with [facility] Best Return Contact: Procedure: L RAFIQ 12/13/22 Surgeon: Dr. Umaña Questions: Aniceto called stating Mr. Fuller is now capable of driving and he wants to drive and so he will need a referral for Outpatient Physical Therpay and Outpatient PT INR to go to [facility] in [facility]. The phone he provided for [facility] Physical Therpay is [phone] documented in this encounter Plan of Treatment Scheduled Referrals Name Type Priority Associated Diagnoses Orde r Schedule Referral to Physical Therapy Outpatient Referral Routine s/p Left RAFIQ on 12/13/22 (Dr Umaña) Ordered: 01/04/2023 documented as of this encounter Visit Diagnoses Diagnosis s/p Left RAFIQ on 12/13/22 (Dr Umaña) documented in this encounter Care Teams Rotary Soil Stabilizer Relationship Specialty Start Date End Date Jakub Abrams MD [address] [place] [address] PCP - General Family Medicine 04/05/21 10/18/23 documented as of this encounter
--- OUTSIDE RECORDS SUMMARY | 2024-02-21 17:16 | XMS_ITS | Encounter Summary ---
Author Organization [facility] [place] [address] Care Team Providers Care Tanker Driver Name Role Phone Jakub Abrams MD Primary Care Provider [phone] Encounter Details Date Type Department Care Team (Late st Contact Info) Description 01/09/2023 External Results [facility] [place] [address] Nieves Raines Social History Tobacco Use Types Packs/Day Years [...] Diagnosis Comments EXTERNAL INR RESULTS PANEL Routine 01/09/2023 10:52 AM EDT documented in this encounter Results * (ABNORMAL) External INR Results Panel (01/09/2023 10:52 AM EDT) POCT INR 2.6(A) 0.9 - 1.1 EXTERNAL LAB Comment:Mellisa Blood 01/09/2023 10:5 2 AM EDT Historical Provider POINT OF CARE JEREMIAS T ORDERABLES EXTERNAL LAB documented in this encounter Visit Diagnoses Not on filedocumented in this encounter Care Teams Tanker Driver Relationship Specialty Start Date End Date Jakub Abrams MD [address] [place] [address] PCP - General Family Medicine 04/05/21 10/18/23 documented as of this encounter
--- OUTSIDE RECORDS SUMMARY | 2024-02-21 17:16 | XMS_ITS | Encounter Summary ---
Author Organization [facility] [place] [address] Care Team Providers Care Cogeneration Technician Name Role Phone Jakub Abrams MD Primary Care Provider [phone] Encounter Details Date Type Department Care Team (Latest Contact Info) Description 12/29/2022 2:00 AM EDT Anti-Coag Telephone Visit [facility] Centralized [place] [phone] Jad Montgomery, [facility] S/P total left hip arthroplasty Social History Tobacco Use Types Packs/Day Years Used Date Smoking Tobacco: Never Smokeless Tobacco: Never Alcohol Use Standard Drinks/Week Comments Not Currently 0 (1 standard drink = 0.6 oz pur e alcohol) occasional [facility] Inpatient Questions Answer Date Recorded Does [...] this encounter Progress Notes * Jad Montgomery [facility] - 12/29/2022 2:00 AM EDT Images from the original note were not included. Anticoagulation Therapy Note Anticoagulation Summary As of 12/29/2022 INR goal: 1.7-2.2 TTR: -- INR used for dosin.5 (12/29/2022) Warfarin maintenance plan: 7.5 mg (5 mg x 1.5) every Mon, Wed, Fri; 5 mg (5 mg x 1) all other days;Starting 12/29/2022 Weekly warfarin total: 42.5 mg Plan last modified: Jad Montgomery, [facility] (12/26/2022) Next INR check: 01/02/2023 Target end date: 01/13/2023 Indications s/p Left RAFIQ on 12/13/22 (Dr Umaña) [Z96.642] Anticoagulation Episode Summary INR check location: [facility] Preferred lab: Send INR reminders to: [facility] CENTRALIZED ANTICOAGULATION CLINIC Comments: [facility] [phone] Anticoagulation Care Providers Provider Role Specialty Phone number Mynor Umaña MD [facility] Orthopaedic Surgery [phone] Patient Assessment Service Type: INR Test Result INR Result: Out of Range Warfarin Therapy Instructions December 2022 Details Sun Mon Fri Sat 1 2 3 4 5 6 7 8 7.5 mg See details 9 7.5 mg 10 7.5 mg 11 5 mg 12 7.5 mg 13 14 15 16 17 18 19 20 21 22 23 24 25 26 27 28 29 30 Date Details 12/29 This INR check Date of next INR: 01/02/2023 How to take your warfarin dose To take: 5 mg Take 1 of the 5 mg tablets. To take: 7.5 mg Take 1.5 of the 5 mg tablets. Description 12/29 INR low after the same 7 [...] and warfarin education provided to Jakub verballyand [facility] phone # provided. Give the [...] correct range. Admitted: 12/13 Discharged: 12/13 Facility: [facility] Reason for Admission: Left RAFIQ Warfarin RX [...] arthroplasty documented in this encounter Care Teams Cogeneration Technician Relationship Specialty Start Date End Date Jakub Abrams MD [address] [place] [address] PCP - General Family Medicine 04/05/21 10/18/23 documented as of this encounter
--- OUTSIDE RECORDS SUMMARY | 2024-02-21 17:16 | XMS_ITS | Encounter Summary ---
Author Organization [facility] [place] [address] Care Team Providers Care Funeral Service Licensee Name Role Phone Jakub Abrams MD Primary Care Provider [phone] Encounter Details Date Type Department Care Team (Late st Contact Info) Description 12/08/2022 Notes [place] [address] Ara Chance Social History Tobacco Use Types Packs/Day Years Used Date Smoking Tobacco: Never Smokeless Tobacco: Never Alcohol Use Standard Drinks/Week Comments Not Currently 0 (1 standard drink = 0.6 oz pur e alcohol) occasional [facility] Inpatient Questions Answer Date Recorded Does Anyone [...] as of this encounter Progress Notes * Ara Chance - 12/08/2022 1:38 PM EDT Study Title: Comparative Effectiveness of Pulmonary Embolism Prevention after hip and knee Replacement: Balancing Safety and Effectiveness. Principle Cook Night: Dr. Chasidy Arreguin #: [id number] Subject #: [id number] Subject has been randomized to arm B for the above named clinical trial. Request sent to provider to place orders for Arm B (Warfarin) drug to be administered pre-op. documented in this encounter Plan of Treatment Not on file documented as of this encounter Visit Diagnoses Not on filedocumented in this encounter Care Teams Funeral Service Licensee Relationship Specialty Start Date End Date Jakub Abrams MD [address] [place] [address] PCP - General Family Medicine 04/05/21 10/18/23 documented as of this encounter
--- OUTSIDE RECORDS SUMMARY | 2024-02-21 17:16 | XMS_ITS | Encounter Summary ---
Author Organization [facility] [place] [address] Care Team Providers Care Cell Efficiency Supervisor Name Role Phone Jakub Abrams MD Primary Care Provider [phone] Encounter Details Date Type Department Care Team (Late st Contact Info) Description 12/26/2022 External Results [facility] [place] [address] Delmi Garcia Social History Tobacco Use Types [...] Diagnosis Comments EXTERNAL INR RESULTS PANEL Routine 12/26/2022 12:22 PM EDT documented in this encounter Results * External INR Results Panel (12/26/2022 12:22 PM EDT) POCT INR 1.8 0.9 - 1.1 VISITING NURSE Comment:YOLANDA [facility] Blood 12/26/2022 12:2 2 PM EDT Historical Provider POINT OF CARE JEREMIAS T ORDERABLES VISITING NURSE documented in this encounter Visit Diagnoses Not on filedocumented in this encounter Care Teams Cell Efficiency Supervisor Relationship Specialty Start Date End Date Jakub Abrams MD [address] [place] [address] PCP - General Family Medicine 04/05/21 10/18/23 documented as of this encounter
--- OUTSIDE RECORDS SUMMARY | 2024-02-21 17:16 | XMS_ITS | Encounter Summary ---
Author Organization [facility] Address [facility] [place] [address] Care Team Providers Care Customer Operations Intern Name Role Phone Jakub Abrams MD Primary Care Provider [phone] Reason for Visit * Reason Onset Date Comments Pre Procedure Call 12/06/2022 Encounter Details Date Type Department Care Team (Late st Contact Info) Description 12/06/2022 Telephone [place] [phone] Mynor Umaña MD [facility] [address] [place] [address] Pre Procedure Call Social History Tobacco Use Types Packs/Day Years [...] encounter Miscellaneous Notes * Telephone Encounter - Amado Víctor J - 12/08/2022 11:04 AM EDT Called the patient back to inform him that I had sent the order for XRays to [facility] that are needed for preoperative surgical planning. He will get these dont today and ask them to push them to our system. He has everything set for post op care except for PT. He had forgotten to schedule this and asked that the referral be sent to [facility]. This was printed and faxed via hard line. He will use [facility] as well. He was appreciative for the call and all questions and concerns were answered at this time. * Telephone Encounter - Suzette Justin - 12/08/2022 10:42 AM EDT Patient called back he would like to go to [facility] for his XRAYS. * Telephone Encounter - Víctor Fischer - 12/06/2022 2:28 PM EDT Called and LVM advising that Dr. Umaña would like updated Xray of his hip prior to surgery. This can be done up at [facility] or [facility] if the patient prefers. Asked patient to call back with when and where he would like to get the XR done. Will need 1 view AP HIP (Left) * Telephone Encounter - Marlo Jain - 12/06/2022 8:55 AM EDT Who is calling? Jakub Best call back number: [phone] Best time to call back between 8:00 am & 5:00 pm: Anytime Can we leave a message? yes When is your procedure? 12/13/22 Who is your surgeon? Dr. Umaña What procedure are you having? 12/13/2022 1200 TOTAL HIP ARTHROPLASTY, ANTERIOR APPROACH ??(WRVU 19.6) - Left HIP INTRAOP RADIOLOGIC EXAMINATION, UNILATERAL, W PELVIS; 4+ VIEWS ??(WRVU 0.27) - Left MODIFIER ACTIS HIP STEM DEPUY - Left MODIFIER PINNACLE ACETABULUM Mynor Juarez [facility] MAIN OR Scheduled What is the question you would like to ask the clinical care team? Jakub called stating that the first time he met with Dr. Umaña (11/14/22), Dr. Umaña wanted new XR. Looking over the note from 11/14/22 quickly it did not look like it mentioned the need for new XR. However, there was an XR ordered that same day. Please inform Jakub if he should get updated XR prior to his surgery or not. Your message will be forwarded to the clinical care team for review. documented in this encounter Plan of Treatment Not on file documented as of this encounter Visit Diagnoses Not on filedocumented in this encounter Care Teams Customer Operations Intern Relationship Specialty Start Date End Date Jakub Abrams MD [address] [place] [address] PCP - General Family Medicine 04/05/21 10/18/23 documented as of this encounter
--- OUTSIDE RECORDS SUMMARY | 2024-02-21 17:16 | XMS_ITS | Encounter Summary ---
[place] [address] Care Team Providers Care Brick Kiln Burner Name Role Phone Jakub Abrams MD Primary Care Provider [phone] Encounter Details Date Type Department Care Team (Latest Contact Info) Description 12/15/2022 2:00 AM EDT Anti-Coag Telephone Visit [facility] Central[place] [phone] Jad Montgomery RP S/P total left hip arthroplasty Social History Tobacco Use Types Packs/Day Years Used Date Smoking Tobacco: Never Smokeless Tobacco: Never Alcohol Use Standard Drinks/Week Comments Not Currently 0 (1 standard drink = 0.6 oz pur e alcohol) occasional DH [facility] Inpatient Questions Answer Date Recorded [...] of this encounter Progress Notes * Jad oMntgomery RPH - 12/15/2022 2:00 AM EDT Images from the original note were not included. Anticoagulation Therapy Note Anticoagulation Summary As of 12/15/2022 INR goal: 1.7-2.2 TTR: -- INR used for dosin.0 (12/15/2022) Warfarin maintenance plan: No maintenance plan Plan last modified: Jad Montgomery RPH (12/14/2022) Next INR check: 12/20/2022 Target end date: 01/13/2023 Indications s/p Left RAFIQ on 12/13/22 (Dr Umaña) [Z96.642] Anticoagulation Episode Summary INR check location: [facility] Preferred lab: Send INR reminders to: [facility] CLIN[facility] Comments: [facility]?? [phone] Anticoagulation Care Providers Provider Role Specialty Phone number Mynor Umaña MD Responsible Orthopaedic Surgery [phone] Patient Assessment Service Type: INR Test Result INR Result: Out of Range Warfarin Therapy Instructions November 2022 Details Mon Sat 1 2 3 4 5 6 7 8 9 10 11 12 13 14 15 16 17 18 19 20 21 22 23 24 25 5 mg See details 26 5 mg 27 2.5 mg 28 2.5 mg 29 2.5 mg 30 31 Date Details 12/15 This INR check Date of next INR: 12/20/2022 How to take your warfarin dose To take: 2.5 mg Take 0.5 of a 5 mg tablet. To take: 5 mg Take 1 of the 5 mg tablets. Description 12/15 INR low after 2 days of warfarin. Given Jakub was tested sooner than protocol suggests, it is likely the INR could trend upwards this . Holiday Monday makes it hard to continue Jakub safelyon 5mg daily especially with low INR range. Dosing and warfarin education provided to Jakub verballyand [facility] phone # provided. Give the BID dosing [...] correct range. Admitted: 12/13 Discharged: 12/13 Facility: [facility] Reason for Admission: Left RAFIQ Warfarin RX [...] Name Priority Date/Time Associated Diagnosis Comments EXTERNAL LAB HEMATOLOGY/COAG RESULTS PANEL Routine 12/15/2022 documented in this encounter Results * (ABNORMAL) Hematology / Coag External Results (12/15/2022) POC INR 1.0 0.9 - 1.1 VISITING NURSE Comment:[facility] Historical Provider HEMATOLOGY ORDERA BLES VISITING NURSE documented in this encounter Visit Diagnoses Diagnosis S/P total left hip arthroplasty documented in this encounter Care Teams Brick Kiln Burner Relationship Specialty Start Date End Date Jakub Abrams MD [address] [place] [address] PCP - General Family Medicine 04/05/21 10/18/23 documented as of this encounter
--- OUTSIDE RECORDS SUMMARY | 2024-02-21 17:16 | XMS_ITS | Encounter Summary ---
Author Organization [facility] [place] [address] Care Team Providers Care Erisa Attorney Name Role Phone Jakub Abrams MD Primary Care Provider [phone] Encounter Details Date Type Department Care Team (Late st Contact Info) Description 12/06/2022 Orders Only [place] [address] Víctor Fischer Osteoarthritis of left hip, unspecified osteoarthritis type; Left hip pain; Debility Social History Tobacco Use Types Packs/Day Years Used Date Smoking Tobacco: Never Smokeless Tobacco: Never Alcohol Use Standard Drinks/Week Comments Not Currently 0 (1 standard drink = 0.6 oz pur e alcohol) occasional DH [facility] Inpatient Questions Answer Date Recorded [...] as of this encounter Progress Notes * Víctor Fischer - 12/06/2022 2:33 PM EDT Internal and External AP L HIP w/Mag Marker XR Orders for upcoming surgery. documented in this encounter Plan of Treatment Not on file documented as of this encounter Visit Diagnoses Diagnosis Osteoarthritis of left hip, unspecified osteoarthritis type Left hip pain Pain in joint, pelvic region and thigh Debility Debility, unspecified documented in this encounter Care Teams Erisa Attorney Relationship Specialty Start Date End Date Jakub Abrams MD [address] [place] [address] PCP - General Family Medicine 04/05/21 10/18/23 documented as of this encounter
--- OUTSIDE RECORDS SUMMARY | 2024-02-21 17:16 | XMS_ITS | Encounter Summary ---
Author Organization [facility] [place] [address] Care Team Providers Care Neon Sign Maker Name Role Phone Jakub Abrams MD Primary Care Provider [phone] Reason for Visit * Reason Onset Date Comments Post-op Problem 12/15/2022 Encounter Details Date Type Department Care Team (Late st Contact Info) Description 12/15/2022 [place] [id number] Mynor Umaña MD [facility] [place] [address] Post-op Problem Social History Tobacco Use Types Packs/Day Years [...] encounter Miscellaneous Notes * Telephone Encounter - Marlo Jain - 12/15/2022 2:40 PM EDTSummary: Blood Thinner Blood Test Who is calling? Jakub Best call back number: [phone] Best time to call back between 8:00 am & 5:00 pm: Anytime Can we leave a message? yes When was your procedure? 12/13/22 Who was your surgeon? Dr. Umaña What procedure did you have done? 12/13/2022 0730 TOTAL HIP ARTHROPLASTY, ANTERIOR APPROACH ??(WRVU 19.6) - Left HIP INTRAOP RADIOLOGIC EXAMINATION, UNILATERAL, W PELVIS; 4+ VIEWS ??(WRVU 0.27) - Left MODIFIER ACTIS HIP STEM DEPUY - Left MODIFIER PINNACLE ACETABULUM Mynor Juarez (Primary) Elier Armstrong David R [facility] MAIN OR Discharged What is the question you would like to ask the clinical care team? Jakub called stating that the [facility] provider saw him today and did a blood test for Jakub's blood thinners. Jakub stated that the test resulted in 1 and that it should be between 2 and 3. Jakub is currently taking 5mg warfarin daily and is wondering what he should do. Your message will be forwarded to the clinical care team for review. documented in this encounter Plan of Treatment Not on file documented as of this encounter Visit Diagnoses Not on filedocumented in this encounter Care Teams Neon Sign Maker Relationship Specialty Start Date End Date Jakub Abrams MD [address] [place] [address] PCP - General Family Medicine 04/05/21 10/18/23 documented as of this encounter
--- OUTSIDE RECORDS SUMMARY | 2024-02-21 17:16 | XMS_ITS | Encounter Summary ---
[place] [address] Care Team Providers Care Grove Worker Name Role Phone Jakub Abrams MD Primary Care Provider [phone] Reason for Referral * Home Health Care (Routine) - Closed Specialty Diagnoses / Procedures Referred By Louann dawson Referred To Contact Diagnoses S/P total left hip arthroplasty Mynor Umaña MD [facility] [place] [address] Referral ID Status Reason Start Date Expiration Date V isits Requested Visits Authorized [id number] Closed Consult, Test & Treat 12/13/2022 06/11/2023 999 999 * Consultation (Routine) - Closed Specialty Diagnoses / Procedures Referred By Louann dawson Referred To Contact Primary Care Diagnoses S/P total left hip arthroplasty Mynor Umaña MD [facility] [place] [address] [place] [address] Referral ID Status Reason Start Date Expiration Date V isits Requested Visits Authorized [id number] Closed Assume Subset of Care 12/13/2022 12/13/2023 1 1 Reason for Visit * Auth/Cert (Routine) Specialty [...] MODIFIER PINNACLE ACETABULUM DEPUY Mynor Umaña MD [facility] [place] [address] [facility] Referral ID Status Reason Start Date Expiration Date Visits Re quested Visits Authorized [id number] 1 1 Encounter Details Date Type Department Care Team (Latest Contact Info) Description 12/13/2022 6:10 AM EDT - 12/13/2022 2:36 PM EDT Hospital Encounter [place] [id number] Mynor Umaña MD [facility] [place] [address] S/P total left hip arthroplasty; s/p Left RAFIQ on 12/13/22 (Dr Umaña) Discharge Disposition: Home Social History Tobacco Use [...] Sign Reading Time Taken Comments Blood Pressure 114/80 12/13/2022 1:15 PM EDT Pulse 58 12/13/2022 6:41 AM EDT Temperature 36.4 ??C (97.5 ??F) 12/13/2022 1:15 PM ED T Respiratory Rate 16 12/13/2022 1:15 PM EDT Oxygen Saturation 96% 12/13/2022 1:15 PM EDT Inhaled Oxygen Concentration - - [...] please call the Orthopedic Clinic Nurse at [phone] for further dose instructions. If it is after 5pm or on the weekends, the Orthopedic resident ammunition officer will be managing your dosing (please call [phone] and ask for them to be paged). [...] not take or discontinue any prescription or urcy-dyj-obauicz medications without asking your doctor or pharmacist [...] bowel movement. You can also take an qizm-erw-uuqmbwr medication, Miralax if needed to combat constipation. [...] dressing. Somepatients have an additional item called Prineo on their skin. If you have this [...] as much as possible. Call your doctor ([phone]) if you develop: Fever greater than 100.5 Severe nausea or vomiting Increasing pain that is not controlled by pain medications Increasing redness, swelling, or drainage from incisions Change in sensation FOLLOW-UP APPOINTMENTS: 1. You will have follow-up appointments at [facility] as indicated below in Future Appointment and Orders. 2. You will need to have x-rays prior to your follow-up appointment on 01/16/23. Please come to Radiology, desk 3T, 1 hour BEFORE that appointment for these x-rays. Future Appointments Date Time Provider Department Center 01/16/2023 9:45 AM [facility] DX ROOM 3 Xray [facility] Rad 01/16/2023 10:40 AM Mynor Umaña MD [facility] ORTH [address] [place] [address] If you have questions or concerns: Monday through Monday, 8 AM - 5 PM, please call Dr. Mynor Umaña MD's office at . If it is after 5 PM, the weekend, or holidays, please call and ask to speak with theOrthopedic resident on-call. * Attachments The following attachments cannot be sent through Care Everywhere. * Walker Instructions: General Info (Singaporean) * Vitamin K Diet (Singaporean) * Warfarin Safety Tips (Singaporean) documented in this encounter Medications at Time [...] Janice Taveras RN - 12/13/2022 12:16 PM EDTSummary: AJ Progress note Confirmed demographic data. Pt [...] where referrals are placed. Provided patient with [facility] Star Quality Rating for Home care hand out. Patient requests referral to : [facility]. [address] [place] [id number] Expected date of discharge: 12/13/22. Referral routed to the Buckle Attacher for matching with agency/vendor and to provide any required information. Janice Taveras RN, BSN, ACM-FURNACE AND WASH EQUIPMENT OPERATORproject estimator Office of Care Management Pager: [phone] documented in this encounter H&P Notes * [...] RAFIQ Elier Armstrong MD Orthopaedic Surgery Pager [phone] documented in this encounter Miscellaneous Notes * Op Note - Elier Armstrong MD - 12/13/2022 7:45 AM EDT [facility] Operative Note Patient Name: Jakub Fuller : [id number] MR#: [id number] Case Date: 12/13/2022 Surgeon: Surgeon(s) and Role: * Mynor Umaña MD - Primary * Elier Armstrong MD - Resident - Assisting * Romario Reza PA - Physician Hold Worker Preoperative Diagnosis: Osteoarthritis left Hip Postoperative Diagnosis: Same Procedure Performed: left Total Hip Arthroplasty (CPT code 22719) Anesthesia: spinal IVF: See anesthesia record Estimated [...] Offset Femoral Head: 40mm +1.5 Acetabulum: DePuy [place] Gription, Size 62 Liner: Altrx polyethylene, Size [...] component positioning, verify leg length, and offset mu-ism. Based on the images, intra-op stability, and [...] off the HANA table back to the [facility]. Elier Armstrong MD 12/13/2022 Post-operative Plan: (avoid [...] Implant Name Type Inv. Item Serial No. Monogram Machine Operator Lot No. LRB No. Used Action SHELL ACET HIP 62MM POR CTD MULTI HOLE TI PINNACLE GRIPTION ([id number]) (AutoReq) - [id number] IMPLANTS SHELL ACET HIP 62MM POR CTD MULTI HOLE TI PINNACLE GRIPTION ([id number]) (AutoReq) Sentient ANTONIO [id number] Left 1 Implanted LINER ACET HIP [id number] STND POLY PINNACLE ALTRX ([id number]) (AutoReq) - [id number] IMPLANTS LINER ACET HIP [id number] STND POLY PINNACLE ALTRX ([id number]) (AutoReq) BeyondCore EMANI ANTONIO [id number] Left 1 Implanted STEM FEMORAL HIP SZ 9 PROX 1214 TAPER POR CLLR HIGH OFST TI ([id number]) (AutoReq) - [id number] IMPLANTS STEM FEMORAL HIP SZ 9 PROX 12/14 TAPER POR CLLR HIGH OFST TI ([id number]) (AutoReq) Sentient ANTONIO [id number] Left 1 Implanted HEAD FEMORAL HIP 40MM +1.5MM OFFSET 12/14 TPR CERAMIC ([id number]) (AutoReq) - [id number] IMPLANTS HEAD FEMORAL HIP 40MM +1.5MM OFFSET 12/14 TPR CERAMIC ([id number]) (AutoReq) Sentient ANTONIO [id number] Left 1 Implanted Associated attestation - Mynor [...] Hip Unilateral With Pelvis Minimum 4 Views (87107) Yes 12/13/2022 7:17 AM EDT Hip osteoarthritis Arthroplasty Acetabular/Prox Fem Prostc Agrft/Algrft (14428) Yes 12/13/2022 7:17 AM EDT Hip osteoarthritis [...] who have questions please contact the health manager medicare that requested your imaging first. ? Electronically signed by: Zohreh Kwok MD, [facility] ([phone]), at 12/13/2022 10:46 AM Narrative 12/13/2022 10:46 AM EDT EXAMINATION: XR PELVIS (GENERIC) CLINICAL HISTORY: s/p left RAFIQ TECHNIQUE: Single portable low AP pelvis radiograph 12/13/2022 at 0935 hours COMPARISON: Intraoperative spot images of the pelvis/left hip from earlier same day 12/13/2022 Radiographs of the pelvis and left hip from [facility] 09/15/2022 FINDINGS: Status post left total hip [...] of the pelvis and left hip from [facility] 09/15/2022 FINDINGS: Status post left total hip [...] patients who have questions please contactthe health manager medicare that requested your imaging first. Electronically signed by: Zohreh Kwok MD, [facility]([phone]), at 12/13/2022 10:46 AM Mynor CARBAJAL DX ORDERABLES * XR Fluoro No Rad <1Hr - OR Use (12/13/2022 8:28 AM EDT) Narrative Dicom, Auditing User - 12/13/2022 8:28 AM EDT This exam is auto-finalizing. No interpretation was done. Mynor CARBAJAL FLUORO ORDERABL ES documented in this encounter Visit Diagnoses Diagnosis s/p Left RAFIQ on 12/13/22 (Dr Umaña) s/p Left RAFIQ on 12/13/22 (Dr Umaña) documented in this encounter Administered Medications Inactive Administered Medications - up to 3 most recent administrations Medication Order MAR Action Action Date Dose Rate Site acetaminophen (Tylenol) tablet 1,000 mg 1,000 mg, Oral, ONCE, 1 dose, On Mon12/13/22 at 0715, Administer on arrival in Same Day Program, Day of Surgery (Day of Procedure), Routine Given 12/13/2022 6:53 AM EDT 1,000 mg celecoxib (CeleBREX) capsule 400 mg 400 mg, [...] Given 12/13/2022 11:27 AM EDT 5 mg warfarin (Coumadin) tablet 5 mg 5 mg, [...] mixed into 500 mL NS as irrigation) MItmygjdxtd-DISOQGDrzet-ovvBTUkmy- ketorolac (MACEY) (2.46 mg-0.005 mg-0.0008 mg-0.3 mg/mL) [...] 0921, Until Mon12/13/22 at 1442, Pain, For Moderate to Severe [...] Routine documented in this encounter Care Teams Grove Worker Relationship Specialty Start Date End Date Jakub Abrams MD [address] [place] [address] PCP - General Family Medicine 04/05/21 10/18/23 documented as of this encounter
--- OUTSIDE RECORDS SUMMARY | 2024-02-21 17:16 | XMS_ITS | Encounter Summary ---
Author Organization Pending [facility] [place] [address] Care Team Providers Care Bulk Driver Name Role Phone Jakub Abrams MD Primary Care Provider [phone] Reason for Referral * Consultation (Routine) - Closed Specialty Diagnoses / Procedures Referred By Louann dawson Referred To Contact General Surgery Diagnoses Primary hyperparathyroidism Eva Hernandez MD [facility] [place] [address] Sussy Moraes MD [facility] [place] [address] Referral ID Status Reason Start Date Expiration Date V isits Requested Visits Authorized [id number] Closed Consult, Test & Treat 07/03/2023 07/02/2024 1 1 * Diagnostic Test (Routine) - Closed Specialty Diagnoses / Procedures Referred By Louann dawson Referred To Contact Radiology Diagnoses Primary hyperparathyroidism Procedures NM Parathyroid w Spect CT & Thyroid Imaging (Leb) Eva Hernandez MD [facility] [place] [address] [place] [address] Referral ID Status Reason Start Date Expiration Date V isits Requested Visits Authorized [id number] Closed Specialty Service Requested 07/03/2023 01/01/2025 1 1 Encounter Details Date Type Department Care Team (Late st Contact Info) Description 07/03/2023 8:30 AM EST Office [place] [address] Eva Hernandez MD [facility] [place] [address] Primary hyperparathyroidism; Hypercalcemia; Hypothyroidism, acquired Social History Tobacco Use Types Packs/Day Years Used Date Smoking Tobacco: Never Smokeless Tobacco: Never Alcohol Use Standard Drinks/Week Comments Not Currently 0 (1 standard drink = 0.6 oz pur e alcohol) occasional [facility] Inpatient Questions Answer Date Recorded Does Anyone [...] Sign Reading Time Taken Comments Blood Pressure 159/98 07/03/2023 7:41 AM EST Pulse 60 07/03/2023 7:41 AM EST Temperature 36.6 ??C (97.8 ??F) 07/03/2023 7:41 AM ES T Respiratory Rate - - Oxygen Saturation 95% 07/03/2023 7:41 AM EST Inhaled Oxygen Concentration - - Weight 91.6 kg (202 lb) 07/03/2023 7:41 AM EST Height 182.9 cm (6') 07/03/2023 7:41 AM EST Body Mass Index 27.4 07/03/2023 7:41 AM EST documented in this encounter Progress Notes * Eva Hernandez MD - 07/03/2023 8:30 AM EST [facility] Endocrinology Clinic Follow up Patient Chief complaint: hypercalcemia, hyperparathyroidism History: Jakub Fuller is a 72 y.o. male with significant PMH of hypothyroidism, ulcerative colitis (not on medications), here for follow up of primary hyperparathyroidism. Last visit with me in 02/2023. Complaining of joint and muscle pain today. Had hip surgery earlier this year. Evaluation thus far consistent with primary hyperparathyroidism with hypercalcuria. Would like to proceed with parathyroidectomy. He has polyuria - urinates every 3 hours, but this has been ongoing for years. Seeing PT for wrist and knee pain. Diagnosed: Found to have hypercalcemia incidentally on blood work - noted on labs from early 2022. Sister may also have a history of hypercalcemia. DEXA: 04/06/2023: [facility] Femoral neck: -1.6 Total hip: -1.1 L1-L4: + 1.3 07/26 radius: -0.5 History of Hyperparathyroidism: yes History of nephrolithiasis: no History of renal disease: no History of vitamin D insufficiency/deficiency: no History of hypercalcemia: yes History of falls/fractures: fractured wrist in 5th grade, had other sports related fractures of hands/leg as an adolescent History of osteoporosis: no Family history of nephrolithiasis: no Family history of hypercalcemia: yes, in sister Family history of osteoporosis: no Family history of fractures: no History of thyroid disease: prescribed for LT4 137 mcg daily Calcium supplement: no Vitamin D supplement: no HCTZ use: no Dairy intake: minimal dairy intake, likes ice cream but hasn't had much of this recently Dental: follows regularly with dentist, does not require major dental work to be done Also with hypothyroidism on Synthroid 137 mcg daily. States that he has gained about 8 lbs in the last month or so, after Thanksgiving. Overall feeling well. Last TSH in 02/2023 within normal limits. Past Medical History: Past Medical History Past Medical History: Diagnosis Date Diverticulitis Hypothyroid Ulcerative colitis Has chronic bleeding with his UC. Past Surgical History: Past Surgical History Past Surgical History: Procedure Laterality Date PRG RADEX HIP UNILATERAL WITH PELVIS MINIMUM 4 VIEWS Left 12/13/2022 HIP INTRAOP RADIOLOGIC EXAMINATION, UNILATERAL, W PELVIS; 4+ VIEWS (WRVU 0.27) performed by Mynor Umaña MD at [facility] MAIN OR PRO ARTHROPLASTY ACETABULAR/PROX FEM PROSTC AGRFT/ALGRFT Left 12/13/2022 TOTAL HIP ARTHROPLASTY, ANTERIOR APPROACH (WRVU 19.6) performed by Mynor Umaña MD at [facility] MAIN OR UMBILICAL HERNIA REPAIR XR FLUORO INJECTION DRAINAGE JOINT LG LEFT Left 04/19/2021 XR Fluoro Guided Joint Injection Large Left 04/19/2021 [facility] RAD XRAY XR FLUORO INJECTION DRAINAGE JOINT LG LEFT Left 05/10/2021 XR Fluoro Guided Joint Injection Large Left 05/10/2021 Keri Dugan MD [facility] RAD XRAY XR FLUORO INJECTION DRAINAGE JOINT LG RIGHT Right 05/10/2021 XR Fluoro Guided Joint Injection Large Right 05/10/2021 Keri Dugan MD [facility] RAD XRAY Medications: Synthroid 137 mcg daily Allergies: Patient has no known allergies. Review of systems: As noted in HPI, all other systems reviewed and negative Patient Vitals for the past 24 hrs: Temp Pulse BP SpO2 07/03/23 0741 36.6 ??C (97.8 ??F) 60 (!) 159/98 95 % Physical Exam: General: No acute distress, well appearing Head: atraumatic, normocephalic Eyes: no proptosis, no erythema Neck: no visible scars or goiter Resp: breathing comfortably; no respiratory distress Psych: AAO x 3; normal affect; memory intact Labs/Imagin05/23/2023: 24 hour urine calcium: 361 mg Latest Reference Range & Units 08/01/22 10:16 12/05/22 13:22 03/13/23 10:05 Sodium 135 - 145 mmol/L 141 137 [...] - 10.5 mg/dL 10.8 (H) 11.3 (H) 10.7 (H) Phosphorus 2.5 - 4.5 mg/dL 2.6 Glucose Lvl 65 - 199 mg/dL 105 120 Total Protein 6.1 - 8.0 g/dL 6.8 Albumin 3.2 - 5.2 g/dL 4.2 Total Bilirubin 0.2 - 1.3 mg/dL 0.3 Alk Phos 40 - 130 unit/L 145 (H) AST 0 - 39 unit/L 19 ALT 0 - 55 unit/L 19 25-OH Vit D Total 21 - 100 ng/mL 31 25-OH Vit D Interp Sufficient (H): Data is abnormally high Latest Reference Range & Units 12/05/22 13:22 03/13/23 10:05 TSH 0.27 - 4.20 mcIU/mL 1.62 PTH 15 - 65 pg/mL 99 (H) 54 (H): Data is abnormally high Assessment and Plan: 72 year old man with mild hypercalcemia 2/2 primary hyperparathyroidism and hypothyroidism 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 Given hypercalciuria, would benefit from endocrine surgery evaluation for potential parathyroidectomy, which he is agreeable to. Recommend Sestamibi scan prior. Referral to endocrine surgery placed. Hypothyroidism, acquired: On LT4 137 mcg daily, TSH at goal. Follow up in 6 months or sooner if needed. Eva Hernandez MD Linux Kernel Engineerbanana expert Endocrinology Section [facility] documented in this encounter Plan of Treatment Scheduled Referrals Name Type Priority Associated Diagnoses Orde r Schedule Referral to General Surgery Outpatient Referral Routine Primary hyperparathyroidism Ordered: 07/03/2023 documented as of this encounter Results * NM Parathyroid w [...] who have questions please contact the health direct care professional that requested your imaging first. ? Narrative [...] patients who have questions please contactthe health direct care professional that requested your imaging first. Eva Hernandez MD G NM ORDERABLES documented in this encounter Visit Diagnoses Diagnosis Primary hyperparathyroidism Hypercalcemia Hypothyroidism, acquired Unspecified hypothyroidism Primary hyperparathyroidism documented in this encounter Care Teams Bulk Driver Relationship Specialty Start Date End Date Jakub Abrams MD [address] [place] [address] [place] [address] PCP - General Family Medicine 04/05/21 10/18/23 documented as of this encounter
--- OUTSIDE RECORDS SUMMARY | 2024-02-21 17:16 | XMS_ITS | Encounter Summary ---
[place] [address] Care Team Providers Care Canvas Goods Supervisor Name Role Phone Jakub Abrams MD Primary Care Provider [phone] Encounter Details Date Type Department Care Team (Latest Contact Info) Description 03/13/2023 Travel Social History Tobacco Use Types Packs/Day [...] on filedocumented in this encounter Care Teams Canvas Goods Supervisor Relationship Specialty Start Date End [place] [address] PCP - General Family Medicine 04/05/21 10/18/23 documented as of this encounter
--- OUTSIDE RECORDS SUMMARY | 2024-02-21 17:16 | XMS_ITS | Encounter Summary ---
[place] [address] Care Team Providers Care Vascular Tech Name Role Phone Jakub Abrams MD Primary Care Provider [phone] Encounter Details Date Type Department Care Team (Latest Contact Info) Description 01/05/2023 2:00 AM EDT Anti-Coag Telephone Visit [facility] Centralized [place] [phone] Jad Montgomery, [facility] S/P total left hip arthroplasty Social History Tobacco Use Types Packs/Day Years Used Date Smoking Tobacco: Never Smokeless Tobacco: Never Alcohol Use Standard Drinks/Week Comments Not Currently 0 (1 standard drink = 0.6 oz pur e alcohol) occasional [facility] Inpatient Questions Answer Date Recorded Does Anyone [...] this encounter Progress Notes * Jad Montgomery [facility] - 01/05/2023 2:00 AM EDT Images from the original note were not included. Anticoagulation Therapy Note Anticoagulation Summary As of 01/05/2023 INR goal: 1.7-2.2 TTR: 0.0 % (2 d) INR used for dosin.5 (01/05/2023) Warfarin maintenance plan: 7.5 mg (5 mg x 1.5) every Mon; 5 mg (5 mg x 1) all other days; Starting 01/05/2023 Weekly warfarin total: 40 mg Plan last modified: Libby Sanchez, [facility] (01/02/2023) Next INR check: 01/09/2023 Target end date: 01/13/2023 Indications s/p Left RAFIQ on 12/13/22 (Dr Umaña) [Z96.642] Anticoagulation Episode Summary INR check location: [facility] Preferred lab: Send INR reminders to: [facility] Comments: [facility] [phone] Anticoagulation Care Providers Provider Role Specialty Phone number Mynor Umaña MD [facility] Orthopaedic Surgery [phone] Patient Assessment Service Type: INR Test Result [...] 9 10 11 12 13 14 15 5 mg See details 16 7.5 mg 17 5 mg 18 5 mg 19 5 mg 20 21 22 23 24 25 26 27 28 29 30 Date Details 01/05 This INR check Date of next INR: 01/09/2023 How to take your warfarin dose To take: 5 mg Take 1 of the 5 mg tablets. To take: 7.5 mg Take 1.5 of the 5 mg tablets. Description 01/05 INR slightly elevated. Last 7 day total of 45mg and plan set to 11% lower at 40mg. 01/02/23: INR in range. Given trend in INR since I will drop tonight dose 5%. Test INR . Left message with BRADLY Mckeon, (Scanned [place] on file), patient was in the store. [...] and warfarin education provided to Jakub verballyand [facility] phone # provided. Give the BID [...] arthroplasty documented in this encounter Care Teams Vascular Tech Relationship Specialty Start Date End Date Jakub Abrams MD [facility] [place] [address] [place] [address] PCP - General Family Medicine 04/05/21 10/18/23 documented as of this encounter
--- OUTSIDE RECORDS SUMMARY | 2024-02-21 17:16 | XMS_ITS | Encounter Summary ---
[place] [address] Care Team Providers Care Optometric Aide Name Role Phone Jakub Abrams MD Primary Care Provider [phone] Encounter Details Date Type Department Care Team (Latest Contact Info) Description 11/14/2022 Travel Social History Tobacco Use Types Packs/Day [...] on filedocumented in this encounter Care Teams Optometric Aide Relationship Specialty Start Date End Date Jakub Abrams MD [address] [place] [address] PCP - General Family Medicine 04/05/21 10/18/23 documented as of this encounter
--- OUTSIDE RECORDS SUMMARY | 2024-02-21 17:16 | XMS_ITS | Encounter Summary ---
[place] [address] Care Team Providers Care Retail Account Representative Name Role Phone Jakub Abrams MD Primary Care Provider [phone] Encounter Details Date Type Department Care Team (Late st Contact Info) Description 09/15/2022 Ancillary Procedure [place] [address] Jakub Abrams MD [address] [place] [address] [place] [address] Social History Tobacco Use Types [...] Diagnosis Comments FILM LIBRARY STORAGE ONLY DX HIP Routine 09/15/2022 12:00 AM EST documented in this encounter Results * Film Library- Storage Only DX Hip (09/15/2022 12:00 AM EST) Narrative ANTWON - 10/18/2022 12:20 PM EDT This exam is auto-finalizing. It's purpose is for storage only. Jakub Abrams MD IMG FILM LIBRARY ORD ERABLES [place], [place] documented in this encounter Visit Diagnoses Not on filedocumented in this encounter Care Teams Retail Account Representative Relationship Specialty Start Date End Date Jakub Abrams MD [address] [place] [address] PCP - General Family Medicine 04/05/21 10/18/23 documented as of this encounter
--- OUTSIDE RECORDS SUMMARY | 2024-02-21 17:16 | XMS_ITS | Encounter Summary ---
Author Organization [facility] Address [facility] [place] [address] Care Team Providers Care Regional Maintenance Manager Name Role Phone Jakub Abrams MD Primary Care Provider [phone] Reason for Visit * Reason Onset Date Comments Questions 02/24/2023 Encounter Details Date Type Department Care Team (Late st Contact Info) Description 02/24/2023 Telephone [place] [id number] Mynor Umaña MD [facility] DR ORTHOPAEDIC [place] [address] Questions Social History Tobacco Use Types Packs/Day Years Used Date Smoking Tobacco: Never Smokeless Tobacco: Never Alcohol Use Standard Drinks/Week Comments Not Currently 0 (1 standard drink = 0.6 oz pur e alcohol) occasional [facility] Inpatient Questions Answer Date Recorded Does [...] encounter Miscellaneous Notes * Telephone Encounter - Jose Palmer, [facility] - 02/24/2023 2:07 PM EDT Called patient back to confirmed it was ok for him to start playing tennis again. Informed him it may be a bit uncomfortable at first and start slow with his activity letting pain be his guided. * Telephone Encounter - Marlo Jain - 02/24/2023 1:51 PM EDT Name of person calling: Jakub Facility person is calling from?: None Was this a new injury? No Have you had Surgery? Yes If so when? 12/13/22 Who was the Surgeon? Dr. Umaña What is the question: Jakub called to clarify with Dr. Umaña that it would be alright to start lightly playing tennis and being active again. Per Dr. Umaña's last note, Continue weightbearingas tolerated and working on range of motion...Patient may return to normal activities as his pain and function allow. Jakub would just like confirmation of this again as he does not want to damage the repair that has been done. Best number to reach the caller: [phone] documented in this encounter Plan of Treatment Not on file documented as of this encounter Visit Diagnoses Not on filedocumented in this encounter Care Teams Regional Maintenance Manager Relationship Specialty Start Date End Date Jakub Abrams MD [address] [place] [address] PCP - General Family Medicine 04/05/21 10/18/23 documented as of this encounter
--- OUTSIDE RECORDS SUMMARY | 2024-02-21 17:16 | XMS_ITS | Encounter Summary ---
Author Organization [facility] [place] [address] Care Team Providers Care Ore Digger Name Role Phone Jakub Abrams MD Primary Care Provider [phone] Encounter Details Date Type Department Care Team (Late st Contact Info) Description 12/05/2022 Notes [place] [address] Sr Won Schultz Social History Tobacco Use Types Packs/Day Years Used Date Smoking Tobacco: Never Smokeless Tobacco: Never Alcohol Use Standard Drinks/Week Comments Not Currently 0 (1 standard drink = 0.6 oz pur e alcohol) occasional [facility] Inpatient Questions Answer Date Recorded [...] as of this encounter Progress Notes * Sr Won Schultz - 12/05/2022 12:38 PM EDT Study Title: Comparative Effectiveness of Pulmonary Embolism Prevention after hip and knee Replacement: Balancing Safety and Effectiveness. Principle Mortgage Protection Sales: Dr. Chasidy Arreguin #: [id number] Visit: Pre-op Date: 12/05/2022 Informed consent for the above entitled study was reviewed with subject -in detail. The details of the study, length of study, and risks were reviewed with subject. Upon review, subject verbalized adequate understanding of the protocol and signed the consent along with me. No study procedures were initiated prior to signing the consent. A copy was provided to subject, and the original consent will be kept with the study chart. Reviewed initial inclusion and exclusion, will continue to review medical history. Subject meets ALL of the inclusion criteria for entry into this clinical trial: 1) Males and females 21 years of age or older 2) Undergoing elective primary, revision, or second stage re-implantation total hip/knee replacement or uni-compartmental knee replacement or hip resurfacing arthoplasty 3) Patient has necessary mental capacity to participate and is able to comply with study protocol requirements 4) Patient is able to be randomized to at least two of the three study prophylaxis regimens 5) A test done on the day of surgery, or other criteria (i.e. Sex or reproductive potential) will be used to ensure the patient is not 6) Patent was approached, offered participation, and signed the consent form 7) Patient is willing to be randomized and participate in the study Subject does NOT meet any exclusion criteria for entry into this clinical trial: 1) Patients undergoing bilateral hip or knee replacement 2) Patient undergoing total hip or knee replacement who has been enrolled in this study for a priorhip or knee replacement. 3) Women who are or , as well as those of reproductive potential unless thereis a negative urine test on the day of surgery. 4) Patients on chronic (longer than the prior 6 months) anticoagulation other than with antiplatelet medications 5) Patient who is concurrently enrolled in another active interventional clinical trial testing a drug or intervention known or believed to interact with aspirin, warfarin, rivaroxaban. 6) Patients with documented gastrointestinal, cerebral, or other hemorrhage within 3 months of the operation 7) Patients with a known diagnosis of defective hemostasis and past history of clinical bleeding requiring transfusion and treatment. 8) Patients who have had an operative procedure involving the eye, ear, or central nervous system within one month 9) Patient with severe uncontrolled hypertension with systolic BP > 220mmHg and diastolic BP > 120mmHg 10) Patient with an absolute body weight of less than 41 kilograms (90.4 lbs) at baseline visit. 11) Vulnerable patient populations including prisoners and institutionalized individuals. Schedule of events were reviewed with the subject. Verbalized understanding of appointment dates and procedures, subject agrees to all. Encouraged to call with any questions/concerns. Subject was reminded that if randomized to Xarelto, they would need to have the prescription [facility]at the [facility] to receive the $75 mathias. documented in this encounter Plan of Treatment Not on file documented as of this encounter Visit Diagnoses Not on filedocumented in this encounter Care Teams Ore Digger Relationship Specialty Start Date End Date Jakub Abrams MD [address] [place] [address] PCP - General Family Medicine 04/05/21 10/18/23 documented as of this encounter
--- OUTSIDE RECORDS SUMMARY | 2024-02-21 17:17 | XMS_ITS | Encounter Summary ---
Author Organization [facility] Address [address] [place] [address] Care Team Providers Care Fitness Instructor Name Role Phone Jakub Amaya MD Primary Care Provider [phone] Encounter Details Date Type Department Care Team (Late st Contact Info) Description 01/19/2021 Lab Requisition [facility] Pathology & Laboratory Medicine - [address] [id number] Outr Resulting Lab, Provider Social History Tobacco Use Types Packs/Day Years Used Date Smoking Tobacco: Never Assessed Sex and Gender Information Value Date Recorded Sex Assigned at Not on file Gender Identity Not on file Sexual Orientation Not on file documented as of this encounter Plan of Treatment Not on file documented as of this encounter Procedures Procedure Name Priority Date/Time Associated Diagnosis Comments PSA TOTAL, DIAGNOSTIC Routine 01/18/2021 9:30 EDT documented in this encounter Results * PSA TOTAL, DIAGNOSTIC (01/18/2021 9:30 EDT) PSA 0.8 0.0 - 4.5 ng/mL 01/19/2021 16:54 EDT [facility] Blood VENOUS BLOOD / Unknown 01/18/2021 9:30 EDT 01/19/2021 16:04 EDT Narrative [facility] - 01/19/2021 16:54 EDT NOTE: Serum PSA concentration should not be interpreted as absolute evidence for the presence or absence of malignant disease. Assayed on Siemens ADVIA ModusPaur XPT using chemiluminescent technology.??Values obtained by using different assay methods cannot be used interchangeably. Provider Outr Resulting Lab CHEMISTRY & BLOOD GAS ORDERABLES [facility] [address] [place] [address] documented in this encounter Visit Diagnoses Not on filedocumented in this encounter Care Teams Fitness Instructor Relationship Specialty Start Date End Date Jakub Amaya MD [address] [place] [address] PCP - General 07/01/09 documented as of this encounter
--- OUTSIDE RECORDS SUMMARY | 2024-02-21 17:17 | XMS_ITS | Encounter Summary ---
Author Organization [facility] [place] [address] Care Team Providers Care Auto Tune Up Mechanic Name Role Phone Jakub Abrams MD Primary Care Provider Reason for Visit * Reason Comments Back Pain new patient visit * Consultation (Routine) - Closed Specialty Diagnoses / Procedures Referred By Contac t Referred To Contact Pain and Sp[facility] Center Diagnoses Primary osteoarthritis of left hip Sciatica pain/ ?spine pathology/ no imaging Klarissa Rizzo PA [facility] [place] [address] [facility] [place] [place] [address] Referral ID Status Reason Start Date Expiration Date V isits Requested Visits Authorized [id number] Closed Pain Consult 04/05/2021 04/05/2022 3 3 Encounter Details Date Type Department Care Team (Late st Contact Info) Description 05/24/2021 8:00 AM EDT Office Visit [place] [address] Judy Bell APRN [facility] [place] [address] Low back pain, non-specific (Primary Dx) Social History Tobacco Use Types Packs/Day Years Used Date Smoking Tobacco: Never Smokeless Tobacco: Never Alcohol Use Standard Drinks/Week Comments Not Currently 0 (1 standard drink = 0.6 oz pur e alcohol) Sex and Gender Information Value Date Recorded Sex Assigned at Not on file Gender Identity Not on file Sexual Orientation Not on file documented as of this encounter Last Filed Vital Signs Vital Sign Reading Time Taken Comments Blood Pressure 134/71 05/24/2021 8:26 AM EDT Pulse 74 05/24/2021 8:26 AM EDT Temperature - - Respiratory Rate - - Oxygen Saturation 97% 05/24/2021 8:26 AM EDT Inhaled Oxygen Concentration - - Weight - - Height - - Body Mass Index - - documented in this encounter Progress Notes * Judy Bell, OUTREACH CONSULTANT - 05/24/2021 8:00 AM EDT [facility] Date of Consultation: May 21, 2021 Referring Provider: Klarissa Rizzo Reason for request of consultation: Back pain and foot numbness Chief Complaint: Back pain and bilateral sole of foot numbness History of Present Illness: Mr. Fuller is a 70 y.o. year-old male who presents to the pain clinic with the above complaint. He was ready for our visit at 825, 25 minutes into the visit. We had a very brief visit secondary to this. He reports he has had back pain for several years. He has had numbness in his feet for 2 years. The pain is central and slightly to the either side. 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 His family is from and his grandfather on the [facility] land He has done physical therapy locally given been given some exercises but has not been doing them. He also uses a inversion table periodically. He notices that when he drives truck and extends his leghe sometimes will get shooting pain down his legs. This occurs daily. He can reduce this by alternating the legs that he drives with. He also notices that he has pain with flexion or bending and he li kes to garden and finds this problematic. He has arthritis in his shoulders and his left hip and had a recent hip injection on the left-hand side. There is PAIN ASSESSMENT: Description: Trouble limbering up after driving Location:middle. Posterior alternating back pain occurs daily, Weakness, numbness, tingling: bilateral sole of feet Saddle Anesthesia: no Alleviating factors: Stretching, change position, Aggravating factors:driving, bending, extending foot Pain today:3/10 Best in past week:3/10 Worst in past week 7-03/02 No flowsheet data found. PAST THERAPIES: Functional Status Work-- drives a truck long garcia ADL's---trouble driving Lives at home alone Current Medications: No outpatient medications have been marked as taking for the 05/24/21 encounter (Appointment) with Judy Bell APRN. Allergies & Adverse Reactions: Patient has no known allergies. Problem List: There is no problem list on file for this patient. Social History: Social History Socioeconomic History ??? Marital status: Spouse name: Not on file ??? Number of children: Not on file ??? Years of education: Not on file ??? Highest education level: Not on file Occupational History ??? 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 Smoking status: Never Smoker ??? Smokeless tobacco: Never Used Vaping Use ??? Vaping Use: Never used Substance and Sexual Activity ??? Alcohol use: Not Currently ??? Drug use: Not on file ??? Sexual activity: Not on file Other Topics Concern ??? Not on file Social History Narrative ??? Not on file Social Determinants of Health Financial Resource Strain: ??? Difficulty of Paying Living Expenses: Not on file Food Insecurity: ??? Worried About Running Out of Food in the Last Year: Not on file ??? Ran Out of Food in the Last Year: Not on file Transportation Needs: ??? Lack of Transportation (Medical): Not on file ??? Lack of Transportation (Non-Medical): Not on file Physical Activity: ??? Days of Exercise per Week: Not on file ??? Minutes of Exercise per Session: Not on file Housing Stability: ??? Unable to Pay for Housing in the Last Year: Not on file ??? Number of Places Lived in the Last Year: Not on file ??? Unstable Housing in the Last Year: Not on file Family History No family history on file. Past Medical History: No past medical history on file. Past Surgical History: Past Surgical History: Procedure Laterality Date ??? XR FLUORO INJECTION DRAINAGE JOINT LG LEFT Left 04/19/2021 XR Fluoro Guided Joint Injection Large Left 04/19/2021 [facility] XRAY ??? XR FLUORO INJECTION DRAINAGE JOINT LG LEFT Left 05/10/2021 XR Fluoro Guided Joint Injection Large Left 05/10/2021 Keri Dugan MD [facility] XRAY ??? XR FLUORO INJECTION DRAINAGE JOINT LG RIGHT Right 05/10/2021 XR Fluoro Guided Joint Injection Large Right 05/10/2021 Keri Dugan MD [facility] XRAY Review of Systems: Denies fever, chills, weight loss, SOB, abdominal pain, leg weakness/numbnes, arm weakness/numbness, bowel or bladder incontinence, balance issues RISK ASSESSMENT: Smoking:no Alcohol:no Physical Exam: No data found. Appearance/ Behavior Well groomed, good eye contact, relaxed, cooperative, normal speech, no acute distress, no involuntary movements Lungs Respirations unlabored Cardiovascular Bilateral lower extremities warm and dry, pulses present and symmetrical Skin No rash, asymmetric hair loss, bruises, scars, swelling Musckuloskeletal Inspection/Palpation/ Range of Motion/Facet Loading maneuvers Gait: Nonantalgic Assistive device: None Heel, toe, heel to toe: Without difficulty, they can balance on each leg without hip drop. Inspection: good alignment, no excessive curvature, shoulder and hip levels equal bilaterally; no skin breakdown ROM: Fair hip range of motio worse on the left than the right where range of motion is full. He hassome discomfort with Kemps maneuver. He has symmetrical reflexes at the knees and ankles, decreasedsensation and vibratory sense in the distal foot particularly on the great toe side. He has normal strength. Imaging & Other Studies: An x-ray of his lumbar spine was ordered today. There is no other imaging. There is no information accompanying the patient Assessment: Mr. Fuller is a 70 y.o. year-old male who presents to the [facility] to his address the above complaints. We discussed an x-ray today of his spine. I gave him information about the lumbar medial branch block and radiofrequency procedure. It was a very brief discussion and I discussed with him that I can just follow-up with him after the x-ray at a separate time on a telehealth visit. I will be happy to follow-up with him at a telehealth visit to review the results of his x-ray and to discussed medial branch blocks and radiofrequency. He might also benefit from an NSAID that is longer acting than ibuprofen such as meloxicam or Celebrex. His primary care provider could certainly open order that in the interim. We frankly did not have enough time to cover most of this as he was late for his visit. Thank you Dr. Rizzo for allowing my participation in Jakub Fuller's care. Judy Bell, MS, AUTOMOTIVE GLASS INSTALLER-BC, OUTREACH CONSULTANT Nurse practitioner Pain management [facility] documented in this encounter Plan of Treatment Not on file documented as of this encounter Visit Diagnoses Diagnosis Low back pain, non-specific- Primary documented in this encounter Care Teams Auto Tune Up Mechanic Relationship Specialty Start Date End Date Jakub Abrams MD [address] [place] [address] PCP - General Family Medicine 04/05/21 10/18/23 documented as of this encounter
--- OUTSIDE RECORDS SUMMARY | 2024-02-21 17:17 | XMS_ITS | Encounter Summary ---
[place] [address] Care Team Providers Care Ratoprinter Name Role Phone Jakub Abrams MD Primary Care Provider [phone] Encounter Details Date Type Department Care Team (Latest Contact Info) Description 08/01/2022 Travel Social History Tobacco Use Types Packs/Day [...] on filedocumented in this encounter Care Teams Ratoprinter Relationship Specialty Start Date End Date Jakub Abrams MD [address] [place] [address] PCP - General Family Medicine 04/05/21 10/18/23 documented as of this encounter
--- OUTSIDE RECORDS SUMMARY | 2024-02-21 17:17 | XMS_ITS | Encounter Summary ---
Author Organization [facility] Address [facility] [place] [address] Care Team Providers Care Set Up Worker Name Role Phone Jakub Abrams MD Primary Care Provider [phone] Encounter Details Date Type Department Care Team (Latest Contact Info) Description 04/05/2021 7:15 AM EDT - 04/05/2021 11:59 PM EDT Hospital Encounter XRay at [address] [place] [address] Darius Mendez MD [facility] [place]OPAED[place] [address] Pain in left hip Discharge Disposition: Home Social History [...] Sig Dispensed Refills Start Date End Date Synthroid 150 mcg Tablet TAKE ONE TABLET BY MOUTH EVERY DAY 02/17/2021 08/01/2022 documented as of this encounter Plan of Treatment Not on file documented as of this encounter Procedures Procedure Name Priority Date/Time Associated Diagnosis Comments XR PELVIS AND HIP 2 VIEWS LEFT Routine 04/05/2021 7:29 AM EDT Pain in left hip documented in this encounter Results * XR Pelvis and Hip 2 Views Left (04/05/2021 7:29 AM EDT) Anatomical Region Laterality Modality Pelvis, Hip Left Digital Radiogra phy Impressions 04/05/2021 8:11 AM EDT Severe left hip osteoarthropathy. Thank you for letting us participate in the care of this patient. ??If you are a health care provider and have any questions regarding this report, please contact the number below. ??For patients who have questions please contact the health care coordination manager that requested your imaging first. ? Electronically signed by: Brayan Zuniga MD, [facility] ([phone]), at 04/05/2021 8:11 AM Narrative 04/05/2021 8:11 AM EDT EXAMINATION: XR PELVIS AND HIP 2 VIEWS LEFT CLINICAL HISTORY: left hip pain TECHNIQUE: 3 views of the pelvis and hips COMPARISON: None FINDINGS: No displaced pelvic fracture. There is degenerative change at the lower lumbar spine, particularly at L4-L5. No fracture of the left hip. There is subchondral cystic change, osteophytes with severe superior joint space narrowing. Procedure Note Brayan Zuniga MD - 04/05/2021 EXAMINATION: XR PELVIS AND HIP 2 VIEWS LEFT CLINICAL HISTORY: left hip pain TECHNIQUE: 3 views of the pelvis and hips COMPARISON: None FINDINGS: No displaced pelvic fracture. There is degenerative change at the lowerlumbar spine, particularly at L4-L5. No fracture of the left hip. There issubchondral cystic change, osteophytes with severe superior joint space narrowing. IMPRESSION Severe left hip osteoarthropathy. Thank you for letting us participate in the care of this patient. If youare a health care provider and have any questions regarding this report,please contact the number below. For patients who have questions please contactthe health care coordination manager that requested your imaging first. Electronically signed by: Brayan Zuniga MD, [facility]([phone]), at 04/05/2021 8:11 AM Darius eMndez MD IMG DX ORDERABLES documented in this encounter Visit Diagnoses Diagnosis Pain in left hip Pain in joint, pelvic region and thigh documented in this encounter Care Teams Set Up Worker Relationship Specialty Start Date End Date Jakub Abrams MD [address] [place] [address] PCP - General Family Medicine 04/05/21 10/18/23 documented as of this encounter
--- OUTSIDE RECORDS SUMMARY | 2024-02-21 17:17 | XMS_ITS | Encounter Summary ---
Author Organization [facility] Address [address] [place] [address] Care Team Providers Care Boarding Machine Operator Name Role Phone Jakub Amaya MD Primary Care Provider [phone] Encounter Details Date Type Department Care Team (Late st Contact Info) Description 03/07/2022 Lab Requisition [facility] Pathology & Laboratory Medicine - [facility] [address] [place] [address] Cony Salcido MD [address] [place] [address] [address] [place], [place] [id number] Encounter for other general examination Social History Tobacco Use Types Packs/Day Years Used Date Smoking Tobacco: Never Assessed Sex and Gender Information Value Date Recorded Sex Assigned at Not on file Gender Identity Not on file Sexual Orientation Not on file documented as of this encounter Plan of Treatment Not on file documented as of this encounter Procedures Procedure Name Priority Date/Time Associated Diagnosis Comments SURGICAL PATHOLOGY Today 03/07/2022 12 :36 EDT Encounter for other general examination documented in this encounter Results * SURGICAL PATHOLOGY (03/07/2022 12:36 EDT) Note to Patient The following pathology results have been interpreted by your pathologist and may be available to you before your health provider has had the opportunity to review them. Please allow time for your provider to receive these results and explore management options, if applicable. 03/09/2022 16:23 EDT [facility] Final Diagnosis A. DUODENUM, BIOPSY: - Consistent with peptic duodenitis. B. STOMACH, ANTRUM, BIOPSY: - Oxyntic-type mucosa with no significant diagnostic abnormality. - Separate superficial fragments of foveolar epithelium. C. GASTROESOPHAGEAL JUNCTION, BIOPSY: - Reactive squamocolumnar mucosa. - Negative for intestinal metaplasia. - Negative for dysplasia. D. COLON, DESCENDING, POLYP, BIOPSY: - Tubular adenoma. E. COLON, TRANSVERSE, POLYP, BIOPSY: - Tubular adenoma. F. COLON, SIGMOID, BIOPSY: - Moderate active chronic colitis. See comment. - Negative for granulomas. G. COLON, SIGMOID, POLYPS X2, BIOPSY: - Inflammatory-type polyp. - Hyperplastic polyp. 03/09/2022 16:23 [facility] Diagnosis Comment The differential diagnosis includes infection, diverticular disease-associated colitis, and inflammatory bowel disease. Clinical correlation is required. Historian [employer] slides of this case were reviewed at the gastrointestinal/[facility] intradepartmental consultation conference.(AA,) 03/09/2022 16:23 [facility] Attestation By the signature below, the attending physician certifies that they have 1) personally conducted a gross and/or microscopic examination of the described specimen(s), and/or personally interpreted the results of laboratory testing of the described specimen(s), and 2) personally rendered or confirmed the above diagnosis. 03/09/2022 16:23 [facility] at 1623 Clinical History GERD, rectal bleeding 03/09/2022 16:23 [facility] Gross Description A. Received in formalin labelled with proper patient identification (initials G, J) and duodenum bx are two rollins tissues (0.4 x 0.1 x 0.1 cm and 0.3 x 0.1 x 0.1 cm). Entirely submitted in A1. B. Received in formalin labelled with proper patient identification (initials G, J) and antrum bx is a single rollins tissue fragment (0.5 x 0.1 x 0.1 cm). Submitted intact in B1. C. Received in formalin labelled with proper patient identification (initials G, J) and GE junction bx is a single rollins tissue fragment (0.3 x 0.1 x 0.1 cm). Submitted intact in C1. D. Received in formalin labelled with proper patient identification (initials G, J) and descending colon polyp is a single rollins tissue fragment (0.5 x 0.4 x 0.2 cm). Submitted intact in D1. E. Received in formalin labelled with proper patient identification (initials G, J) and transverse colon polyp is a single rollins tissue fragment (0.4 x 0.1 x 0.1 cm). Submitted intact in E1. F. Received in formalin labelled with proper patient identification (initials G, J) and sigmoid bx is a single rollins focally brown tissue fragment (0.3 x 0.1 x 0.1 cm). Submitted intact in F1. G. Received in formalin labelled with proper patient identification (initials G, J) and sigmoid polyp x 2 are two rollins tissues (0.3 x 0.1 x 0.1 cm and 0.1 x 0.1 x 0.1 cm). Entirely submitted in G1. CARLOS NUNES 03/08/2022 8:26 03/09/2022 16:23 EDT [facility] Performing Lab [facility] 03/09/2022 16:23 EDT [facility] Scanned Images 03/09/2022 16:23 EDT [facility] Tissue ENTIRE SIGMOID COLON / Unknown 03/07/2022 12:36 EDT 03/07/2022 22:25 EDT Tissue specimen (specimen) STOMACH STRUCTURE / Unknown 03/07/2022 12:36 EDT 03/07/2022 22:25 EDT Tissue specimen (specimen) ESOPHAGEAL STRUCTURE / Unknown 03/07/2022 12:36 EDT 03/07/2022 22:25 EDT Tissue specimen (specimen) DESCENDING COLON STRUCTURE / Unknown 03/07/2022 12:36 EDT 03/07/2022 22:25 EDT Tissue specimen (specimen) TRANSVERSE COLON STRUCTURE / Unknown 03/07/2022 12:36 EDT 03/07/2022 22:25 EDT Tissue specimen (specimen) SIGMOID COLON STRUCTURE / Unknown 03/07/2022 12:36 EDT 03/07/2022 22:25 EDT Tissue specimen (specimen) SIGMOID COLON STRUCTURE / Unknown 03/07/2022 12:36 EDT 03/07/2022 22:25 EDT Cony Salcido MD PATHOLOGY YESSI DESAI [facility] [address] [place] [address] documented in this encounter Visit Diagnoses Diagnosis Encounter for other general examination documented in this encounter Care Teams Boarding Machine Operator Relationship Specialty Start Date End Date Jakub Amaya MD [address] [place] [address] PCP - General 07/01/09 documented as of this encounter
--- OUTSIDE RECORDS SUMMARY | 2024-02-21 17:17 | XMS_ITS | Encounter Summary ---
Author Organization [facility] Address [address] [place] [address] Care Team Providers Care Field Return Repairer Name Role Phone Jakub Amaya MD Primary Care Provider [phone] Encounter Details Date Type Department Care Team (Late st Contact Info) Description 05/24/2023 Lab Requisition [facility] Pathology & Laboratory Medicine - [address] [address] Outr Resulting Lab, Provider Social History Tobacco [...] Procedure Name Priority Date/Time Associated Diagnosis Comments CALCIUM, URINE 24HR Routine 05/24/2023 7:37 EDT documented in this encounter Results * (ABNORMAL) CALCIUM, URINE 24HR (05/24/2023 7:37 EDT) Calcium, Urine 11.1 See Note mg/dL 05/25/2023 9:02 [facility] Comment: NOTE: Reference range not established Calcium, Urine 24 hr 361(H) 100 - 300 mg/24hr 05/25/2023 9:02 [facility] Comment:Reference range assu mes a normal daily intake of calcium between 600 - 800 mg/day. Urine Volume 3,250 mL 05/25/2023 9:02 [facility] Urine Collection Period 23.0 Hours 05/25/2023 9:02 EDT [facility] Urine 24 HOUR URINE SPECIMEN / Unknown 05/24/2023 7:37 EDT 05/24/2023 22:13 EDT Provider Outr Resulting Lab URINALYSIS O RDERABLES Performing Organization Address City/State/[facility] Co de Phone Number [facility] [address] [place] [address] documented in this encounter Visit Diagnoses Not on filedocumented in this encounter Care Teams Field Return Repairer Relationship Specialty Start Date End Date Jakub Amaya MD [address] [place] [address] PCP - General 07/01/09 documented as of this encounter
--- OUTSIDE RECORDS SUMMARY | 2024-02-21 17:17 | XMS_ITS | Encounter Summary ---
[place] [address] Care Team Providers Care Supervisor Livestock Yard Name Role Phone Jakub Abrams MD Primary Care Provider [phone] Encounter Details Date Type Department Care Team (Late st Contact Info) Description 03/30/2021 [place] [phone] Klarissa Rizzo PA [facility] [address] [place] [address] Social History Tobacco Use Types Packs/Day Years Used Date Smoking Tobacco: Never Assessed Sex and Gender Information Value Date Recorded Sex Assigned at Not on file Gender Identity Not on file Sexual Orientation Not on file documented as of this encounter Plan of Treatment Not on file documented as of this encounter Visit Diagnoses Not on filedocumented in this encounter Care Teams Supervisor Livestock Yard Relationship Specialty Start Date End Date Jakub Abrams MD [address] [place] [address] [place] [id number] PCP - General Family Medicine 04/05/21 10/18/23 documented as of this encounter
--- OUTSIDE RECORDS SUMMARY | 2024-02-21 17:17 | XMS_ITS | Encounter Summary ---
Author Organization [facility] Address [address] [place] [address] Care Team Providers Care Cash Teller Name Role Phone Jakub Amaya MD Primary Care Provider Encounter Details Date Type Department Care Team (Late st Contact Info) Description 06/26/2019 Lab Requisition [facility] Pathology & Laboratory Medicine - [facility] [address] [place] [address] Unknown, Provider, Social History Tobacco Use Types Packs/Day Years Used Date Smoking Tobacco: Never Assessed Sex and Gender Information Value Date Recorded Sex Assigned at Not on file Gender Identity Not on file Sexual Orientation Not on file documented as of this encounter Plan of Treatment Not on file documented as of this encounter Procedures Procedure Name Priority Date/Time Associated Diagnosis Comments LYME AB Routine 06/25/2019 9:25 EST ZZLYME IMMUNOBLOT CONFIRMATION Today 06/25/2019 9:25 EST documented in this encounter Results * LYME IMMUNOBLOT CONFIRMATION (06/25/2019 9:25 EST) Lyme IGG ImmunoBlot Negative Negative 07/02/2019 14:33 EST [facility] Lyme IGG Bands p45 07/02/2019 14:33 EST [facility] Lyme IgM ImmunoBlot Negative Negative 07/02/2019 14:33 [facility] Lyme IGM Band(s) No Bands Detected 07/02/2019 14:33 EST [facility] Lyme Immunoblot Interpretation See Comment 07/02/2019 14:33 [facility] Blood VENOUS BLOOD / Unknown 06/25/2019 9:25 EST 06/26/2019 16:03 EST Narrative [facility] - 07/02/2019 14:33 EST Specific serologic response to B. burgdorferi infection is not detected. ??This may indicate lack of infection, lack of seroconversion or low/undetectable antibody levels to B. burgdorferi. ??If clinically indicated, a new serum specimen should be submitted in 7-14 days. CDC criteria require greater than or equal to the presence of 5 bands for IgG or greater than or equal to 2 bands for IgM for the Immunoblot to be considered positive. Bands may be detected in patients without Lyme Disease. Patterns not meeting CDC criteria should be interpreted with caution. ??Per CDC guidelines, Immunoblot testing should only be performed on specimens that are positive or equivocal by Immunoassay. Performing only the Immunoblot increases the possibility of false positive results. Results should be considered positive only when both the Immunoassay and the Immunoblot are positive. Provider Unknown IMMUNOLOGY AND SEROL OGY ORDERABLES Performing Organization Address City/[facility]/ZIP Co de Phone Number [facility] [address] [place] [address] * (ABNORMAL) LYME AB (06/25/2019 9:25 EST) Lyme Ab Equivocal (A) Negative 06/27/2019 14:23 EST [facility] Comment: Lyme Immunoblot confirmation added by reflex. Lyme Immunoblot confirmation added by reflex. Blood VENOUS BLOOD / Unknown 06/25/2019 9:25 EST 06/26/2019 16:03 EST Provider Unknown IMMUNOLOGY AND SEROL OGY ORDERABLES [facility] [address] [place] [address] documented in this encounter Visit Diagnoses Not on filedocumented in this encounter Care Teams Cash Teller Relationship Specialty Start Date End Date Jakub Amaya MD [address] [place] [address] PCP - General 07/01/09 documented as of this encounter
--- OUTSIDE RECORDS SUMMARY | 2024-02-21 17:17 | XMS_ITS | Encounter Summary ---
Author Organization [facility] Address [address] [place] [address] Care Team Providers Care Home Appraiser Name Role Phone Jakub Amaya MD Primary Care Provider [phone] Encounter Details Date Type Department Care Team (Late st Contact Info) Description 06/06/2023 Lab Requisition [facility] Pathology & Laboratory Medicine - [facility] [address] [place] [address] Outr Resulting Lab, Provider Social History Tobacco [...] Date/Time Associated Diagnosis Comments LYME AB Routine 06/05/2023 15:55 EST documented in this encounter Results * LYME AB (06/05/2023 15:55 EST) Lyme Ab Negative Negative 06/07/2023 10:26 EST [facility] Blood VENOUS BLOOD / Unknown 06/05/2023 15:55 EST 06/06/2023 17:51 EST Provider Outr Resulting Lab IMMUNOLOGY A ND SEROLOGY ORDERABLES [facility] [address] [place] [address] documented in this encounter Visit Diagnoses Not on filedocumented in this encounter Care Teams Home Appraiser Relationship Specialty Start Date End Date Jakub Amaya MD [address] [place] [address] PCP - General 07/01/09 documented as of this encounter
--- OUTSIDE RECORDS SUMMARY | 2024-02-21 17:17 | XMS_ITS | Encounter Summary ---
Author Organization [facility] Address [address] [place] [address] Care Team Providers Care Bowling Ball Marker Name Role Phone Jakub Amaya MD Primary Care Provider [phone] Encounter Details Date Type Department Care Team (Late st Contact Info) Description 07/28/2019 Lab Requisition [facility] Pathology & Laboratory Medicine - [facility] [address] [place] [address] Unknown, Provider, Social History Tobacco Use Types [...] Associated Diagnosis Comments PSA TOTAL, DIAGNOSTIC Routine 07/26/2019 16:54 EST documented in this encounter Results * PSA TOTAL, DIAGNOSTIC (07/26/2019 16:54 EST) PSA 0.5 0.0 - 4.5 ng/mL 07/29/2019 10:38 EST [facility] Blood VENOUS BLOOD / Unknown 07/26/2019 16:54 EST 07/28/2019 15:45 EST Narrative [facility] - 07/29/2019 10:38 EST NOTE: Serum PSA concentration should not be interpreted as absolute evidence for the presence or absence of malignant disease. Assayed on Siemens ADVIA Angry Citizenaur XPT using chemiluminescent technology.??Values obtained by using different assay methods cannot be used interchangeably. Provider Unknown CHEMISTRY & BLOOD GA S ORDERABLES [facility] [address] [place] [address] documented in this encounter Visit Diagnoses Not on filedocumented in this encounter Care Teams Bowling Ball Marker Relationship Specialty Start Date End Date Jakub Amaya MD [address] [place] [phone] PCP - General 07/01/09 documented as of this encounter
--- OUTSIDE RECORDS SUMMARY | 2024-02-21 17:17 | XMS_ITS | Encounter Summary ---
Author Organization [facility] Address [facility] [place] [address] Care Team Providers Care Stack Attendant Name Role Phone None Primary Care Provider Unavailabl e Encounter Details Date Type Department Care Team (Late st Contact Info) Description 03/30/2021 Orders Only Orthopaedics at [facility] [place] [address] Klarissa Rizzo PA [facility] [place] [address] Pain in left hip Social History Tobacco Use Types Packs/Day Years Used Date Smoking Tobacco: Never Assessed Sex and Gender Information Value Date Recorded Sex Assigned at Not on file Gender Identity Not on file Sexual Orientation Not on file documented as of this encounter Progress Notes * Klarissa Rizzo PA - 03/30/2021 3:49 PM EDT I have reviewed Jakub Fuller chart and it is my medical opinion that XR images will need to be obtained to properly evaluate the patient's concerns. Klarissa BROWNC documented in this encounter Plan of Treatment [...] who have questions please contact the health spiritual care coordinator that requested your imaging first. ? Narrative 04/05/2021 8:11 AM EDT EXAMINATION: XR [...] patients who have questions please contactthe health spiritual care coordinator that requested your imaging first. Darius Mendez MD IMG DX ORDERABLES documented in this encounter Visit Diagnoses Diagnosis Pain in left hip Pain in joint, pelvic region and thigh Pain in left hip Pain in joint, pelvic region and thigh documented in this encounter Care Teams Stack Attendant Relationship Specialty Start Date End Date None None PCP - General 04/24/14 04/04/21 documented as of this encounter
--- OUTSIDE RECORDS SUMMARY | 2024-02-21 17:17 | XMS_ITS | Encounter Summary ---
[place] [address] Care Team Providers Care Machine Welder Name Role Phone Jakub Abrams MD Primary Care Provider [phone] Encounter Details Date Type Department Care Team (Latest Contact Info) Description 08/01/2022 9:45 AM EST Laboratory Appointment Lab [address] [place] [id number] Ulcerative proctosigmoiditis, with rectal bleeding Social History Tobacco Use Types Packs/Day Years [...] Name Priority Date/Time Associated Diagnosis Comments HC FECAL CALPROTECTIN Routine 08/01/2022 10:20 AM EST Ulcerative proctosigmoiditis, with rectal bleeding HC VENIPUNCTURE Routine 08/01/2022 10:16 AM EST Ulcerative proctosigmoiditis, with rectal bleeding HEMOGRAM Routine 08/01/2022 10:16 AM EST Ulcerative proctosigmoiditis, with rectal bleeding DIFFERENTIAL, AUTOMATED Routine 08/01/2022 10:16 AM EST Ulcerative proctosigmoiditis, with rectal bleeding HC CBC,PLT & AUTO DIFF Routine 01/09/202 3 10:16 AM EST Ulcerative proctosigmoiditis, with rectal bleeding COMPREHENSIVE METABOLIC PANEL (NON-FASTING) Routine 08/01/2022 10:16 AM EST Ulcerative proctosigmoiditis, with rectal bleeding documented in this encounter Results * (ABNORMAL) Calprotectin, Stool (08/01/2022 10:20 AM EST) Pathologist [facility] [place] Calprotectin, Stool 591(H) <=79 mcg/g [facility] Comment: Calprotectin Concentration ? Interpretation ? < 80 mcg/g ?Normal ? 80 ? 160 mcg/g ?Borderline ? >160 mcg/g ?Elevated Stool 08/01/2022 10:2 0 AM EST 08/01/2022 10:45 AM EST Narrative Resulting Agency Comment Spec In Lab Elkin Sanchez MD CHEMISTRY ORDERAB LES [facility] [place] [address] * (ABNORMAL) Differential, Automated (08/01/2022 10:16 AM EST) Pathologist [facility] [place] Neutrophils % 56.3 % [facility] Neutr Abs (ANC) 3.78 1.70 - 6.10 x10(3)/mc L [facility] Lymphocytes % 24.4 % [facility] Lymphocytes Abs 1.6 0.9 - 3.2 x10(3)/mc L [facility] Monocytes % 10.3 % [facility] Monocyte Abs 0.7 0.3 - 0.9 x10(3)/mc L [facility] Eosinophils % 7.2 % [facility] Eosinophils Abs 0.5(H) 0.0 - 0.4 x10(3)/[facility] Basophils % 1.5 % [facility] Basophils Abs 0.1 0.0 - 0.1 x10(3)/[facility] Immature Gran % 0.30 % [facility] Comment: Immature granulocytes(IG's)percentage and absolute count will include metamyelocytes, myelocytes, and promyelocytes. Blood smears from CBCs yielding IG's will be scanned manually for concordance. If this scan disagrees with the automated IG or if promyelocytes are noted, a manual differential will be performed. Vonda Gran Abs 0.02 0.00 - 0.04 x10(3)/[facility] Blood 08/01/2022 10:1 6 AM EST 08/01/2022 10:30 AM EST Narrative Resulting Agency Comment Spec In Lab Elkin Sanchez MD HEMATOLOGY ORDERA BLES [facility] [place] [address] * (ABNORMAL) Hemogram (08/01/2022 10:16 AM EST) WBC 6.7 4.0 - 9.5 x10(3)/[facility] RBC 4.76 4.58 - 5.54 x10(6)/[facility] Hemoglobin 14.6 13.7 - 16.5 g/dL [facility] Hematocrit 44.7 40.5 - 48.5 % [facility] MCV 93.9(H) 82.9 - 93.1 fL [facility] MCH 30.7 27.5 - 32.1 pg [facility] MCHC 32.7 32.0 - 35.7 g/dL [facility] Platelets 283 145 - 357 x10(3)/[facility] RDWSD 48.2(H) 36.0 - 45.0 fL [facility] RDWCV 13.9(H) 11.4 - 13.8 % [facility] MPV 9.2 7.6 - 12.9 fL [facility] nRBC % Auto 0.0 % [facility] nRBC Abs Auto 0.000 0.000 - 0.000 x10(3)/mcL [facility] Blood 08/01/2022 10:1 6 AM EST 08/01/2022 10:30 AM EST Narrative Resulting Agency Comment Spec In Lab Elkin Sanchez MD HEMATOLOGY ORDERA BLES [facility] [place] [address] * (ABNORMAL) Comprehensive metabolic panel (non-fasting) (08/01/2022 10:16 AM EST) Glucose Lvl 105 65 - 199 mg/dL [facility] Comment:Diabetes: >=200 mg/d L plus symptoms BUN 15 10 - 20 mg/dL [facility] Creatinine 1.20 0.80 - 1.50 mg/dL [facility] Sodium 141 135 - 145 mmol/L [facility] Potassium 5.2(H) 3.5 - 5.0 mmol/L [facility] Comment: Please note: ??Patients with WBC >100,000 may have falsely elevated Potassium levels. ??For accurate Potassium quantification in these patients send serum separator tube (gold top) for subsequent determinations. ??Contact the Clinical Chemistry Laboratory if there are any questions. Chloride 106 98 - 107 mmol/L [facility] CO2 27 22 - 31 mmol/L [facility] Anion Gap 8 5 - 15 mmol/L [facility] Calcium 10.8(H) 8.5 - 10.5 mg/dL [facility] Total Protein 6.8 6.1 - 8.0 g/dL [facility] Albumin 4.2 3.2 - 5.2 g/dL [facility] AST 19 0 - 39 unit/L [facility] ALT 19 0 - 55 unit/L [facility] Alk Phos 145(H) 40 - 130 unit/L [facility] Total Bilirubin 0.3 0.2 - 1.3 mg/dL [facility] Estimated GFR 65 >=60 mL/min/1. 73 m?? [facility] Comment: This patient's estimated GFR [...] and symptoms in addition to eGFR. Blood 08/01/2022 10:1 6 AM EST 08/01/2022 10:30 AM EST Narrative Resulting Agency Comment Spec In Lab Elkin Sanchez MD CHEMISTRY ORDERAB LES Performing Organization Address [facility] Co de Phone Number [facility] [place] [address] * CRP, acute inflammation (08/01/2022 10:16 AM EST) CRP <3.0 <=4.9 mg/L [facility] Blood 08/01/2022 10:1 6 AM EST 08/01/2022 10:30 AM EST Narrative Resulting Agency Comment Spec In Lab Elkin Sanchez MD CHEMISTRY ORDERAB LES Performing Organization Address [facility]/ZIP Co de Phone Number [facility] [place] [address] documented in this encounter Visit Diagnoses Diagnosis Ulcerative proctosigmoiditis, with rectal bleeding documented in this encounter Care Teams Machine Welder Relationship Specialty Start Date End Date Jakub Abrams MD [address] [place] [address] PCP - General Family Medicine 04/05/21 10/18/23 documented as of this encounter
--- OUTSIDE RECORDS SUMMARY | 2024-02-21 17:17 | XMS_ITS | Encounter Summary ---
Author Organization [facility] [place] [address] Care Team Providers Care Geospatial Information Technologist Name Role Phone Jakub Abrams MD Primary Care Provider [phone] Encounter Details Date Type Department Care Team (Latest Contact Info) Description 05/24/2021 8:56 AM EDT - 05/24/2021 11:59 PM EDT Hospital Encounter XRay at [address] [place] [address] Judy Bell, BLUNGER MACHINE OPERATOR [facility] [place] [address] Low back pain, non-specific Discharge Disposition: Home Social History Tobacco Use [...] Sig Dispensed Refills Start Date End Date ibuprofen (Advil) 200 mg Tablet Take 400 mg by mouth as needed for Pain. 12/05/2022 Synthroid 150 mcg Tablet TAKE ONE TABLET BY MOUTH EVERY DAY 02/17/2021 08/01/2022 documented as of this encounter Plan of Treatment Not on file documented as of this encounter Procedures Procedure Name Priority Date/Time Associated Diagnosis Comments XR LUMBAR SPINE MIN 4 VIEW Routine 05/24/2021 9:24 AM EDT Low back pain, non-specific documented in this encounter Results * XR Lumbar Spine Min 4 view (05/24/2021 9:24 AM EDT) Anatomical Region Laterality Modality L-spine N/A Digital Radiogra phy Impressions 05/24/2021 11:03 AM EDT 1. Multilevel lumbar spondylosis and facet osteoarthropathy with mild dynamic instability at L4-5. Remaining levels of spondylolisthesis and no radiographic finding of instability. 2. Mild posterior height loss of L5 vertebral body may be on the basis of the spondylosis and spondylolisthesis. No pathologic fracture. 3. Pseudoarticulation of spinous processes is nonspecific but could correspond with symptoms of Baastrup's disease in the appropriate clinical setting. Thank you for letting us participate in the care of this patient. ??If you are a health care provider and have any questions regarding this report, please contact the number below. ??For patients who have questions please contact the health acute care nurse practitioner that requested your imaging first. ? Electronically signed by: Sara Merritt MD, [facility] ([phone]), at 05/24/2021 11:03 AM Narrative 05/24/2021 11:03 AM EDT EXAMINATION: XR LUMBAR SPINE MIN 4 VIEW CLINICAL HISTORY: ap and lateral and flexion views TECHNIQUE: AP, lateral neutral, flexion and extension views of the lumbar spine (4 images) COMPARISON: None FINDINGS: There are 5 nonrib-bearing lumbar vertebral bodies. There is mild posterior height loss of L5 without displaced fracture. Remaining bones are intact with preserved intervertebral body height. Intervertebral disc height loss is accompanied by large endplate osteophytes throughout lumbar spine. Facet joint narrowing with osteophytes and sclerosis is greatest L3-S1. There is mild levoconvex curvature centered at L2. There is pseudoarticulation at the L3-4 spinous processes with small marginal sclerosis. No lateral listhesis. Dynamic exam: Neutral: 6 mm retrolisthesis L2 on L3; 7 mm anterolisthesis of L5 on S1 Flexion: 6 mm retrolisthesis L2 on L3; 3 mm retrolisthesis L4 on L5; 6 mm anterolisthesis of L5 on S1 Extension: 3 mm retrolisthesis L1 on L2; 6 mm retrolisthesis L2 on L3; 5 mm retrolisthesis L4 on L5; 7 mm anterolisthesis of L5 on S1 Spacing and alignment are preserved at the sacroiliac joints and pubic symphysis. Superior left hip joint space narrowing is partially imaged. Aside from atherosclerotic aortic calcifications, no focal soft tissue abnormality. Procedure Note Sara Merritt MD - 05/24/2021 EXAMINATION: XR LUMBAR SPINE MIN 4 VIEW CLINICAL HISTORY: ap and lateral and flexion views TECHNIQUE: AP, lateral neutral, flexion and extension views of the lumbar spine (4images) COMPARISON: None FINDINGS: There are 5 nonrib-bearing lumbar vertebral bodies. There is mildposterior height loss of L5 without displaced fracture. Remaining bones are intactwith preserved intervertebral body height. Intervertebral disc height loss is accompanied by large endplateosteophytes throughout lumbar spine. Facet joint narrowing with osteophytes andsclerosis is greatest L3-S1. There is mild levoconvex curvature centered at L2. Thereis pseudoarticulation at the L3-4 spinous processes with small marginalsclerosis. No lateral listhesis. Dynamic exam: Neutral: 6 mm retrolisthesis L2 on L3; 7 mm anterolisthesis of L5 on S1 Flexion: 6 mm retrolisthesis L2 on L3; 3 mm retrolisthesis L4 on L5; 6mm anterolisthesis of L5 on S1 Extension: 3 mm retrolisthesis L1 on L2; 6 mm retrolisthesis L2 on L3; 5mm retrolisthesis L4 on L5; 7 mm anterolisthesis of L5 on S1 Spacing and alignment are preserved at the sacroiliac joints and pubic symphysis. Superior left hip joint space narrowing is partially imaged.Aside from atherosclerotic aortic calcifications, no focal soft tissueabnormality. IMPRESSION 1. Multilevel lumbar spondylosis and facet osteoarthropathy with milddynamic instability at L4-5. Remaining levels of spondylolisthesis and noradiographic finding of instability. 2. Mild posterior height loss of L5 vertebral body may be on the basis ofthe spondylosis and spondylolisthesis. No pathologic fracture. 3. Pseudoarticulation of spinous processes is nonspecific but couldcorrespond with symptoms of Baastrup's disease in the appropriate clinical setting. Thank you for letting us participate in the care of this patient. If youare a health care provider and have any questions regarding this report,please contact the number below. For patients who have questions please contactthe health acute care nurse practitioner that requested your imaging first. Electronically signed by: Sara Merritt MD, [facility]([phone]), at 05/24/2021 11:03 AM Judy Bell BLUNGER MACHINE OPERATOR IMG DX ORDERABLES documented in this encounter Visit Diagnoses Diagnosis Low back pain, non-specific documented in this encounter Care Teams Geospatial Information Technologist Relationship Specialty Start Date End Date Jakub Abrams MD [address] [place] [address] PCP - General Family Medicine 04/05/21 10/18/23 documented as of this encounter
--- OUTSIDE RECORDS SUMMARY | 2024-02-21 17:17 | XMS_ITS | Encounter Summary ---
Author [place] [address] Care Team Providers Care Supervisor Maintenance And Custodians Name Role Phone Jakub Abrams MD Primary Care Provider [phone] Encounter Details Date Type Department Care Team (Latest Contact Info) Description 07/25/2022 Travel Social History Tobacco Use Types Packs/Day [...] filedocumented in this encounter Care Teams Supervisor Maintenance And Custodians Relationship Specialty Start Date End Date Jakub Abrams MD [address] [place] [address] PCP - General Family Medicine 04/05/21 10/18/23 documented as of this encounter
--- OUTSIDE RECORDS SUMMARY | 2024-02-21 17:17 | XMS_ITS | Encounter Summary ---
Author Organization [facility] Address [facility] [place] [address] Care Team Providers Care Drivability Technician Name Role Phone Jakub Abrams MD Primary Care Provider [phone] Reason for Referral * Diagnostic Test (Routine) - Closed Specialty Diagnoses / Procedures Referred By Contac t Referred To Contact Radiology Diagnoses Primary osteoarthritis of left hip Procedures XR Fluoro Guided Joint Injection Large Left Klarissa Rizzo PA [facility] [place] [address] [facility] [address] [place] [address] [place] [address] Referral ID Status Reason Start Date Expiration Date V isits Requested Visits Authorized [id number] Closed Specialty Service Requested 04/05/2021 10/03/2022 1 1 Reason for Visit * Diagnostic Test (Routine) - Closed Specialty Diagnoses / Procedures Referred By Contac t Referred To Contact Radiology Diagnoses Primary osteoarthritis of left hip Procedures XR Fluoro Guided Joint Injection Large Left Klarissa Rizzo PA [facility] [place] [address] [facility] [address] [place] [address] [place] [address] Referral ID Status Reason Start Date Expiration Date V isits Requested Visits Authorized [id number] Closed Specialty Service Requested 04/05/2021 10/03/2022 1 1 Encounter Details Date Type Department Care Team (Latest Contact Info) Description 04/19/2021 9:56 AM EDT - 04/19/2021 11:59 PM EDT Hospital Encounter XRay at [address] [place] [address] Sana Rosado MD [facility] [place] [address] Primary osteoarthritis of left hip Discharge Disposition: [...] Name Priority Date/Time Associated Diagnosis Comments XR FLUORO INJECTION DRAINAGE JOINT LG LEFT Routine 04/19/2021 10:38 AM EDT Primary osteoarthritis of left hip documented in this encounter Results * XR Fluoro Guided Joint Injection Large Left (04/19/2021 10:38 AM EDT) Anatomical Region Laterality Modality Left Radio Fluoroscop y Impressions 04/21/2021 9:50 AM EDT Uneventful LEFT HIP joint injection under fluoroscopy. Resident/Fellow: KIERA MONDRAGON M.D. Attending: Bozena FLORES I was present for and supervised this entire procedure. I have personally reviewed the image(s) and the resident's interpretation and agree with the findings, Bozena Rodriguez at 04/21/2021 9:50 AM Thank you for letting us participate in the care of this patient. ??If you are a health care provider and have any questions regarding this report, please contact the number below. ??For patients who have questions please contact the health weekend caregiver that requested your imaging first. ? Electronically signed by: Bozena Rodriguez [facility] ([phone]), at 04/21/2021 9:50 AM Narrative 04/21/2021 9:50 AM EDT LEFT HIP ??JOINT INJECTION UNDER FLUOROSCOPY CLINICAL HISTORY: oa TECHNIQUE: After an extensive conversation with the patient regarding risks and benefits, oral and written consent were obtained.?A pre- procedural time-out was performed, including review of the patient's relevant electronic medical record and allergies, as per [facility] protocol. The patient was placed supine on the fluoroscopic table. ??The ANTERIOR LEFT HIP was prepped and draped in the usual aseptic manner. 1% Lidocaine was used to achieve local anesthesia. Under fluoroscopic guidance, 22-GAUGE, 3.5 spinal needle was advanced into the joint space. ??Small amount of air was injected to the document needle placement. ??A mixture of Ropivacaine and METHYLPREDNISOLONE was injected. All needles removed at end of procedure. FINDINGS: 1. ??Small amount of injected air in the LEFT HIP joint space. 2. ??PAIN SCORE: ??Before: 1/10 ??After: 0/10 3. Fluoroscopy time: 0.33 minutes 4. Medications: ??Lidocaine 1% - <5 ml, for subcutaneous anesthesia ??Ropivacaine HCL ??0.5% - 4 ml ??METHYLPREDNISOLONE- 40 mg COMPLICATIONS: ??None immediate. POST-PROCEDURE CARE: Information regarding monitor of infection, post- procedural pain and management of steroid flare were reviewed with patient. Procedure Note Bozena Rodriguez, JOSH - 04/21/2021 LEFT HIP JOINT INJECTION UNDER FLUOROSCOPY CLINICAL HISTORY: oa TECHNIQUE: After an extensive conversation with the patient regardingrisks and benefits, oral and written consent were obtained.?A pre- proceduraltime-out was performed, including review of the patient's relevant electronic medicalrecord and allergies, as per [facility] protocol. The patient was placed supine on the fluoroscopic table. The ANTERIORLEFT HIP was prepped and draped in the usual aseptic manner. 1% Lidocaine was usedto achieve local anesthesia. Under fluoroscopic guidance, 22-GAUGE, 3.5spinal needle was advanced into the joint space. Small amount of air wasinjected to the document needle placement. A mixture of Ropivacaine andMETHYLPREDNISOLONE was injected. All needles removed at end of procedure. FINDINGS: 1. Small amount of injected air in the LEFT HIP joint space. 2. PAIN SCORE: Before: 1/10 After: 0/10 3. Fluoroscopy time: 0.33 minutes 4. Medications: Lidocaine 1% - <5 ml, for subcutaneous anesthesia Ropivacaine HCL 0.5% - 4 ml METHYLPREDNISOLONE- 40 mg COMPLICATIONS: None immediate. POST-PROCEDURE CARE: Information regarding monitor of infection, post- procedural pain and management of steroid flare were reviewed withpatient. IMPRESSION Uneventful LEFT HIP joint injection under fluoroscopy. Resident/Fellow: KIERA MONDRAGON M.D. Attending: Bozena FLORES I was present for and supervised thisentire procedure. I have personally reviewed the image(s) and the resident's interpretationand agree with the findings, Bozena Rodriguez at 04/21/2021 9:50 AM Thank you for letting us participate in the care of this patient. If youare a health care provider and have any questions regarding this report,please contact the number below. For patients who have questions please contactthe health weekend caregiver that requested your imaging first. Electronically signed by: Bozena Rodriguez [facility]([phone]), at 04/21/2021 9:50 AM Sana Rosado MD IMG FLUORO ORDERABLE S documented in this encounter Visit Diagnoses Diagnosis Primary osteoarthritis of left hip Primary localized osteoarthrosis, pelvic region and thigh documented in this encounter Administered Medications Inactive Administered Medications - up to 3 most recent administrations Medication Order MAR Action Action Date Dose Rate Site lidocaine (Xylocaine) 1% (10 mg/mL) injection 200 mg 200 mg (20 mL), Intra-articular, ONCE, 1 dose, On 04/19/21 at 1030, Routine Given 04/19/2021 10:26 AM EDT 200 mg ROpivacaine (PF) 0.5% (5 mg/mL) 20 mg with methylPREDNISolone acetate (40 mg/mL) 40 mg injection (Radiology Prep) Intra-articular, ONCE, 1 dose, On 04/19/21 at 1030, For Radiology Use Only: Medium-Large Joint Injection Given 04/19/2021 10:30 AM EDT documented in this encounter Care Teams Drivability Technician Relationship Specialty Start Date End Date Jakub Abrams MD [address] [place] [id number] PCP - General Family Medicine 04/05/21 10/18/23 documented as of this encounter
--- OUTSIDE RECORDS SUMMARY | 2024-02-21 17:17 | XMS_ITS | Encounter Summary ---
Author Organization [facility] Address [address] [place] [address] Care Team Providers Care Professor Of Engineering Name Role Phone Annie Flores MD Primary Care Provider [phone] Encounter Details Date Type Department Care Team (Late st Contact Info) Description 06/19/2006 Results Only [facility] [address] [place] [address] Tanner Cordero MD [facility] [place] [address] Social History Tobacco Use Types Packs/Day Years Used Date Smoking Tobacco: Never Assessed Sex and Gender Information Value Date Recorded Sex Assigned at Not on file Gender Identity Not on file Sexual Orientation Not on file documented as of this encounter Plan of Treatment Not on file documented as of this encounter Procedures Procedure Name Priority Date/Time Associated Diagnosis Comments SURGICAL PATHOLOGY Routine 06/19/2006 0:00 EST documented in this encounter Results * SURGICAL PATHOLOGY (06/19/2006 0:00 EST) Pathology Report: SURGICAL PATHOLOGY REPORT Reports generated via electronic interface contain original data; however they are lacking the format of the original report. Caution should be taken when reading/interpretin g unformatted reports. Name: ? ANNIE CARY ? Accession #: ? [id number] ? : ? 1950 (Age: 55) ??M ? Collect Date: ? 06/19/2006 ? Location: ? [facility] ? Receive Date: ? 06/20/2006 ? Provider: TANNER CORDERO MD Copy to: ANNIE FLORES MD ? Final Pathologic Diagnosis: A. ?Duodenum, labelled region of bulb, biopsies: 1. ?Gastric heterotopia with chronic active inflammation. ??See comment. ?2. ?? Deshawn stain negative for Helicobacter pylori-like microorganisms. ? 3. ?? No dysplasia or tumor identified. ? B. ?? Stomach, region of pylorus, polyp, biopsy: ? 1. ?? Antrum-type gastric mucosa with mild chronic inflammation and foveolar hyperplasia. ? 2. ?? Deshawn stain negative for Helicobacter pylori-like microorganisms. C. ?? Gastroesophageal junction. 42 cm. biopsy: ? 1. ?? Hyperplastic squamous mucosa with reactive epithelial changes and intraepithelial ? changes and intraepithelial eosinophils, consistent with reflux esophagitis. ?2. ?? No intestinal metaplasia (Garnett's) or dysplasia identified. D. ?? Esophagus, mid portion, biopsy: ? 1. ?? Squamous mucosa with reactive epithelial changes. ? - No significant eosinophilia identified. E. ?? Colon, transverse portion, polyp, proximally, biopsies: ? 1. ?? Fragments of tubular adenoma (2). ? - No high grade dysplasia identified. ? 2. ?? Fragment of cauterized benign colonic mucosa. F. ?? Colon, transverse portion, polyp, biopsy: ? 1. ?? Fragment of tubular adenoma. ? 2. ?? No high grade dysplasia identified. G. ??Colon, transverse portion, polyp, biopsies: ? 1. ?? Fragments of tubular adenoma. ? 2. ?? No high grade dysplasia identified. H. ??Colon, descending portion, polyp, biopsy: ? 1. ?? Fragment of tubular adenoma. ? 2. ?? No high grade dysplasia identified. I. ?? Colon, region of descending to sigmoid, polyp, polypectomy: ? 1. ?? Tubular adenoma. ? 2. ?? No high grade dysplasia identified. J. ?? Rectum, polyp, biopsies: ? 1. ?? Fragment of hyperplastic polyp. ? 2. ?? No adenomatous epithelium identified. ? Comment: ? Dr. Jose Alberto Corey has reviewed this case and concurs with the final diagnoses. ??The changes could be congenital in etiology or represent a metaplastic phenomenon (peptic duodenitis). ??(Dr. Zepeda) Document reviewed and electronically signed by: JOSE ALBERTO ZEPEDA MD Report ??Date: 06/23/2006 22:21 By the signature above, the attending physician certifies that he/she has personally conducted a gross and/or microscopic examination of the described specimens and rendered or confirmed the above diagnosis. Specimen(s) Received: A. ?Bx duodenal bulb (#1) B. ?Bx pyloric polyp ? (#2) C. ? Bx EG junction 42 cm (#3) D. ? Mid esophagus bx (#4) E. ? Transverse colon proximately polyp (#5) F. ? Transverse colon polyp (#6) G. ? Transverse colon polyp (#7) H. ? Descending polyp (#8) I. ? Descending sigmoid polyp (#9) J. ? Rectal polyp (#10) Clinical History: ? Hx polypectomy x4 (2 were adenomas); now for follow-up & has difficulty swallowing Gross Description: ? Received in Hollande's fixative labelled Gebbie and duodenal bulb bx are three rollins-pink irregular soft tissue fragments averaging 0.3 x 0.2 x 0.2 cm. The specimen is entirely submitted as (A). Received in Hollande's fixative labelled Gebbie and bx pyloric polyp is a rollins-pink 0.2 x 0.2 x 0.2 cm soft tissue fragment. The specimen is entirely submitted as (B). Received in Hollande's fixative labelled Gebbie and bx EG junction 42 cm is a rollins-pink 0.3 x 0.2 x 0.2 cm soft tissue fragment. ??The specimen is entirely submitted as (C). Received in Hollande's fixative labelled Gebbie and mid esophagus bx is a rollins-pink 0.2 x 0.2 x 0.2 cm soft tissue fragment. ??The specimen is entirely submitted as (D). Received in Hollande's fixative labelled Gebbie and transverse colon polyp are three rollins-pink irregular soft tissue fragments averaging 0.2 x 0.2 x 0.2 cm. The specimen is entirely submitted as (E). Received in Hollande's fixative labelled Gebbie and transverse colon polyp #6 is a rollins-pink 0.3 x 0.2 x 0.2 cm soft tissue fragment. ??The specimen is entirely submitted as (F). Received in Hollande's fixative labelled Gebbie and #7 transverse colon polyp are three rollins-pink irregular soft tissue fragments averaging 0.2 x 0.2 x 0.2 cm. ??The specimen is entirely submitted as (G). Received in Hollande's fixative labelled Gebbie and descending colon polyp is a rollins-pink 0.2 x 0.2 x 0.2 cm soft tissue fragment. ??The specimen is entirely submitted as (H). Received in Hollande's fixative labelled Gebbie and descending sigmoid polyp is a rollins-pink 0.7 x 0.6 x 0.4 cm soft tissue fragment. ??The specimen is entirely submitted as (I). Received in Hollande's fixative labelled Gebbie and rectal polyp are two rollins-pink irregular soft tissue fragments measuring 0.1 x 0.1 x 0.1 cm and 0.3 x 0.2 x 0.2 cm. ??The specimen is entirely submitted as (J). ??(Roberth Emery)/[facility] ?? End of Report [facility] 06/19/2006 06/20/2006 9:3 5 EST Tanner Cordero MD PATHOLOGY ORDERABLES [facility] [address] [place] [address] documented in this encounter Visit Diagnoses Not on filedocumented in this encounter Care Teams Professor Of Engineering Relationship Specialty Start Date End Date Annie Flores MD [address] [place] [id number] PCP - General 07/01/09 documented as of this encounter
--- OUTSIDE RECORDS SUMMARY | 2024-02-21 17:17 | XMS_ITS | Encounter Summary ---
Author Organization [facility] Address [facility] [place] [address] Care Team Providers Care Yard Attendant Name Role Phone Jakub Abrams MD Primary Care Provider [phone] Reason for Referral * Diagnostic Test (Routine) - Closed Specialty Diagnoses / Procedures Referred By Contac t Referred To Contact Radiology Diagnoses Chronic pain of both shoulders Procedures XR Fluoro Guided Joint Injection Large Right Bekah Hui PA [facility] [place] [address] [facility] Xray [address] [place] [address] [place] [address] Referral ID Status Reason Start Date Expiration Date V isits Requested Visits Authorized [id number] Closed Specialty Service Requested 04/19/2021 10/17/2022 1 1 * Diagnostic Test (Routine) - Closed Specialty Diagnoses / Procedures Referred By Contac t Referred To Contact Radiology Diagnoses Chronic pain of both shoulders Procedures XR Fluoro Guided Joint Injection Large Left Bekah Hui PA [facility] [place] [address] [facility] X[facility] [address] [place] [address] [place] [address] Referral ID Status Reason Start Date Expiration Date V isits Requested Visits Authorized [id number] Closed Specialty Service Requested 04/19/2021 10/17/2022 1 1 Reason for Visit * Diagnostic Test (Routine) - Closed Specialty Diagnoses / Procedures Referred By Louann t Referred To Contact Radiology Diagnoses Chronic pain of both shoulders Procedures XR Fluoro Guided Joint Injection Large Right Bekah Hui PA [facility] [place] [address] [facility] [address] [place] [address] [place] [address] Referral ID Status Reason Start Date Expiration Date V isits Requested Visits Authorized [id number] Closed Specialty Service Requested 04/19/2021 10/17/2022 1 1 Encounter Details Date Type Department Care Team (Latest Contact Info) Description 05/10/2021 8:00 AM EDT - 05/10/2021 11:59 PM EDT Hospital Encounter XRay at [address] [place] [address] Rosario Rao MD [facility] [address] Chronic pain of both shoulders Discharge Disposition: Home Social History Tobacco Use Types Packs/Day Years Used Date Smoking Tobacco: Never Smokeless Tobacco: Never Alcohol Use Standard Drinks/Week Comments Not Currently 0 (1 standard drink = 0.6 oz pur e alcohol) Sex and Gender Information Value Date Recorded Sex Assigned at Not on file Gender Identity Not on file Sexual Orientation Not on file documented as of this encounter Discharge Instructions * Patient Instructions* Breanna Allen - 05/10/2021 8:30 AM EDT Post Injection Patient Instructions You received an injection by DR. QUILES in the diagnostic section of radiology. Procedure: BILATERAL SHOULDER INJECTIONS In the days following the injection: ??? Low intensity movement and exercise of the affected joint. ??? Avoid movements that worsen pain. During the first 48 hours following the injection you may experience mild discomfort at the injection site. If you experience pain or discomfort in the affected area, do the following: ??? Apply cold compress to the affected area. ??? If allowed by your physician, take an anti-inflammatory medication such as ibuprofen (example: Advil), Acetaminophen 9example: Tylenol) or Aspirin. IMPORTANT The risk of infection exists whenever the skin is punctured. The risk can be minimized by keeping the injection site clean. However, be aware of the following signs of an infection: ??? Redness and swelling at the injection site. ??? Increased pain. ??? Fever and/or chills. ??? Decreased range of motion in the joint near the injection site. If you experience any of the signs of infection listed above, telephone the diagnostic section of radiology at [phone]. documented in this encounter Medications at Time of Discharge Medication Sig Dispensed Refills Start Date End Date Synthroid 150 mcg Tablet TAKE ONE TABLET BY MOUTH EVERY DAY 02/17/2021 08/01/2022 documented as of this encounter Plan of Treatment Not on file documented as of this encounter Procedures Procedure Name Priority Date/Time Associated Diagnosis Comments XR FLUORO INJECTION DRAINAGE JOINT LG RIGHT Routine 05/10/2021 8:34 AM EDT Chronic pain of both shoulders XR FLUORO INJECTION DRAINAGE JOINT LG LEFT Routine 05/10/2021 8:34 AM EDT Chronic pain of both shoulders documented in this encounter Results * XR Fluoro Guided Joint Injection Large Right (05/10/2021 8:34 AM EDT) Anatomical Region Laterality Modality Right Radio Fluoroscop y Impressions 05/10/2021 11:11 AM EDT Uneventful glenohumeral joint injection under fluoroscopy. I, KERI QUILES MD, was present for the entire procedure and I performed the procedure. Thank you for letting us participate in the care of this patient. ??If you are a health care provider and have any questions regarding this report, please contact the number below. ??For patients who have questions please contact the health clinical care coordinator that requested your imaging first. ? Electronically signed by: Keri Quiles MD, [facility] ([phone]), at 05/10/2021 11:11 AM Narrative 05/10/2021 11:11 AM EDT EXAMINATION: XR FLUORO GUIDED JOINT INJECTION LARGE RIGHT CLINICAL HISTORY: Right shoulder pain, Steroid/lidocaine injection into glenohumeral joint per ordering provider TECHNIQUE: RIGHT After an extensive conversation with the patient regarding risks and benefits, oral and written consent were obtained.? A pre- procedural time-out was performed, including review of the patient's relevant electronic medical record and allergies, as per [facility] protocol. The patient was placed supine on the fluoroscopic table. The anterior shoulder was prepped and draped in the usual aseptic manner. 1% Lidocaine was used to achieve local anesthesia. Under fluoroscopic guidance, 25 gauge needle was advanced into the joint space. Small amount of air was injected to the document needle placement. A mixture of Ropivacaine and triamcinolone acetonide was injected. All needles removed at end of procedure. FINDINGS: RIGHT 1. Small amount of injected air in the glenohumeral joint space. 2. PAIN SCORE: ??Before: 7 /10 ??After: 0/10 3. Fluoroscopy time: 0.03 min. 4. Medications: ??Lidocaine 1%- <5 ml, for subcutaneous anesthesia ??Ropivacaine HCL ??0.5% - 3 ml ??Depo-medrol - 40 mg COMPLICATIONS: None immediate. POST-PROCEDURE CARE: Information regarding monitor of infection and management of post- procedural were reviewed with patient. Procedure Note Keri Quiles MD - 05/10/2021 EXAMINATION: XR FLUORO GUIDED JOINT INJECTION LARGE RIGHT CLINICAL HISTORY: Right shoulder pain, Steroid/lidocaine injection into glenohumeral joint per ordering provider TECHNIQUE: RIGHT After an extensive conversation with the patient regarding risks andbenefits, oral and written consent were obtained.? A pre- procedural time-out was performed, including review of the patient's relevant electronic medicalrecord and allergies, as per [facility] protocol. The patient was placed supine on the fluoroscopic table. The anteriorshoulder was prepped and draped in the usual aseptic manner. 1% Lidocaine was usedto achieve local anesthesia. Under fluoroscopic guidance, 25 gauge needlewas advanced into the joint space. Small amount of air was injected to thedocument needle placement. A mixture of Ropivacaine and triamcinolone acetonidewas injected. All needles removed at end of procedure. FINDINGS: RIGHT 1. Small amount of injected air in the glenohumeral joint space. 2. PAIN SCORE: Before: 7 /10 After: 0/10 3. Fluoroscopy time: 0.03 min. 4. Medications: Lidocaine 1%- <5 ml, for subcutaneous anesthesia Ropivacaine HCL 0.5% - 3 ml Depo-medrol - 40 mg COMPLICATIONS: None immediate. POST-PROCEDURE CARE: Information regarding monitor of infection andmanagement of post- procedural were reviewed with patient. IMPRESSION Uneventful glenohumeral joint injection under fluoroscopy. IKERI MD, was present for the entire procedure and Iperformed the procedure. Thank you for letting us participate in the care of this patient. If youare a health care provider and have any questions regarding this report,please contact the number below. For patients who have questions please contactthe health clinical care coordinator that requested your imaging first. Electronically signed by: Keri Quiles MD, [facility]([phone]), at 05/10/2021 11:11 AM Rosario Rao MD IMG FLUORO ORDERABLE S * XR Fluoro Guided Joint Injection Large Left (05/10/2021 8:34 AM EDT) Anatomical Region Laterality Modality Left Radio Fluoroscop y Impressions 05/10/2021 11:12 AM EDT Uneventful glenohumeral injection under fluoroscopy. KERI Doty MD, was present for the entire procedure and I performed the procedure. Thank you for letting us participate in the care of this patient. ??If you are a health care provider and have any questions regarding this report, please contact the number below. ??For patients who have questions please contact the health clinical care coordinator that requested your imaging first. ? Electronically signed by: Keri Quiles MD, [facility] ([phone]), at 05/10/2021 11:12 AM Narrative 05/10/2021 11:12 AM EDT EXAMINATION: XR FLUORO GUIDED JOINT INJECTION LARGE LEFT CLINICAL HISTORY: Left shoulder pain, Steroid/lidocaine injection into glenohumeral joint per ordering provider TECHNIQUE: LEFT After an extensive conversation with the patient regarding risks and benefits, oral and written consent were obtained.? A pre- procedural time-out was performed, including review of the patient's relevant electronic medical record and allergies, as per [facility] protocol. The patient was placed supine on the fluoroscopic table. The anterior shoulder was prepped and draped in the usual aseptic manner. 1% Lidocaine was used to achieve local anesthesia. Under fluoroscopic guidance, 25 gauge needle was advanced into the joint space. Small amount of air was injected to the document needle placement. A mixture of Ropivacaine and triamcinolone acetonide was injected. All needles removed at end of procedure. FINDINGS: LEFT 1. Small amount of injected air in the glenohumeral joint space. 2. PAIN SCORE: ??Before: 7/10 ??After: 0/10 3. Fluoroscopy time: 0.02 min. 4. Medications: ??Lidocaine 1%- <5 ml, for subcutaneous anesthesia ??Ropivacaine HCL ??0.5% - 3 ml ??Depo-medrol - 40 mg COMPLICATIONS: None immediate. POST-PROCEDURE CARE: Information regarding monitor of infection and management of post- procedural were reviewed with patient. Procedure Note Keri Quiles MD - 05/10/2021 EXAMINATION: XR FLUORO GUIDED JOINT INJECTION LARGE LEFT CLINICAL HISTORY: Left shoulder pain, Steroid/lidocaine injection into glenohumeral joint per ordering provider TECHNIQUE: LEFT After an extensive conversation with the patient regarding risksand benefits, oral and written consent were obtained.? A pre- proceduraltime-out was performed, including review of the patient's relevant electronicmedical record and allergies, as per [facility] protocol. The patient was placed supine on the fluoroscopic table. The anteriorshoulder was prepped and draped in the usual aseptic manner. 1% Lidocaine was usedto achieve local anesthesia. Under fluoroscopic guidance, 25 gauge needlewas advanced into the joint space. Small amount of air was injected to thedocument needle placement. A mixture of Ropivacaine and triamcinolone acetonidewas injected. All needles removed at end of procedure. FINDINGS: LEFT 1. Small amount of injected air in the glenohumeral joint space. 2. PAIN SCORE: Before: 7/10 After: 0/10 3. Fluoroscopy time: 0.02 min. 4. Medications: Lidocaine 1%- <5 ml, for subcutaneous anesthesia Ropivacaine HCL 0.5% - 3 ml Depo-medrol - 40 mg COMPLICATIONS: None immediate. POST-PROCEDURE CARE: Information regarding monitor of infection andmanagement of post- procedural were reviewed with patient. IMPRESSION Uneventful glenohumeral injection under fluoroscopy. I, KERI QUILES MD, was present for the entire procedure and I performed theprocedure. Thank you for letting us participate in the care of this patient. If youare a health care provider and have any questions regarding this report,please contact the number below. For patients who have questions please contactthe health clinical care coordinator that requested your imaging first. Electronically signed by: Keri Quiles MD, [facility]([phone]), at 05/10/2021 11:12 AM Rosario Rao MD IMG FLUORO ORDERABLE S documented in this encounter Visit Diagnoses Diagnosis Chronic pain of both shoulders Pain in joint, shoulder region documented in this encounter Administered Medications Inactive Administered Medications - up to 3 most recent administrations Medication Order MAR Action Action Date Dose Rate Site ROpivacaine (PF) 0.5% (5 mg/mL) 20 mg, lidocaine (pf) 1% (10 mg/mL) 40 mg with methylPREDNISolone acetate (40 mg/mL) 40 mg injection (Radiology Prep) Intra-articular, ONCE, 1 dose, On Mon05/10/21 at 0915, For Radiology Use Only: Medium-Large Joint Injection Given 05/10/2021 9:15 AM EDT ROpivacaine (PF) 0.5% (5 mg/mL) 20 mg, lidocaine (pf) 1% (10 mg/mL) 40 mg with methylPREDNISolone acetate (40 mg/mL) 40 mg injection (Radiology Prep) Intra-articular, ONCE, 1 dose, On Mon05/10/21 at 0915, For Radiology Use Only: Medium-Large Joint Injection Given 05/10/2021 9:15 AM EDT documented in this encounter Care Teams Yard Attendant Relationship Specialty Start Date End Date Jakub Abrams MD [address] [place] [address] PCP - General Family Medicine 04/05/21 10/18/23 documented as of this encounter
--- OUTSIDE RECORDS SUMMARY | 2024-02-21 17:17 | XMS_ITS | Referral Summary ---
Author Organization [facility] Address [address] [place] [address] Care Team Providers Care Nutter Up Name Role Phone Jakub Amaya MD Primary Care Provider [phone] Social History Tobacco Use Types Packs/Day Years Used Date Smoking Tobacco: Never Assessed Sex and Gender Information Value Date Recorded Sex Assigned at Not on file Gender Identity Not on file Sexual Orientation Not on file Plan of Treatment Not on file Care Teams Nutter Up Relationship Specialty Start Date End Date Jakub Amaya MD [address] [place] [address] PCP - General 07/01/09
--- OUTSIDE RECORDS SUMMARY | 2024-02-21 17:17 | XMS_ITS | Encounter Summary ---
[place] [address] Care Team Providers Care Computer Analyst Supervisor Name Role Phone Jakub Abrams MD Primary Care Provider [phone] Reason for Referral * Consultation (AQUILES) - Closed Specialty Diagnoses / Procedures Referred By Contjocelyn t Referred To Contact Gastroenterology Diagnoses Ulcerative colitis with complication, unspecified location Ulcerative colitis with complication, Jakub Abrams MD [address] [place] [address] [facility] [address] [place] [phone] Referral ID Status Reason Start Date Expiration Date V isits Requested Visits Authorized [id number] Closed Consult, Test & Treat PCP Updated and/or Approved 04/07/2022 04/07/2023 6 6 Encounter Details Date Type Department Care Team (Latest Contact Info) Description 04/07/2022 Transcribe Orders eDH Incoming Referrals [phone] Jakub Abrams MD [address] [place] [address] Ulcerative colitis with complication, unspecified location Social History Tobacco Use Types Packs/Day Years [...] Priority Associated Diagnoses Order Schedule Referral to Gastroenterology Outpatient Referral STAT Ulcerative colitis with complication, unspecified location Ordered: 04/07/2022 documented as of this encounter Visit Diagnoses Diagnosis Ulcerative colitis with complication, unspecified location documented in this encounter Care Teams Computer Analyst Supervisor Relationship Specialty Start Date End Date Jakub Abrams MD [address] [place] [address] PCP - General Family Medicine 04/05/21 10/18/23 documented as of this encounter
--- OUTSIDE RECORDS SUMMARY | 2024-02-21 17:17 | XMS_ITS | Encounter Summary ---
Author Organization [facility] Address [address] [place] [address] Care Team Providers Care Refurbish Technician Name Role Phone Jakub Amaya MD Primary Care Provider [phone] Encounter Details Date Type Department Care Team (Late st Contact Info) Description 07/15/2019 Lab Requisition [facility] Pathology & Laboratory Medicine - [facility] [address] [place] [address] Unknown, Provider, Social History Tobacco Use Types Packs/Day Years Used Date Smoking Tobacco: Never Assessed Sex and Gender Information Value Date Recorded Sex Assigned at Not on file Gender Identity Not on file Sexual Orientation Not on file documented as of this encounter Plan of Treatment Not on file documented as of this encounter Procedures Procedure Name Priority Date/Time Associated Diagnosis Comments PTH INTACT Routine 07/15/2019 7:19 EST SPEP, INCLUDES QUANTITATION OF MONOCLONAL SPIKE Routine 07/15/2019 7:19 EST documented in this encounter Results * SPEP, INCLUDES QUANTITATION OF MONOCLONAL SPIKE (07/15/2019 7:19 EST) Total Protein 7.5 6.3 - 8.2 g/dL 07/18/2019 14:15 EST [facility] Albumin % 64.0 55.8 - 66.1 % 07/18/2019 14:15 EST [facility] Alpha-1 % 3.6 2.9 - 4.9 % 07/18/2019 14:15 EST [facility] Alpha-2 % 7.9 7.1 - 11.8 % 07/18/2019 14:[address] [facility] Beta % 10.7 8.4 - 13.1 % 07/18/2019 14:[address] [facility] Gamma % 13.8 11.1 - 18.8 % 07/18/2019 14:[address] [facility] SPEP Comment No apparent monoclonal protein seen on serum electrophoresis 07/18/2019 14:[address] [facility] Comment:See scanned/suppleme ntary report. Blood VENOUS BLOOD / Unknown 07/15/2019 7:19 EST 07/15/2019 15:33 EST Provider Unknown CHEMISTRY & BLOOD GA S ORDERABLES Performing Organization Address [facility] Co de Phone Number [facility] [address] [place] [address] * PTH INTACT (07/15/2019 7:19 EST) Intact PTH 32 19 - 88 pg/mL 07/16/2019 10:22 EST [facility] Blood VENOUS BLOOD / Unknown 07/15/2019 7:19 EST 07/15/2019 15:33 EST Provider Unknown CHEMISTRY & BLOOD GA S ORDERABLES Performing Organization Address [facility] Co de Phone Number [facility] [address] [place] [address] documented in this encounter Visit Diagnoses Not on filedocumented in this encounter Care Teams Refurbish Technician Relationship Specialty Start Date End Date Jakub Amaya MD [address] [place] [address] PCP - General 07/01/09 documented as of this encounter
--- OUTSIDE RECORDS SUMMARY | 2024-02-21 17:17 | XMS_ITS | Encounter Summary ---
Author Organization [facility] [place] [address] Care Team Providers Care Mulling Machine Operator Name Role Phone Jakub Abrams MD Primary Care Provider [phone] Reason for Visit * Reason Comments Follow-up Encounter Details Date Type Department Care Team (Latest Contact Info) Description 05/31/2021 9:20 AM EST TH Visit (TeleHealth) [facility] [place] [address] Judy Bell APRN [facility] [address] Spondylosis of lumbar region without myelopathy or radiculopathy Social History Tobacco Use Types Packs/Day Years [...] - Inhaled Oxygen Concentration - - Weight 95.3 kg (210 lb) 05/31/2021 7:43 AM EST Height 182.9 cm (6') 05/31/2021 7:43 AM EST Body Mass Index 28.48 05/31/2021 7:43 AM EST documented in this encounter Progress Notes * Judy Bell, JOSH - 05/31/2021 9:20 AM EST 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 His family is from [facility] and his grandfather on the [facility] land He has done physical therapy locally [...] injection on the left-hand side. There is Updated interval history 05/31/2021: I spoke with Jakub via telephone. 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 He had achance to review the inner formation that was given to him about lumbar medial branch flex and radiofrequency. He is potentially interested in this procedure but is concerned that it may harm him somehow down the road or that he may not be able to feel pain and injure himself worse. I reassured him about both of those. He is going to review his options including physical therapy continuing eitherwith or without the injection and get back to me. PAIN ASSESSMENT: Description: Trouble limbering up after [...] have been marked as taking for the 05/31/21 encounter (Appointment) with Judy Bell APRN. Allergies [...] Not on file Occupational History ??? 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 Smoking status: Never Smoker ??? Smokeless tobacco: Never Used Vaping Use ??? Vaping Use: Never used Substance and Sexual Activity ??? Alcohol use: Not Currently ??? Drug use: Not on file ??? Sexual activity: Not on file Other Topics Concern ??? Not on file Social History Narrative ??? Not on file Social Determinants of Health Financial Resource Strain: Not on file Food Insecurity: Not on file Transportation Needs: Not on file Physical Activity: Not on file Housing Stability: Not on file Family History No family history on file. Past Medical History: No past medical history on file. Past Surgical History: Past Surgical History: Procedure Laterality Date ??? XR FLUORO INJECTION DRAINAGE JOINT LG LEFT Left 04/19/2021 XR Fluoro Guided Joint Injection Large Left 04/19/2021 [facility] ??? XR FLUORO INJECTION DRAINAGE JOINT LG LEFT Left 05/10/2021 XR Fluoro Guided Joint Injection Large Left 05/10/2021 Keri Dugan MD [facility] ??? XR FLUORO INJECTION DRAINAGE JOINT LG RIGHT Right 05/10/2021 XR Fluoro Guided Joint Injection Large Right 05/10/2021 Keri Dugan MD [facility] Review of Systems: Denies fever, chills, weight loss, SOB, abdominal pain, leg weakness/numbnes, arm weakness/numbness, bowel or bladder incontinence, balance issues RISK ASSESSMENT: Smoking:no Alcohol:no No physical exam was conducted today this was a telephone visit. Imaging & Other Studies: An x-ray of his lumbar spine was ordered today. There is no other imaging. There is no information accompanying the patient Assessment: Mr. Fuller is a 70 y.o. year-old male who presents to the [facility] Sp[facility] clinic to his address the above complaints. I followed up with Jakub regarding his questions. He is going to consult with his partner about the procedure and let me know if he wishes to proceed. I did answer all of his questions today. This wasa telephone visit. Thank you Dr. Rizzo for allowing my participation in Jakub Fuller's care. 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
--- OUTSIDE RECORDS SUMMARY | 2024-02-21 17:17 | XMS_ITS | Encounter Summary ---
Author Organization [facility] Address [facility] [place] [address] Care Team Providers Care Technology Adoption Manager Name Role Phone Jakub Abrams MD Primary Care Provider [phone] Reason for Visit * Consultation ([facility]) - Closed Specialty Diagnoses / Procedures Referred By Contac t Referred To Contact Gastroenterology Diagnoses Ulcerative colitis with complication, unspecified location Ulcerative colitis with complication, Jakub Abrams MD [address] [place] [address] [place] [address] [facility] [address] [place] [address] Referral ID Status Reason Start Date Expiration Date V isits Requested Visits Authorized [id number] Closed Consult, Test & Treat PCP Updated and/or Approved 04/07/2022 04/07/2023 6 6 Encounter Details Date Type Department Care Team (Late st Contact Info) Description 08/01/2022 8:00 AM EST Office [place] [address] Elkin Sanchez MD [facility] [place] [address] Ulcerative proctosigmoiditis, with rectal bleeding Social History [...] Sign Reading Time Taken Comments Blood Pressure 121/74 08/01/2022 7:56 AM EST Pulse 61 08/01/2022 7:56 AM EST Temperature - - Respiratory Rate - - Oxygen Saturation - - Inhaled Oxygen Concentration - - Weight 93.2 kg (205 lb 6.4 oz) 08/01/2022 7:56 A M EST Height 182.9 cm (6') 08/01/2022 7:56 AM EST Body Mass Index 27.86 08/01/2022 7:56 AM EST documented in this encounter Patient Instructions * Patient Instructions* Elkin Sanchez MD - 08/01/2022 8:00 AM EST You likely have Ulcerative Colitis (proctosigmoiditis) Please start Lialda (Mesalamine). 2 pills twice daily or 4 pills once daily. Prescription sent to your pharmacy. If this is too expensive we could consider Sulfasalazine or Balsalazide. You should plan to take one of these medication indefinitely. Please try to avoid NSAIDs including Ibuprofen (Advil/Motrin), Naproxen (Aleve) OK to introduce a fiber supplement such as Benefiber, daily oatmeal, or bran cereal. Blood work and stool sample today Come back for follow-up in 2-3 months to make sure medicine is working Consider a repeat colonoscopy to reassess at some point this year documented in this encounter Progress Notes * Elkin Sanchez MD - 08/01/2022 8:00 AM EST [facility] Section of Gastroenterology and Hepatology Outpatient Consultation Reason for Visit: diarrhea, blood in stool, colitis Referred by Jakub Abrams Referring provider: Augustina Salcido MD History of Present Illness: Jakub Fuller is a 71 y.o. male with bloody diarrhea and finding of colitis. He first noted blood in stool and diarrhea in early February.He had 3-5 frequent urgent bowel movements. There was blood with most every bowel movement. He underwent upper endoscopy and colonoscopy in February 2022. Findings included multiple adenomas, peptic duodenitis and sigmoid colitis with chronicity (negative for granulomas). He was initially treated with mesalamine enemas but does not remember taking these. In March he was seen and later prescribed Budesonide (Entocort) taper for 2 months (4 weeks/2weeks/2weeks) 03/29/3mg which he completed in mid June. His bowel symptoms have improved somewhat but still has 3 bowel movements daily and has blood most every time. The urgency is manageable. 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 Generally ate a poor dietwhich he is trying to improve. He does eat less then he used to as well as is trying to be healthier. Lost some weight (10 pounds since he stopped driving a truck. He does drink beer, a couple daily. Review of Systems: Constitutional: no unexplained weight loss HEENT: no visual changes, no URI symptoms Cardio: no chest pain Resp: no cough, no SOB Hem/Lymph: no new lumps or bumps on body GI: see HPI : no dysuria Integumentary: no new rashes Musculoskeletal: no new joint pains Neuro: no new numbness, weakness in extremities All other systems negative except as above in HPI Past Medical History: Diagnosis Date ??? Diverticulitis ??? Ulcerative colitis Past Surgical History: Procedure Laterality Date ??? XR FLUORO INJECTION DRAINAGE JOINT LG LEFT Left 04/19/2021 XR Fluoro Guided Joint Injection Large Left 04/19/2021 [facility] ??? XR FLUORO INJECTION DRAINAGE JOINT LG LEFT Left 05/10/2021 XR Fluoro Guided Joint Injection Large Left 05/10/2021 Keri Dugan MD [facility] ??? XR FLUORO INJECTION DRAINAGE JOINT LG RIGHT Right 05/10/2021 XR Fluoro Guided Joint Injection Large Right 05/10/2021 Keri Dugan MD [facility] Social History: reports that he has never smoked. He has never used smokeless tobacco. He reports that he does not currently use alcohol. Family History: family history is not on file. Current Outpatient Medications Medication Sig Dispense Refill ??? ibuprofen (Advil) 200 mg Tablet Take 400 mg by mouth as needed for Pain. ??? Synthroid 150 mcg Tablet TAKE ONE TABLET BY MOUTH EVERY DAY No current facility-administered medications for this visit. No Known Allergies Physical Examination: BP 121/74 (BP Location (NBP): Left arm, Patient Position: Sitting, BP Cuff Sizes: Large Adult (32-43 cm)) Pulse 61 Ht 182.9 cm (6') Wt 93.2 kg (205 lb 6.4 oz) BMI 27.86 kg/m?? General:Pleasant, cooperative, NAD, WN/WD HEENT: NC/AT, PERRL, anicteric sclera, MMM, no erythema or exudate Neck: soft, supple, no cervical LAD Rectal: Deferred Extremities: Warm and well perfused. No clubbing, cynanosis or edema Skin:No rash or lesion Neuro: AAOx3, Grossly non-focal. Labs: Reviewed in EDH/Scan Docs/Care Everywhere Pathology from EGD/[facility] in February 2022 at [facility] Final Diagnosis A. DUODENUM, BIOPSY: - Consistent with peptic duodenitis. ?? B. STOMACH, ANTRUM, BIOPSY: - Oxyntic-type mucosa with no significant diagnostic abnormality. - Separate superficial fragments of foveolar epithelium. ?? C. GASTROESOPHAGEAL JUNCTION, BIOPSY: - Reactive squamocolumnar mucosa. - Negative for intestinal metaplasia. - Negative for dysplasia. ?? D. COLON, DESCENDING, POLYP, BIOPSY: - Tubular adenoma. ?? E. COLON, TRANSVERSE, POLYP, BIOPSY: - Tubular adenoma. ?? F. COLON, SIGMOID, BIOPSY: - Moderate active chronic colitis. See comment. - Negative for granulomas. ?? G. COLON, SIGMOID, POLYPS X2, BIOPSY: - Inflammatory-type polyp. - Hyperplastic polyp. Additional Testing: Reviewed available labs, imaging and endoscopy results in EDH/CIS as well as Scan Docs tab. IMPRESSION: Jakub Fuller is a 71 y.o. male with new diagnosis of likely left- side ulcerative colitis. We discussed the pathophysiology of UC and association with NSAIDs. We discussed some basics regarding treatment. Will plan to start mesalamine and monitor response then reassess with repeat Colonoscopy. We will check some basic blood work and stool testing, RECOMMENDATIONS: # Please start Lialda (Mesalamine). 2 pills twice daily or 4 pills once daily. Prescription sent [facility]. # If this is too expensive we could consider Sulfasalazine or Balsalazide. # You should plan to take one of these medication indefinitely. # Please try to avoid NSAIDs including Ibuprofen (Advil/Motrin), Naproxen (Aleve) # OK to introduce a fiber supplement such as Benefiber, daily oatmeal, or bran cereal. # Blood work and stool sample today # Come back for follow-up in 2-3 months to make sure medicine is working # Consider a repeat colonoscopy to reassess at some point this year. Can address timing at next follow-up I spent a total of 60 minutes today including 45 min Face to Face counseling the patient in the issues outlined above and additional 15 minutes reviewing available results and documenting note as above. Elkin Sanchez MD Gang Hemstitching Machine Operatorswitchboard inspector, [facility] Gastroenterology and Hepatology [place] [id number] P: [phone] F: [phone] CC: Jakub Abrams MD documented in this encounter Plan of Treatment Not on file documented as of this encounter Results * (ABNORMAL) Calprotectin, Stool (08/01/2022 10:20 AM EST) Calprotectin, Stool 591(H) <=79 mcg/g [facility] Comment: Calprotectin Concentration ? Interpretation ? < 80 mcg/g ?Normal ? 80 ? 160 mcg/g ?Borderline ? >160 mcg/g ?Elevated Stool 08/01/2022 10:2 0 AM EST 08/01/2022 10:45 AM EST Narrative Resulting Agency Comment Spec In Lab Elkin Sanchez MD CHEMISTRY ORDERAB LES Performing Organization Address City/[facility]/ZIP Co de Phone Number [facility] [place] [address] * CRP, acute inflammation (08/01/2022 10:16 AM EST) CRP <3.0 <=4.9 mg/L [facility] Blood 08/01/2022 10:1 6 AM EST 08/01/2022 10:30 AM EST Narrative Resulting Agency Comment Spec In Lab Elkin Sanchez MD CHEMISTRY ORDERAB LES Performing Organization Address [facility] Co de Phone Number [facility] [place] [address] * (ABNORMAL) Comprehensive metabolic panel (non-fasting) (08/01/2022 10:16 AM EST) Pathologist [facility] Glucose Lvl 105 65 - 199 mg/dL [facility] Comment:Diabetes: >=200 mg/d L plus symptoms BUN 15 10 - 20 mg/dL [facility] Creatinine 1.20 0.80 - 1.50 mg/dL [facility] Sodium 141 135 - 145 mmol/L [facility] Potassium 5.2(H) 3.5 - 5.0 mmol/L [facility] Comment: Please note: ??Patients with WBC >100,000 may have falsely elevated Potassium levels. ??For accurate Potassium quantification in these patients send serum separator tube (gold top) for subsequent determinations. ??Contact the Clinical Chemistry Laboratory if there are any questions. Chloride 106 98 - 107 mmol/L [facility] CO2 27 22 - 31 mmol/L [facility] Anion Gap 8 5 - 15 mmol/L [facility] Calcium 10.8(H) 8.5 - 10.5 mg/dL [facility] Total Protein 6.8 6.1 - 8.0 g/dL [facility] Albumin 4.2 3.2 - 5.2 g/dL [facility] AST 19 0 - 39 unit/L [facility] ALT 19 0 - 55 unit/L [facility] Alk Phos 145(H) 40 - 130 unit/L [facility] Total Bilirubin 0.3 0.2 - 1.3 mg/dL [facility] Estimated GFR 65 >=60 mL/min/1. 73 m?? [facility] Comment: This patient's estimated GFR [...] Lab Elkin Sanchez MD CHEMISTRY ORDERAB LES [facility] [place] [address] documented in this encounter Visit Diagnoses Diagnosis Ulcerative proctosigmoiditis, with rectal bleeding documented in this encounter Care Teams Technology Adoption Manager Relationship Specialty Start Date End Date Jakub Abrams MD [address] [place] [address] PCP - General Family Medicine 04/05/21 10/18/23 documented as of this encounter
--- OUTSIDE RECORDS SUMMARY | 2024-02-21 17:17 | XMS_ITS | Encounter Summary ---
Author Organization [facility] Address [address] [place] [address] Care Team Providers Care Etiology Teacher Name Role Phone Unavailable Primary Care Provider Unavailabl e Encounter Details Date Type Department Care Team (Late st Contact Info) Description 06/29/2009 Orders Only [address] [address] Tanner Cordero MD [address] [place], [place] [id number] Social History Tobacco Use Types Packs/Day Years Used Date Smoking Tobacco: Never Assessed Sex and Gender Information Value Date Recorded Sex Assigned at Not on file Gender Identity Not on file Sexual Orientation Not on file documented as of this encounter Plan of Treatment Not on file documented as of this encounter Procedures Procedure Name Priority Date/Time Associated Diagnosis Comments SURGICAL PATHOLOGY Routine 06/29/2009 0:00 EST documented in this encounter Results * SURGICAL PATHOLOGY (06/29/2009 0:00 EST) Pathology Report: SURGICAL PATHOLOGY REPORT ? Reports generated via electronic interface contain original data; ? however they are lacking the format of the original report. ? Caution should be taken when reading/interpreting unformatted reports. ? Name: ? GEBBIE, ANNIE ? Accession #: ? [id number] ? : ? 1950 (Age: 58) ??M ? Collect Date: ? 06/29/2009 ? Location: ? [facility] ? Receive Date: ? 06/29/2009 ? Provider: TANNER WALKO MD ? Copy to: ANNIE FLORES MD ? Final Pathologic Diagnosis: ? A. ?Colon, cecum, polyp, biopsy: ? 1. ?Colonic mucosa with prominent lymphoid tissue and focal granuloma. ?? See comment. ? - Small foreign material within granuloma. ? B. ?Colon, transverse, polyps, biopsy: ? 1. ?Fragments of tubular adenomas. ? C. ?Colon, sigmoid, polyp, biopsy: ? 1. ?Hyperplastic polyp. ? D. ?Rectum, polyp, biopsy: ? 1. ?Hyperplastic polyp. ? Comment: ? Deeper levels of specimen (A) were obtained and reviewed. Specimen (A) was reviewed in the intradepartmental consultation conference. ??(Dr. Nj)/kmm ? Document reviewed and electronically signed by: ? Marv Nj MD ? Report ??Date: 07/01/2009 15:00 ? By the signature above, the attending physician certifies that he/she has ? personally conducted a gross and/or microscopic examination of the described ? specimens and rendered or confirmed the above diagnosis. ? Specimen(s) Received: ? A. ?Cecal polyp ? B. ? Transverse colon polyp x2 ? C. ? Sigmoid polyp ? D. ? Rectal polyp ? Clinical History: ? H/O colon adenomas ? Gross Description: ? Received in [facility]'s fixative labelled Gebbie, Annie and cecal polyp ?? are two rollins-pink soft tissues averaging 0.2 x 0.2 x 0.2 cm. ??The specimens are ?? entirely submitted as (A). ? Received in [facility]'s fixative labelled Annie Fuller and transverse colon ?? polyp x2 are four rollins-pink soft tissues ranging from 0.2 x 0.2 x 0.2 cm to 0.4 x 0.3 x 0.2 cm. ??The specimens are entirely submitted as (B1) and (B2). ? Re[facility] in [facility] fix[facility] labelled Annie Fuller and sigmoid polyp is a rollins-pink 0.2 x 0.2 x 0.2 cm soft tissue fragment. ??The specimen is entirely ? submitted as (C). ? Received in [facility]'s fixative labelled Annie Fuller and rectal polyp is a rollins-pink 0.2 x 0.2 x 0.2 cm soft tissue fragment. ??The specimen is entirely ? submitted as (D). ??/masoud ? End of Report ? [facility] 06/29/2009 06/29/2009 7:0 2 EST Tanner Cordero MD PATHOLOGY ORDERABLES Performing Organization Address City/State/[place] Co de Phone Number [facility] [address] [place] [address] documented in this encounter Visit Diagnoses Not on filedocumented in this encounter
--- OUTSIDE RECORDS SUMMARY | 2024-02-21 17:17 | XMS_ITS | Clinical Summary ---
Author Organization [facility] Address [address] [place] [address] Care Team Providers Care Tectonophysicist Name Role Phone Jakub Amaya MD Primary Care Provider [phone] Social History Tobacco Use Types Packs/Day Years Used Date Smoking Tobacco: Never Assessed Sex and Gender Information Value Date Recorded Sex Assigned at Not on file Gender Identity Not on file Sexual Orientation Not on file Plan of Treatment Health Maintenance Due Date Last Done Comments Hepatitis C Screen 1950 RSV Immunization ( o r 60+ Years) (1 - 1-dose 60+ series) 2012 Fall Risk Screening 2017 COVID-19 Vaccine (2022-24 season) 2023 Care Teams Tectonophysicist Relationship Specialty Start Date End Date Jakub Amaya MD [address] [place] [address] PCP - General 07/01/09
--- OUTSIDE RECORDS SUMMARY | 2024-02-21 17:17 | XMS_ITS | Encounter Summary ---
Author Organization [facility] Address [address] [place] [address] Care Team Providers Care Database Development Project Manager Name Role Phone Annie Flores MD Primary Care Provider [phone] Encounter Details Date Type Department Care Team (Late st Contact Info) Description 08/19/2004 Results Only [facility] [address] [place] [address] Chris Damico MD [address] [place] [address] Social History Tobacco Use Types Packs/Day Years Used Date Smoking Tobacco: Never Assessed Sex and Gender Information Value Date Recorded Sex Assigned at Not on file Gender Identity Not on file Sexual Orientation Not on file documented as of this encounter Plan of Treatment Not on file documented as of this encounter Procedures Procedure Name Priority Date/Time Associated Diagnosis Comments SURGICAL PATHOLOGY Routine 08/19/2004 0:00 EST documented in this encounter Results * SURGICAL PATHOLOGY (08/19/2004 0:00 EST) Pathology Report: SURGICAL PATHOLOGY REPORT Reports generated via electronic interface contain original data; however they are lacking the format of the original report. Caution should be taken when reading/interpreti ng unformatted reports. Name: ? ANNIE CARY ? Accession #: ? [id number] ? : ? 1950 (Age: 53) ??M ? Collect Date: ? 08/19/2004 ? Location: ? [facility] ? Receive Date: ? 08/20/2004 ? Provider: CHRIS DAMICO MD Copy to: ANNIE FLORES MD ? Final Pathologic Diagnosis: A. ?Colon, transverse, biopsy: 1. ?Tubular adenoma. B. ?Colon, descending at 50.0 cm, biopsy: 1. ?Tubular adenoma. C. ?Colon, sigmoid at 20.0 cm, biopsy: 1. ?Hyperplastic polyp, congested. D. ?Rectum, 10.0 cm, biopsy: 1. ?Hyperplastic polyp. Document reviewed and electronically signed by: WARNER IRIZARRY MD Report ??Date: 08/23/2004 16:03 By the signature above, the attending physician certifies that he/she has personally conducted a gross and/or microscopic examination of the described specimens and rendered or confirmed the above diagnosis. Specimen(s) Received: A. ?Transverse colon bx B. ?Descending colon polyp 50.0 cm C. ?Sigmoid polyp 20.0 cm D. ?10.0 cm by rectum Clinical History: ? FOB Gross Description: ? Received in Hollande's fixative labelled Gebbie and bx transverse colon are two irregular, rollins-pink soft tissues averaging 0.3 x 0.2 x 0.2 cm, submitted in toto as (A). Received in Hollande's fixative labelled Gebbie and descending colon polyp 50.0 cm is a 0.7 x 0.6 x 0.4 cm, rollins-pink, polypoid soft tissue. ??The specimen is bisected and submitted in its entirety as (B). Received in Hollande's fixative labelled Gebbie and sigmoid polyp 20.0 cm is a 0.6 x 0.5 x 0.4 cm, red-pink, polypoid soft tissue with attached 0.7 x 0.5 x 0.3 cm, rollins-pink mucosa. ??The specimen is trisected and submitted in its entirety as (C). Received in Hollande's fixative labelled Gebbie and rectum 10.0 cm bx is an irregular, 0.3 x 0.2 x 0.2 cm, rollins-pink soft tissue submitted in toto as (D). ([facility] Trujillo)/[facility] End of Report [facility] 08/19/2004 08/20/2004 15: 08 EST Chris Damico MD PATHOLOGY ORDERABLE S [facility] [address] [place] [address] documented in this encounter Visit Diagnoses Not on filedocumented in this encounter Care Teams Database Development Project Manager Relationship Specialty Start Date End Date Annie Flores MD [address] [place] [address] PCP - General 07/01/09 documented as of this encounter
--- OUTSIDE RECORDS SUMMARY | 2024-02-21 17:17 | XMS_ITS | Encounter Summary ---
Author Organization Health system Address [address] [place] [address] Care Team Providers Care Bean Picker Machine Operator Name Role Phone Jakub Amaya MD Primary Care Provider [phone] Encounter Details Date Type Department Care Team (Late st Contact Info) Description 01/26/2023 Lab Requisition [facility] Pathology & Laboratory Medicine - [address] [id number] Outr Resulting Lab, Provider Social History Tobacco [...] Date/Time Associated Diagnosis Comments LYME AB Routine 01/26/2023 12:10 EDT documented in this encounter Results * LYME AB (01/26/2023 12:10 EDT) Lyme Ab Negative Negative 01/27/2023 11:36 EDT [facility] Blood VENOUS BLOOD / Unknown 01/26/2023 12:10 EDT 01/26/2023 21:13 EDT Provider Outr Resulting Lab IMMUNOLOGY A ND SEROLOGY ORDERABLES [facility] [address] [place] [address] documented in this encounter Visit Diagnoses Not on filedocumented in this encounter Care Teams Bean Picker Machine Operator Relationship Specialty Start Date End Date Jakub Amaya MD [address] [place] [id number] PCP - General 07/01/09 documented as of this encounter
--- OUTSIDE RECORDS SUMMARY | 2024-02-21 17:17 | XMS_ITS | Encounter Summary ---
Author Organization [facility] Address [address] [place] [address] Care Team Providers Care Powertrain Control Systems Engineer Name Role Phone Jakub Amaya MD Primary Care Provider [phone] Encounter Details Date Type Department Care Team (Late st Contact Info) Description 04/05/2022 Lab Requisition [facility] Pathology & Laboratory Medicine - [address] [address] Outr Resulting Lab, Provider Social History Tobacco [...] Procedure Name Priority Date/Time Associated Diagnosis Comments HIGH SENSITIVITY C-REACTIVE PROTEIN (CARDIOVASCULAR DISEASE) Routine 04/05/2022 8:08 EDT documented in this encounter Results * HIGH SENSITIVITY C-REACTIVE PROTEIN (CARDIOVASCULAR DISEASE) (04/05/2022 8:08 EDT) High Sensitivity CRP 4.85 See Note mg/L 04/05/2022 17:11 EDT [facility] Comment: Reference Range: ??Low Risk: ? <1.0 mg/L ??Average Risk: ?? 1.0 - 3.0 mg/L ??High Risk: ?>3.0 mg/L ??Indeterminate*: >10.0 mg/L ??*May be an indication of another source of inflammation or infection Blood VENOUS BLOOD / Unknown 04/05/2022 8:08 EDT 04/05/2022 16:45 EDT Provider Outr Resulting Lab CHEMISTRY & BLOOD GAS ORDERABLES [facility] [address] [place] [address] documented in this encounter Visit Diagnoses Not on filedocumented in this encounter Care Teams Powertrain Control Systems Engineer Relationship Specialty Start Date End Date Jakub Amaya MD [address] [place] [address] PCP - General 07/01/09 documented as of this encounter
--- OUTSIDE RECORDS SUMMARY | 2024-02-21 17:17 | XMS_ITS | Encounter Summary ---
Author Organization [facility] Address [facility] [place] [address] Care Team Providers Care Senior Major Gifts Officer Name Role Phone Jakub Abrams MD Primary Care Provider [phone] Reason for Referral * Diagnostic Test (Routine) - Closed Specialty Diagnoses / Procedures Referred By Contac t Referred To Contact Radiology Diagnoses Chronic pain of both shoulders Procedures XR Fluoro Guided Joint Injection Large Right Bekah Hui PA [facility] [place] [address] [facility] Rad Xray [address] [place] [address] [place] [address] Referral ID Status Reason Start Date Expiration Date V isits Requested Visits Authorized [id number] Closed Specialty Service Requested 04/19/2021 10/17/2022 1 1 * Diagnostic Test (Routine) - Closed Specialty Diagnoses / Procedures Referred By Contac t Referred To Contact Radiology Diagnoses Chronic pain of both shoulders Procedures XR Fluoro Guided Joint Injection Large Left Bekah Hui PA [facility] [place] [place] [address] [facility] Rad Xray [address] [place] [address] [place] [address] Referral ID Status Reason Start Date Expiration Date V isits Requested Visits Authorized [id number] Closed Specialty Service Requested 04/19/2021 10/17/2022 1 1 Reason for Visit * Reason Comments Establish Care bilateral shoulder p ain * Consultation (Routine) - Closed Specialty Diagnoses / Procedures Referred By Louann t Referred To Contact Orthopaedics Diagnoses Bilat Shoulder pain from past injuries Procedures Bilat shoulder pain Self mail [facility] [address] [place] [address] Referral ID Status Reason Start Date Expiration Date Visits Re quested Visits Authorized [id number] Closed 04/05/2021 04/05/2022 1 1 Encounter Details Date Type Department Care Team (Late st Contact Info) Description 04/19/2021 8:40 AM EDT Office [place] [address] Bekah Hui PA [facility] [place] [address] Chronic pain of both shoulders Social History Tobacco Use Types Packs/Day Years [...] Sign Reading Time Taken Comments Blood Pressure 123/87 04/19/2021 8:20 AM EDT Pulse - - Temperature - - Respiratory Rate - - Oxygen Saturation - - Inhaled Oxygen Concentration - - Weight 95.3 kg (210 lb) 04/19/2021 8:20 AM EDT Height 182.9 cm (6') 04/19/2021 8:20 AM EDT Body Mass Index 28.48 04/19/2021 8:20 AM EDT documented in this encounter Progress Notes * Bekah Hui PA - 04/19/2021 8:40 AM EDT PATIENT NAME: Jakub Fuller AGE: 70 y.o. MR#: [id number] DATE OF VISIT: 04/19/2021 DATE OF INJURY/ONSET: Chronic STAFF: Dr. Rao CHIEF COMPLAINT: Bilateral shoulder pain HISTORY OF PRESENT ILLNESS: Mr. Fuller is an ambidextrous 70 y.o. male who comes into clinic today for evaluation of the bilateral shoulders. He states that he has started to notice some increased pain in his shoulders over the past several months. He denies having any recent injuries, but he states that he has injured both shoulders playing sports when he was younger. He has noticed some decreased range of motion and also has difficulty sleeping because of his shoulder pain. He has had similarissues with his hips and his going to have a cortisone injection soon. He will take anti-inflammatories when needed, but otherwise has not had any formal treatment for his shoulder complaints. He hasnot had any prior shoulder surgeries. Medications and Allergies were reviewed in eD-[facility] PAST MEDICAL HX: No past medical history on file. PAST SURGICAL HX: No past surgical history on file. FAMILY HX: No family history on file. SOCIAL HX: Social History Occupational History ??? 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 Smoking status: Never Smoker ??? Smokeless tobacco: Never Used Vaping Use ??? Vaping Use: Never used Substance and Sexual Activity ??? Alcohol use: Not Currently ??? Drug use: Not on file ??? Sexual activity: Not on file Activities: tennis, skiing, snowboarding ROS: Pertinent items are noted in HPI. General Health, Prior Treatments, PreExisting Condition, Health Habits, About You 04/05/2021 PROMIS-10 General Health Good PROMIS-10 Quality of Life Very Good PROMIS-10 Physical Health Very Good PROMIS-10 Mental Health Very Good PROMIS-10 Social Activity Very Good PROMIS-10 Everyday Activities Moderately PROMIS-10 Pain 7 PROMIS-10 Fatigue Mild PROMIS-10 Social Roles Good PROMIS-10 Anxious or Depressed Sometimes PROMIS PHYSICAL SCORE (range 16-68) 42.3 PROMIS MENTAL SCORE (range 21-68) 50.8 Treatments Tried Physical therapy HOOS JR Scores 58.93 RAFIQ Grade 4 Alzheimers or dementia No Cirrohosis or liver disease No HIV/AIDS No Pain in more than one joint in legs Yes Back or neck pain Yes Heart attack No Heart failure No Unclog/bypass leg arteries No Stroke, blood clot, TIA No Asthma No Emphysema, chronic bronchities, or COPD No Stomach ulcers/peptic ulcer disease No Diabetes No Poor kidney function No Rheumatic condtions No Cancer No Weight (lbs) 210 Height (feet) 6 feet BMI Incomplete Ever used tobacco products No Ever used alcoholic beverages Yes Alcohol frequency Weekly WHO - Alcohol Advice 4 (You are at risk of health and other problems from your current pattern of alcohol use.) Live Alone Yes Marital situation / Schooling 4 - year college Combined Household Income $50,000 to less than $75,000 # People Supported 1 Romanian, , No, not Romanian// Race White Health Literacy Not at all Currently working Yes Current job situation Full-time [facility] Response 04/05/2021 HOOS JR Scores 58.93 [facility] Response 04/05/2021 HOOS JR Scores 58.93 PHYSICAL EXAM: Mr. Fuller is a 70 y.o. male who is in no apparent distress, alert and cooperative. Inspection: He reports no erythema, ecchymosis, or swelling over the bilateral shoulders Palpation: He has pain over the lateral aspect of his upper arms and also has increased pain with activity ROM: He is able to perform active forward flexion to 150 degrees bilaterally. Active external rotation is to 50 degrees bilaterally, internal rotation is to L1 bilaterally. Strength: He has 5/5 rotator cuff strength in all planes including empty can Neurovascular: Sensate distally with good perfusion DIAGNOSTIC STUDIES: X-rays of the bilateral shoulders were personally reviewed. No acute injuries are noted. There is evidence of glenohumeral arthritis and he also has some acromioclavicular arthritis bilaterally. On the left side he also has some calcific tendinitis at the rotator cuff insertion. ASSESSMENT: Bilateral glenohumeral arthritis PLAN: I reviewed the x-rays with the patient today. He would like to schedule bilateral fluoroscopyguided glenohumeral injections to see if this would help with shoulder pain. We can repeat injections up to every 4 months as needed. He can continue with his activities as tolerated, but he may needto limit some of his overhead lifting if this exacerbates symptoms. If injections are not effectivethen we can discuss the option of shoulder replacement. He will follow up as needed based on his response to the injection. The patient understands to contact us if they have any other questions or concerns. The above documentation was completed using [employer] voice recognition software. documented in this encounter Plan of Treatment Not on file documented as of this encounter Results * XR Fluoro Guided [...] who have questions please contact the health critical care registered nurse that requested your imaging first. ? Narrative 05/10/2021 11:11 AM EDT EXAMINATION: XR [...] electronic medical record and allergies, as per [facility] protocol. The patient was placed supine on [...] relevant electronic medicalrecord and allergies, as per [facility] protocol. The patient was placed supine on [...] IMPRESSION Uneventful glenohumeral joint injection under fluoroscopy. KERI Doty MD, was present for the entire procedure and Iperformed the procedure. Thank you for letting us participate in the care of this patient. If youare a health care provider and have any questions regarding this report,please contact the number below. For patients who have questions please contactthe health critical care registered nurse that requested your imaging first. Rosario Rao MD IMG FLUORO ORDERABLE S * XR Fluoro Guided Joint Injection Large Left (05/10/2021 8:34 AM EDT) Anatomical Region Laterality Modality Left Radio Fluoroscop y Impressions 05/10/2021 11:12 AM EDT Uneventful glenohumeral injection under fluoroscopy. I, KERI QUILES MD, was present for the entire procedure and I performed the procedure. Thank you for letting us participate in the care of this patient. ??If you are a health care provider and have any questions regarding this report, please contact the number below. ??For patients who have questions please contact the health critical care registered nurse that requested your imaging first. ? Narrative 05/10/2021 11:12 AM EDT EXAMINATION: XR [...] electronic medical record and allergies, as per [facility] protocol. The patient was placed supine on [...] relevant electronicmedical record and allergies, as per [facility] protocol. The patient was placed supine on [...] patients who have questions please contactthe health critical care registered nurse that requested your imaging first. Rosario Rao MD IMG FLUORO ORDERABLE S * XR Shoulder Bilat (Generic) (04/19/2021 9:23 AM EDT) Anatomical Region Laterality Modality Shoulder Bilateral Digital Radiogra phy Impressions 04/19/2021 11:09 AM EDT 1. 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 Preserved acromiohumeral intervals. 2. Left rotator cuff calcific tendinitis. Thank you for letting us participate in the care of this patient. ??If you are a health care provider and have any questions regarding this report, please contact the number below. ??For patients who have questions please contact the health critical care registered nurse that requested your imaging first. ? Narrative 04/19/2021 11:09 AM EDT EXAMINATION: XR SHOULDER BILAT (GENERIC) CLINICAL HISTORY: Bilateral shoulder pain, limited ROM TECHNIQUE: 4 views BILATERAL shoulders COMPARISON: None FINDINGS: Right: -No displaced fracture or destructive bone lesion. -Complete glenohumeral and acromioclavicular joint space loss is accompanied by subchondral cysts, sclerosis and large osteophytes. -Small chondrocalcinosis is present. -Spacing is preserved at the coracoclavicular interval. -Acromioclavicular interval is greater than 6 mm in the Grashey projection. Left: -No displaced fracture or destructive bone lesion. -Complete glenohumeral and acromioclavicular joint space loss is accompanied by large osteophytes, subchondral cysts and sclerosis. -Chondrocalcinosis is present. -Acromiohumeral interval measures greater than 1 cm on the Grashey projection. -Alignment is preserved at coracoclavicular interval. -An amorphous, 5 mm area of calcification is present at the greater tuberosity. Lung apices are clear. An ovoid, densely calcified nodule to the left lateral aspect of trachea is concordant with calcified lymph node. Scant aortic arch atherosclerosis is seen. Procedure Note Sara Merirtt MD - 04/19/2021 EXAMINATION: XR SHOULDER BILAT (GENERIC) CLINICAL HISTORY: Bilateral shoulder pain, limited ROM TECHNIQUE: 4 views BILATERAL shoulders COMPARISON: None FINDINGS: Right: -No displaced fracture or destructive bone lesion. -Complete glenohumeral and acromioclavicular joint space loss isaccompanied by subchondral cysts, sclerosis and large osteophytes. -Small chondrocalcinosis is present. -Spacing is preserved at the coracoclavicular interval. -Acromioclavicular interval is greater than 6 mm in the Grasheyprojection. Left: -No displaced fracture or destructive bone lesion. -Complete glenohumeral and acromioclavicular joint space loss isaccompanied by large osteophytes, subchondral cysts and sclerosis. -Chondrocalcinosis is present. -Acromiohumeral interval measures greater than 1 cm on the Grasheyprojection. -Alignment is preserved at coracoclavicular interval. -An amorphous, 5 mm area of calcification is present at the greatertuberosity. Lung apices are clear. An ovoid, densely calcified nodule to the leftlateral aspect of trachea is concordant with calcified lymph node. Scant aorticarch atherosclerosis is seen. IMPRESSION 1. 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 Preserved acromiohumeral intervals. 2. Left rotator cuff calcific tendinitis. Thank you for letting us participate in the care of this patient. If youare a health care provider and have any questions regarding this report,please contact the number below. For patients who have questions please contactthe health critical care registered nurse that requested your imaging first. Rosario Rao MD IMG DX ORDERABLES documented in this encounter Visit Diagnoses Diagnosis Chronic pain of both shoulders Pain in joint, shoulder region Chronic pain of both shoulders Pain in joint, shoulder region Chronic pain of both shoulders Pain in joint, shoulder region documented in this encounter Care Teams Senior Major Gifts Officer Relationship Specialty Start Date End Date Jakub Abrams MD [facility] [address] PCP - General Family Medicine 04/05/21 10/18/23 documented as of this encounter
--- OUTSIDE RECORDS SUMMARY | 2024-02-21 17:17 | XMS_ITS | Encounter Summary ---
Author Organization [facility] Address [facility] [place] [address] Care Team Providers Care Paper Reeler Name Role Phone Jakub Abrams MD Primary Care Provider [phone] Encounter Details Date Type Department Care Team (Latest Contact Info) Description 04/19/2021 9:00 AM EDT - 04/19/2021 9:55 AM EDT Hospital Encounter XRay at [address] [place] [address] Rosario Rao MD [facility] [place] [address] Chronic pain of both shoulders Discharge Disposition: [...] Name Priority Date/Time Associated Diagnosis Comments XR SHOULDER BILAT Routine 04/19/2021 9:2 3 AM EDT Chronic pain of both shoulders documented in this encounter Results * XR Shoulder Bilat (Generic) (04/19/2021 9:23 [...] who have questions please contact the health hospice patient care secretary that requested your imaging first. ? Electronically signed by: Sara Merritt MD, [facility] ([phone]), at 04/19/2021 11:09 AM Narrative 04/19/2021 11:09 AM EDT EXAMINATION: XR [...] arch atherosclerosis is seen. Procedure Note Sara Merritt MD - 04/19/2021 EXAMINATION: XR SHOULDER BILAT [...] patients who have questions please contactthe health hospice patient care secretary that requested your imaging first. Electronically signed by: Sara Merritt MD, [facility]([phone]), at 04/19/2021 11:09 AM Rosario Rao MD IMG DX ORDERABLES documented in this encounter Visit Diagnoses Diagnosis Chronic pain of both shoulders Pain in joint, shoulder region documented in this encounter Care Teams Paper Reeler Relationship Specialty Start Date End Date Jakub Abrams MD [address] [place] [address] PCP - General Family Medicine 04/05/21 10/18/23 documented as of this encounter
--- OUTSIDE RECORDS SUMMARY | 2024-02-21 17:17 | XMS_ITS | Encounter Summary ---
Author Organization [facility] [place] [address] Care Team Providers Care Infrastructure Security Architect Name Role Phone Jakub Abrams MD Primary Care Provider [phone] Reason for Referral * Consultation (Routine) - Closed Specialty Diagnoses / Procedures Referred By Contac t Referred To Contact [facility] Spine Center Diagnoses Primary osteoarthritis of left hip Sciatica pain/ ?spine pathology/ no imaging Klarissa Rizzo PA [facility] [place] [address] [facility] [place] [address] Referral ID Status Reason Start Date Expiration Date V isits Requested Visits Authorized [id number] Closed Pain Consult 04/05/2021 04/05/2022 3 3 * Diagnostic Test (Routine) - Closed Specialty Diagnoses / Procedures Referred By Contac t Referred To Contact Radiology Diagnoses Primary osteoarthritis of left hip Procedures XR Fluoro Guided Joint Injection Large Left Klarissa Rizzo PA [facility] [place] [address] [facility] Rad Xray [address] [place] [address] [place] [address] Referral ID Status Reason Start Date Expiration Date V isits Requested Visits Authorized [id number] Closed Specialty Service Requested 04/05/2021 10/03/2022 1 1 Reason for Visit * Reason Comments Establish Care CO XR// 02-18-21 rig ht ankle fusion (Gtiajn) * Consultation (Routine) - Closed Specialty Diagnoses / Procedures Referred By Louann dawson Referred To Contact Orthopaedics Self mail [facility] [address] [place] [address] Referral ID Status Reason Start Date Expiration Date Visits Re quested Visits Authorized [id number] Closed 03/04/2021 03/04/2022 1 1 Encounter Details Date Type Department Care Team (Latest Contact Info) Description 04/05/2021 8:00 AM EDT Office [place] [address] Klarissa Rizzo PA [facility] [place] [address] Primary osteoarthritis of left hip Social History [...] Sign Reading Time Taken Comments Blood Pressure 126/82 04/05/2021 8:03 AM EDT Pulse 63 04/05/2021 8:03 AM EDT Temperature - - Respiratory Rate - - Oxygen Saturation - - Inhaled Oxygen Concentration - - Weight 95.3 kg (210 lb) 04/05/2021 8:03 AM EDT v erbal Height 182.9 cm (6') 04/05/2021 8:03 AM EDT verb al Body Mass Index 28.48 04/05/2021 8:03 AM EDT documented in this encounter Progress Notes * Klarissa Rizzo PA - 04/05/2021 8:00 AM EDT Images from the original note were not included. Department of Orthopaedics Division of Adult Joint Reconstructive Surgery ARTHROPLASTY HISTORY/PREVIOUS HIP SURGERY: 1. none Subjective: Jakub Fuller is a 70 y.o. male who presents with Left hip pain. First noted groin, lateral flank pain for over 2 years. 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 He does note some numbness in his feet. He needs struggles going up the stairs, only goes one at a time. No injections or surgeries on the hip. He has stopped playing tennis. 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 He is taking Advil occasionally for hip pain. REVIEW OF SYSTEMS: Jakub denies fevers, chills, night sweats, nausea, or vomiting. QUESTIONNAIRE RESPONSES: No flowsheet data found. No flowsheet data found. No flowsheet data found. ALLERGIES Not on File SOCIAL HISTORY: SIGNIFICANT MEDICAL COMORBIDITIES: There is no problem list on file for this patient. Objective: Visit Vitals BP 126/82 Pulse 63 Ht 182.9 cm (6') Comment: verbal Wt 95.3 kg (210 lb) Comment: verbal BMI 28.48 kg/m?? General : alert, appears stated age and cooperative Gait: Antalgic. The patient can bear weight on the injured extremity. I have made the following determinations: Hip Exam: Left Prior surgery on this joint:Yes Leg Length: Longer leg: equal Limb Length discrepancy: 0cm Motion: Flexion contracture: 0 Total degrees of Flexion: 120 Total degrees of Abduction: 25 Total degrees of Ext Rotation: 35 Total degrees of Internal Rotation: 5 Gait Abnormality: Antalgic Radiographic evidence of joint damage: [0= normal; 1=minimal ; 2= some osteophytes , some narrowing ; 3= moderate osteophytes, significantnarrowing, mild deformity; 4= large osteophytes, marked narrowing, obvious deformity]: 4= large ostophytes, marked narrowing, obvious deformity Skin Integrity: Normal Pulses Palpable: Left PT: Yes Left DP: Yes Motor/Sensory: Left Distal Motor: Normal Distal Sensory: Normal Hip Abductors: 4 TTP LEFT SI joint with reported pain to his foot. Imaging: X-ray images show slight flattening of the femoral head, subchondral cyst formation, joint space obliteration Assessment: Mr. Fuller is a 70 y.o. year old male with severe osteoarthritis of his left hip. Plan: We discussed the elective management of osteoarthritis treatment. We discussed attempting conservative therapy first with fzsh-qdr-fujpsoh anti-inflammatories such as ibuprofen or naproxen along withacetaminophen if they can be tolerated. We also discussed attempting formal physical therapy, as that can help keep core and quad musculature strong, in conjunction with focusing on range of motion. We also discussed using walking aids, continue and regular exercise along with maintaining an appropriate weight. The patient is receptive to this. We also discussed corticosteroid injection. Risks and benefits explained including but not limited to steroid flare, increase in blood glucose, infection, continued pain, bleeding, damage to nerves and vessels and can safely be given every 3-4 months. We reviewed the indications of total hip arthroplasty and the elective management of this. We discussed the procedure, recovery, and expectations post- operatively. We reviewed risks and benefits, which include but are not limited to infection, bleeding, damage to nerves and vessels, hardware failure, fracture, dislocation, blood clot, heart attack, stroke, adverse reaction to anesthesia, and continued pain. Patient demonstrates and understanding of the above. Ultimately he elected to attempt fluoro guided cortisone injection. As well, he would like a referral to spine for his sciatica symptoms. OLIVIA Tamez documented in this encounter Plan of Treatment Scheduled Referrals Name Type Priority Associated Diagnoses Orde r Schedule Referral to Pain and Spine Center (Internal only) Outpatient Referral Routine Primary osteoarthritis of left hip Ordered: 04/05/2021 documented as of this encounter Results * [...] questions please contact the health critical care unit nurse that requested your imaging first. ? Narrative 04/21/2021 9:50 AM EDT LEFT HIP ??JOINT INJECTION UNDER FLUOROSCOPY CLINICAL HISTORY: oa TECHNIQUE: After an extensive conversation with the patient regarding risks and benefits, oral and written consent were obtained.?A pre- procedural time-out was performed, including review of the patient's relevant electronic medical record and allergies, as per [facility] protocol. The patient was placed supine on [...] relevant electronic medicalrecord and allergies, as per [facility] protocol. The patient was placed supine on [...] have questions please contactthe health critical care unit nurse that requested your imaging first. Sana Rosado MD IMG FLUORO ORDERABLE S documented in this encounter Visit Diagnoses Diagnosis Primary osteoarthritis of left hip Primary localized osteoarthrosis, pelvic region and thigh Primary osteoarthritis of left hip Primary localized osteoarthrosis, pelvic region and thigh documented in this encounter Care Teams Infrastructure Security Architect Relationship Specialty Start Date End Date Jakub Abrams MD [address] [place] [address] [place] [address] PCP - General Family Medicine 04/05/21 10/18/23 documented as of this encounter
[2024-02-21 19:35] LABS: ESR 16 mm/hr (0-20)
[2024-02-21 19:41] LABS: Uric Acid 6.9 mg/dL (3.5-7.2)
[2024-02-23 10:56] LABS: Lyme Ab w Rflx to Lyme Confirm Negative (Negative)
[2024-02-24 23:17] LABS: Anaplasma phagocytophilum Negative (Negative); B. miyamotoi PCR Negative (Negative); Babesia divergens/MO-1 Negative (Negative); Babesia duncani Negative (Negative); Babesia microti Negative (Negative); Ehrlichia chaffeensis Negative (Negative); Ehrlichia ewingii/canis Negative (Negative); Ehrlichia muris eauclairensis Negative (Negative)
== END 2024-02-21 17:13 | disposition home or self-care (01) ==
LOC: NCHCN 17:12
PROVIDERS: PCP Student in an Organized Health Care Education/Training Program; Visit Provider Student in an Organized Health Care Education/Training Program
DX: M25.50 Pain in unspecified joint (principal)
CPT/HCPCS: 85652; 87798; 84550; 86140; 86618

== ENCOUNTER 2024-02-22 15:16 | Outpatient (CLI) | payer OTHER, SELFPAY ==
[2024-02-22 11:40] LABS: Bilirubin Negative (Negative); Blood Negative (Negative); Clarity Clear (Clear); Glucose Negative (Negative); Ketones Negative (Negative); Leukocyte Esterase Negative (Negative); Nitrite Negative (Negative); Specific Gravity 1.015 (1.005-1.025); Urobilinogen 0.2 mg/dL (Up to 0.2)
[2024-02-22 12:12] LABS: BUN 14 mg/dL (7-18); CREATININE 1.4 mg/dL (0.70-1.30); Calcium 9.3 mg/dL (8.5-10.1); Chloride 104 mmol/L (98-107); Estimated GFR 53.74 (mL/min/1.73m2); Glucose 100 mg/dL (74-106); Potassium 4.4 mmol/L (3.5-5.1); Sodium 140 mmol/L (136-145); TSH (W/Ref FT4) 1.82 uIU/mL (0.36-3.74)
--- OUTSIDE RECORDS SUMMARY | 2024-02-22 15:17 | XMS_ITS | Clinical Summary ---
Author Organization [facility] Address [facility] [place] [address] Care Team Providers Care Engineering Faculty Name Role Phone Armond Morel Primary Care [...] Care Team Description 12/14/2023 Telephone [place] [address] Meagan Guerrero 11/23/2023 11:20 AM EDT Office [place] [address] Sussy Moraes MD S/P parathyroidectomy 11/23/2023 10:20 AM EDT Laboratory Appointment [address] [address] S/P parathyroidectomy 11/23/2023 Travel from [...] , 08/01/2022 Medical Devices Implanted Type Area Cash Clerk Device Identifier Shelf Expiration Date Model / Serial / Lot Shell Acet Hip 62mm Por Ctd Multi Hole Ti Mercedita Gription ([id number]) (Autoreq) - [id number] Implanted:Qty: 1 on 12/13/2022 by Mynor Umaña MD at [facility] IMPLANTS Left: Hip [employer] - EMANI AN[place]IO 02/21/2032 2 / / [id number] Liner Acet Hip [id number] Stnd Poly Mercedita Altrx ([id number]) ([employer]) - [id number] Implanted:Qty: 1 on 12/13/2022 by Mynor Umaña MD at [facility] IMPLANTS Left: Hip [employer] - EMANI ANTONIO 05/23/2027 2 / / [id number] Stem Femoral Hip Sz 9 Prox 07/06 Taper Por Cllr High Ofst Ti ([id number]) ([employer]) - [id number] Implanted:Qty: 1 on 12/13/2022 by Mynor Umaña MD at [facility] IMPLANTS Left: Hip [employer] - EMANI ANTONIO 07/23/2032 1010-07-01 0 / / [id number] Head Femoral Hip 40mm +1.5mm Offset 07/06 Tpr Ceramic ([id number]) ([employer]q) - [id number] Implanted:Qty: 1 on 12/13/2022 by Mynor Umaña MD at [facility] IMPLANTS Left: Hip [employer] - EMANI ANTONIO 11/21/2027 0 / / [id number] Procedures Procedure Name Priority Date/Time Associated Diagnosis [...] EDT) PTH 51 15 - 65 pg/mL [facility] Blood 11/23/2023 12:4 7 PM EDT 11/23/2023 1:10 PM EDT Narrative Resulting Agency Comment Spec In Lab Sussy Moraes MD CHEMISTRY ORDERAB LES Performing Organization Address [facility]/ZIP Co de Phone Number [facility] [place] [place] [address] * Vitamin D, 25-Hydroxy (11/23/2023 12:47 PM EDT) 25-OH Vit D Total 30 21 - 100 ng/mL [facility] 25-OH Vit D Interp Sufficient [facility] Blood 11/23/2023 12:4 7 PM EDT 11/23/2023 1:10 PM EDT Narrative Resulting Agency Comment Spec In Lab Sussy Moraes MD CHEMISTRY ORDERAB LES Performing Organization Address City/[facility]/ZIP Co de Phone Number [facility] [place] [place] [address] * TSH (11/23/2023 12:47 PM EDT) TSH 1.81 0.27 - 4.20 mcIU/mL [facility] Comment: Reference Interval (mcIU/mL): Females: ??First Trimester: 0.23-3.88 ??Second Trimester: 0.22-3.90 ??Third Trimester: 0.44-4.66 Blood 11/23/2023 12:4 7 PM EDT 11/23/2023 1:10 PM EDT Narrative Resulting Agency Comment Spec In Lab Sussy Moraes MD CHEMISTRY ORDERAB LES Performing Organization Address City/[facility] Co de Phone Number [facility] [place] [place] [address] * Calcium (11/23/2023 12:47 PM EDT) Calcium 9.3 8.5 - 10.5 mg/dL [facility] Blood 11/23/2023 12:4 7 PM EDT 11/23/2023 1:10 PM EDT Narrative Resulting Agency Comment Spec In Lab Sussy Moraes MD CHEMISTRY ORDERAB LES Performing Organization Address [facility] Co de Phone Number [facility] [place] [place] [address] * (ABNORMAL) Basic Metabolic Panel (non-fasting) (12/05/2022 1:22 PM EDT) Glucose Lvl 120 65 - 199 mg/dL [facility] Comment:Diabetes: >=200 mg/d L plus symptoms BUN 12 10 - 20 mg/dL [facility] Creatinine 1.28 0.80 - 1.50 mg/dL [facility] Sodium 137 135 - 145 mmol/L [facility] Potassium 5.3(H) 3.5 - 5.0 mmol/L [facility] Comment: Please note: ??Patients with WBC >100,000 may have falsely elevated Potassium levels. ??For accurate Potassium quantification in these patients send serum separator tube (gold top) for subsequent determinations. ??Contact the Clinical Chemistry Laboratory if there are any questions. Chloride 102 98 - 107 mmol/L [facility] CO2 27 22 - 31 mmol/L [facility] Anion Gap 8 5 - 15 mmol/L [facility] Calcium 11.3(H) 8.5 - 10.5 mg/dL [facility] Estimated GFR 60 >=60 mL/min/1. 73 m?? [facility] Comment: This patient's [...] Lab Mynor Umaña MD CHEMISTRY ORDERABLE S [facility] [place] [place] [address] from Last 3 Months or Most Recently Relevant to Health Maintenance Advance Directives Documents on File Type Date Recorded Patient Laborer Tin Can Expl anation Personal Laborer Tin Can 11/15/2022 7:40 AM * Attempt Cardiopulmonary Resuscitation - Inpatient (Latest Code Status on File) Date Activated Date Inactivated Comments 10/24/2023 7:22 AM 10/24/2023 12:06 PM Question Answer Comments Code Status decision made by: Patient Care Teams Engineering Faculty Relationship Specialty Start Date End Date Armond Morel PA [facility] [place] [address] PCP - General Internal Medicine 10/19/23
--- OUTSIDE RECORDS SUMMARY | 2024-02-22 15:17 | XMS_ITS | Encounter Summary ---
Author Organization [facility] [place] [address] Care Team Providers Care International Accountant Name Role Phone Armond Morel Primary Care Provider + Encounter Details Date Type Department Care Team (Josse st Contact Info) Description 12/14/2023 Telephone [place] [phone] Meagan Guerrero Social History Tobacco Use Types Packs/Day Years Used Date Smoking Tobacco: Never Smokeless Tobacco: Never Alcohol Use Standard Drinks/Week Comments Not Currently 0 (1 standard drink = 0.6 oz pur e alcohol) occasional DH [facility] Inpatient Questions Answer Date Recorded Does [...] on filedocumented in this encounter Care Teams International Accountant Relationship Specialty Start Date End Date Armond Morel PA [address] [place] [address] [place] [address] PCP - General Internal Medicine 10/19/23 documented as of this encounter
--- OUTSIDE RECORDS SUMMARY | 2024-02-22 15:18 | XMS_ITS | Encounter Summary ---
[place] [address] Care Team Providers Care Senior Counsel Name Role Phone Jakub Abrams MD Primary Care Provider [phone] Reason for Referral * Diagnostic Test (Routine) - Closed Specialty Diagnoses / Procedures Referred By Contac t Referred To Contact Radiology Diagnoses Primary hyperparathyroidism Procedures NM Parathyroid w Spect CT & Thyroid Imaging (Leb) Eva Hernandez MD [facility] [place] [address] [place] [address] Referral ID Status Reason Start Date Expiration Date V isits Requested Visits Authorized [id number] Closed Specialty Service Requested 07/03/2023 01/01/2025 1 1 Reason for Visit * Diagnostic Test (Routine) - Closed Specialty Diagnoses / Procedures Referred By Contac t Referred To Contact Radiology Diagnoses Primary hyperparathyroidism Procedures NM Parathyroid w Spect CT & Thyroid Imaging (Leb) Eva Hernandez MD [facility] [place] [address] [place] [address] Referral ID Status Reason Start Date Expiration Date V isits Requested Visits Authorized [id number] Closed Specialty Service Requested 07/03/2023 01/01/2025 1 1 Encounter Details Date Type Department Care Team (Latest Contact Info) Description 07/20/2023 7:50 AM EST - 07/20/2023 7:51 AM EST Hospital [place] [address] Eva Hernandez MD [facility] [place] [address] Primary hyperparathyroidism Discharge Disposition: Home Social History [...] provider that requested your imaging first. ? Electronically signed by: Sea Ramos MD, [facility] ([phone]), at 07/20/2023 3:24 PM Narrative 07/20/2023 3:24 PM EST EXAMINATION: NM [...] daycare provider that requested your imaging first. Electronically signed by: Sea Ramos MD, [facility]([phone]), at 07/20/2023 3:24 PM Eva Hernandez MD [facility] [place] ORDERABLES documented in this encounter Visit [...] Arm documented in this encounter Care Teams Senior Counsel Relationship Specialty Start Date End Date Jakub Abrams MD [address] [place] [address] PCP - General Family Medicine 04/05/21 10/18/23 documented as of this encounter
--- OUTSIDE RECORDS SUMMARY | 2024-02-22 15:18 | XMS_ITS | Encounter Summary ---
Author Organization [facility] [place] [address] Care Team Providers Care Occupational Health Manager Name Role Phone Armond Morel Primary Care Provider + Reason for Visit * Auth/Cert (Routine) Specialty Diagnoses / Procedures Referred By Contac t Referred To Contact Diagnoses Hyperparathyroidism Hyperparathyroidism Procedures PRO EXPLORE PARATHYROID GLANDS PRG EMG, LARYNX PARATHYROIDECTOMY OR EXPLORATION OF PARATHYROID(S) (WRVU 15.6) FACIAL NERVE MONITORING, SETUP LARYNGEAL (WRVU 1.57) Jeremie Angelo MD [facility] [place] [address] [facility] Referral ID Status Reason Start Date Expiration Date Visits Re quested Visits Authorized [id number] 1 1 Encounter Details Date Type Department Care Team (Latest Contact Info) Description 10/24/2023 6:20 AM EDT - 10/24/2023 10:00 AM EDT Hospital Encounter Outpatient [place] [address] Jeremie Angelo MD [facility] [place] [address] Primary hyperparathyroidism Discharge Disposition: Home Social History [...] closest emergency room or call the hospital power shovel operator helper at [phone] and ask for physician manager simulation covering for your physician. Questions or problems after 5pm or on a weekend: Call the [facility] power shovel operator helper at and ask for the physician manager simulation covering for your doctor. You received Toradol, [...] Take NSAIDS or Tylenol every 6 hours [id number] for the first 3-5 days following surgery [...] Follow-up Appointment: Will be scheduled with Dr. Agnelo and/or Linda Hoffman APRN, in 6 weeks If you do not already have a follow up appointment, the date and time as well as any required labs will be mailed to you Please call [phone] to confirm the date and time of [...] with your PCP. Phone number for questions: [phone] before 5 PM on weekdays [phone] after 5 PM and on weekends/holidays. Ask for the general surgery resident manager simulation. documented in this encounter Medications at Time [...] Operative Note Patient Name: Jakub Fuller : [id number] MR#: [id number] Case Date: 10/24/2023 Surgeon: Surgeon(s) and Role: [...] NO PRE-EXCISION DRAWN eD-H Order Id number [id number] SPECIMEN TO PATHOLOGY Hyperparathyroidism RIGHT UPPER PARATHYROID [...] Angelo MD - 10/24/2023 8:08 AM EDT [facility] Operative Note Patient Name: Jakub Fuller : [id number] MR#: [id number] Case Date: 10/24/2023 Surgeon: Surgeon(s) and Role: [...] NO PRE-EXCISION DRAWN eD-H Order Id number [id number] SPECIMEN TO PATHOLOGY Hyperparathyroidism RIGHT UPPER PARATHYROID [...] anesthesia was completed by anesthesiology with the [employer] recurrent laryngeal nerve monitoring system. A crease [...] 8:19 AM EDT Needle Electromyography, Larynx Global (31088) 10/24/2023 7:36 AM EDT Hyperparathyroidi sm Explore Parathyroid Glands (76878) 10/24/2023 7:36 AM EDT Hyperparathyroidi sm FACIAL NERVE MONITORING, SETUP LARYNGEAL Routine 10/24/2023 6:24 AM EDT PARATHYROIDECTOMY OR EXPLORATION OF PARATHYROID(S) Routine 10/24/2023 6:24 AM EDT documented in this encounter Results * PTH (10/24/2023 9:20 AM EDT) PTH 15 15 - 65 pg/mL [facility] Blood 10/24/2023 9:20 AM EDT 10/24/2023 9:37 AM EDT Narrative Resulting Agency Comment Spec In Lab Jeremie Angelo MD CHEMISTRY ORDERAB LES Performing Organization Address [facility]/[place] [address] * Specimen to Pathology (10/24/2023 8:39 AM EDT) AP Specimen 10/24/2023 8:39 AM EDT 10/24/2023 8:[address] [facility] - 10/24/2023 8:39 AM EDT Specimen requisition ordered. ??Separate Pathology report to follow Jeremie Angelo MD PATHOLOGY/CYTOLOG Y ORDERABLES Performing Organization Address City/[facility]/ZIP Co de Phone Number [facility] [place] [address] * Specimen to Pathology (10/24/2023 8:39 AM EDT) AP Specimen 10/24/2023 8:39 AM EDT 10/24/2023 8:[address] [facility] - 10/24/2023 8:39 AM EDT Specimen requisition ordered. ??Separate Pathology report to follow Jeremie Angelo MD PATHOLOGY/CYTOLOG Y ORDERABLES Performing Organization Address City/[facility]/ZIP Co de Phone Number [facility] [place] [address] * Surgical Pathology Report (10/24/2023 8:38 AM EDT) FINAL DIAGNOSIS (AP) [id number] ? Location: [facility] The signing pathologist has [...] MD Verified: ??10/30/2023 14:08 ??Pathologist Performed at: ??-[facility] Dept. of Pathology, [place] [address] Regional Sales Director: Jose Koenig MD, FCAP, ??CLIA Certificate: [id number] SPECIMEN(S) SUBMITTED A - RIGHT UPPER PARATHYROID, [...] labeled B1-B2. ??ajw 10/30/2023 2:[address] [facility] PARATHYROID STRUCTURE / Unknown 10/24/2023 8:38 AM EDT 10/24/2023 8:38 AM EDT PARATHYROID STRUCTURE / Unknown 10/24/2023 8:38 AM EDT 10/24/2023 8:38 AM EDT Jeremie Angelo MD PATHOLOGY/CYTOLOG Y ORDERABLES Performing Organization Address [facility] Co de Phone Number [facility] [place] [address] * (ABNORMAL) Intraoperative PTH ([facility]P) (10/24/2023 8:19 AM EDT) Intraoper PTH 74(H) 15 - 65 pg/mL [facility] Comment: BASELINE Called by: lopez, Read back by: Jeremie Angelo, Date/Time:10/24/23 08:54. A 50 % decrease in venous iPTH levels at 10 min post adenoma excision is expected if all the hypersecreting parathyroid tissue has been removed (Taiwo GL et al. Surgery 1993:114; [id number]) Blood 10/24/2023 8:19 AM EDT 10/24/2023 8:32 AM EDT Narrative Resulting Agency Comment Spec In Lab Jeremie Angelo MD CHEMISTRY ORDERAB LES Performing Organization Address [facility] Co de Phone Number [facility] [place] [address] documented in this encounter Visit Diagnoses Diagnosis [...] MD) documented in this encounter Care Teams Occupational Health Manager Relationship Specialty Start Date End Date Armond Morel [place] [address] [place] [address] PCP - General Internal Medicine 10/19/23 documented as of this encounter
--- OUTSIDE RECORDS SUMMARY | 2024-02-22 15:18 | XMS_ITS | Encounter Summary ---
[place] [address] Care Team Providers Care Medical Stenographer Name Role Phone Armond Morel Primary Care Provider + Encounter Details Date Type Department Care Team (Latest Contact Info) Description 11/23/2023 10:20 AM EDT Laboratory Appointment Lab [address] [place] [phone] S/P parathyroidectomy Social History Tobacco Use Types [...] no 10/24/2023 Feels Threatened by Someone no 0408/2023 Feels Unsafe at Home or Work/School no [...] MD CHEMISTRY ORDERAB LES Performing Organization Address City/[facility]/ZIP Co de Phone Number [facility] [place] [address] * PTH (11/23/2023 12:47 PM EDT) PTH 51 15 - 65 pg/mL [facility] Blood 11/23/2023 12:4 7 PM EDT 11/23/2023 1:10 PM EDT Narrative Resulting Agency Comment Spec In Lab Sussy Moraes MD CHEMISTRY ORDERAB LES Performing Organization Address City/[facility]/ZIP Co de Phone Number [facility] [place] [address] * Calcium (11/23/2023 12:47 PM EDT) Calcium 9.3 8.5 - 10.5 mg/dL [facility] Blood 11/23/2023 12:4 7 PM EDT 11/23/2023 1:10 PM EDT Narrative Resulting Agency Comment Spec In Lab Sussy Moraes MD CHEMISTRY ORDERAB LES Performing Organization Address City/[facility]/ZIP Co de Phone Number [facility] [place] [address] * TSH (11/23/2023 12:47 PM EDT) TSH 1.81 0.27 - 4.20 mcIU/mL [facility] Comment: Reference Interval (mcIU/mL): Females: ??First Trimester: 0.23-3.88 ??Second Trimester: 0.22-3.90 ??Third Trimester: 0.44-4.66 Blood 11/23/2023 12:4 7 PM EDT 11/23/2023 1:10 PM EDT Narrative Resulting Agency Comment Spec In Lab Sussy Moraes MD CHEMISTRY ORDERAB LES [facility] [place] [address] documented in this encounter Visit Diagnoses Diagnosis S/P parathyroidectomy Other postprocedural status documented in this encounter Care Teams Medical Stenographer Relationship Specialty Start Date End Date Armond [place] [address] PCP - General Internal Medicine 10/19/23 documented as of this encounter
--- OUTSIDE RECORDS SUMMARY | 2024-02-22 15:18 | XMS_ITS | Encounter Summary ---
Author Organization [facility] [place] [address] Care Team Providers Care Window Treatment Installer Name Role Phone Armond Morel Primary Care Provider + Encounter Details Date Type Department Care Team (Late st Contact Info) Description 11/09/2023 Telephone [place] [address] Linda Hoffman MEDICAL DIR [facility] [place] [address] Social History Tobacco Use Types Packs/Day Years Used Date Smoking Tobacco: Never Smokeless Tobacco: Never Alcohol Use Standard Drinks/Week Comments Not Currently 0 (1 standard drink = 0.6 oz pur e alcohol) occasional [facility] Inpatient Questions Answer Date Recorded Does [...] on filedocumented in this encounter Care Teams Window Treatment Installer Relationship Specialty Start Date End Date Armond [place] [address] PCP - General Internal Medicine 10/19/23 documented as of this encounter
--- OUTSIDE RECORDS SUMMARY | 2024-02-22 15:18 | XMS_ITS | Encounter Summary ---
Author Organization [facility] [place] [address] Care Team Providers Care Corrosion Control Technician Name Role Phone Armond Morel Primary Care Provider + Reason for Visit * Auth/Cert (Routine) Specialty Diagnoses / Procedures Referred By Contjocelyn t Referred To Contact Diagnoses Hyperparathyroidism Hyperparathyroidism Procedures PRO EXPLORE PARATHYROID GLANDS PRG EMG, LARYNX PARATHYROIDECTOMY OR EXPLORATION OF PARATHYROID(S) (WRVU 15.6) FACIAL NERVE MONITORING, SETUP LARYNGEAL (WRVU 1.57) Jeremie Angelo MD [facility] [place] [address] [facility] Referral ID Status Reason Start Date Expiration Date Visits Re quested Visits Authorized [id number] 1 1 Encounter Details Date Type Department Care Team (Late st Contact Info) Description 10/24/2023 7:30 AM EDT - 10/24/2023 9:56 AM EDT Surgery [place] [address] Jeremie Angelo MD [facility] [place] [address] PARATHYROIDECTOMY OR EXPLORATION OF PARATHYROID(S) (WRVU 15.6) [...] closest emergency room or call the hospital white sugar pan tank operator at [phone] and ask for physician environmental permitting specialist covering for your physician. Questions or problems after 5pm or on a weekend: [facility] white [facility] pan tank operator at and ask for the physician environmental permitting specialist covering for your doctor. You received Toradol, [...] Take NSAIDS or Tylenol every 6 hours [id number] for the first 3-5 days following surgery [...] will be mailed to you Please call [phone] to confirm the date and time of [...] with your PCP. Phone number for questions: [phone] before 5 PM on weekdays [phone] after 5 PM and on weekends/holidays. Ask for the general surgery resident environmental permitting specialist. documented in this encounter Medications at Time [...] Operative Note Patient Name: Jakub Fuller : [id number] MR#: [id number] Case Date: 10/24/2023 Surgeon: Surgeon(s) and Role: [...] NO PRE-EXCISION DRAWN eD-H Order Id number [id number] SPECIMEN TO PATHOLOGY Hyperparathyroidism RIGHT UPPER PARATHYROID [...] Angelo MD - 10/24/2023 8:08 AM EDT [facility] [place] Patient Name: Jakub Fuller : [id number] MR#: [id number] Case Date: 10/24/2023 Surgeon: Surgeon(s) and Role: [...] NO PRE-EXCISION DRAWN eD-H Order Id number [id number] SPECIMEN TO PATHOLOGY Hyperparathyroidism RIGHT UPPER PARATHYROID [...] anesthesia was completed by anesthesiology with the [employer] recurrent laryngeal nerve monitoring system. A crease [...] 8:19 AM EDT Needle Electromyography, Larynx Global (57609) 10/24/2023 7:36 AM EDT Hyperparathyroidi sm Explore Parathyroid Glands (38068) 10/24/2023 7:36 AM EDT Hyperparathyroidi sm FACIAL NERVE MONITORING, SETUP LARYNGEAL Routine 10/24/2023 6:24 AM EDT PARATHYROIDECTOMY OR EXPLORATION OF PARATHYROID(S) Routine 10/24/2023 6:24 AM EDT documented in this encounter Results * PTH (10/24/2023 9:20 AM EDT) PTH 15 15 - 65 pg/mL [facility] Blood 10/24/2023 9:20 AM EDT 10/24/2023 9:37 AM EDT Narrative Resulting Agency Comment Spec In Lab Jeremie Angelo MD CHEMISTRY ORDERAB LES Performing Organization Address City/[facility]/ZIP Co de Phone Number [facility] [place] [place] [address] * Specimen to Pathology (10/24/2023 8:39 AM EDT) AP Specimen 10/24/2023 8:39 AM EDT 10/24/2023 8:39 AM EDT Narrative [facility] - 10/24/2023 8:39 AM EDT Specimen requisition ordered. ??Separate Pathology report to follow Jeremie Angelo MD PATHOLOGY/CYTOLOG Y ORDERABLES Performing Organization Address City/[facility]/[place] [address] * Specimen to Pathology (10/24/2023 8:39 AM EDT) AP Specimen 10/24/2023 8:39 AM EDT 10/24/2023 8:39 AM EDT Narrative [facility] - 10/24/2023 8:39 AM EDT Specimen requisition ordered. ??Separate Pathology report to follow Jeremie Angelo MD PATHOLOGY/CYTOLOG Y ORDERABLES Performing Organization Address City/[facility]/ZIP Co de Phone Number [facility] [place] [address] * Surgical Pathology Report (10/24/2023 8:38 AM EDT) FINAL DIAGNOSIS (AP) [id number] ? Location: [facility] The signing pathologist has [...] MD Verified: ??10/30/2023 14:08 ??Pathologist Performed at: ??-[facility] [place]ology, [place] [address] Recreation Therapy Teacher: Jose Koenig MD, FCAP, ??CLIA Certificate: [id number] SPECIMEN(S) SUBMITTED A - RIGHT UPPER PARATHYROID, [...] labeled B1-B2. ??ajw 10/30/2023 2:08 PM EDT [facility] PARATHYROID STRUCTURE / Unknown 10/24/2023 8:38 AM EDT 10/24/2023 8:38 AM EDT PARATHYROID STRUCTURE / Unknown 10/24/2023 8:38 AM EDT 10/24/2023 8:38 AM EDT Jeremie Angelo MD PATHOLOGY/CYTOLOG Y ORDERABLES Performing Organization Address [facility] Co de Phone Number [facility] [place] [address] * (ABNORMAL) Intraoperative PTH ([facility] (10/24/2023 8:19 AM EDT) Intraoper PTH 74(H) 15 - 65 pg/mL [facility] Comment: BASELINE Called by: lopez, Read back by: Jeremie Angelo, Date/Time:10/24/23 08:54. A 50 % decrease in venous iPTH levels at 10 min post adenoma excision is expected if all the hypersecreting parathyroid tissue has been removed (Taiwo GL et al. Surgery 1993:114; 3263-1117) Blood 10/24/2023 8:19 AM EDT 10/24/2023 8:32 AM EDT Narrative Resulting Agency Comment Spec In Lab Jeremie Angelo MD CHEMISTRY ORDERAB LES Performing Organization Address [facility] Co de Phone Number [facility] [place] [address] documented in this encounter Visit Diagnoses Not [...] MD) documented in this encounter Care Teams Corrosion Control Technician Relationship Specialty Start Date End Date Armond Morel [place] [address] PCP - General Internal Medicine 10/19/23 documented as of this encounter
--- OUTSIDE RECORDS SUMMARY | 2024-02-22 15:18 | XMS_ITS | Encounter Summary ---
Author Organization [facility] [place] [address] Care Team Providers Care Layboy Operator Name Role Phone Jakub Abrams MD Primary Care Provider [phone] Encounter Details Date Type Department Care Team (Late st Contact Info) Description 12/22/2022 External Results [facility] Centralized [place] [address] Delmi Garcia Social History Tobacco Use Types [...] on filedocumented in this encounter Care Teams Layboy Operator Relationship Specialty Start Date End Date Jakub Abrams MD [address] [place] [address] PCP - General Family Medicine 04/05/21 10/18/23 documented as of this encounter
--- OUTSIDE RECORDS SUMMARY | 2024-02-22 15:18 | XMS_ITS | Encounter Summary ---
Author Organization [facility] Address [facility] [address] [place] [id number] Care Team Providers Care Gear Roller Name Role Phone Jakub Abrams MD Primary Care Provider [phone] Reason for Visit * Reason Comments Establish Care * Consultation (Routine) - Closed Specialty Diagnoses / Procedures Referred By Contjocelyn t Referred To Contact General Surgery Diagnoses Primary hyperparathyroidism Eva Hernandez MD [facility] [place] [address] Sussy Moraes MD [facility] [address] Referral ID Status Reason Start Date Expiration Date V isits Requested Visits Authorized [id number] Closed Consult, Test & Treat 07/03/2023 07/02/2024 1 1 Encounter Details Date Type Department Care Team (Late st Contact Info) Description 08/10/2023 9:00 AM EST Office Visit General Surgery at [place] [phone] Sussy Moraes MD [facility] [place] [address] Linda Hoffman APRN [facility] [place] [address] Thyroid nodule Social History Tobacco Use Types [...] 0.27) performed by Mynor Umaña MD at [facility] MAIN OR PRO ARTHROPLASTY ACETABULAR/PROX FEM PROSTC AGRFT/ALGRFT Left 12/13/2022 TOTAL HIP ARTHROPLASTY, ANTERIOR APPROACH (WRVU 19.6) performed by Mynor Umaña MD at [facility] MAIN OR UMBILICAL HERNIA REPAIR XR FLUORO INJECTION DRAINAGE JOINT LG LEFT Left 04/19/2021 XR Fluoro Guided Joint Injection Large Left 04/19/2021 [facility] RAD XRAY XR FLUORO INJECTION DRAINAGE JOINT LG LEFT Left 05/10/2021 XR Fluoro Guided Joint Injection Large Left 05/10/2021 Keri Dugan MD [facility] RAD XRAY XR FLUORO INJECTION DRAINAGE JOINT LG RIGHT Right 05/10/2021 XR Fluoro Guided Joint Injection Large Right 05/10/2021 Keri Dugan MD [facility] RAD XRAY Current Outpatient Medications on [...] be scheduledfor the soonest mutually convenient date. [facility] Data Patient Characteristics Body mass index is [...] Urine calcium: high GFR decreased: No PTH:normal [id number] D: normal Subjective Symptoms: yes Objective Symptoms: [...] PM EST 08/10/2023 12:37 PM EST Narrative [facility] - 08/10/2023 12:37 PM EST Specimen requisition ordered. ??Separate Pathology report to follow Sussy Moraes MD PATHOLOGY/CYTOLOG Y ORDERABLES Performing Organization Address City/State/[facility] Co de Phone Number [facility] [place] [address] documented in this encounter Visit Diagnoses Diagnosis Thyroid nodule Nontoxic uninodular goiter documented in this encounter Care Teams Gear Roller Relationship Specialty Start Date End Date Jakub Abrams MD [address] [place] [address] PCP - General Family Medicine 04/05/21 10/18/23 documented as of this encounter
--- OUTSIDE RECORDS SUMMARY | 2024-02-22 15:18 | XMS_ITS | Encounter Summary ---
[place] [address] Care Team Providers Care Agency Development Manager Name Role Phone Armond Morel Primary [...] on filedocumented in this encounter Care Teams Agency Development Manager Relationship Specialty Start Date End [place] [address] PCP - General Internal Medicine 10/19/23 documented as of this encounter
--- OUTSIDE RECORDS SUMMARY | 2024-02-22 15:18 | XMS_ITS | Encounter Summary ---
[place] [address] Care Team Providers Care Complex Director Name Role Phone Jakub Abrams MD Primary Care Provider [phone] Encounter Details Date Type Department Care Team (Late st Contact Info) Description 04/06/2023 Ancillary Procedure [place] [phone] Jakub Abrams MD [facility] [place] [address] Social History Tobacco Use Types Packs/Day Years Used Date Smoking Tobacco: Never Smokeless Tobacco: Never Alcohol Use Standard Drinks/Week Comments Not Currently 0 (1 standard drink = 0.6 oz pur e alcohol) occasional [facility] Inpatient Questions Answer Date Recorded Does [...] DXA Images (04/06/2023 12:00 AM EDT) Narrative [facility] - 04/07/2023 1:48 PM EDT This exam is auto-finalizing. It's purpose is for storage only. Jakub Abrams MD IM FILM LIBRARY ORD ERABLES [place], [place] documented in this encounter Visit Diagnoses Not on filedocumented in this encounter Care Teams Complex Director Relationship Specialty Start Date End Date Jakub Abrams MD [address] [place] [address] PCP - General Family Medicine 04/05/21 10/18/23 documented as of this encounter
--- OUTSIDE RECORDS SUMMARY | 2024-02-22 15:18 | XMS_ITS | Encounter Summary ---
Author Organization [facility] Address [facility] [place] [address] Care Team Providers Care Baggage Agent Name Role Phone Jakub Abrams MD Primary Care Provider [phone] Reason for Referral * Physical Therapy (Routine) - Closed Specialty Diagnoses / Procedures Referred By Contjocelyn t Referred To Contact Physical Therapy Diagnoses S/P total left hip arthroplasty Mynor Umaña MD [facility] [place] [address] Physical Therapy, [address] [address] Referral ID Status Reason Start Date Expiration Date V isits Requested Visits Authorized [id number] Closed Evaluate and Treat Non PCP 01/04/2023 07/03/2023 12 12 Reason for Visit * Reason Onset Date Comments Post Hospital Discharge 01/04/2023 Physical Therapy and PT INR outpatient orders. Encounter Details Date Type Department Care Team (Late st Contact Info) Description 01/04/2023 Telephone [place] [phone] Mynor Umaña MD [facility] [place] [address] Post Hospital Discharge (Physical Therapy [...] Outpatient. Caller: Aniceto Hinton, physical therapist with [facility] Best Return Contact: Procedure: L RAFIQ 12/13/22 Surgeon: Dr. Umaña Questions: Aniceto called stating Mr. Fuller is now capable of driving and he wants to drive and so he will need a referral for Outpatient Physical Therpay and Outpatient PT INR to go to [facility] in [facility]. The phone he provided for [facility] Physical Therpay is [phone] documented in this encounter Plan of Treatment Scheduled Referrals Name Type Priority Associated Diagnoses Orde r Schedule Referral to Physical Therapy Outpatient Referral Routine s/p Left RAFIQ on 12/13/22 (Dr Umaña) Ordered: 01/04/2023 documented as of this encounter Visit Diagnoses Diagnosis s/p Left RAFIQ on 12/13/22 (Dr Umaña) documented in this encounter Care Teams Baggage Agent Relationship Specialty Start Date End Date Jakub Abrams MD [address] [place] [address] PCP - General Family Medicine 04/05/21 10/18/23 documented as of this encounter
--- OUTSIDE RECORDS SUMMARY | 2024-02-22 15:18 | XMS_ITS | Encounter Summary ---
Author Organization [facility] [place] [address] Care Team Providers Care Refund Specialist Name Role Phone Jakub Abrams MD Primary Care Provider Encounter Details Date Type Department Care Team (Late st Contact Info) Description 10/17/2023 Ancillary Procedure [place] [address] Mikel Anaya MD [facility] [place] [address] Social History Tobacco Use Types Packs/Day Years Used Date Smoking Tobacco: Never Smokeless Tobacco: Never Alcohol Use Standard Drinks/Week Comments Not Currently 0 (1 standard drink = 0.6 oz pur e alcohol) occasional [facility] Inpatient Questions Answer Date Recorded Does Anyone [...] DX Wrist (10/17/2023 12:00 AM EDT) Narrative [facility] - 11/20/2023 9:59 AM EDT This exam is auto-finalizing. It's purpose is for storage only. Mikel Anaya MD IMG FILM LIBRARY ORD ERABLES [place], [place] documented in this encounter Visit Diagnoses Not on filedocumented in this encounter Care Teams Refund Specialist Relationship Specialty Start Date End Date Jakub Abrams MD [address] [place] [address] PCP - General Family Medicine 04/05/21 10/18/23 documented as of this encounter
--- OUTSIDE RECORDS SUMMARY | 2024-02-22 15:18 | XMS_ITS | Encounter Summary ---
Author Organization [facility] [place] [address] Care Team Providers Care Aircraft Layout Worker Name Role Phone Jakub Abrams MD Primary Care Provider [phone] Reason for Referral * Consultation (Routine) - Closed Specialty Diagnoses / Procedures Referred By Louann dawson Referred To Contact General Surgery Diagnoses Primary hyperparathyroidism Eva Hernandez MD [facility] [place] [address] Sussy Moraes MD [facility] [place] [address] Referral ID Status Reason Start Date Expiration Date V isits Requested Visits Authorized [id number] Closed Consult, Test & Treat 07/03/2023 07/02/2024 1 1 * Diagnostic Test (Routine) - Closed Specialty Diagnoses / Procedures Referred By Louann dawson Referred To Contact Radiology Diagnoses Primary hyperparathyroidism Procedures NM Parathyroid w Spect CT & Thyroid Imaging (Leb) Eva Hernandez MD [facility] [place] [address] [place] [address] Referral ID Status Reason Start Date Expiration Date V isits Requested Visits Authorized [id number] Closed Specialty Service Requested 07/03/2023 01/01/2025 1 1 Encounter Details Date Type Department Care Team (Late st Contact Info) Description 07/03/2023 8:30 AM EST Office [place] [address] Eva Hernandez MD [facility] [place] [address] Primary hyperparathyroidism; Hypercalcemia; Hypothyroidism, acquired Social History Tobacco Use Types Packs/Day Years Used Date Smoking Tobacco: Never Smokeless Tobacco: Never Alcohol Use Standard Drinks/Week Comments Not Currently 0 (1 standard drink = 0.6 oz pur e alcohol) occasional [facility] Inpatient Questions Answer Date Recorded Does [...] Hernandez MD - 07/03/2023 8:30 AM EST [facility] Endocrinology Clinic Follow up Patient Chief [...] 0.27) performed by Mynor Umaña MD at [facility] MAIN OR PRO ARTHROPLASTY ACETABULAR/PROX FEM PROSTC AGRFT/ALGRFT Left 12/13/2022 TOTAL HIP ARTHROPLASTY, ANTERIOR APPROACH (WRVU 19.6) performed by Mynor Umaña MD at [facility] MAIN OR UMBILICAL HERNIA REPAIR XR FLUORO INJECTION DRAINAGE JOINT LG LEFT Left 04/19/2021 XR Fluoro Guided Joint Injection Large Left 04/19/2021 [facility] RAD XRAY XR FLUORO INJECTION DRAINAGE JOINT LG LEFT Left 05/10/2021 XR Fluoro Guided Joint Injection Large Left 05/10/2021 Keri Dugan MD [facility] RAD XRAY XR FLUORO INJECTION DRAINAGE JOINT LG RIGHT Right 05/10/2021 XR Fluoro Guided Joint Injection Large Right 05/10/2021 Keri Dugan MD [facility] RAD XRAY Medications: Synthroid 137 mcg [...] or sooner if needed. Eva Hernandez MD Humidifier Attendantcomposite technician Endocrinology Section [facility] documented in this encounter Plan [...] who have questions please contact the health managed care manager that requested your imaging first. ? Narrative [...] patients who have questions please contactthe health managed care manager that requested your imaging first. Eva Hernandez MD [facility] [place] ORDERABLES documented in this encounter Visit Diagnoses Diagnosis Primary hyperparathyroidism Hypercalcemia Hypothyroidism, acquired Unspecified hypothyroidism Primary hyperparathyroidism documented in this encounter Care Teams Aircraft Layout Worker Relationship Specialty Start Date End Date Jakub Abrams MD [address] [place] [address] [place] [address] PCP - General Family Medicine 04/05/21 10/18/23 documented as of this encounter
--- OUTSIDE RECORDS SUMMARY | 2024-02-22 15:18 | XMS_ITS | Encounter Summary ---
[place] [address] Care Team Providers Care Airfield Services Officer Name Role Phone Jakub Abrams MD Primary Care Provider [phone] Encounter Details Date Type Department Care Team [...] on filedocumented in this encounter Care Teams Airfield Services Officer Relationship Specialty Start Date End [place] [address] PCP - General Family Medicine 04/05/21 10/18/23 documented as of this encounter
--- OUTSIDE RECORDS SUMMARY | 2024-02-22 15:18 | XMS_ITS | Encounter Summary ---
[place] [address] Care Team Providers Care Plant Inspector Name Role Phone Jakub Abrams MD Primary Care Provider [phone] Encounter Details Date Type Department Care Team [...] on filedocumented in this encounter Care Teams Plant Inspector Relationship Specialty Start Date End [place] [address] PCP - General Family Medicine 04/05/21 10/18/23 documented as of this encounter
--- OUTSIDE RECORDS SUMMARY | 2024-02-22 15:18 | XMS_ITS | Encounter Summary ---
Author Organization [facility] Address [facility] [place] [address] Care Team Providers Care Account Specialist Name Role Phone Armond Morel Primary Care Provider + Reason for Visit * Reason Comments Follow-up Encounter Details Date Type Department Care Team (Late st Contact Info) Description 11/23/2023 11:20 AM EDT Office [place] [address] Sussy Moraes MD [facility] [place] [address] S/P parathyroidectomy Social History Tobacco Use Types [...] EDT) TSH 1.81 0.27 - 4.20 mcIU/mL [facility] Comment: Reference Interval (mcIU/mL): Females: ??First Trimester: 0.23-3.88 ??Second Trimester: 0.22-3.90 ??Third Trimester: 0.44-4.66 Blood 11/23/2023 12:4 7 PM EDT 11/23/2023 1:10 PM EDT Narrative Resulting Agency Comment Spec In Lab Sussy Moraes MD CHEMISTRY ORDERAB LES [facility] [place] [address] * Calcium (11/23/2023 12:47 PM EDT) Calcium 9.3 8.5 - 10.5 mg/dL [facility] Blood 11/23/2023 12:4 7 PM EDT 11/23/2023 1:10 PM EDT Narrative Resulting Agency Comment Spec In Lab Sussy Moraes MD CHEMISTRY ORDERAB LES Performing Organization Address City/[facility]/ZIP Co de Phone Number [facility] [place] [address] * PTH (11/23/2023 12:47 PM EDT) PTH 51 15 - 65 pg/mL [facility] Blood 11/23/2023 12:4 7 PM EDT 11/23/2023 1:10 PM EDT Narrative Resulting Agency Comment Spec In Lab Sussy Moraes MD CHEMISTRY ORDERAB LES Performing Organization Address City/[facility] Co de Phone Number [facility] [place] [address] * Vitamin D, 25-Hydroxy (11/23/2023 12:47 PM EDT) 25-OH Vit D Total 30 21 - 100 ng/mL [facility] 25-OH Vit D Interp Sufficient [facility] Blood 11/23/2023 12:4 7 PM EDT 11/23/2023 1:10 PM EDT Narrative Resulting Agency Comment Spec In Lab Sussy Moraes MD CHEMISTRY ORDERAB LES Performing Organization Address City/[facility]/ZIP Co de Phone Number [facility] [place] [address] documented in this encounter Visit Diagnoses Diagnosis S/P parathyroidectomy Other postprocedural status documented in this encounter Care Teams Account Specialist Relationship Specialty Start Date End Date Armond [place] [address] [place] [address] PCP - General Internal Medicine 10/19/23 documented as of this encounter
--- OUTSIDE RECORDS SUMMARY | 2024-02-22 15:18 | XMS_ITS | Encounter Summary ---
Author Organization [facility] [place] [address] Care Team Providers Care Seeing Eye Dog Trainer Name Role Phone Jakub Abrams MD Primary Care Provider [phone] Encounter Details Date Type Department Care Team (Late st Contact Info) Description 01/02/2023 External Results C Central[place] [address] Delmi Garcia Social History Tobacco Use Types Packs/Day Years Used Date Smoking Tobacco: Never Smokeless Tobacco: Never Alcohol Use Standard Drinks/Week Comments Not Currently 0 (1 standard drink = 0.6 oz pur e alcohol) occasional [facility] Inpatient Questions Answer Date Recorded Does [...] PM EDT) INR 2.20 VISITING NURSE Comment:[facility] Blood 01/02/2023 12:0 7 PM EDT Historical Provider POINT OF CARE JEREMIAS T ORDERABLES VISITING NURSE documented in this encounter Visit Diagnoses Not on filedocumented in this encounter Care Teams Seeing Eye Dog Trainer Relationship Specialty Start Date End Date Jakub Abrams MD [address] [place] [address] PCP - General Family Medicine 04/05/21 10/18/23 documented as of this encounter
--- OUTSIDE RECORDS SUMMARY | 2024-02-22 15:18 | XMS_ITS | Encounter Summary ---
Author Organization [facility] Address [facility] [place] [address] Care Team Providers Care Machine Joiner Cementer Name Role Phone Jakub Abrams MD Primary Care Provider [phone] Reason for Visit * Reason Onset Date Comments Questions 02/24/2023 Encounter Details Date Type Department Care Team (Late st Contact Info) Description 02/24/2023 Telephone [place] [phone] Mynor Umaña MD [facility] [place] [address] Questions Social History Tobacco Use Types Packs/Day Years Used Date Smoking Tobacco: Never Smokeless Tobacco: Never Alcohol Use Standard Drinks/Week Comments Not Currently 0 (1 standard drink = 0.6 oz pur e alcohol) occasional [facility] Inpatient Questions Answer Date Recorded Does [...] Notes * Telephone Encounter - Jose Palmer, [facility] - 02/24/2023 2:07 PM EDT Called patient [...] done. Best number to reach the caller: [phone] documented in this encounter Plan of Treatment Not on file documented as of this encounter Visit Diagnoses Not on filedocumented in this encounter Care Teams Machine Joiner Cementer Relationship Specialty Start Date End Date Jakub Abrams MD [address] [place] [address] PCP - General Family Medicine 04/05/21 10/18/23 documented as of this encounter
--- OUTSIDE RECORDS SUMMARY | 2024-02-22 15:18 | XMS_ITS | Encounter Summary ---
[place] [address] Care Team Providers Care Lead Architect Name Role Phone Jakub Abrams MD Primary Care Provider [phone] Encounter Details Date Type Department Care Team [...] on filedocumented in this encounter Care Teams Lead Architect Relationship Specialty Start Date End [place] [address] PCP - General Family Medicine 04/05/21 10/18/23 documented as of this encounter
--- OUTSIDE RECORDS SUMMARY | 2024-02-22 15:18 | XMS_ITS | Encounter Summary ---
[place] [address] Care Team Providers Care Loss Prevention Coordinator Name Role Phone Jakub Abrams MD Primary Care Provider [phone] Encounter Details Date Type Department Care Team (Latest Contact Info) Description 01/05/2023 2:00 AM EDT Anti-Coag Telephone Visit [facility] [place] [address] Jad Montgomery, [facility] S/P total left hip arthroplasty Social History Tobacco Use Types Packs/Day Years Used Date Smoking Tobacco: Never Smokeless Tobacco: Never Alcohol Use Standard Drinks/Week Comments Not Currently 0 (1 standard drink = 0.6 oz pur e alcohol) occasional [facility] Inpatient Questions Answer Date Recorded [...] Association Preferred lab: Send INR reminders to: [facility] Comments: [facility] [phone] Anticoagulation Care Providers Provider Role Specialty Phone number Mynor Umaña MD [facility] Orthopaedic Surgery [phone] Patient Assessment Service Type: INR Test Result [...] . Left message with BRADLY Mckeon, (Scanned [place] on file), patient was in the store. [...] and warfarin education provided to Jakub verballyand [facility] phone # provided. Give the [...] arthroplasty documented in this encounter Care Teams Loss Prevention Coordinator Relationship Specialty Start Date End Date Jakub Abrams MD [facility] [address] [place] [address] PCP - General Family Medicine 04/05/21 10/18/23 documented as of this encounter
--- OUTSIDE RECORDS SUMMARY | 2024-02-22 15:18 | XMS_ITS | Encounter Summary ---
Author Organization [facility] [place] [address] Care Team Providers Care Compound Filler Name Role Phone Jakub Abrams MD Primary Care Provider [phone] Encounter Details Date Type Department Care Team (Late st Contact Info) Description 01/05/2023 External Results [facility] [place] [address] Delmi Garcia Social History Tobacco Use Types [...] on filedocumented in this encounter Care Teams Compound Filler Relationship Specialty Start Date End Date Jakub Abrams MD [address] [place] [address] PCP - General Family Medicine 04/05/21 10/18/23 documented as of this encounter
--- OUTSIDE RECORDS SUMMARY | 2024-02-22 15:18 | XMS_ITS | Encounter Summary ---
Author Organization [facility] Address [facility] [place] [address] Care Team Providers Care Human Resources Operations Director Name Role Phone Jakub Abrams MD Primary Care Provider [phone] Reason for Visit * Diagnostic Test (Routine) - Closed Specialty Diagnoses / Procedures Referred By Louann t Referred To Contact Radiology Diagnoses Primary hyperparathyroidism Procedures NM Parathyroid w Spect CT & Thyroid Imaging (Leb) Eva Hernandez MD [facility] [place] [address] [place] [address] Referral ID Status Reason Start Date Expiration Date V isits Requested Visits Authorized [id number] Closed Specialty Service Requested 07/03/2023 01/01/2025 1 1 Encounter Details Date Type Department Care Team (Late st Contact Info) Description 07/20/2023 10:19 AM EST - 07/20/2023 11:59 PM [facility] Hospital En[place] [phone] Eva Hernandez MD [facility] [place] [address] Discharge Disposition: Home Social History [...] have questions please contact the health healthcare manager that requested your imaging first. ? [...] Note Sea Ramos MD - 07/20/2023 EXAMINATION: [place] PARATHYROID W SPECT CT AND THYROID IMAGING [...] who have questions please contactthe health healthcare manager that requested your imaging first. Eva Hernandez MD IMG [place] ORDERABLES documented in this encounter Visit Diagnoses Not on filedocumented in this encounter Care Teams Human Resources Operations Director Relationship Specialty Start Date End Date Jakub Abrams MD [facility] [place] [address] PCP - General Family Medicine 04/05/21 10/18/23 documented as of this encounter
--- OUTSIDE RECORDS SUMMARY | 2024-02-22 15:18 | XMS_ITS | Encounter Summary ---
[place] [address] Care Team Providers Care Billing Representative Name Role Phone Jakub Abrams MD Primary Care Provider [phone] Encounter Details Date Type Department Care Team [...] on filedocumented in this encounter Care Teams Billing Representative Relationship Specialty Start Date End [place] [address] PCP - General Family Medicine 04/05/21 10/18/23 documented as of this encounter
--- OUTSIDE RECORDS SUMMARY | 2024-02-22 15:18 | XMS_ITS | Encounter Summary ---
Author Organization [facility] Address [facility] [place] [address] Care Team Providers Care Drawer Maker Name Role Phone Armond Morel Primary Care Provider + Reason for Visit * Occupational Therapy (Routine) - Authorized Specialty Diagnoses / Procedures Referred By Louann dawson Referred To Contact Occupational Therapy Diagnoses Subluxation of right extensor carpi ulnaris tendon, initial encounter Bekah Hui PA [facility] [place] [address] [facility] [address] [place] [address] Referral ID Status Reason Start Date Expiration Date Visits Requested Visits Authorized [id number] Authorized Evaluate and Treat 11/20/2023 11/19/2024 12 12 Encounter Details Date Type Department Care Team (Late st Contact Info) Description 11/20/2023 10:00 AM EDT Office [place] [address] Emilie Boston, OT Pain in right wrist Social History Tobacco Use Types Packs/Day Years Used Date Smoking Tobacco: Never Smokeless Tobacco: Never Alcohol Use Standard Drinks/Week Comments Not Currently 0 (1 standard drink = 0.6 oz pur e alcohol) occasional [facility] Inpatient Questions Answer Date Recorded Does [...] Co-morbidities: 1. 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
--- OUTSIDE RECORDS SUMMARY | 2024-02-22 15:18 | XMS_ITS | Encounter Summary ---
Author Organization [facility] [place] [address] Care Team Providers Care Entry Level Project Engineer Name Role Phone Jakub Abrams MD Primary Care Provider [phone] Encounter Details Date Type Department Care Team (Latest Contact Info) Description 12/29/2022 2:00 AM EDT Anti-Coag Telephone Visit [facility] Centralized [place] [address] Jad Montgomery, [facility] S/P total left hip arthroplasty Social History Tobacco Use Types Packs/Day Years Used Date Smoking Tobacco: Never Smokeless Tobacco: Never Alcohol Use Standard Drinks/Week Comments Not Currently 0 (1 standard drink = 0.6 oz pur e alcohol) occasional [facility] Inpatient Questions Answer Date Recorded Does [...] this encounter Progress Notes * Jad Montgomery [facility] - 12/29/2022 2:00 AM EDT [...] 42.5 mg Plan last modified: Jad Montgomery, [facility] (12/26/2022) Next INR check: 01/02/2023 Target end date: 01/13/2023 Indications s/p Left RAFIQ on 12/13/22 (Dr Umaña) [Z96.642] Anticoagulation Episode Summary INR check location: [facility] Preferred lab: Send INR reminders to: [facility] Comments: [facility] [phone] Anticoagulation Care Providers Provider Role Specialty Phone number Mynor Umaña MD [facility] Orthopaedic Surgery [phone] Patient Assessment Service Type: INR Test Result [...] range. Dosing and warfarin education provided to Jkaub verballyand [facility] phone # provided. Give the BID dosing [...] correct range. Admitted: 12/13 Discharged: 12/13 Facility: [facility] Reason for Admission: Left RAFIQ Warfarin RX [...] arthroplasty documented in this encounter Care Teams Entry Level Project Engineer Relationship Specialty Start Date End Date Jakub Abrams MD [address] [place] [address] PCP - General Family Medicine 04/05/21 10/18/23 documented as of this encounter
--- OUTSIDE RECORDS SUMMARY | 2024-02-22 15:18 | XMS_ITS | Encounter Summary ---
Author Organization [facility] Address [facility] [place] [address] Care Team Providers Care Rehab Physician Name Role Phone Jakub Abrams MD Primary Care Provider [phone] Reason for Visit * Diagnostic Test (Routine) - Closed Specialty Diagnoses / Procedures Referred By Louann t Referred To Contact Radiology Diagnoses Primary hyperparathyroidism Procedures NM Parathyroid w Spect CT & Thyroid Imaging (Leb) Eva Hernandez MD [facility] [place] [address] [place] [address] Referral ID Status Reason Start Date Expiration Date V isits Requested Visits Authorized [id number] Closed Specialty Service Requested 07/03/2023 01/01/2025 1 1 Encounter Details Date Type Department Care Team (Late st Contact Info) Description 07/20/2023 7:52 AM EST - 07/20/2023 10:18 AM [facility] Hospital Encounter [place] [phone] Eva Hernandez MD [facility] [place] [address] Discharge Disposition: Home Social History [...] Arm documented in this encounter Care Teams Rehab Physician Relationship Specialty Start Date End Date Jakub [place] [address] [place] [address] PCP - General Family Medicine 04/05/21 10/18/23 documented as of this encounter
--- OUTSIDE RECORDS SUMMARY | 2024-02-22 15:18 | XMS_ITS | Encounter Summary ---
Author Organization [facility] [place] [address] Care Team Providers Care Size Marker Name Role Phone Jakub Abrams MD Primary Care Provider [phone] Encounter Details Date Type Department Care Team (Latest Contact Info) Description 12/22/2022 2:00 AM EDT Anti-Coag Telephone Visit [facility] [place] [phone] Jad Montgomery RPH S/P total left hip arthroplasty Social History Tobacco Use Types Packs/Day Years Used Date Smoking Tobacco: Never Smokeless Tobacco: Never Alcohol Use Standard Drinks/Week Comments Not Currently 0 (1 standard drink = 0.6 oz pur e alcohol) occasional DH [facility] Inpatient Questions Answer Date Recorded [...] Association Preferred lab: Send INR reminders to: [facility] Comments: [facility]?? [phone] Anticoagulation Care Providers Provider Role Specialty Phone number Mynor Umaña MD [facility] Orthopaedic Surgery [phone] Patient Assessment Service Type: INR Test Result [...] and warfarin education provided to Jakub verballyand [facility] phone # provided. Give the BID [...] correct range. Admitted: 12/13 Discharged: 12/13 Facility: [facility] Reason for Admission: [...] arthroplasty documented in this encounter Care Teams Size Marker Relationship Specialty Start Date End Date Jakub Abrams MD [address] [place] [address] PCP - General Family Medicine 04/05/21 10/18/23 documented as of this encounter
--- OUTSIDE RECORDS SUMMARY | 2024-02-22 15:18 | XMS_ITS | Encounter Summary ---
[place] [address] Care Team Providers Care Can Tester Name Role Phone Armond Morel Primary Care Provider + Reason for Visit * Auth/Cert (Routine) Specialty Diagnoses / Procedures Referred By Contac t Referred To Contact Diagnoses Hyperparathyroidism Hyperparathyroidism Procedures PRO EXPLORE PARATHYROID GLANDS PRG EMG, LARYNX PARATHYROIDECTOMY OR EXPLORATION OF PARATHYROID(S) (WRVU 15.6) FACIAL NERVE MONITORING, SETUP LARYNGEAL (WRVU 1.57) Sussy Moraes MD [facility] [place] [address] [facility] Referral ID Status Reason Start Date Expiration Date Visits Re quested Visits Authorized [id number] 1 1 Encounter Details Date Type Department Care Team (Late st Contact Info) Description 10/24/2023 7:36 AM EDT Anesthesia Event [place] [address] Hussein Rodriguez MD [facility] [place] [address] Delmi Valdez CRNA [facility] [place] [address] Anesthesia Record Procedure Summary Procedure Name Responsible [...] by Mica Russell RN PIV 10/24/23; 0703; cpgh-[id number]-[id number] catheter system; 20 gauge; median cubital vein [...] Procedure Summary Date: 10/24/23 Room / Location: [address] Anesthesia Start: 735 Anesthesia Stop: 906 Procedures: PARATHYROIDECTOMY OR EXPLORATION OF PARATHYROID(S) (WRVU 15.6) (Neck) FACIAL NERVE MONITORING, SETUP LARYNGEAL (WRVU 1.57) (Neck) Diagnosis: (Hyperparathyroidism) Surgeons: Sussy Moraes MD Responsible Provider: Hussein Rodriguez MD Anesthesia Type: general ASA Status: 2 All Anesthesia Providers: Anesthesiologist: Hussein Rodriguez MD INTERNAL SALESPERSON: Delmi Valdez CRNA Student Nurse Airplane Cover Maker: Shayla Riddle Vitals Value Taken Time BP 128/88 10/24/23 0945 Temp 36 ??C (96.8 ??F) 10/24/23 0909 Pulse 59 10/24/23 0948 Resp 14 10/24/23 0945 SpO2 96 % 10/24/23 0948 Pain Level 4 10/24/23 0945 Vitals shown include unfiled device data. Patient Location: PACU/[facility] Level of Consciousness: Awake and Alert Pain [...] 0.27) performed by Mynor Umaña MD at [facility] MAIN OR ??? PRO ARTHROPLASTY ACETABULAR/PROX FEM PROSTC AGRFT/ALGRFT Left 12/13/2022 TOTAL HIP ARTHROPLASTY, ANTERIOR APPROACH (WRVU 19.6) performed by Mynor Umaña MD at [facility] MAIN OR ??? UMBILICAL HERNIA REPAIR ??? XR FLUORO INJECTION DRAINAGE JOINT LG LEFT Left 04/19/2021 XR Fluoro Guided Joint Injection Large Left 04/19/2021 [facility] RAD XRAY ??? XR FLUORO INJECTION DRAINAGE JOINT LG LEFT Left 05/10/2021 XR Fluoro Guided Joint Injection Large Left 05/10/2021 Keri Dugan MD [facility] RAD XRAY ??? XR FLUORO INJECTION DRAINAGE JOINT LG RIGHT Right 05/10/2021 XR Fluoro Guided Joint Injection Large Right 05/10/2021 Keri Dugan MD [facility] RAD XRAY Social History Tobacco [...] blood products. Plan discussed with attending and INTERNAL SALESPERSON. Anesthesia Screening documented in this encounter Miscellaneous [...] mg documented in this encounter Care Teams Can Tester Relationship Specialty Start Date End Date Armond Morel [place] [address] PCP - General Internal Medicine 10/19/23 documented as of this encounter
--- OUTSIDE RECORDS SUMMARY | 2024-02-22 15:18 | XMS_ITS | Encounter Summary ---
Author Organization [facility] [address] Care Team Providers Care Mica Builder Name Role Phone Jakub Abrams MD Primary Care Provider [phone] Encounter Details Date Type Department Care Team (Late st Contact Info) Description 01/05/2023 Orders Only [facility] [place] [address] Jad Montgomery, [facility] s/p Left RAFIQ on 12/13/22 (Dr Umaña) [...] Umaña) documented in this encounter Care Teams Mica Builder Relationship Specialty Start Date End Date Jakub Abrams MD [address] [place] [address] PCP - General Family Medicine 04/05/21 10/18/23 documented as of this encounter
--- OUTSIDE RECORDS SUMMARY | 2024-02-22 15:18 | XMS_ITS | Encounter Summary ---
Author Organization [facility] [place] [address] Care Team Providers Care Agriculture Sales Account Manager Name Role Phone Armond Morel Primary Care Provider + Encounter Details Date Type Department Care Team (Late st Contact Info) Description 11/01/2023 Telephone General Surgery at [facility] [place] [phone] Teresa Bartlett, RN Social History Tobacco Use Types Packs/Day Years Used Date Smoking Tobacco: Never Smokeless Tobacco: Never Alcohol Use Standard Drinks/Week Comments Not Currently 0 (1 standard drink = 0.6 oz pur e alcohol) occasional DH [facility] Inpatient Questions Answer Date Recorded Does Anyone [...] his VM message. He does not have [facility] setup at this time either. Addendum: Attempted to call Santy second time later in the day, he was again unable to answer my call. documented in this encounter Plan of Treatment Not on file documented as of this encounter Visit Diagnoses Not on filedocumented in this encounter Care Teams Agriculture Sales Account Manager Relationship Specialty Start Date End Date Armond Morel [place] [address] [place] [address] PCP - General Internal Medicine 10/19/23 documented as of this encounter
--- OUTSIDE RECORDS SUMMARY | 2024-02-22 15:18 | XMS_ITS | Encounter Summary ---
Author Organization [facility] [place] [address] Care Team Providers Care Platen Drier Operator Name Role Phone Jakub Abrams MD Primary Care Provider [phone] Reason for Visit * Consultation (Routine) - Closed Specialty Diagnoses / Procedures Referred By Louann dawson Referred To Contact Endocrinology Diagnoses Hypercalcemia Hyperparathyroidism Dean Obando PA [facility] [place] [address] [facility] [address] [place] [address] Referral ID Status Reason Start Date Expiration Date V isits Requested Visits Authorized [id number] Closed Consult, Test & Treat 12/07/2022 12/07/2023 1 1 Encounter Details Date Type Department Care Team (Late st Contact Info) Description 03/13/2023 9:00 AM EDT Office [place] [address] [facility] [place] [address] Hypercalcemia; Primary hyperparathyroidism; Hypothyroidism, acquired Social History Tobacco Use Types Packs/Day Years Used Date Smoking Tobacco: Never Smokeless Tobacco: Never Alcohol Use Standard Drinks/Week Comments Not Currently 0 (1 standard drink = 0.6 oz pur e alcohol) occasional [facility] Inpatient Questions Answer Date Recorded Does Anyone [...] Hernandez MD - 03/13/2023 9:00 AM EDT [facility] New Patient Chief [...] 0.27) performed by Mynor Umaña MD at [facility] MAIN OR PRO ARTHROPLASTY ACETABULAR/PROX FEM PROSTC AGRFT/ALGRFT Left 12/13/2022 TOTAL HIP ARTHROPLASTY, ANTERIOR APPROACH (WRVU 19.6) performed by Mynor Umaña MD at [facility] MAIN OR UMBILICAL HERNIA REPAIR XR FLUORO INJECTION DRAINAGE JOINT LG LEFT Left 04/19/2021 XR Fluoro Guided Joint Injection Large Left 04/19/2021 [facility] RAD XRAY XR FLUORO INJECTION DRAINAGE JOINT LG LEFT Left 05/10/2021 XR Fluoro Guided Joint Injection Large Left 05/10/2021 Keri Dugan MD [facility] RAD XRAY XR FLUORO INJECTION DRAINAGE JOINT LG RIGHT Right 05/10/2021 XR Fluoro Guided Joint Injection Large Right 05/10/2021 Keri Dugan MD [facility] RAD XRAY Medications: Current Outpatient Medications: acetaminophen [...] calcium (sample to be dropped off at [facility]) as well as DEXA. We [...] hesitate to contact me. Eva Hernandez MD Data Analysis Assistantgeneral labor forklift operator Endocrinology Section [facility] documented in this encounter [...] documented in this encounter Results * TSH Farrar (03/13/2023 10:05 AM EDT) TSH 1.62 0.27 - 4.20 mcIU/mL [facility] Comment: Reference Interval (mcIU/mL): Females: ??First Trimester: 0.23-3.88 ??Second Trimester: 0.22-3.90 ??Third Trimester: 0.44-4.66 Blood 03/13/2023 10:0 5 AM EDT 03/13/2023 10:35 AM EDT Narrative Resulting Agency Comment Spec In Lab Eva Hernandez MD CHEMISTRY ORDERABLES Performing Organization Address City/[facility]/ZIP Co de Phone Number [facility] [place] [address] * Phosphorus (03/13/2023 10:05 AM EDT) Phosphorus 2.6 2.5 - 4.5 mg/dL [facility] Blood 03/13/2023 10:0 5 AM EDT 03/13/2023 10:35 AM EDT Narrative Resulting Agency Comment Spec In Lab Eva Hernandez MD CHEMISTRY ORDERABLES Performing Organization Address [facility]/ZIP Co de Phone Number [facility] [place] [address] * Vitamin D, 25-Hydroxy (03/13/2023 10:05 AM EDT) 25-OH Vit D Total 31 21 - 100 ng/mL [facility] 25-OH Vit D Interp Sufficient [facility] Blood 03/13/2023 10:0 5 AM EDT 03/13/2023 10:35 AM EDT Narrative Resulting Agency Comment Spec In Lab Eva Hernandez MD CHEMISTRY ORDERABLES Performing Organization Address City/[facility]/ZIP Co de Phone Number [facility] [place] [address] * (ABNORMAL) Calcium (03/13/2023 10:05 AM EDT) Calcium 10.7(H) 8.5 - 10.5 mg/dL [facility] Blood 03/13/2023 10:0 5 AM EDT 03/13/2023 10:35 AM EDT Narrative Resulting Agency Comment Spec In Lab Eva Hernandez MD CHEMISTRY ORDERABLES Performing Organization Address [facility]/ZIP Co de Phone Number [facility] [place] [address] * PTH (03/13/2023 10:05 AM EDT) PTH 54 15 - 65 pg/mL [facility] Blood 03/13/2023 10:0 5 AM EDT 03/13/2023 10:35 AM EDT Narrative Resulting Agency Comment Spec In Lab Eva Hernandez MD CHEMISTRY ORDERABLES Performing Organization Address City/[facility]/ZIP Co de Phone Number [facility] [place] [address] documented in this encounter Visit Diagnoses Diagnosis Hypercalcemia Primary hyperparathyroidism Hypothyroidism, acquired Unspecified hypothyroidism documented in this encounter Care Teams Platen Drier Operator Relationship Specialty Start Date End Date Jakub Abrams MD [facility] [place] [address] PCP - General Family Medicine 04/05/21 10/18/23 documented as of this encounter
--- OUTSIDE RECORDS SUMMARY | 2024-02-22 15:18 | XMS_ITS | Encounter Summary ---
[place] [address] Care Team Providers Care Platform Material Handling Supervisor Name Role Phone Armond Morel Primary Care [...] Armond Morel PA [address] [place] [address] [facility] [address] [place] [phone] Referral ID Status Reason Start Date Expiration Date Visits Requested Visits Authorized [id number] Authorized Consult, Test & Treat PCP Updated and/or Approved 10/17/2023 10/16/2024 6 6 Encounter Details Date Type Department Care Team (Late st Contact Info) Description 10/23/2023 Transcribe Orders eDH Incoming Referrals [phone] Armond Morel PA [address] [place] [address] Right wrist pain Social History [...] forearm documented in this encounter Care Teams Platform Material Handling Supervisor Relationship Specialty Start Date End Date Armond [place] [address] PCP - General Internal Medicine 10/19/23 documented as of this encounter
--- OUTSIDE RECORDS SUMMARY | 2024-02-22 15:18 | XMS_ITS | Encounter Summary ---
[place] [address] Care Team Providers Care Woodwind Instruments Inspector Name Role Phone Jakub Abrams MD Primary Care Provider [phone] Encounter Details Date Type Department Care Team [...] on filedocumented in this encounter Care Teams Woodwind Instruments Inspector Relationship Specialty Start Date End [place] [address] PCP - General Family Medicine 04/05/21 10/18/23 documented as of this encounter
--- OUTSIDE RECORDS SUMMARY | 2024-02-22 15:18 | XMS_ITS | Encounter Summary ---
Author Organization [facility] Address [facility] [place] [address] Care Team Providers Care Beauty Sales Consultant Name Role Phone Armond Morel Primary Care Provider + Reason for Referral * Occupational Therapy (Routine) - Authorized Specialty Diagnoses / Procedures Referred By Louann dawson Referred To Contact Occupational Therapy Diagnoses Subluxation of right extensor carpi ulnaris tendon, initial encounter Bekah Hui PA [facility] [address] [place] [address] [facility] [address] [place] [address] Referral ID Status Reason Start Date Expiration Date Visits Requested Visits Authorized [id number] Authorized Evaluate and Treat 11/20/2023 11/19/2024 12 [...] PAINFUL. Armond Morel PA [address] [place] [address] [facility] [address] [place] [phone] Referral ID Status Reason Start Date Expiration Date Visits Requested Visits Authorized [id number] Authorized Consult, Test & Treat PCP Updated and/or Approved 10/17/2023 10/16/2024 6 6 Encounter Details Date Type Department Care Team (Late st Contact Info) Description 11/20/2023 9:00 AM EDT Office [place] [address] Bekah Hui PA [facility] DR [place] [address] Subluxation of right extensor carpi [...] NAME: Jakub Fuller AGE: 73 y.o. MR#: [id number] DATE OF VISIT: 11/20/2023 DATE OF INJURY/ONSET: [...] 1.57) performed by Sussy Moraes MD at [facility] OSC PRG RADEX HIP UNILATERAL WITH PELVIS MINIMUM 4 VIEWS Left 12/13/2022 HIP INTRAOP RADIOLOGIC EXAMINATION, UNILATERAL, W PELVIS; 4+ VIEWS (WRVU 0.27) performed by Mynor Umaña MD at [facility] MAIN OR PRO ARTHROPLASTY ACETABULAR/PROX FEM PROSTC AGRFT/ALGRFT Left 12/13/2022 TOTAL HIP ARTHROPLASTY, ANTERIOR APPROACH (WRVU 19.6) performed by Mynor Umaña MD at [facility] MAIN OR PRO EXPLORE PARATHYROID GLANDS N/A 10/24/2023 PARATHYROIDECTOMY OR EXPLORATION OF PARATHYROID(S) (WRVU 15.6) performed by Sussy Moraes MD at [facility] OSC UMBILICAL HERNIA REPAIR XR FLUORO INJECTION DRAINAGE JOINT LG LEFT Left 04/19/2021 XR Fluoro Guided Joint Injection Large Left 04/19/2021 [facility] RAD XRAY XR FLUORO INJECTION DRAINAGE JOINT LG LEFT Left 05/10/2021 XR Fluoro Guided Joint Injection Large Left 05/10/[address] [facility] RAD XRAY XR FLUORO INJECTION DRAINAGE JOINT LG RIGHT Right 05/10/2021 XR Fluoro Guided Joint Injection Large Right 05/10/[address] 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 The above documentation was completed using [employer] voice recognition software. documented in this encounter Plan of Treatment Scheduled Referrals Name Type Priority Associated Diagnoses Order Schedule Referral to Occupational Therapy Outpatient Referral Routine Subluxation of right extensor carpi ulnaris tendon, initial encounter Ordered: 11/20/2023 documented as of this encounter Visit Diagnoses Diagnosis Subluxation of right extensor carpi ulnaris tendon, initial encounter documented in this encounter Care Teams Beauty Sales Consultant Relationship Specialty Start Date End Date Armond Morel [place] [address] [place] [address] PCP - General Internal Medicine 10/19/23 documented as of this encounter
--- OUTSIDE RECORDS SUMMARY | 2024-02-22 15:18 | XMS_ITS | Encounter Summary ---
Author Organization [facility] [place] [address] Care Team Providers Care Automotive Instructor Name Role Phone Jakub Abrams MD Primary Care Provider [phone] Encounter Details Date Type Department Care Team (Late st Contact Info) Description 12/26/2022 External Results [facility] Centralized [place] [address] Delmi Garcia Social History Tobacco Use Types [...] 1.8 0.9 - 1.1 VISITING NURSE Comment:[facility] Blood 12/26/2022 12:2 2 PM EDT Historical Provider POINT OF CARE JEREMIAS T ORDERABLES VISITING NURSE documented in this encounter Visit Diagnoses Not on filedocumented in this encounter Care Teams Automotive Instructor Relationship Specialty Start Date End Date Jakub Abrams MD [address] [place] [address] PCP - General Family Medicine 04/05/21 10/18/23 documented as of this encounter
--- OUTSIDE RECORDS SUMMARY | 2024-02-22 15:18 | XMS_ITS | Encounter Summary ---
Author Organization [facility] Address [facility] [place] [address] Care Team Providers Care Mechanical Service Specialist Name Role Phone Jakub Abrams MD Primary Care Provider [phone] Reason for Visit * Reason Comments Post Op L RAFIQ 12/13/22 Encounter Details Date Type Department Care Team (Late st Contact Info) Description 01/16/2023 10:40 AM EDT Office [place] [address] Mynor Combs MD [facility] [place] [address] s/p Left RAFIQ on 12/13/22 (Dr Combs) Social History Tobacco Use Types Packs/Day Years Used Date Smoking Tobacco: Never Smokeless Tobacco: Never Alcohol Use Standard Drinks/Week Comments Not Currently 0 (1 standard drink = 0.6 oz pur e alcohol) occasional [facility] Inpatient Questions Answer Date Recorded Does Anyone [...] periprosthetic complication. Questionnaire Responses: 01/16/2023 10:13 AM [facility] Surgical Postop Visit PROMIS-10 General Health [...] Combs) documented in this encounter Care Teams Mechanical Service Specialist Relationship Specialty Start Date End Date Jakub Abrams MD [facility] [place] [address] PCP - General Family Medicine 04/05/21 10/18/23 documented as of this encounter
--- OUTSIDE RECORDS SUMMARY | 2024-02-22 15:18 | XMS_ITS | Encounter Summary ---
Author Organization [facility] Address [facility] [place] [address] Care Team Providers Care Debeaker Name Role Phone aJkub Abrams MD Primary Care Provider [phone] Encounter Details Date Type Department Care Team (Latest Contact Info) Description 01/16/2023 9:39 AM EDT - 01/16/2023 11:59 PM EDT Hospital Encounter XRay at [address] [place] [address] Mynor Umaña MD [facility] [place] [address] Debility; Pain of left lower extremity; Primary osteoarthritis of left hip Discharge Disposition: Home Social History Tobacco Use Types Packs/Day Years Used Date Smoking Tobacco: Never Smokeless Tobacco: Never Alcohol Use Standard Drinks/Week Comments Not Currently 0 (1 standard drink = 0.6 oz pur e alcohol) occasional [facility] Inpatient Questions Answer Date Recorded Does Anyone [...] who have questions please contact the health pet care attendant that requested your imaging first. ? Electronically signed by: Maureen Fry MD, [facility] ([phone]), at 01/16/2023 10:39 AM Narrative 01/16/2023 10:39 AM EDT EXAMINATION: XR [...] patients who have questions please contactthe health pet care attendant that requested your imaging first. Electronically signed by: Maureen Fry MD, [facility]([phone]), at 01/16/2023 10:39 AM Mynor Umaña MD IMG DX ORDERABLES documented in this encounter Visit Diagnoses Diagnosis Debility Debility, unspecified Pain of left lower extremity Primary osteoarthritis of left hip Primary localized osteoarthrosis, pelvic region and thigh documented in this encounter Care Teams Debeaker Relationship Specialty Start Date End Date Jakub Abrams MD [address] [place] [address] PCP - General Family Medicine 04/05/21 10/18/23 documented as of this encounter
--- OUTSIDE RECORDS SUMMARY | 2024-02-22 15:18 | XMS_ITS | Encounter Summary ---
[place] [address] Care Team Providers Care Security Control Assessor Name Role Phone Jakub Abrams MD Primary Care Provider [phone] Encounter Details Date Type Department Care Team [...] on filedocumented in this encounter Care Teams Security Control Assessor Relationship Specialty Start Date End [place] [address] PCP - General Family Medicine 04/05/21 10/18/23 documented as of this encounter
--- OUTSIDE RECORDS SUMMARY | 2024-02-22 15:18 | XMS_ITS | Encounter Summary ---
[place] [address] Care Team Providers Care Pharmacy Picking Tech Name Role Phone Armond Morel Primary Care [...] on filedocumented in this encounter Care Teams Pharmacy Picking Tech Relationship Specialty Start Date End [place] [address] PCP - General Internal Medicine 10/19/23 documented as of this encounter
--- OUTSIDE RECORDS SUMMARY | 2024-02-22 15:18 | XMS_ITS | Encounter Summary ---
Author Organization [facility] [place] [address] Care Team Providers Care Hogshead Inspector Name Role Phone Jakub Abrams MD Primary Care Provider [phone] Encounter Details Date Type Department Care Team (Latest Contact Info) Description 01/02/2023 2:00 AM EDT Anti-Coag Telephone Visit [facility] [place] [address] Libby Sanchez [facility] S/P total left hip arthroplasty Social History Tobacco Use Types Packs/Day Years Used Date Smoking Tobacco: Never Smokeless Tobacco: Never Alcohol Use Standard Drinks/Week Comments Not Currently 0 (1 standard drink = 0.6 oz pur e alcohol) occasional [facility] Inpatient Questions Answer Date Recorded Does [...] this encounter Progress Notes * Libby Sanchez [facility] - 01/02/2023 2:00 AM EDT Images from [...] mg Plan last modified: Libby Sanchez, [facility] (01/02/2023) Next INR check: 01/05/2023 Target end date: 01/13/2023 Indications s/p Left RAFIQ on 12/13/22 (Dr Umaña) [Z96.642] Anticoagulation Episode Summary INR check location: [facility] Preferred lab: Send INR reminders to: [facility] Comments: [facility] [phone] Anticoagulation Care Providers Provider Role Specialty Phone number Mynor Umaña MD Responsible Orthopaedic Surgery [phone] Patient Assessment Service Type: INR Test Result [...] 5%. Test INR . Left message with RBADLY Mckeon, (Scanned [place] on file), patient was in the store. [...] warfarin education provided to Jakub verballyand [facility] phone # provided. Give the BID [...] arthroplasty documented in this encounter Care Teams Hogshead Inspector Relationship Specialty Start Date End Date Jakub Abrams MD [address] [place] [address] PCP - General Family Medicine 04/05/21 10/18/23 documented as of this encounter
--- OUTSIDE RECORDS SUMMARY | 2024-02-22 15:18 | XMS_ITS | Encounter Summary ---
Author Organization [facility] [place] [address] Care Team Providers Care Sports Trainer Name Role Phone Jakub Abrams MD Primary Care Provider [phone] Encounter Details Date Type Department Care Team (Late st Contact Info) Description 01/09/2023 External Results [facility] [place] [address] Nieves Raines Social History Tobacco Use Types [...] on filedocumented in this encounter Care Teams Sports Trainer Relationship Specialty Start Date End Date Jakub Abrams MD [address] [place] [address] PCP - General Family Medicine 04/05/21 10/18/23 documented as of this encounter
--- OUTSIDE RECORDS SUMMARY | 2024-02-22 15:18 | XMS_ITS | Encounter Summary ---
[place] [address] Care Team Providers Care Manager Group Home Name Role Phone Jakub Abrams MD Primary Care Provider [phone] Encounter Details Date Type Department Care Team (Latest Contact Info) Description 01/09/2023 2:00 AM EDT Anti-Coag Telephone Visit [facility] [place] [address] Jad Montgomery, [facility] S/P total left hip arthroplasty Social History Tobacco Use Types Packs/Day Years Used Date Smoking Tobacco: Never Smokeless Tobacco: Never Alcohol Use Standard Drinks/Week Comments Not Currently 0 (1 standard drink = 0.6 oz pur e alcohol) occasional [facility] Inpatient Questions Answer Date Recorded [...] this encounter Progress Notes * Jad Montgomery [facility] - 01/09/2023 2:00 AM EDT Images from the original note were not included. Anticoagulation Therapy Note Anticoagulation Summary As of 01/09/2023 INR goal: 1.7-2.2 TTR: 0.0 % (6 d) INR used for dosin.6 (01/09/2023) Warfarin maintenance plan: 5 mg (5 mg x 1) every day; Starting 01/09/2023 Weekly warfarin total: 35 mg Plan last modified: Jad Montgomery, [facility] (01/09/2023) Next INR check: Target end date: 01/13/2023 Indications s/p Left RAFIQ on 12/13/22 (Dr Umaña) [Z96.642] Anticoagulation Episode Summary INR check location: [facility] Preferred lab: Resolved date: 01/14/2023 Resolved reason: Therapy Completed Send INR reminders to: [facility] Comments: [facility] [phone] Anticoagulation Care Providers Provider Role Specialty Phone number Mynor Umaña MD Responsible Orthopaedic Surgery [phone] Patient Assessment Service Type: INR Test Result [...] . Left message with BRADLY Mckeon, (Scanned [place] on file), patient was in the store. [...] and warfarin education provided to Jakub verballyand [facility] phone # provided. Give [...] documented in this encounter Care Teams Manager Group Home Relationship Specialty Start Date End Date Jakub Abrams MD [address] [place] [address] PCP - General Family Medicine 04/05/21 10/18/23 documented as of this encounter
--- OUTSIDE RECORDS SUMMARY | 2024-02-22 15:18 | XMS_ITS | Encounter Summary ---
Author Organization [facility] [place] [address] Care Team Providers Care Clerical Investigator Name Role Phone Jakub Abrams MD Primary Care Provider [phone] Encounter Details Date Type Department Care Team (Late st Contact Info) Description 12/29/2022 External Results [facility] [place] [address] Delmi Garcia Social History Tobacco Use Types [...] on filedocumented in this encounter Care Teams Clerical Investigator Relationship Specialty Start Date End Date Jakub Abrams MD [address] [place] [address] PCP - General Family Medicine 04/05/21 10/18/23 documented as of this encounter
--- OUTSIDE RECORDS SUMMARY | 2024-02-22 15:18 | XMS_ITS | Encounter Summary ---
Author Organization Formerly [facility] [place] [address] Care Team Providers Care Investor Relations Manager Name Role Phone Jakub Abrams MD Primary Care Provider [phone] Encounter Details Date Type Department Care Team (Latest Contact Info) Description 12/26/2022 2:00 AM EDT Anti-Coag Telephone Visit [facility] [place] [phone] Jad Montgomery, [facility] S/P total left hip arthroplasty Social History Tobacco Use Types Packs/Day Years Used Date Smoking Tobacco: Never Smokeless Tobacco: Never Alcohol Use Standard Drinks/Week Comments Not Currently 0 (1 standard drink = 0.6 oz pur e alcohol) occasional [facility] Inpatient Questions Answer Date Recorded [...] this encounter Progress Notes * Jad Montgomery [facility] - 12/26/2022 2:00 AM EDT Images from [...] 42.5 mg Plan last modified: Jad Montgomery, [facility] (12/26/2022) Next INR check: 12/29/2022 Target end date: 01/13/2023 Indications s/p Left RAFIQ on 12/13/22 (Dr Umaña) [Z96.642] Anticoagulation Episode Summary INR check location: [facility] Preferred lab: Send INR reminders to: [facility] Comments: [facility] [phone] Anticoagulation Care Providers Provider Role Specialty Phone number Mynor Umaña MD [facility] Orthopaedic Surgery [phone] Patient Assessment Service Type: INR Test Result [...] and warfarin education provided to Jakub verballyand [facility] phone # provided. Give the [...] correct range. Admitted: 12/13 Discharged: 12/13 [place] [facility] [place] for Admission: Left RAFIQ Warfarin [...] arthroplasty documented in this encounter Care Teams Investor Relations Manager Relationship Specialty Start Date End Date Jakub Abrams MD [address] [place] [address] PCP - General Family Medicine 04/05/21 10/18/23 documented as of this encounter
--- OUTSIDE RECORDS SUMMARY | 2024-02-22 15:18 | XMS_ITS | Encounter Summary ---
[place] [address] Care Team Providers Care Irs Agent Name Role Phone Jakub Abrams MD Primary Care Provider [phone] Encounter Details Date Type Department Care Team [...] on filedocumented in this encounter Care Teams Irs Agent Relationship Specialty Start Date End [place] [address] PCP - General Family Medicine 04/05/21 10/18/23 documented as of this encounter
--- OUTSIDE RECORDS SUMMARY | 2024-02-22 15:19 | XMS_ITS | Clinical Summary ---
Author Organization Health system Address [address] [place] [address] Care Team Providers Care Geriatric Aide Name Role Phone Jakub Amaya MD Primary Care Provider [phone] Encounters Date Type Department Care Team Description 02/22/2024 Lab Requisition [facility] Pathology & Laboratory [address] [address] Outr Resulting Lab, Provider 02/22/2024 Lab Requisition [facility] Pathology & Laboratory [address] [address] Outr Resulting Lab, Provider from Last 3 Months Social History Tobacco Use Types Packs/Day Years [...] Screening 2017 COVID-19 Vaccine (2022-24 season) 2023 Jonny Jakub Personal/Family Self 1950 [address] [facility] [place] [address] MaricarmenJakub bynum Personal/Family Self 1950 [address] [facility] [place] [address] JonnyJakub Personal/Family Self 1950 [address] [place] [address] Care Teams Geriatric Aide Relationship Specialty Start Date End Date Jakub Amaya MD [address] [place] [phone] PCP - General 07/01/09
--- OUTSIDE RECORDS SUMMARY | 2024-02-22 15:19 | XMS_ITS | Encounter Summary ---
[place] [address] Care Team Providers Care Qual Research Manager Name Role Phone Jakub Abrams MD Primary Care Provider [phone] Encounter Details Date Type Department Care Team (Latest Contact Info) Description 12/15/2022 2:00 AM EDT Anti-Coag Telephone Visit [facility] [place] [phone] Jad Montgomery RP S/P total left hip arthroplasty Social History Tobacco Use Types Packs/Day Years Used Date Smoking Tobacco: Never Smokeless Tobacco: Never Alcohol Use Standard Drinks/Week Comments Not Currently 0 (1 standard drink = 0.6 oz pur e alcohol) occasional [facility] Inpatient Questions Answer Date Recorded Does Anyone [...] Progress Notes * Jad Montgomery RPH - 12/15/2022 2:00 AM EDT Images [...] Preferred lab: Send INR reminders to: [facility] Comments: [facility]?? [phone] Anticoagulation Care Providers Provider Role Specialty Phone number Mynor Umaña MD Responsible Orthopaedic Surgery [phone] Patient Assessment Service Type: INR Test Result [...] warfarin education provided to Jakub verballyand [facility] phone # provided. Give the BID dosing [...] correct range. Admitted: 12/13 Discharged: 12/[address] [facility] Reason for Admission: Left RAFIQ Warfarin RX [...] INR 1.0 0.9 - 1.1 VISITING NURSE Comment:[facility] Healt Historical Provider HEMATOLOGY ORDERA BLES VISITING NURSE documented in this encounter Visit Diagnoses Diagnosis S/P total left hip arthroplasty documented in this encounter Care Teams Qual Research Manager Relationship Specialty Start Date End Date Jakub Abrams MD [address] [place] [address] PCP - General Family Medicine 04/05/21 10/18/23 documented as of this encounter
--- OUTSIDE RECORDS SUMMARY | 2024-02-22 15:19 | XMS_ITS | Encounter Summary ---
[place] [address] Care Team Providers Care Salesperson Women'S Dresses Name Role Phone Jakub Abrams MD Primary Care Provider [phone] Encounter Details Date Type Department Care Team [...] on filedocumented in this encounter Care Teams Salesperson Women'S Dresses Relationship Specialty Start Date End [place] [address] PCP - General Family Medicine 04/05/21 10/18/23 documented as of this encounter
--- OUTSIDE RECORDS SUMMARY | 2024-02-22 15:19 | XMS_ITS | Encounter Summary ---
[place] [address] Care Team Providers Care Middleware Engineer Name Role Phone Jakub Abrams MD Primary Care Provider [phone] Encounter Details Date Type Department Care Team [...] on filedocumented in this encounter Care Teams Middleware Engineer Relationship Specialty Start Date End Date Jakub Abrams MD [address] [place] [address] PCP - General Family Medicine 04/05/21 10/18/23 documented as of this encounter
--- OUTSIDE RECORDS SUMMARY | 2024-02-22 15:19 | XMS_ITS | Encounter Summary ---
Author Organization Formerly [facility] [place] [address] Care Team Providers Care Air Drier Name Role Phone Jakub Abrams MD Primary Care Provider [phone] Reason for Visit * Reason Comments Follow-up Encounter Details Date Type Department Care Team (Latest Contact Info) Description 05/31/2021 9:20 AM EST TH Visit (TeleHealth) [facility] [place] [address] [facility] [place] [address] Spondylosis of lumbar region without myelopathy or [...] Bell, JOSH - 05/31/2021 9:20 AM EST [facility] TELEPHONE FOLLOW UP [...] He picks up chocolate beans and in [place] and drives him to this area. 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 His family is from [place] and his grandfather on the [place] land He has done physical therapy locally [...] with Jakub via telephone. 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 He had achance to review the inner [...] Not on file Occupational History ??? 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 Smoking status: [...] Fluoro Guided Joint Injection Large Left 04/19/2021 [facility] RAD XRAY ??? XR FLUORO INJECTION DRAINAGE JOINT LG LEFT Left 05/10/2021 XR Fluoro Guided Joint Injection Large Left 05/10/2021 Keri Dugan MD [facility] RAD XRAY ??? XR FLUORO INJECTION DRAINAGE JOINT LG RIGHT Right 05/10/2021 XR Fluoro Guided Joint Injection Large Right 05/10/2021 Keri Dugan MD [facility] RAD XRAY Review of Systems: Denies fever, [...] y.o. year-old male who presents to the [facility] clinic to his [...] in Jakub Fuller's care. 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
--- OUTSIDE RECORDS SUMMARY | 2024-02-22 15:19 | XMS_ITS | Encounter Summary ---
Author Organization [facility] Address [facility] [place] [address] Care Team Providers Care Preparation Supervisor Freezing Name Role Phone Jakub Abrams MD Primary Care Provider [phone] Reason for Referral * Diagnostic Test (Routine) - Closed Specialty Diagnoses / Procedures Referred By Contac t Referred To Contact Radiology Diagnoses Chronic pain of both shoulders Procedures XR Fluoro Guided Joint Injection Large Right Bekah Hui PA [facility] [place] [address] [facility] [address] [place] [address] [place] [address] Referral ID Status Reason Start Date Expiration Date V isits Requested Visits Authorized [id number] Closed Specialty Service Requested 04/19/2021 10/17/2022 1 1 * Diagnostic Test (Routine) - Closed Specialty Diagnoses / Procedures Referred By Contac t Referred To Contact Radiology Diagnoses Chronic pain of both shoulders Procedures XR Fluoro Guided Joint Injection Large Left Bekah Hui PA [facility] [place] [address] [facility] [address] [place] [address] [place] [address] Referral ID Status Reason Start Date Expiration Date V isits Requested Visits Authorized [id number] Closed Specialty Service Requested 04/19/2021 10/17/2022 1 1 Reason for Visit * Reason Comments Establish Care bilateral shoulder p ain * Consultation (Routine) - Closed Specialty Diagnoses / Procedures Referred By Louann t Referred To Contact Orthopaedics Diagnoses Bilat Shoulder pain from past injuries Procedures Bilat shoulder pain Self mail [facility] [address] [place] [address] Referral ID Status Reason Start Date Expiration Date Visits Re quested Visits Authorized [id number] Closed 04/05/2021 04/05/2022 1 1 Encounter Details Date Type Department Care Team (Late st Contact Info) Description 04/19/2021 8:40 AM EDT Office [place] [address] Bekah Hui PA [facility] DR [place] [address] Chronic pain of both shoulders [...] NAME: Jakub Fuller AGE: 70 y.o. MR#: [id number] DATE OF VISIT: 04/19/2021 DATE OF INJURY/ONSET: [...] HX: Social History Occupational History ??? 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 Smoking status: [...] less than $75,000 # People Supported 1 Tongan, , No, not Tongan// Race White Health Literacy Not at all Currently working Yes Current job situation Full-time [employer] [facility] Response 04/05/2021 HOOS JR Scores 58.93 Spine [...] concerns. The above documentation was completed using [employer] voice recognition software. documented in this encounter [...] who have questions please contact the health child caregiver private home that requested your imaging first. ? Electronically signed by: Keri Quiles MD, [facility] ([phone]), at 05/10/2021 11:11 AM Narrative 05/10/2021 11:11 [...] electronic medical record and allergies, as per [facility] protocol. The patient was placed supine on [...] relevant electronic medicalrecord and allergies, as per [facility] protocol. The patient was placed supine on [...] patients who have questions please contactthe health child caregiver private home that requested your imaging first. Electronically signed by: Keri Quiles MD, [facility]([phone]), at 05/10/2021 11:11 AM Rosario Rao MD [...] who have questions please contact the health child caregiver private home that requested your imaging first. ? Electronically signed by: Keri Quiles MD, [facility] ([phone]), at 05/10/2021 11:12 AM Narrative 05/10/2021 11:12 [...] electronic medical record and allergies, as per [facility] protocol. The patient was placed supine on [...] relevant electronicmedical record and allergies, as per [facility] protocol. The patient was placed supine on [...] patients who have questions please contactthe health child caregiver private home that requested your imaging first. Electronically signed by: Keri Quiles MD, [facility]([phone]), at 05/10/2021 11:12 AM Rosario Rao MD [...] who have questions please contact the health child caregiver private home that requested your imaging first. ? Electronically signed by: Sara Merritt MD, [facility] ([phone]), at 04/19/2021 11:09 AM Narrative 04/19/2021 11:09 [...] patients who have questions please contactthe health child caregiver private home that requested your imaging first. Electronically signed by: Sara Merritt MD, [facility]([phone]), at 04/19/2021 11:09 AM Rosario Rao MD IMG DX ORDERABLES documented in this encounter Visit Diagnoses Diagnosis Chronic pain of both shoulders Pain in joint, shoulder region Chronic pain of both shoulders Pain in joint, shoulder region Chronic pain of both shoulders Pain in joint, shoulder region documented in this encounter Care Teams Preparation Supervisor Freezing Relationship Specialty Start Date End Date Jakub Abrams MD [facility] [place] [address] PCP - General Family Medicine 04/05/21 10/18/23 documented as of this encounter
--- OUTSIDE RECORDS SUMMARY | 2024-02-22 15:19 | XMS_ITS | Encounter Summary ---
Author Organization [facility] [place] [address] Care Team Providers Care Compressor Stations Superintendent Name Role Phone Jakub Abrams MD Primary Care Provider Reason for Visit * Reason Comments Back Pain new patient visit * Consultation (Routine) - Closed Specialty Diagnoses / Procedures Referred By Contac t Referred To Contact Pain and Spine Center Diagnoses Primary osteoarthritis of left hip Sciatica pain/ ?spine pathology/ no imaging Klarissa Rizzo PA [facility] [place] [address] [facility] [place] [address] Referral ID Status Reason Start Date Expiration Date V isits Requested Visits Authorized [id number] Closed Pain Consult 04/05/2021 04/05/2022 3 3 Encounter Details Date Type Department Care Team (Late st Contact Info) Description 05/24/2021 8:00 AM EDT Office Visit [place] [address] Judy Bell APRN [facility] [place] [address] Low back pain, non-specific (Primary [...] this encounter Progress Notes * Judy Bell, AIRBORNE OPERATIONS MANAGER - 05/24/2021 8:00 AM EDT [facility] CONSULTATION Date [...] He picks up chocolate beans and in [place] and drives him to this area. 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 His family is from [place] and his grandfather on the [facility] land He has done physical [...] Not on file Occupational History ??? 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 Smoking status: [...] Fluoro Guided Joint Injection Large Left 04/19/2021 [facility] RAD XRAY ??? XR FLUORO INJECTION DRAINAGE JOINT LG LEFT Left 05/10/2021 XR Fluoro Guided Joint Injection Large Left 05/10/2021 Keri Dugan MD [facility] RAD XRAY ??? XR FLUORO INJECTION DRAINAGE JOINT LG RIGHT Right 05/10/2021 XR Fluoro Guided Joint Injection Large Right 05/10/2021 Keri Dugan MD [facility] RAD XRAY Review of Systems: Denies fever, [...] y.o. year-old male who presents to the [facility] for Pain and Spine clinic to [...] in Jakub Fuller's care. Judy Bell, MS, BRICK MOLDER HAND-BC, AIRBORNE OPERATIONS MANAGER Nurse practitioner Pain management [facility] documented in this encounter Plan of Treatment Not on file documented as of this encounter Visit Diagnoses Diagnosis Low back pain, non-specific- Primary documented in this encounter Care Teams Compressor Stations Superintendent Relationship Specialty Start Date End Date Jakub Abrams MD [address] [place] [address] PCP - General Family Medicine 04/05/21 10/18/23 documented as of this encounter
--- OUTSIDE RECORDS SUMMARY | 2024-02-22 15:19 | XMS_ITS | Encounter Summary ---
[place] [address] Care Team Providers Care Fixed Capital Clerk Name Role Phone Jakub Abrams MD Primary Care Provider [phone] Reason for Visit * Auth/Cert (Routine) Specialty [...] ACETABULUM DEPUY Mynor Umaña MD [facility] [place] [address] [facility] Referral ID Status Reason Start Date Expiration Date Visits Re quested Visits Authorized [id number] 1 1 Encounter Details Date Type Department Care Team (Late st Contact Info) Description 12/13/2022 7:30 AM EDT - 12/13/2022 9:45 AM EDT Surgery [place] [phone] Mynor Umaña MD [facility] [place] [address] TOTAL HIP ARTHROPLASTY, ANTERIOR APPROACH (WRVU 19.6) [...] please call the Orthopedic Clinic Nurse at [phone] for further dose instructions. If it is after 5pm or on the weekends, the Orthopedic resident network operations lead will be managing your dosing (please call [phone] and ask for them to be paged). [...] not take or discontinue any prescription or ucps-crx-etdxegl medications without asking your doctor or pharmacist [...] bowel movement. You can also take an sksi-pfn-laaxawq medication, Miralax if needed to combat constipation. [...] as much as possible. Call your doctor ([phone]) if you develop: Fever greater than 100.5 Severe nausea or vomiting Increasing pain that is not controlled by pain medications Increasing redness, swelling, or drainage from incisions Change in sensation FOLLOW-UP APPOINTMENTS: 1. You will have follow-up appointments at [facility] as indicated below in Future Appointment and Orders. 2. You will need to have x-rays prior to your follow-up appointment on 01/16/23. Please come to Radiology, desk 3T, 1 hour BEFORE that appointment for these x-rays. Future Appointments Date Time Provider Department Center 01/16/2023 9:45 AM [facility] DX ROOM 3 Xray [facility] Rad 01/16/2023 10:40 AM Mynor Umaña MD [facility] [place]TH [address] [place] [address] If you have questions or concerns: Monday through Monday, 8 AM - 5 PM, please call Dr. Mynor Umaña MD's office at . If it is after 5 PM, the weekend, or holidays, please call and ask to speak with theOrthopedic resident on-call. * Attachments The following attachments cannot be sent through Care Everywhere. * [place] Instructions: General Info (Iraqi) * Vitamin K Diet (Iraqi) * Warfarin Safety Tips (Iraqi) documented in this encounter Medications at Time [...] where referrals are placed. Provided patient with [facility] Star Quality Rating for Home care hand out. Patient requests referral to : [facility] [employer]. [address] [place] [id number] Expected date of discharge: 12/13/22. Referral routed to the Training Development Manager for matching with agency/vendor and to provide any required information. Janice Taveras RN, BSN, ACM-STILL RUNNERwood barker Office of Care Management Pager: [phone] documented in this encounter H&P Notes * [...] RAFIQ Elier Armstrong MD Orthopaedic Surgery Pager [phone] documented in this encounter Miscellaneous Notes * Op Note - Elier Armstrong MD - 12/13/2022 7:45 AM EDT [facility] Operative Note Patient Name: Jakub Fuller : [id number] MR#: [id number] Case Date: 12/13/2022 Surgeon: Surgeon(s) and Role: * Mynor Umaña MD - Primary * Elier Armstrong MD - Resident - Assisting * Romario Reza PA - Physician Engineer Preoperative Diagnosis: Osteoarthritis left Hip Postoperative Diagnosis: Same Procedure Performed: left Total Hip Arthroplasty (CPT code 20613) Anesthesia: spinal IVF: See anesthesia record Estimated [...] Offset Femoral Head: 40mm +1.5 Acetabulum: DePuy [place] Gription, Size 62 Liner: Altrx polyethylene, Size [...] component positioning, verify leg length, and offset orthodox. Based on the images, intra-op stability, and [...] [facility] Elier Armstrong MD 12/13/2022 Post-operative Plan: (avoid [...] Implant Name Type Inv. Item Serial No. Health Information Administrator Lot No. LRB No. Used Action SHELL ACET HIP 62MM POR CTD MULTI HOLE TI PINNACLE GRIPTION ([id number]) (AutoReq) - [id number] IMPLANTS SHELL ACET HIP 62MM POR CTD MULTI HOLE TI PINNACLE GRIPTION ([id number]) (AutoReq) [employer] [facility] ANTONIO [id number] Left 1 Implanted LINER ACET HIP [id number] STND POLY PINNACLE ALTRX ([id number]) (AutoReq) - [id number] IMPLANTS LINER ACET HIP [id number] STND POLY PINNACLE ALTRX ([id number]) (AutoReq) [employer] ANTONIO [id number] Left 1 Implanted STEM FEMORAL HIP SZ 9 PROX 12/14 TAPER POR CLLR HIGH OFST TI ([id number]) (AutoReq) - [id number] IMPLANTS STEM FEMORAL HIP SZ 9 PROX 12/14 TAPER POR CLLR HIGH OFST TI ([id number]) (AutoReq) [employer] ANTONIO [id number] Left 1 Implanted HEAD FEMORAL HIP 40MM +1.5MM OFFSET 12/14 TPR CERAMIC ([id number]) (AutoReq) - [id number] IMPLANTS HEAD FEMORAL HIP 40MM +1.5MM OFFSET 12/14 TPR CERAMIC ([id number]) (AutoReq) [employer] ANTONIO [id number] Left 1 Implanted Associated attestation - Mynor [...] Hip Unilateral With Pelvis Minimum 4 Views (94266) Yes 12/13/2022 7:17 AM EDT Hip osteoarthritis Arthroplasty Acetabular/Prox Fem Prostc Agrft/Algrft (53547) Yes 12/13/2022 7:17 AM EDT Hip osteoarthritis [...] have questions please contact the health child daycare worker that requested your imaging first. ? Electronically signed by: Zohreh Kwok MD, [facility] ([phone]), at 12/13/2022 10:46 AM Narrative 12/13/2022 10:46 AM EDT EXAMINATION: XR PELVIS (GENERIC) CLINICAL HISTORY: s/p left RAFIQ TECHNIQUE: Single portable low AP pelvis radiograph 12/13/2022 at 0935 hours COMPARISON: Intraoperative spot images of the pelvis/left hip from earlier same day 12/13/2022 Radiographs of the pelvis and left hip from [facility] 09/15/2022 FINDINGS: Status post left total [...] of the pelvis and left hip from [facility] 09/15/2022 FINDINGS: Status post left total [...] who have questions please contactthe health child daycare worker that requested your imaging first. Electronically signed by: Zohreh Kwok MD, [facility]([phone]), at 12/13/2022 10:46 AM Mynor CARBAJAL DX [...] AM EDT 30 mLs 19- Surgical Site IIrdqfkrwiw-FIUUREQixmt-sh oNIDine-ketorolac (MACEY) (2.46 mg-0.005 mg-0.0008 mg-0.3 mg/mL) [...] mixed into 500 mL NS as irrigation) ZKyrzvfxnyd-ZLPQMAEmcue-amxUARsbd- ketorolac (MACEY) (2.46 mg-0.005 mg-0.0008 mg-0.3 mg/mL) [...] Routine documented in this encounter Care Teams Fixed Capital Clerk Relationship Specialty Start Date End Date Jakub Abrams MD [address] [place] [address] PCP - General Family Medicine 04/05/21 10/18/23 documented as of this encounter
--- OUTSIDE RECORDS SUMMARY | 2024-02-22 15:19 | XMS_ITS | Encounter Summary ---
Author Organization [facility] Address [facility] [place] [address] Care Team Providers Care Manufacturing Coordinator Name Role Phone Jakub Abrams MD Primary Care Provider Reason for Visit * Reason Onset Date Comments Pre Procedure Call 12/06/2022 Encounter Details Date Type Department Care Team (Late st Contact Info) Description 12/06/2022 Telephone [place] [phone] Mynor Umaña MD [facility] [place] [address] Pre Procedure Call Social History Tobacco Use [...] encounter Miscellaneous Notes * Telephone Encounter - Reynold Fischerbecki Briones - 12/08/2022 11:04 AM EDT Called the patient back to inform him that [facility] [...] back he would like to go to [facility] for his XRAYS. * Telephone Encounter - Víctor Fischer - 12/06/2022 2:28 PM EDT Called and LVM advising that Dr. Umaña would like updated Xray of his hip prior to surgery. This can be done up at [facility] or [facility] if the patient prefers. Asked patient to call back with when and where he would like to get the XR done. Will need 1 view AP HIP (Left) * Telephone Encounter - Marlo Jain - 12/06/2022 8:55 AM EDT Who is calling? Jakub Best call back number: [phone] Best time to call back between 8:00 [...] - Left MODIFIER PINNACLE ACETABULUM Mynor Juarez [facility] MA[facility] OR Scheduled What is the [...] on filedocumented in this encounter Care Teams Manufacturing Coordinator Relationship Specialty Start Date End Date Jakub Abrams MD [address] [place] [address] PCP - General Family Medicine 04/05/21 10/18/23 documented as of this encounter
--- OUTSIDE RECORDS SUMMARY | 2024-02-22 15:19 | XMS_ITS | Encounter Summary ---
[place] [address] Care Team Providers Care Big Data Hadoop Developer Name Role Phone Jakub Abrams MD Primary Care Provider [phone] Encounter Details Date Type Department Care Team (Late st Contact Info) Description 09/15/2022 Ancillary Procedure [place] [address] Jakub Abrams MD [address] [place] [address] [place] [address] Social History Tobacco Use Types [...] Abrams MD IMG FILM LIBRARY ORD ERABLES [place], [place] documented in this encounter Visit Diagnoses Not on filedocumented in this encounter Care Teams Big Data Hadoop Developer Relationship Specialty Start Date End Date Jakub Abrams MD [address] [place] [address] PCP - General Family Medicine 04/05/21 10/18/23 documented as of this encounter
--- OUTSIDE RECORDS SUMMARY | 2024-02-22 15:19 | XMS_ITS | Encounter Summary ---
[place] [address] Care Team Providers Care Marina Sales And Service Supervisor Name Role Phone Jakub Abrams MD Primary Care Provider [phone] Encounter Details Date Type Department Care Team [...] on filedocumented in this encounter Care Teams Marina Sales And Service Supervisor Relationship Specialty Start Date End Date Jakub Abrams MD [address] [place] [address] PCP - General Family Medicine 04/05/21 10/18/23 documented as of this encounter
--- OUTSIDE RECORDS SUMMARY | 2024-02-22 15:19 | XMS_ITS | Encounter Summary ---
Author Organization [facility] [place] [address] Care Team Providers Care Alteration Manager Name Role Phone Jakub Abrams MD Primary Care Provider [phone] Reason for Visit * Reason Onset Date Comments Pre Procedure Call 11/17/2022 Encounter Details Date Type Department Care Team (Late st Contact Info) Description 11/17/2022 [place] [phone] Mynor Umaña MD [facility] [place] [address] Pre Procedure Call (/) Social History Tobacco [...] left a message for patient to call [phone] directly and schedule surgery with Dr. Umaña. * Telephone Encounter - Saba Hart - 11/17/2022 2:57 PM EDT I called and left a message for patient to call [phone] directly and schedule surgery with Dr. Umaña. documented in this encounter Plan of Treatment Not on file documented as of this encounter Visit Diagnoses Not on filedocumented in this encounter Care Teams Alteration Manager Relationship Specialty Start Date End Date Jakub [place] MD [facility] [place] [address] [place] [address] PCP - General Family Medicine 04/05/21 10/18/23 documented as of this encounter
--- OUTSIDE RECORDS SUMMARY | 2024-02-22 15:19 | XMS_ITS | Encounter Summary ---
Author Organization [facility] Address [facility] [place] [address] Care Team Providers Care It Communications Manager Name Role Phone Jakub Abrams MD Primary Care Provider [phone] Encounter Details Date Type Department Care Team (Latest Contact Info) Description 04/19/2021 9:00 AM EDT - 04/19/2021 9:55 AM EDT Hospital Encounter XRay at [address] [place] [address] Rosario Rao MD [facility] [place] [address] Chronic pain of both shoulders Discharge Disposition: [...] who have questions please contact the health day care supervisor that requested your imaging first. ? Narrative [...] patients who have questions please contactthe health day care supervisor that requested your imaging first. Rosario Rao MD IMG DX ORDERABLES documented in this encounter Visit Diagnoses Diagnosis Chronic pain of both shoulders Pain in joint, shoulder region documented in this encounter Care Teams It Communications Manager Relationship Specialty Start Date End Date Jakub Abrams MD [address] [place] [address] PCP - General Family Medicine 04/05/21 10/18/23 documented as of this encounter
--- OUTSIDE RECORDS SUMMARY | 2024-02-22 15:19 | XMS_ITS | Encounter Summary ---
Author Organization [facility] [place] [address] Care Team Providers Care Crew Foreman Name Role Phone Jakub [place] MD Primary Care Provider [phone] Encounter Details Date Type Department Care Team (Latest Contact Info) Description 12/05/2022 12:00 PM EDT Laboratory Appointment Lab at [facility] [place] [phone] Debility; Pain of left lower extremity; Primary osteoarthritis of left hip Social History Tobacco Use Types Packs/Day Years Used Date Smoking Tobacco: Never Smokeless Tobacco: Never Alcohol Use Standard Drinks/Week Comments Not Currently 0 (1 standard drink = 0.6 oz pur e alcohol) occasional DH [facility] Inpatient Questions Answer Date [...] EDT) PTH 99(H) 15 - 65 pg/mL [facility] Blood Venous Draw / Unknown 12/05/2022 1:22 PM EDT 12/05/2022 2:21 PM EDT Narrative Resulting Agency Comment Spec In Lab Dean BAKER CHEMISTRY ORDERABLES [facility] [place] [address] * (ABNORMAL) Differential, Automated (12/05/2022 1:22 PM EDT) Neutrophils % 73.0 % [facility] Neutr Abs (ANC) 7.11(H) 1.70 - 6.10 x10(3)/mc L [facility] Lymphocytes % 15.7 % [facility] Lymphocytes Abs 1.5 0.9 - 3.2 x10(3)/mc L [facility] Monocytes % 8.7 % [facility] Monocyte Abs 0.8 0.3 - 0.9 x10(3)/mc L [facility] Eosinophils % 1.7 % [facility] Eosinophils Abs 0.2 0.0 - 0.4 x10(3)/[facility] Basophils % 0.6 % [facility] Basophils Abs 0.1 0.0 - 0.1 x10(3)/[facility] Immature Gran % 0.30 % [facility] Comment: Immature granulocytes(IG's)percentage and absolute count will include metamyelocytes, myelocytes, and promyelocytes. Blood smears from CBCs yielding IG's will be scanned manually for concordance. If this scan disagrees with the automated IG or if promyelocytes are noted, a manual differential will be performed. Vonda Gran Abs 0.03 0.00 - 0.04 x10(3)/[facility] Blood 12/05/2022 1:22 PM EDT 12/05/2022 1:24 PM EDT Narrative Resulting Agency Comment Spec In Lab Mynor Umaña MD HEMATOLOGY ORDERABL ES [facility] [place] [address] * (ABNORMAL) Hemogram (12/05/2022 1:22 PM EDT) WBC 9.8(H) 4.0 - 9.5 x10(3)/[facility] LABORATORY RBC 5.08 4.58 - 5.54 x10(6)/[facility] Hemoglobin 15.7 13.7 - 16.5 g/dL [facility] Hematocrit 47.4 40.5 - 48.5 % [facility] MCV 93.3(H) 82.9 - 93.1 fL [facility] MCH 30.9 27.5 - 32.1 pg [facility] MCHC 33.1 32.0 - 35.7 g/dL [facility] Platelets 304 145 - 357 x10(3)/[facility] LABORATORY RDWSD 47.9(H) 36.0 - 45.0 fL [facility] RDWCV 13.9(H) 11.4 - 13.8 % [facility] MPV 8.5 7.6 - 12.9 fL [facility] nRBC % Auto 0.0 % [facility] nRBC Abs Auto 0.000 0.000 - 0.000 x10(3)/mcL [facility] Blood 12/05/2022 1:22 PM EDT 12/05/2022 1:24 PM EDT Narrative Resulting Agency Comment Spec In Lab Mynor Umaña MD HEMATOLOGY ORDERABL ES [facility] [place] [address] * (ABNORMAL) Basic Metabolic Panel (non-fasting) (12/05/2022 1:22 PM EDT) Glucose Lvl 120 65 - 199 mg/dL [facility] Comment:Diabetes: >=200 mg/d L plus symptoms BUN 12 10 - 20 mg/dL [facility] Creatinine 1.28 0.80 - 1.50 mg/dL [facility] Sodium 137 135 - 145 mmol/L [facility] Potassium 5.3(H) 3.5 - 5.0 mmol/L [facility] Comment: Please note: ??Patients with WBC >100,000 may have falsely elevated Potassium levels. ??For accurate Potassium quantification in these patients send serum separator tube (gold top) for subsequent determinations. ??Contact the Clinical Chemistry Laboratory if there are any questions. Chloride 102 98 - 107 mmol/L [facility] CO2 27 22 - 31 mmol/L [facility] Anion Gap 8 5 - 15 mmol/L [facility] Calcium 11.3(H) 8.5 - 10.5 mg/dL [facility] Estimated GFR 60 >=60 mL/min/1. 73 m?? [facility] Comment: This patient's estimated GFR [...] MD CHEMISTRY ORDERABLE S Performing Organization Address [facility] de Phone Number [facility] [place] [address] * Prothrombin Time (12/05/2022 1:22 PM EDT) PT 10.6 9.4 - 12.5 sec [facility] INR 0.9 [facility] [...] ORDERABL ES Performing Organization Address [facility] Co de Phone Number [facility] [place] [address] * APTT (12/05/2022 1:22 PM EDT) PTT 30 25 - 37 sec [facility] Comment: The PTT is NOT appropriate for heparin monitoring. Use the Anti-Xa level for heparin monitoring (HEP UFH) or LMWH monitoring (HEP LMW). A PTT less than 37 seconds generally indicates adequate hemostasis. Blood 12/05/2022 1:22 PM EDT 12/05/2022 1:24 PM EDT Narrative Resulting Agency Comment Spec In Lab Mynor Umaña MD HEMATOLOGY ORDERABL ES Performing Organization Address City/State/[facility] Co de Phone Number [facility] [place] [address] documented in this encounter Visit Diagnoses Diagnosis Debility Debility, unspecified Pain of left lower extremity Primary osteoarthritis of left hip Primary localized osteoarthrosis, pelvic region and thigh documented in this encounter Care Teams Crew Foreman Relationship Specialty Start Date End Date Jakub Abrmas MD [address] [place] [address] PCP - General Family Medicine 04/05/21 10/18/23 documented as of this encounter
--- OUTSIDE RECORDS SUMMARY | 2024-02-22 15:19 | XMS_ITS | Encounter Summary ---
Author Organization [facility] [place] [address] Care Team Providers Care Mold Hoister Name Role Phone Jakub Abrams MD Primary Care Provider [phone] Encounter Details Date Type Department Care Team (Late st Contact Info) Description 12/05/2022 12:00 PM EDT Clinical Support [place] [phone] Social History Tobacco Use Types Packs/Day Years Used Date Smoking Tobacco: Never Smokeless Tobacco: Never Alcohol Use Standard Drinks/Week Comments Not Currently 0 (1 standard drink = 0.6 oz pur e alcohol) occasional DH [facility] Inpatient Questions Answer Date Recorded Does [...] on filedocumented in this encounter Care Teams Mold Hoister Relationship Specialty Start Date End Date Jakub Abrasm MD [address] [place] [address] PCP - General Family Medicine 04/05/21 10/18/23 documented as of this encounter
--- OUTSIDE RECORDS SUMMARY | 2024-02-22 15:19 | XMS_ITS | Encounter Summary ---
[place] [address] Care Team Providers Care Microcomputer Technician Name Role Phone Jakub Abrams MD Primary Care Provider [phone] Encounter Details Date Type Department Care Team (Latest Contact Info) Description 08/01/2022 9:45 AM EST Laboratory Appointment Lab [address] [place] [phone] Ulcerative proctosigmoiditis, with rectal bleeding Social History [...] [facility], [place] Calprotectin, Stool 591(H) <=79 mcg/g [facility] Comment: Calprotectin Concentration ? Interpretation ? < 80 mcg/g ?Normal ? 80 ? 160 mcg/g ?Borderline ? >160 mcg/g ?Elevated Stool 08/01/2022 10:2 0 AM EST 08/01/2022 10:45 AM EST Narrative Resulting Agency Comment Spec In Lab Elkin Sanchez MD CHEMISTRY ORDERAB LES [facility] [place] [place] [address] * (ABNORMAL) Differential, Automated (08/01/2022 10:16 AM EST) Pathologist [facility] [place] Neutrophils % 56.3 % [facility] Neutr Abs (ANC) 3.78 1.70 - 6.10 x10(3)/mc L [facility] Lymphocytes % 24.4 % [facility] Lymphocytes Abs 1.6 0.9 - 3.2 x10(3)/mc L [facility] Monocytes % 10.3 % [facility] Monocyte Abs 0.7 0.3 - 0.9 x10(3)/mc L [facility] Eosinophils % 7.2 % [facility] Eosinophils Abs 0.5(H) 0.0 - 0.4 x10(3)/[facility] Basophils % 1.5 % [facility] Basophils Abs 0.1 0.0 - 0.1 x10(3)/[facility] Immature Gran % 0.30 % [facility] Comment: Immature granulocytes(IG's)percentage and absolute count will include metamyelocytes, myelocytes, and promyelocytes. Blood smears from CBCs yielding IG's will be scanned manually for concordance. If this scan disagrees with the automated IG or if promyelocytes are noted, a manual differential will be performed. Vonda Gran Abs 0.02 0.00 - 0.04 x10(3)/[facility] Blood 08/01/2022 10:1 6 AM EST 08/01/2022 10:30 AM EST Narrative Resulting Agency Comment Spec In Lab Elkin Sanchez MD HEMATOLOGY ORDERA BLES [facility] [place] [address] * (ABNORMAL) Hemogram (08/01/2022 10:16 AM EST) WBC 6.7 4.0 - 9.5 x10(3)/[facility] RBC 4.76 4.58 - 5.54 x10(6)/[facility] Hemoglobin 14.6 13.7 - 16.5 g/dL [facility] Hematocrit 44.7 40.5 - 48.5 % [facility] MCV 93.9(H) 82.9 - 93.1 fL [facility] MCH 30.7 27.5 - 32.1 pg [facility] MCHC 32.7 32.0 - 35.7 g/dL [facility] Platelets 283 145 - 357 x10(3)/[facility] RDWSD 48.2(H) 36.0 - 45.0 fL [facility] RDWCV 13.9(H) 11.4 - 13.8 % [facility] MPV 9.2 7.6 - 12.9 fL [facility] nRBC % Auto 0.0 % [facility] nRBC Abs Auto 0.000 0.000 - 0.000 x10(3)/mcL [facility] Blood 08/01/2022 10:1 6 AM EST 08/01/2022 10:30 AM EST Narrative Resulting Agency Comment Spec In Lab Elkin Sanchez MD HEMATOLOGY ORDERA BLES [facility] [place] [address] * (ABNORMAL) Comprehensive metabolic panel (non-fasting) (08/01/2022 10:16 AM EST) Glucose Lvl 105 65 - 199 mg/dL [facility] Comment:Diabetes: >=200 mg/d L plus symptoms BUN 15 10 - 20 mg/dL [facility] Creatinine 1.20 0.80 - 1.50 mg/dL [facility] Sodium 141 135 - 145 mmol/L [facility] Potassium 5.2(H) 3.5 - 5.0 mmol/L [facility] Comment: Please note: ??Patients with WBC >100,000 may have falsely elevated Potassium levels. ??For accurate Potassium quantification in these patients send serum separator tube (gold top) for subsequent determinations. ??Contact the Clinical Chemistry Laboratory if there are any questions. Chloride 106 98 - 107 mmol/L [facility] CO2 27 22 - 31 mmol/L [facility] Anion Gap 8 5 - 15 mmol/L [facility] Calcium 10.8(H) 8.5 - 10.5 mg/dL [facility] Total Protein 6.8 6.1 - 8.0 g/dL [facility] Albumin 4.2 3.2 - 5.2 g/dL [facility] AST 19 0 - 39 unit/L [facility] ALT 19 0 - 55 unit/L [facility] Alk Phos 145(H) 40 - 130 unit/L [facility] Total Bilirubin 0.3 0.2 - 1.3 mg/dL [facility] Estimated GFR 65 >=60 mL/min/1. 73 m?? [facility] [...] ORDERAB LES Performing Organization Address [facility] Co de Phone Number [facility] [place] [place] [address] * CRP, acute inflammation (08/01/2022 10:16 AM EST) CRP <3.0 <=4.9 mg/L [facility] Blood 08/01/2022 10:1 6 AM EST 08/01/2022 10:30 AM EST Narrative Resulting Agency Comment Spec In Lab Elkin Sanchez MD CHEMISTRY ORDERAB LES Performing Organization Address [facility]/ZIP Co de Phone Number [facility] [place] [address] documented in this encounter Visit Diagnoses Diagnosis Ulcerative proctosigmoiditis, with rectal bleeding documented in this encounter Care Teams Microcomputer Technician Relationship Specialty Start Date End Date Jakub Abrams MD [address] [place] [address] PCP - General Family Medicine 04/05/21 10/18/23 documented as of this encounter
--- OUTSIDE RECORDS SUMMARY | 2024-02-22 15:19 | XMS_ITS | Encounter Summary ---
[place] [address] Care Team Providers Care Mineral Industry Teacher Name Role Phone Jakub Abrams MD Primary Care Provider [phone] Reason for Referral * Home Health Care (Routine) - Closed Specialty Diagnoses / Procedures Referred By Louann dawson Referred To Contact Diagnoses S/P total left hip arthroplasty Mynor Umaña MD [facility] [place] [address] Referral ID Status Reason Start Date Expiration Date V isits Requested Visits Authorized [id number] Closed Consult, Test & Treat 12/13/2022 06/11/2023 999 999 * Consultation (Routine) - Closed Specialty Diagnoses / Procedures Referred By Louann dawson Referred To Contact Primary Care Diagnoses S/P total left hip arthroplasty Mynor Umaña MD [facility] [place] [address] [place] [address] Referral ID Status Reason Start Date Expiration Date V isits Requested Visits Authorized [id number] Closed Assume Subset of Care 12/13/2022 12/13/2023 [...] MODIFIER PINNACLE ACETABULUM DEPUY Mynor Umaña MD [facility] [place] [address] [facility] Referral ID Status Reason Start Date Expiration Date Visits Re quested Visits Authorized [id number] 1 1 Encounter Details Date Type Department Care Team (Latest Contact Info) Description 12/13/2022 6:10 AM EDT - 12/13/2022 2:36 PM EDT Hospital Encounter [place] [phone] Mynor Umaña MD [facility] [place] [address] S/P total left hip arthroplasty; s/p Left [...] please call the Orthopedic Clinic Nurse at [phone] for further dose instructions. If it is after 5pm or on the weekends, the Orthopedic resident survey questionnaire designer will be managing your dosing (please call [phone] and ask for them to be paged). [...] not take or discontinue any prescription or czgk-hep-ejgpbwp medications without asking your doctor or pharmacist [...] bowel movement. You can also take an ccsp-bus-yfhjxin medication, Miralax if needed to combat constipation. [...] as much as possible. Call your doctor ([phone]) if you develop: Fever greater than 100.5 Severe nausea or vomiting Increasing pain that is not controlled by pain medications Increasing redness, swelling, or drainage from incisions Change in sensation FOLLOW-UP APPOINTMENTS: 1. You will have follow-up appointments at [facility] as indicated below in Future Appointment and Orders. 2. You will need to have x-rays prior to your follow-up appointment on 01/16/23. Please come to Radiology, desk 3T, 1 hour BEFORE that appointment for these x-rays. Future Appointments Date Time Provider Department Center 01/16/2023 9:45 AM [facility] DX ROOM 3 Xray [facility] Rad 01/16/2023 10:40 AM Mynor Umaña MD [facility] ORTH [address] [place] [address] If you have questions or concerns: Monday through Monday, 8 AM - 5 PM, please call Dr. Mynor Umaña MD's office at . If it is after 5 PM, the weekend, or holidays, please call and ask to speak with theOrthopedic resident on-call. * Attachments The following attachments cannot be sent through Care Everywhere. * Walker Instructions: General Info (Emirati) * Vitamin K Diet (Emirati) * Warfarin Safety Tips (Emirati) documented in this encounter Medications at Time [...] where referrals are placed. Provided patient with [facility] Star Quality Rating for Home care hand out. Patient requests referral to : [facility]. [address] [place] [id number] Expected date of discharge: 12/13/22. Referral routed to the Preschool Aide for matching with agency/vendor and to provide any required information. Janice Taveras RN, BSN, ACM-SCRAP DROP OPERATORprogram director Office of Care Management Pager: [phone] documented in this encounter H&P Notes * [...] RAFIQ Elier Armstrong MD Orthopaedic Surgery Pager [phone] documented in this encounter Miscellaneous Notes * Op Note - Elier Armstrong MD - 12/13/2022 7:45 AM EDT [facility] Operative Note Patient Name: Jakub Fuller : [id number] MR#: [id number] Case Date: 12/13/2022 Surgeon: Surgeon(s) and Role: * Mynor Umaña MD - Primary * Elier Armstrong MD - Resident - Assisting * Romario Reza PA - Physician Security Tech Preoperative Diagnosis: Osteoarthritis left Hip Postoperative Diagnosis: Same Procedure Performed: left Total Hip Arthroplasty (CPT code 12818) Anesthesia: spinal IVF: See anesthesia record Estimated [...] Offset Femoral Head: 40mm +1.5 Acetabulum: DePuy Uvalde Gription, Size 62 Liner: Altrx polyethylene, Size [...] component positioning, verify leg length, and offset voodoo. Based on the images, intra-op stability, and [...] off the HANA table back to the [facility]. Elier Armstrong MD 12/13/2022 Post-operative Plan: (avoid [...] Implant Name Type Inv. Item Serial No. Financial Analyst Accountant Lot No. LRB No. Used Action SHELL ACET HIP 62MM POR CTD MULTI HOLE TI PINNACLE GRIPTION ([id number]) (AutoReq) - [id number] IMPLANTS SHELL ACET HIP 62MM POR CTD MULTI HOLE TI PINNACLE GRIPTION ([id number]) (AutoReq) [employer] ANTONIO [id number] Left 1 Implanted LINER ACET HIP [id number] STND POLY PINNACLE ALTRX ([id number]) (AutoReq) - [id number] IMPLANTS LINER ACET HIP [id number] STND POLY PINNACLE ALTRX ([id number]) (AutoReq) [employer] EMANI ANTONIO [id number] Left 1 Implanted STEM FEMORAL HIP SZ 9 PROX 1214 TAPER POR CLLR HIGH OFST TI ([id number]) (AutoReq) - [id number] IMPLANTS STEM FEMORAL HIP SZ 9 PROX 12/14 TAPER POR CLLR HIGH OFST TI ([id number]) (AutoReq) [employer] ANTONIO [id number] Left 1 Implanted HEAD FEMORAL HIP 40MM +1.5MM OFFSET 12/14 TPR CERAMIC ([id number]) (AutoReq) - [id number] IMPLANTS HEAD FEMORAL HIP 40MM +1.5MM OFFSET 12/14 TPR CERAMIC ([id number]) (AutoReq) [employer] ANTONIO [id number] Left 1 Implanted Associated attestation - Mynor [...] Hip Unilateral With Pelvis Minimum 4 Views (05177) Yes 12/13/2022 7:17 AM EDT Hip osteoarthritis Arthroplasty Acetabular/Prox Fem Prostc Agrft/Algrft (35173) Yes 12/13/2022 7:17 AM EDT Hip osteoarthritis [...] who have questions please contact the health home health care coordinator that requested your imaging first. ? Narrative 12/13/2022 10:46 AM EDT EXAMINATION: XR PELVIS (GENERIC) CLINICAL HISTORY: s/p left RAFIQ TECHNIQUE: Single portable low AP pelvis radiograph 12/13/2022 at 0935 hours COMPARISON: Intraoperative spot images of the pelvis/left hip from earlier same day 12/13/2022 Radiographs of the pelvis and left hip from [facility] 09/15/2022 FINDINGS: Status post left total [...] of the pelvis and left hip from [facility] 09/15/2022 FINDINGS: Status post left total [...] patients who have questions please contactthe health home health care coordinator that requested your imaging first. Mynor CARBAJAL [...] mixed into 500 mL NS as irrigation) FTryxvxgngf-RTYMLENspms-pyvVRQwny- ketorolac (MACEY) (2.46 mg-0.005 mg-0.0008 mg-0.3 mg/mL) [...] Routine documented in this encounter Care Teams Mineral Industry Teacher Relationship Specialty Start Date End Date Jakub Abrams MD [address] [place] [address] PCP - General Family Medicine 04/05/21 10/18/23 documented as of this encounter
--- OUTSIDE RECORDS SUMMARY | 2024-02-22 15:19 | XMS_ITS | Encounter Summary ---
Author Organization [facility] [place] [address] Care Team Providers Care Restaurant Greeter Name Role Phone Jakub Abrams MD Primary Care Provider [phone] Reason for Visit * Reason Onset Date Comments Post-op Problem 12/15/2022 Encounter Details Date Type Department Care Team (Late st Contact Info) Description 12/15/2022 Telephone [place] [phone] Mynor Umaña MD [facility] [place] [address] Post-op Problem Social History Tobacco Use Types [...] is calling? Jakub Best call back number: [phone] Best time to call back between 8:00 [...] Mynor Juarez (Primary) Elier Armstrong David R [facility] MAIN OR Discharged What is the question you would like to ask the clinical care team? Jakub called stating that the [facility] provider saw him today and did a [...] on filedocumented in this encounter Care Teams Restaurant Greeter Relationship Specialty Start Date End Date Jakub Abrams MD [address] [place] [address] PCP - General Family Medicine 04/05/21 10/18/23 documented as of this encounter
--- OUTSIDE RECORDS SUMMARY | 2024-02-22 15:19 | XMS_ITS | Encounter Summary ---
Author Organization [facility] Address [facility] [place] [address] Care Team Providers Care Bottle Sorter Name Role Phone None Primary Care Provider Unavailabl e Encounter Details Date Type Department Care Team (Late st Contact Info) Description 03/30/2021 Orders Only Orthopaedics at [facility] [place] [address] Klarissa Rizzo PA [facility] [address] [place] [address] Pain in left hip Social History Tobacco [...] who have questions please contact the health client care specialist that requested your imaging first. [...] patients who have questions please contactthe health client care specialist that requested your imaging first. Darius Mendez MD IMG DX ORDERABLES documented in this encounter Visit Diagnoses Diagnosis Pain in left hip Pain in joint, pelvic region and thigh Pain in left hip Pain in joint, pelvic region and thigh documented in this encounter Care Teams Bottle Sorter Relationship Specialty Start Date End Date None None PCP - General 04/24/14 04/04/21 documented as of this encounter
--- OUTSIDE RECORDS SUMMARY | 2024-02-22 15:19 | XMS_ITS | Encounter Summary ---
Author Organization [facility] [place] [address] Care Team Providers Care Insole Beveler Name Role Phone Jakub Abrams MD Primary Care Provider [phone] Encounter Details Date Type Department Care Team (Late st Contact Info) Description 12/06/2022 Orders [place] [address] Víctor Fischer Osteoarthritis of left hip, unspecified osteoarthritis type; Left hip pain; Debility Social History Tobacco Use Types Packs/Day Years Used Date Smoking Tobacco: Never Smokeless Tobacco: Never Alcohol Use Standard Drinks/Week Comments Not Currently 0 (1 standard drink = 0.6 oz pur e alcohol) occasional DH [facility] Inpatient Questions Answer Date Recorded Does [...] unspecified documented in this encounter Care Teams Insole Beveler Relationship Specialty Start Date End Date Jakub Abrams MD [address] [place] [address] PCP - General Family Medicine 04/05/21 10/18/23 documented as of this encounter
--- OUTSIDE RECORDS SUMMARY | 2024-02-22 15:19 | XMS_ITS | Encounter Summary ---
Author Organization [facility] Address [facility] [place] [address] Care Team Providers Care Cook Sauce Name Role Phone Jakub Abrams MD Primary Care Provider [phone] Reason for Visit * Consultation (AQUILES) - Closed Specialty Diagnoses / Procedures Referred By Contac t Referred To Contact Gastroenterology Diagnoses Ulcerative colitis with complication, unspecified location Ulcerative colitis with complication, Jakub Abrams MD [address] [place] [address] [place] [address] [facility] [place] [address] Referral ID Status Reason Start Date Expiration Date V isits Requested Visits Authorized [id number] Closed Consult, Test & Treat PCP Updated and/or Approved 04/07/2022 04/07/2023 6 6 Encounter Details Date Type Department Care Team (Late st Contact Info) Description 08/01/2022 8:00 AM EST Office Visit [place] [address] Elkin Sanchez MD [facility] [place] [address] Ulcerative proctosigmoiditis, with rectal bleeding Social History [...] Sanchez MD - 08/01/2022 8:00 AM EST [facility] Section of Gastroenterology and Hepatology Outpatient Consultation [...] medications 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 RAD XRAY ??? XR FLUORO INJECTION DRAINAGE JOINT LG LEFT Left 05/10/2021 XR Fluoro Guided Joint Injection Large Left 05/10/2021 Keri Dugan MD [facility] RAD XRAY ??? XR FLUORO INJECTION DRAINAGE JOINT LG RIGHT Right 05/10/2021 XR Fluoro Guided Joint Injection Large Right 05/10/2021 Keri Dugan MD [facility] RAD XRAY Social History: reports that he [...] Reviewed in EDH/Scan Docs/Care Everywhere Pathology from [facility] in February 2022 at [facility] Final Diagnosis [...] or 4 pills once daily. Prescription sent [facility]. # If this is too [...] documenting note as above. Elkin Sanchez MD Distribution Systems Servicepersoncattle broker, [facility] Gastroenterology and Hepatology [place] [id number] P: [phone] F: [phone] CC: Jakub Abrams MD documented in this encounter Plan of Treatment Not on file documented as of this encounter Results * (ABNORMAL) Calprotectin, Stool (08/01/2022 10:20 AM EST) Calprotectin, Stool 591(H) <=79 mcg/g [facility] Comment: Calprotectin Concentration ? Interpretation ? < 80 mcg/g ?Normal ? 80 ? 160 mcg/g ?Borderline ? >160 mcg/g ?Elevated Stool 08/01/2022 10:2 0 AM EST 08/01/2022 10:45 AM EST Narrative Resulting Agency Comment Spec In Lab Elkin Sanchez MD CHEMISTRY ORDERAB LES Performing Organization Address City/[facility]/ZIP Co de Phone Number [facility] [place] [address] * CRP, acute inflammation (08/01/2022 10:16 AM EST) CRP <3.0 <=4.9 mg/L [facility] Blood 08/01/2022 10:1 6 AM EST 08/01/2022 10:30 AM EST Narrative Resulting Agency Comment Spec In Lab Elkin Sanchez MD CHEMISTRY ORDERAB LES Performing Organization Address [facility] Co de Phone Number [facility] [place] [address] * (ABNORMAL) Comprehensive metabolic panel (non-fasting) (08/01/2022 10:16 AM EST) Pathologist [facility] Glucose Lvl 105 65 - 199 mg/dL [facility] Comment:Diabetes: >=200 mg/d L plus symptoms BUN 15 10 - 20 mg/dL [facility] Creatinine 1.20 0.80 - 1.50 mg/dL [facility] Sodium 141 135 - 145 mmol/L [facility] Potassium 5.2(H) 3.5 - 5.0 mmol/L [facility] Comment: Please note: ??Patients with WBC >100,000 may have falsely elevated Potassium levels. ??For accurate Potassium quantification in these patients send serum separator tube (gold top) for subsequent determinations. ??Contact the Clinical Chemistry Laboratory if there are any questions. Chloride 106 98 - 107 mmol/L [facility] CO2 27 22 - 31 mmol/L [facility] Anion Gap 8 5 - 15 mmol/L [facility] Calcium 10.8(H) 8.5 - 10.5 mg/dL [facility] Total Protein 6.8 6.1 - 8.0 g/dL [facility] Albumin 4.2 3.2 - 5.2 g/dL [facility] AST 19 0 - 39 unit/L [facility] ALT 19 0 - 55 unit/L [facility] Alk Phos 145(H) 40 - 130 unit/L [facility] Total Bilirubin 0.3 0.2 - 1.3 mg/dL [facility] Estimated GFR 65 >=60 mL/min/1. 73 m?? [facility] Comment: This patient's estimated GFR [...] Lab Elkin Sanchez MD CHEMISTRY ORDERAB LES [facility] [address] documented in this encounter Visit Diagnoses Diagnosis Ulcerative proctosigmoiditis, with rectal bleeding documented in this encounter Care Teams Cook Sauce Relationship Specialty Start Date End Date Jakub Abrams MD [address] [place] [address] PCP - General Family Medicine 04/05/21 10/18/23 documented as of this encounter
--- OUTSIDE RECORDS SUMMARY | 2024-02-22 15:19 | XMS_ITS | Encounter Summary ---
[place] [address] Care Team Providers Care Loom Cleaner Name Role Phone Jakub Abrams MD Primary Care Provider [phone] Reason for Referral * Consultation (AQUILES) - Closed Specialty Diagnoses / Procedures Referred By Contjocelyn t Referred To Contact Gastroenterology Diagnoses Ulcerative colitis with complication, unspecified location Ulcerative colitis with complication, Jakub Abarms MD [address] [place] [address] [facility] [address] [place] [address] Referral ID Status Reason Start Date Expiration Date V isits Requested Visits Authorized [id number] Closed Consult, Test & Treat PCP Updated and/or Approved 04/07/2022 04/07/2023 6 6 Encounter Details Date Type Department Care Team (Latest Contact Info) Description 04/07/2022 Transcribe Orders eDH Incoming Referrals [phone] Jakub Abrams MD [address] [place] [address] Ulcerative colitis with complication, unspecified location [...] location documented in this encounter Care Teams Loom Cleaner Relationship Specialty Start Date End Date Jakub Abrams MD [address] [place] [address] PCP - General Family Medicine 04/05/21 10/18/23 documented as of this encounter
--- OUTSIDE RECORDS SUMMARY | 2024-02-22 15:19 | XMS_ITS | Referral Summary ---
Author Organization [facility] Address [address] [place] [address] Care Team Providers Care Research Support Specialist Name Role Phone Jakub Amaya MD Primary Care Provider [phone] Encounters Date Type Department Care Team Description 02/22/2024 Lab Requisition [facility] Pathology & Laboratory [address] [address] Outr Resulting Lab, Provider 02/22/2024 Lab Requisition [facility] Pathology & Laboratory [address] [address] Outr Resulting Lab, Provider from Last 3 Months Social History Tobacco Use Types Packs/Day Years Used Date Smoking Tobacco: Never Assessed Sex and Gender Information Value Date Recorded Sex Assigned at Not on file Gender Identity Not on file Sexual Orientation Not on file Plan of Treatment Not on file PankajkatrinaJakub bynum Personal/Family Self 1950 [address] [facility] [place] [address] PankajkatrinaJakub bynum Personal/Family Self 1950 [address] [facility] [place] [address] PankajkatrinaJakub bynum Personal/Family Self 1950 [address] [facility] [place] [address] Care Teams Research Support Specialist Relationship Specialty Start Date End Date Jakub Amaya MD [address] [place] [address] PCP - General 07/01/09
--- OUTSIDE RECORDS SUMMARY | 2024-02-22 15:19 | XMS_ITS | Encounter Summary ---
Author Organization [facility] [place] [address] Care Team Providers Care Embossing Press Operator Molded Goods Name Role Phone Jakub Abrams MD Primary Care Provider [phone] Encounter Details Date Type Department Care Team (Late st Contact Info) Description 12/20/2022 External Results [facility] [place] [address] Delmi Garcia Social History Tobacco Use Types [...] 1.1(A) 0.9 - 1.1 VISITING NURSE Comment:YOLANDA [facility] Blood 12/20/2022 1:26 PM EDT Historical Provider POINT OF CARE JEREMIAS T ORDERABLES VISITING NURSE documented in this encounter Visit Diagnoses Not on filedocumented in this encounter Care Teams Embossing Press Operator Molded Goods Relationship Specialty Start Date End Date Jakub Abrams MD [address] [place] [address] PCP - General Family Medicine 04/05/21 10/18/23 documented as of this encounter
--- OUTSIDE RECORDS SUMMARY | 2024-02-22 15:19 | XMS_ITS | Encounter Summary ---
Author Organization [facility] [place] [address] Care Team Providers Care Anatomic Pathologist Name Role Phone Jakub Abrams MD Primary Care Provider [phone] Reason for Visit * Auth/Cert (Routine) Specialty [...] MODIFIER PINNACLE ACETABULUM DEPUY Mynor Umaña MD [facility] [place] [address] [facility] Referral ID Status Reason Start Date Expiration Date Visits Re quested Visits Authorized [id number] 1 1 Encounter Details Date Type Department Care Team (Late st Contact Info) Description 12/13/2022 7:18 AM EDT Anesthesia Event [place] [address] April Carl MD [facility] [place] [address] Asim Alfaro MD [facility] [place] [address] Anesthesia Record Procedure Summary Procedure Name Responsible [...] 0718; metacarpal vein (top of hand), right; sfet-emc-[id number] catheter system; Anatomical Landmarks; 20 gauge; Asim [...] Procedure Summary Date: 12/13/22 Room / Location: [facility] OR [address] [place] [address] MAIN OR Anesthesia Start: 717 Anesthesia Stop: [...] All Anesthesia Providers: Anesthesiologist: April Carl MD METAL DRILL PRESS OPERATOR: Min Shi CRNA Anesthesia Fellow: Asim Alfaro MD Vitals Value Taken Time BP 88/59 12/13/22 0900 Temp Pulse Resp SpO2 92 % 12/13/22 0901 Pain Level Vitals shown include unvalidated device data. Patient Location: PACU/[facility] Level of Consciousness: Awake and Alert Pain [...] Fluoro Guided Joint Injection Large Left 04/19/2021 [facility] RAD XRAY ??? XR FLUORO INJECTION DRAINAGE JOINT LG LEFT Left 05/10/2021 XR Fluoro Guided Joint Injection Large Left 05/10/2021 Keri Dugan MD [facility] RAD XRAY ??? XR FLUORO INJECTION DRAINAGE JOINT LG RIGHT Right 05/10/2021 XR Fluoro Guided Joint Injection Large Right 05/10/2021 Keri Dugan MD [facility] RAD XRAY Social History Tobacco Use ??? [...] products. Plan discussed with attending, fellow and METAL DRILL PRESS OPERATOR. Anesthesia Screening documented in this encounter Plan [...] April Carl MD ~~~~~~~~~~~~~~~~~~~~~~~~~~~~~~~~~~~~~~~~~~~~~~~~~~~~~~~~~~~~ April Carl MD INHALATION THERAPIST CHGS documented in this encounter Visit Diagnoses [...] mg documented in this encounter Care Teams Anatomic Pathologist Relationship Specialty Start Date End Date Jakub Abrams MD [address] [place] [address] PCP - General Family Medicine 04/05/21 10/18/23 documented as of this encounter
--- OUTSIDE RECORDS SUMMARY | 2024-02-22 15:19 | XMS_ITS | Encounter Summary ---
Author Organization [facility] [place] [address] Care Team Providers Care Maintenance Leader Name Role Phone Jakub Abrams MD Primary Care Provider [phone] Encounter Details Date Type Department Care Team (Late st Contact Info) Description 12/08/2022 Notes [place] [address] Ara Chance Social History Tobacco Use Types Packs/Day Years Used Date Smoking Tobacco: Never Smokeless Tobacco: Never Alcohol Use Standard Drinks/Week Comments Not Currently 0 (1 standard drink = 0.6 oz pur e alcohol) occasional DH [facility] Inpatient Questions Answer Date Recorded Does [...] knee Replacement: Balancing Safety and Effectiveness. Principle Kosher Dietary Service Manager: Dr. Chasidy Arreguin #: [id number] Subject #: [id number] Subject has been randomized to arm B for the above named clinical trial. Request sent to provider to place orders for Arm B (Warfarin) drug to be administered pre-op. documented in this encounter Plan of Treatment Not on file documented as of this encounter Visit Diagnoses Not on filedocumented in this encounter Care Teams Maintenance Leader Relationship Specialty Start Date End Date Jakub Abrams MD [address] [place] [address] PCP - General Family Medicine 04/05/21 10/18/23 documented as of this encounter
--- OUTSIDE RECORDS SUMMARY | 2024-02-22 15:19 | XMS_ITS | Encounter Summary ---
Author Organization [facility] [place] [address] Care Team Providers Care Wind Technician Name Role Phone Jakub Abrams MD Primary Care Provider [phone] Encounter Details Date Type Department Care Team (Late st Contact Info) Description 12/05/2022 Notes [place] [address] Sr Won Schultz Social History Tobacco Use Types Packs/Day Years Used Date Smoking Tobacco: Never Smokeless Tobacco: Never Alcohol Use Standard Drinks/Week Comments Not Currently 0 (1 standard drink = 0.6 oz pur e alcohol) occasional DH [facility] Inpatient Questions Answer Date Recorded [...] knee Replacement: Balancing Safety and Effectiveness. Principle Repairer General: Dr. Chasidy Arreguin #: [id number] Visit: Pre-op Date: 12/05/2022 Informed consent for [...] need to have the prescription filledat the [facility] to receive the $75 mathias. documented in this encounter Plan of Treatment Not on file documented as of this encounter Visit Diagnoses Not on filedocumented in this encounter Care Teams Wind Technician Relationship Specialty Start Date End Date Jakub Abrams MD [address] [place] [address] PCP - General Family Medicine 04/05/21 10/18/23 documented as of this encounter
--- OUTSIDE RECORDS SUMMARY | 2024-02-22 15:19 | XMS_ITS | Encounter Summary ---
Author Organization [facility] Address [address] [place] [address] Care Team Providers Care Volunteer Assistant Name Role Phone Jakub Amaya MD Primary Care Provider [phone] Encounter Details Date Type Department Care Team (Late st Contact Info) Description 02/22/2024 Lab Requisition [facility] Pathology & Laboratory Medicine - [address] [address] Outr Resulting Lab, Provider Social History Tobacco Use Types Packs/Day Years Used Date Smoking Tobacco: Never Assessed Sex and Gender Information Value Date Recorded Sex Assigned at Not on file Gender Identity Not on file Sexual Orientation Not on file documented as of this encounter Plan of Treatment Scheduled Orders Name Type Priority Associated Diagnoses Orde r Schedule CCP ANTIBODIES Lab Routine Ordered: 0 02/22/2024 ANTI NUCLEAR AB (JOAO), IFA Lab Routine Ordered: 02/22/2024 RHEUMATOID FACTOR Lab Routine Ordered : 02/22/2024 documented as of this encounter Visit Diagnoses Not on filedocumented in this encounter Care Teams Volunteer Assistant Relationship Specialty Start Date End Date Jakub Amaya MD [address] [place] [address] PCP - General 07/01/09 documented as of this encounter
--- OUTSIDE RECORDS SUMMARY | 2024-02-22 15:19 | XMS_ITS | Encounter Summary ---
Author Organization [facility] Address [facility] [place] [address] Care Team Providers Care Executive Receptionist Name Role Phone Jakub Abrams MD Primary Care Provider [phone] Encounter Details Date Type Department Care Team (Latest Contact Info) Description 04/05/2021 7:15 AM EDT - 04/05/2021 11:59 PM EDT Hospital Encounter XRay at [address] [place] [address] Darius Mendez MD [facility] [place] [address] Pain in left hip Discharge Disposition: Home [...] who have questions please contact the health lawn care technician that requested your imaging first. ? Electronically signed by: Brayan Zuniga MD, [facility] ([phone]), at 04/05/2021 8:11 AM Narrative 04/05/2021 8:11 [...] patients who have questions please contactthe health lawn care technician that requested your imaging first. Electronically signed by: Brayan Zuniga MD, [facility]([phone]), at 04/05/2021 8:11 AM Darius Mendez MD IMG DX ORDERABLES documented in this encounter Visit Diagnoses Diagnosis Pain in left hip Pain in joint, pelvic region and thigh documented in this encounter Care Teams Executive Receptionist Relationship Specialty Start Date End Date Jakub Abrams MD [address] [place] [address] PCP - General Family Medicine 04/05/21 10/18/23 documented as of this encounter
--- OUTSIDE RECORDS SUMMARY | 2024-02-22 15:19 | XMS_ITS | Encounter Summary ---
Author Organization [facility] Address [facility] [place] [address] Care Team Providers Care Pepper Cutter Name Role Phone Jakub Abrams MD Primary Care Provider [phone] Reason for Referral * Diagnostic Test (Routine) - Closed Specialty Diagnoses / Procedures Referred By Contac t Referred To Contact Radiology Diagnoses Chronic pain of both shoulders Procedures XR Fluoro Guided Joint Injection Large Right Bekah Hui PA [facility] [place] [address] [facility] [address] [place] [address] [place] [address] Referral ID Status Reason Start Date Expiration Date V isits Requested Visits Authorized [id number] Closed Specialty Service Requested 04/19/2021 10/17/2022 1 1 * Diagnostic Test (Routine) - Closed Specialty Diagnoses / Procedures Referred By Contac t Referred To Contact Radiology Diagnoses Chronic pain of both shoulders Procedures XR Fluoro Guided Joint Injection Large Left Bekah Hui PA [facility] [place] [address] [facility] X[facility] [address] [place] [address] [place] [address] Referral ID Status Reason Start Date Expiration Date V isits Requested Visits Authorized [id number] Closed Specialty Service Requested 04/19/2021 10/17/2022 1 1 Reason for Visit * Diagnostic Test (Routine) - Closed Specialty Diagnoses / Procedures Referred By Louann t Referred To Contact Radiology Diagnoses Chronic pain of both shoulders Procedures XR Fluoro Guided Joint Injection Large Right Bekah Hui PA [facility] ORTHOPAEDIC [place] [address] [facility] [address] [place] [address] [place] [address] Referral ID Status Reason Start Date Expiration Date V isits Requested Visits Authorized [id number] Closed Specialty Service Requested 04/19/2021 10/17/2022 1 1 Encounter Details Date Type Department Care Team (Latest Contact Info) Description 05/10/2021 8:00 AM EDT - 05/10/2021 11:59 PM EDT Hospital Encounter XRay at [address] [place] [address] Rosario Rao MD [facility] [place] [address] Chronic pain of both shoulders [...] telephone the diagnostic section of radiology at [phone]. documented in this encounter Medications at Time [...] who have questions please contact the health adult live in caregiver that requested your imaging first. ? Narrative [...] electronic medical record and allergies, as per [facility] protocol. The patient was placed supine on [...] relevant electronic medicalrecord and allergies, as per [facility] protocol. The patient was placed supine on [...] patients who have questions please contactthe health adult live in caregiver that requested your imaging first. Rosario Rao [...] who have questions please contact the health adult live in caregiver that requested your imaging first. ? Narrative [...] electronic medical record and allergies, as per [facility] protocol. The patient was placed supine on [...] relevant electronicmedical record and allergies, as per [facility] protocol. The patient was placed supine on [...] patients who have questions please contactthe health adult live in caregiver that requested your imaging first. Rosario Rao [...] EDT documented in this encounter Care Teams Pepper Cutter Relationship Specialty Start Date End Date Jakub Abrams MD [address] [place] [address] PCP - General Family Medicine 04/05/21 10/18/23 documented as of this encounter
--- OUTSIDE RECORDS SUMMARY | 2024-02-22 15:19 | XMS_ITS | Encounter Summary ---
Author Organization [facility] [place] [address] Care Team Providers Care Human Resources Trainer Name Role Phone Jakub Abrams MD Primary Care Provider [phone] Reason for Referral * Consultation (Routine) - Closed Specialty Diagnoses / Procedures Referred By Contac t Referred To Contact Endocrinology Diagnoses Hypercalcemia Hyperparathyroidism Dean Obando PA [facility] [place] [address] [facility] Endocrinology [address] [place] [address] Referral ID Status Reason Start Date Expiration Date V isits Requested Visits Authorized [id number] Closed Consult, Test & Treat 12/07/2022 12/07/2023 1 1 Encounter Details Date Type Department Care Team (Latest Contact Info) Description 12/05/2022 11:00 AM EDT Office [place] [address] Dean Obando PA [facility] [place] [address] Preop examination; Osteoarthritis of left hip, unspecified osteoarthritis type; Hypercalcemia; Hyperparathyroidism Social History Tobacco Use Types Packs/Day Years Used Date Smoking Tobacco: Never Smokeless Tobacco: Never Alcohol Use Standard Drinks/Week Comments Not Currently 0 (1 standard drink = 0.6 oz pur e alcohol) occasional [facility] Inpatient Questions Answer Date Recorded Does [...] be sent through Care Everywhere. * Hyperkalemia (Armenian) documented in this encounter Progress Notes * Dean Obando PA - 12/05/2022 11:00 AM EDT Images from the original note were not included. CC: Jakub Fuller is a 72 y.o. male with the [...] visit. Social History Occupational History ??? 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 Smoking status: Never ??? [...] and referred him to endocrinology here at [facility] for further management. I willplan to [...] unspecified documented in this encounter Care Teams Human Resources Trainer Relationship Specialty Start Date End Date Jakub Abrams MD [address] [place] [address] PCP - General Family Medicine 04/05/21 10/18/23 documented as of this encounter
--- OUTSIDE RECORDS SUMMARY | 2024-02-22 15:19 | XMS_ITS | Encounter Summary ---
Author [facility] [place] [address] Care Team Providers Care Dynamic Etching Processor Name Role Phone Jakub Abrams MD Primary Care Provider [phone] Reason for Referral * Consultation (Routine) - Closed Specialty Diagnoses / Procedures Referred By Contac t Referred To Contact [facility] Diagnoses Primary osteoarthritis of left hip Sciatica pain/ ?spine pathology/ no imaging Klarissa Rizzo PA [facility] [place] [address] [facility] [place] [address] Referral ID Status Reason Start Date Expiration Date V isits Requested Visits Authorized [id number] Closed Pain Consult 04/05/2021 04/05/2022 3 3 * Diagnostic Test (Routine) - Closed Specialty Diagnoses / Procedures Referred By Contac t Referred To Contact Radiology Diagnoses Primary osteoarthritis of left hip Procedures XR Fluoro Guided Joint Injection Large Left Klarissa Rizzo PA [facility] [place] [address] [facility] Rad Xray [address] [place] [address] [place] [address] Referral ID Status Reason Start Date Expiration Date V isits Requested Visits Authorized [id number] Closed Specialty Service Requested 04/05/2021 10/03/2022 1 1 Reason for Visit * Reason Comments Establish Care CO XR// 02-18-21 rig ht ankle fusion (Gtiajn) * Consultation (Routine) - Closed Specialty Diagnoses / Procedures Referred By Louann dawson Referred To Contact Orthopaedics Self mail [facility]opa[facility]ics [address] [place] [address] Referral ID Status Reason Start Date Expiration Date Visits Re quested Visits Authorized [id number] Closed 03/04/2021 03/04/2022 1 1 Encounter Details Date Type Department Care Team (Latest Contact Info) Description 04/05/2021 8:00 AM EDT Office [place] [address] Klarissa Rizzo PA [facility] [place] [address] Primary osteoarthritis of left hip Social History [...] has stopped playing tennis. 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 He is taking Advil occasionally for [...] We discussed attempting conservative therapy first with wzxa-uob-xturubk anti-inflammatories such as ibuprofen or naproxen along [...] who have questions please contact the health rn primary care that requested your imaging first. ? Electronically signed by: Bozena Rodriguez [facility] ([phone]), at 04/21/2021 9:50 AM Narrative 04/21/2021 9:50 AM EDT LEFT HIP ??JOINT INJECTION UNDER FLUOROSCOPY CLINICAL HISTORY: oa TECHNIQUE: After an extensive conversation with the patient regarding risks and benefits, oral and written consent were obtained.?A pre- procedural time-out was performed, including review of the patient's relevant electronic medical record and allergies, as per [facility] protocol. The patient was placed supine on [...] relevant electronic medicalrecord and allergies, as per [facility] protocol. The patient was placed supine on [...] patients who have questions please contactthe health rn primary care that requested your imaging first. Sana Rosado MD IMG FLUORO ORDERABLE S documented in this encounter Visit Diagnoses Diagnosis Primary osteoarthritis of left hip Primary localized osteoarthrosis, pelvic region and thigh Primary osteoarthritis of left hip Primary localized osteoarthrosis, pelvic region and thigh documented in this encounter Care Teams Dynamic Etching Processor Relationship Specialty Start Date End Date Jakub Abrams MD [address] [place] [address] [place] [address] PCP - General Family Medicine 04/05/21 10/18/23 documented as of this encounter
--- OUTSIDE RECORDS SUMMARY | 2024-02-22 15:19 | XMS_ITS | Encounter Summary ---
[place] [address] Care Team Providers Care Computer Science Instructor Name Role Phone Jakub Abrams MD Primary Care Provider [phone] Encounter Details Date Type Department Care Team (Latest Contact Info) Description 12/20/2022 2:00 AM EDT Anti-Coag Telephone Visit [facility] [place] [address] Jad Montgomery RPH S/P total left hip arthroplasty Social History Tobacco Use Types Packs/Day Years Used Date Smoking Tobacco: Never Smokeless Tobacco: Never Alcohol Use Standard Drinks/Week Comments Not Currently 0 (1 standard drink = 0.6 oz pur e alcohol) occasional DH [facility] Inpatient Questions Answer Date Recorded Does [...] lab: Send INR reminders to: [facility]AL[facility] ANT[facility]ATION CL[facility] Comments: [facility]?? [phone] Anticoagulation Care Providers Provider Role Specialty Phone number Mynor Umaña MD [facility] Orthopaedic Surgery [phone] Patient Assessment Service Type: INR Test Result [...] and warfarin education provided to Jakub verballyand [facility] phone # [...] correct range. Admitted: 12/13 Discharged: 12/13 Facility: [facility] Reason for Admission: Left [...] arthroplasty documented in this encounter Care Teams Computer Science Instructor Relationship Specialty Start Date End Date Jakub Abrams MD [address] [place] [address] PCP - General Family Medicine 04/05/21 10/18/23 documented as of this encounter
--- OUTSIDE RECORDS SUMMARY | 2024-02-22 15:19 | XMS_ITS | Encounter Summary ---
[place] [address] Care Team Providers Care Guest Service Supervisor Name Role Phone Jakub Abrams MD Primary Care Provider [phone] Encounter Details Date Type Department Care Team [...] on filedocumented in this encounter Care Teams Guest Service Supervisor Relationship Specialty Start Date End Date Jakub Abrams MD [address] [place] [address] PCP - General Family Medicine 04/05/21 10/18/23 documented as of this encounter
--- OUTSIDE RECORDS SUMMARY | 2024-02-22 15:19 | XMS_ITS | Encounter Summary ---
[place] [address] Care Team Providers Care Fuel Cell Assembler Name Role Phone Jakub Abrams MD Primary Care Provider [phone] Encounter Details Date Type Department Care Team (Latest Contact Info) Description 12/14/2022 2:00 AM EDT Anti-Coag Telephone Visit [facility] Centralized [place] [phone] Jad Montgomery RPH S/P total left hip arthroplasty Social History Tobacco Use Types Packs/Day Years Used Date Smoking Tobacco: Never Smokeless Tobacco: Never Alcohol Use Standard Drinks/Week Comments Not Currently 0 (1 standard drink = 0.6 oz pur e alcohol) occasional [facility] Inpatient Questions Answer Date Recorded Does [...] Association Preferred lab: Send INR reminders to: [facility] CENTRALIZED ANTICOAGULATION CLINIC Comments: [facility]?? [phone] Anticoagulation Care Providers Provider Role Specialty Phone number Mynor Umaña MD Responsible Orthopaedic Surgery [phone] Patient Assessment Service Type: New Patient Consult [...] correct range. Admitted: 12/13 Discharged: 12/13 Facility: [facility] Reason for Admission: Left RAFIQ Warfarin RX [...] arthroplasty documented in this encounter Care Teams Fuel Cell Assembler Relationship Specialty Start Date End Date Jakub Abrams MD [facility] [place] [address] PCP - General Family Medicine 04/05/21 10/18/23 documented as of this encounter
--- OUTSIDE RECORDS SUMMARY | 2024-02-22 15:19 | XMS_ITS | Encounter Summary ---
[place] [address] Care Team Providers Care Unit Controller Name Role Phone Jakub Abrams MD Primary Care Provider [phone] Encounter Details Date Type Department Care Team (Late st Contact Info) Description 03/30/2021 Telephone [place] [phone] Klarissa Rizzo PA [facility] [place] [address] Social History Tobacco Use Types Packs/Day Years Used Date Smoking Tobacco: Never Assessed Sex and Gender Information Value Date Recorded Sex Assigned at Not on file Gender Identity Not on file Sexual Orientation Not on file documented as of this encounter Plan of Treatment Not on file documented as of this encounter Visit Diagnoses Not on filedocumented in this encounter Care Teams Unit Controller Relationship Specialty Start Date End Date Jakub Abrams MD [address] [place] [address] [place] [address] PCP - General Family Medicine 04/05/21 10/18/23 documented as of this encounter
--- OUTSIDE RECORDS SUMMARY | 2024-02-22 15:19 | XMS_ITS | Encounter Summary ---
Author Organization [facility] [place] [address] Care Team Providers Care Peanut Vendor Name Role Phone Jakub Abrams MD Primary Care Provider [phone] Encounter Details Date Type Department Care Team (Latest Contact Info) Description 05/24/2021 8:56 AM EDT - 05/24/2021 11:59 PM EDT Hospital Encounter XRay at [address] [place] [address] Judy Bell, PIANO MAKER [facility] [place] [address] Low back pain, non-specific Discharge Disposition: Home [...] questions please contact the health day care aide that requested your imaging first. ? Electronically signed by: Sara Merritt MD, [facility] ([phone]), at 05/24/2021 11:03 AM Narrative 05/24/2021 11:03 [...] have questions please contactthe health day care aide that requested your imaging first. Electronically signed by: Sara Merritt MD, [facility]([phone]), at 05/24/2021 11:03 AM Judy Bell PIANO MAKER IMG DX ORDERABLES documented in this encounter Visit Diagnoses Diagnosis Low back pain, non-specific documented in this encounter Care Teams Peanut Vendor Relationship Specialty Start Date End Date Jakub Abrams MD [address] [place] [address] PCP - General Family Medicine 04/05/21 10/18/23 documented as of this encounter
--- OUTSIDE RECORDS SUMMARY | 2024-02-22 15:19 | XMS_ITS | Encounter Summary ---
Author Organization [facility] [place] [address] Care Team Providers Care Clay Transporter Name Role Phone Jakub Abrams MD Primary Care Provider [phone] Reason for Referral * Physical Therapy (Routine) - Closed Specialty Diagnoses / Procedures Referred By Louann dawson Referred To Contact Physical Therapy Diagnoses Debility Pain of left lower extremity Primary osteoarthritis of left hip Mynor Umaña MD [facility] [place] [address] Referral ID Status Reason Start Date Expiration Date V isits Requested Visits Authorized [id number] Closed Evaluate and Treat Non PCP 11/14/2022 05/13/2023 12 12 Reason for Visit * Reason Comments Establish Care Left Hip Pain DISCUSS RAFIQ 2ND O P * Consultation (Routine) - Closed Specialty Diagnoses / Procedures Referred By Louann dawson Referred To Contact Orthopaedics Diagnoses Left hip pain Self mail Mynor Umaña MD [facility] [place] [address] Referral ID Status Reason Start Date Expiration Date Visits Re quested Visits Authorized [id number] Closed 09/30/2022 09/30/2023 1 1 Encounter Details Date Type Department Care Team (Latest Contact Info) Description 11/14/2022 2:00 PM EDT Office [place] [address] Mynor Umaña MD [facility] [place] [address] Debility; Pain of left lower extremity; Primary [...] difficult 2/2 hip. Pain in groin. [facility] I personally reviewed and interpreted [...] 35 minutes were spent in chart review, [id number] time and coordination of care with the patient. Mynor Umaña MD, MS Preventive Medicine Officer, Division of Adult Reconstructive Greenhouse TechnicianOutpatient Clerk of Orthopaedics Department of Orthopaedics [facility] [address] [email or web address] * Chetan Paulino MD - 11/14/2022 2:00 [...] the potentially devastating consequences of complications. Mr. Fuller expressed a desire to pursue left total hip arthroplasty. Potential barriers to total joint arthroplasty: -BMI > 40: No -Active Tobacco use: No -Diabetes with hemoglobin A1C > 7.5: No He will seek out the needed medical clearance and undergo the needed testing to ensure medical suitability for the proposed surgical intervention. 30 minutes were spent in chart review, [id number] time and coordination of care with the [...] who have questions please contact the health career development engineer that requested your imaging first. ? Narrative [...] patients who have questions please contactthe health career development engineer that requested your imaging first. Mynor Umaña MD IMG DX ORDERABLES * APTT (12/05/2022 1:22 PM EDT) PTT 30 25 - 37 sec [facility] Comment: The PTT is NOT appropriate for heparin monitoring. Use the Anti-Xa level for heparin monitoring (HEP UFH) or LMWH monitoring (HEP LMW). A PTT less than 37 seconds generally indicates adequate hemostasis. Blood 12/05/2022 1:22 PM EDT 12/05/2022 1:24 PM EDT Narrative Resulting Agency Comment Spec In Lab Mynor Umaña MD HEMATOLOGY ORDERABL ES Performing Organization Address [facility] de Phone Number [facility] [place] [address] * Prothrombin Time (12/05/2022 1:22 PM EDT) PT 10.6 9.4 - 12.5 sec [facility] INR 0.9 [facility] Comment: An INR <2.0 [...] MD HEMATOLOGY ORDERABL ES Performing Organization Address [facility] Co de Phone Number [facility] [place] [address] * (ABNORMAL) Basic Metabolic Panel (non-fasting) (12/05/2022 [...] [facility] [place] [address] documented in this encounter Visit Diagnoses Diagnosis [...] each documented in this encounter Care Teams Clay Transporter Relationship Specialty Start Date End Date Jakub Abrams MD [facility] [place] [address] PCP - General Family Medicine 04/05/21 10/18/23 documented as of this encounter
--- OUTSIDE RECORDS SUMMARY | 2024-02-22 15:19 | XMS_ITS | Encounter Summary ---
Author Organization [facility] Address [facility] [place] [address] Care Team Providers Care Driver/Guide Name Role Phone Jakub Abrams MD Primary Care Provider [phone] Reason for Referral * Diagnostic Test (Routine) - Closed Specialty Diagnoses / Procedures Referred By Contac t Referred To Contact Radiology Diagnoses Primary osteoarthritis of left hip Procedures XR Fluoro Guided Joint Injection Large Left Klarissa Rizzo PA [facility] [place] [address] [facility] [address] [place] [address] [place] [address] Referral ID Status Reason Start Date Expiration Date V isits Requested Visits Authorized [id number] Closed Specialty Service Requested 04/05/2021 10/03/2022 1 1 Reason for Visit * Diagnostic Test (Routine) - Closed Specialty Diagnoses / Procedures Referred By Contac t Referred To Contact Radiology Diagnoses Primary osteoarthritis of left hip Procedures XR Fluoro Guided Joint Injection Large Left Klarissa Rizzo PA [facility] [place] [address] [facility] Xray [address] [place] [address] [place] [address] Referral ID Status Reason Start Date Expiration Date V isits Requested Visits Authorized [id number] Closed Specialty Service Requested 04/05/2021 10/03/2022 1 1 Encounter Details Date Type Department Care Team (Latest Contact Info) Description 04/19/2021 9:56 AM EDT - 04/19/2021 11:59 PM EDT Hospital Encounter XRay at [address] [place] [address] Sana Rosado MD [facility] [place] [address] Primary osteoarthritis of left hip Discharge Disposition: [...] who have questions please contact the health palliative care physician that requested your imaging first. ? Narrative 04/21/2021 9:50 AM EDT LEFT HIP ??JOINT INJECTION UNDER FLUOROSCOPY CLINICAL HISTORY: oa TECHNIQUE: After an extensive conversation with the patient regarding risks and benefits, oral and written consent were obtained.?A pre- procedural time-out was performed, including review of the patient's relevant electronic medical record and allergies, as per [facility] protocol. The patient was placed supine on [...] relevant electronic medicalrecord and allergies, as per [facility] protocol. The patient was placed supine on [...] patients who have questions please contactthe health palliative care physician that requested your imaging first. Sana Rosado [...] EDT documented in this encounter Care Teams Driver/Guide Relationship Specialty Start Date End Date Jakub Abrams MD [address] [place] [address] PCP - General Family Medicine 04/05/21 10/18/23 documented as of this encounter
--- OUTSIDE RECORDS SUMMARY | 2024-02-22 15:20 | XMS_ITS | Encounter Summary ---
Author Organization [facility] Address [address] [place] [address] Care Team Providers Care Filler Room Attendant Name Role Phone Jakub Amaya MD Primary Care Provider [phone] Encounter Details Date Type Department Care Team (Late st Contact Info) Description 05/24/2023 Lab Requisition [facility] Pathology & Laboratory Medicine - [address] [address] Outr Resulting Lab, Provider Social History Tobacco [...] Urine 11.1 See Note mg/dL 05/25/2023 9:02 [facility] Comment: NOTE: Reference range not established Calcium, Urine 24 hr 361(H) 100 - 300 mg/24hr 05/25/2023 9:02 [facility] Comment:Reference range assu mes a normal daily intake of calcium between 600 - 800 mg/day. Urine Volume 3,250 mL 05/25/2023 9:02 [facility] Urine Collection Period 23.0 Hours 05/25/2023 9:02 EDT [facility] Urine 24 HOUR URINE SPECIMEN / Unknown 05/24/2023 7:37 EDT 05/24/2023 22:13 EDT Provider Outr Resulting Lab URINALYSIS O RDERABLES Performing Organization Address City/State/[facility] Co de Phone Number [facility] [address] [place] [address] documented in this encounter Visit Diagnoses Not on filedocumented in this encounter Care Teams Filler Room Attendant Relationship Specialty Start Date End Date Jakub Amaya MD [address] [place] [address] PCP - General 07/01/09 documented as of this encounter
--- OUTSIDE RECORDS SUMMARY | 2024-02-22 15:20 | XMS_ITS | Encounter Summary ---
Author Organization [facility] Address [address] [place] [address] Care Team Providers Care Veterinary Practice Manager Name Role Phone Jakub Amaya MD Primary Care Provider Encounter Details Date Type Department Care Team (Late st Contact Info) Description 06/26/2019 Lab Requisition [facility] Pathology & Laboratory Medicine - [facility] [address] [place] [address] Unknown, Provider, Social History Tobacco Use Types [...] IGG ImmunoBlot Negative Negative 07/02/2019 14:33 EST [facility] [place] IGG Bands p45 07/02/2019 14:33 EST [facility] [place] IgM ImmunoBlot Negative Negative 07/02/2019 14:33 [facility] [place] IGM Band(s) No Bands Detected 07/02/2019 14:33 EST [facility] [place] Immunoblot Interpretation See Comment 07/02/2019 14:33 [facility] Blood VENOUS BLOOD / Unknown 06/25/2019 9:25 EST 06/26/2019 16:03 EST Narrative [facility] - 07/02/2019 14:33 EST Specific [...] AND SEROL OGY ORDERABLES Performing Organization Address City/[facility]/ZIP Co de Phone Number [facility] [address] [place] [address] * (ABNORMAL) LYME AB (06/25/2019 9:25 EST) [place] Ab Equivocal (A) Negative 06/27/2019 14:23 EST [facility] Comment: [place] Immunoblot confirmation added by reflex. [place] Immunoblot confirmation added by reflex. Blood VENOUS BLOOD / Unknown 06/25/2019 9:25 EST 06/26/2019 16:03 EST Provider Unknown IMMUNOLOGY AND SEROL OGY ORDERABLES [facility] [address] [place] [address] documented in this encounter Visit Diagnoses Not on filedocumented in this encounter Care Teams Veterinary Practice Manager Relationship Specialty Start Date End Date Jakub Amaya MD [address] [place] [address] PCP - General 07/01/09 documented as of this encounter
--- OUTSIDE RECORDS SUMMARY | 2024-02-22 15:20 | XMS_ITS | Encounter Summary ---
Author Organization [facility] Address [address] [place] [address] Care Team Providers Care Marketing Sales Supervisor Name Role Phone Unavailable Primary Care Provider Unavailabl e Encounter Details Date Type Department Care Team (Late st Contact Info) Description 06/29/2009 Orders Only [address] [address] Tanner Cordero MD [address] [place], [place] [id number] Social History Tobacco Use Types Packs/Day Years [...] ? GEBBIE, ANNIE ? Accession #: ? [id number] ? : ? 1950 (Age: 58) ??M [...] entirely submitted as (A). ? Received in [facility]'s fixative labelled Annie Fuller and transverse colon ?? polyp x2 are four rollins-pink soft tissues ranging from 0.2 x 0.2 x 0.2 cm to 0.4 x 0.3 x 0.2 cm. ??The specimens are entirely submitted as (B1) and (B2). ? [facility] Annie Fuller and sigmoid polyp is a rollins-pink 0.2 x 0.2 x 0.2 cm soft tissue fragment. ??The specimen is entirely ? submitted as (C). ? Received in [facility]'s fixative labelled Annie Fuller and rectal polyp is a rollins-pink 0.2 x 0.2 x 0.2 cm soft tissue fragment. ??The specimen is entirely ? submitted as (D). ??/masoud ? End of Report ? [facility] 06/29/2009 06/29/2009 7:0 2 EST Tanner Cordero MD PATHOLOGY ORDERABLES Performing Organization Address City/State/[facility] Co de Phone Number [facility] [address] [place] [address] documented in this encounter Visit Diagnoses Not on filedocumented in this encounter
--- OUTSIDE RECORDS SUMMARY | 2024-02-22 15:20 | XMS_ITS | Encounter Summary ---
Author Organization [facility] Address [address] [place] [address] Care Team Providers Care Scientific Specialist Name Role Phone Jakub Amaya MD Primary Care Provider [phone] Encounter Details Date Type Department Care Team (Late st Contact Info) Description 07/28/2019 Lab Requisition [facility] Pathology & Laboratory Medicine - [facility] [address] [place] [address] Unknown, Provider, Social History Tobacco Use Types [...] 0.0 - 4.5 ng/mL 07/29/2019 10:38 EST [facility] Blood VENOUS BLOOD / Unknown 07/26/2019 16:54 EST 07/28/2019 15:45 EST Narrative [facility] - 07/29/2019 10:38 EST NOTE: Serum PSA concentration should not be interpreted as absolute evidence for the presence or absence of malignant disease. Assayed on Siemens ADVIA MirageWorksaur XPT using chemiluminescent technology.??Values obtained by using different assay methods cannot be used interchangeably. Provider Unknown CHEMISTRY & BLOOD GA S ORDERABLES [facility] [address] [place] [address] documented in this encounter Visit Diagnoses Not on filedocumented in this encounter Care Teams Scientific Specialist Relationship Specialty Start Date End Date Jakub Amaya MD [address] [place] [address] PCP - General 07/01/09 documented as of this encounter
--- OUTSIDE RECORDS SUMMARY | 2024-02-22 15:20 | XMS_ITS | Encounter Summary ---
Author Organization [facility] Address [address] [place] [address] Care Team Providers Care Finance Officer Name Role Phone Jakub Amaya MD Primary Care Provider [phone] Encounter Details Date Type Department Care Team (Late st Contact Info) Description 03/07/2022 Lab Requisition [facility] Pathology & Laboratory Medicine - [facility] [address] [place] [address] Cony Salcido MD [address] [place] [address] [address] [place], [place] [id number] Encounter for other general examination Social History [...] management options, if applicable. 03/09/2022 16:23 EDT [facility] Final Diagnosis A. DUODENUM, [...] Inflammatory-type polyp. - Hyperplastic polyp. 03/09/2022 16:23 [facility] Diagnosis Comment The differential diagnosis includes infection, diverticular disease-associated colitis, and inflammatory bowel disease. Clinical correlation is required. Director Of Revenue slides of this case were reviewed at the gastrointestinal/[facility] intradepartmental consultation conference.(AA,) 03/09/2022 16:23 [facility] Attestation By the signature below, the attending physician certifies that they have 1) personally conducted a gross and/or microscopic examination of the described specimen(s), and/or personally interpreted the results of laboratory testing of the described specimen(s), and 2) personally rendered or confirmed the above diagnosis. 03/09/2022 16:23 [facility] at 1623 Clinical History GERD, rectal bleeding 03/09/2022 16:23 [facility] Gross Description A. Received in [...] CARLOS NUNES 03/08/2022 8:26 03/09/2022 16:23 EDT [facility] Performing Lab [facility] 03/09/2022 16:23 EDT [facility] Scanned Images 03/09/2022 16:23 EDT [facility] Tissue ENTIRE SIGMOID COLON [...] EDT Cony Salcido MD PATHOLOGY YESSI DESAI [facility] [address] [place] [address] documented in this encounter Visit Diagnoses Diagnosis Encounter for other general examination documented in this encounter Care Teams Finance Officer Relationship Specialty Start Date End Date Jakub Amaya MD [address] [place] [address] PCP - General 07/01/09 documented as of this encounter
--- OUTSIDE RECORDS SUMMARY | 2024-02-22 15:20 | XMS_ITS | Encounter Summary ---
Author Organization [facility] Address [address] [place] [address] Care Team Providers Care Non Acoustic Operator Name Role Phone Jakub Amaya MD Primary Care Provider [phone] Encounter Details Date Type Department Care Team (Late st Contact Info) Description 01/26/2023 Lab Requisition [facility] Pathology & Laboratory Medicine - [address] [address] Outr Resulting Lab, Provider Social History Tobacco [...] Lyme Ab Negative Negative 01/27/2023 11:36 EDT [facility] Blood VENOUS BLOOD / Unknown 01/26/2023 12:10 EDT 01/26/2023 21:13 EDT Provider Outr Resulting Lab IMMUNOLOGY A ND SEROLOGY ORDERABLES [facility] [address] [place] [address] documented in this encounter Visit Diagnoses Not on filedocumented in this encounter Care Teams Non Acoustic Operator Relationship Specialty Start Date End Date Jakub Amaya MD [address] [place] [phone] PCP - General 07/01/09 documented as of this encounter
--- OUTSIDE RECORDS SUMMARY | 2024-02-22 15:20 | XMS_ITS | Encounter Summary ---
Author Organization [facility] Address [address] [place] [address] Care Team Providers Care Territory Sales Executive Name Role Phone Jakub Amaya MD Primary Care Provider [phone] Encounter Details Date Type Department Care Team (Late st Contact Info) Description 02/22/2024 Lab Requisition [facility] Pathology & Laboratory Medicine - [address] [address] Outr Resulting Lab, Provider Social History Tobacco Use Types Packs/Day Years Used Date Smoking Tobacco: Never Assessed Sex and Gender Information Value Date Recorded Sex Assigned at Not on file Gender Identity Not on file Sexual Orientation Not on file documented as of this encounter Plan of Treatment Scheduled Orders Name Type Priority Associated Diagnoses Orde r Schedule LYME AB Lab Routine Ordered: 02/21 documented as of this encounter Visit Diagnoses Not on filedocumented in this encounter Care Teams Territory Sales Executive Relationship Specialty Start Date End Date Jakub Amaya MD [address] [place] [address] PCP - General 07/01/09 documented as of this encounter
--- OUTSIDE RECORDS SUMMARY | 2024-02-22 15:20 | XMS_ITS | Encounter Summary ---
Author Organization [facility] Address [address] [place] [address] Care Team Providers Care Qa Test Analyst Name Role Phone Annie Flores MD Primary Care Provider [phone] Encounter Details Date Type Department Care Team (Late st Contact Info) Description 08/19/2004 Results Only [facility] - Maple conversion [address] [place] [address] Chris Damico MD [address] [place] [id number] Social History Tobacco Use Types Packs/Day Years [...] ? ANNIE CARY ? Accession #: ? [id number] ? : ? 1950 (Age: 53) ??M [...] tissue submitted in toto as (D). (Franklin Trujillo)/[facility] End of Report DLALAS GRIJALVA 08/19/2004 08/20/2004 15: 08 EST Chris Damico MD PATHOLOGY ORDERABLE [facility] [address] [place] [address] documented in this encounter Visit Diagnoses Not on filedocumented in this encounter Care Teams Qa Test Analyst Relationship Specialty Start Date End Date Annie Flores MD [address] [place] [address] PCP - General 07/01/09 documented as of this encounter
--- OUTSIDE RECORDS SUMMARY | 2024-02-22 15:20 | XMS_ITS | Encounter Summary ---
Author Organization [facility] Address [address] [place] [address] Care Team Providers Care Sales Floor Manager Name Role Phone Jakub Amaya MD Primary Care Provider [phone] Encounter Details Date Type Department Care Team (Late st Contact Info) Description 06/06/2023 Lab Requisition [facility] Pathology & Laboratory Medicine - [facility] [address] [place] [address] Outr Resulting Lab, Provider Social History Tobacco [...] Lyme Ab Negative Negative 06/07/2023 10:26 EST [facility] Blood VENOUS BLOOD / Unknown 06/05/2023 15:55 EST 06/06/2023 17:51 EST Provider Outr Resulting Lab IMMUNOLOGY A ND SEROLOGY ORDERABLES [facility] [address] [place] [address] documented in this encounter Visit Diagnoses Not on filedocumented in this encounter Care Teams Sales Floor Manager Relationship Specialty Start Date End Date Jakub Amaya MD [address] [place] [address] PCP - General 07/01/09 documented as of this encounter
--- OUTSIDE RECORDS SUMMARY | 2024-02-22 15:20 | XMS_ITS | Encounter Summary ---
Author Organization [facility] Address [address] [place] [address] Care Team Providers Care Filling Separator Name Role Phone Jakub Amaya MD Primary Care Provider [phone] Encounter Details Date Type Department Care Team (Late st Contact Info) Description 07/15/2019 Lab Requisition [facility] Pathology & Laboratory Medicine - [facility] [address] [place] [address] Unknown, Provider, Social History Tobacco Use Types [...] 6.3 - 8.2 g/dL 07/18/2019 14:15 EST [facility] Albumin % 64.0 55.8 - 66.1 % 07/18/2019 14:15 EST [facility] Alpha-1 % 3.6 2.9 - 4.9 % 07/18/2019 14:15 EST [facility] Alpha-2 % 7.9 7.1 - 11.8 % 07/18/2019 14:15 [facility] Beta % 10.7 8.4 - 13.1 % 07/18/2019 14:15 [facility] Gamma % 13.8 11.1 - 18.8 % 07/18/2019 14:15 [facility] SPEP Comment No apparent monoclonal protein seen on serum electrophoresis 07/18/2019 14:15 [facility] Comment:See scanned/suppleme ntary report. Blood VENOUS BLOOD / Unknown 07/15/2019 7:19 EST 07/15/2019 15:33 EST Provider Unknown CHEMISTRY & BLOOD GA S ORDERABLES Performing Organization Address [facility] Co de Phone Number [facility] [address] [place] [address] * PTH INTACT (07/15/2019 7:19 EST) Intact PTH 32 19 - 88 pg/mL 07/16/2019 10:22 EST [facility] Blood VENOUS BLOOD / Unknown 07/15/2019 7:19 EST 07/15/2019 15:33 EST Provider Unknown CHEMISTRY & BLOOD GA S ORDERABLES Performing Organization Address [facility] Co de Phone Number [facility] [address] [place] [address] documented in this encounter Visit Diagnoses Not on filedocumented in this encounter Care Teams Filling Separator Relationship Specialty Start Date End Date Jakub Amaya MD [address] [place] [address] PCP - General 07/01/09 documented as of this encounter
--- OUTSIDE RECORDS SUMMARY | 2024-02-22 15:20 | XMS_ITS | Encounter Summary ---
Author Organization [facility] Address [address] [place] [address] Care Team Providers Care Underground Roof Bolter Name Role Phone Jakub Amaya MD Primary Care Provider [phone] Encounter Details Date Type Department Care Team (Late st Contact Info) Description 04/05/2022 Lab Requisition [facility] Pathology & Laboratory Medicine - [address] [address] Outr Resulting Lab, Provider Social History Tobacco [...] 4.85 See Note mg/L 04/05/2022 17:11 EDT [facility] Comment: Reference Range: ??Low Risk: ? <1.0 mg/L ??Average Risk: ?? 1.0 - 3.0 mg/L ??High Risk: ?>3.0 mg/L ??Indeterminate*: >10.0 mg/L ??*May be an indication of another source of inflammation or infection Blood VENOUS BLOOD / Unknown 04/05/2022 8:08 EDT 04/05/2022 16:45 EDT Provider Outr Resulting Lab CHEMISTRY & BLOOD GAS ORDERABLES [facility] [address] [place] [address] documented in this encounter Visit Diagnoses Not on filedocumented in this encounter Care Teams Underground Roof Bolter Relationship Specialty Start Date End Date Jakub Amaya MD [address] [place] [address] PCP - General 07/01/09 documented as of this encounter
--- OUTSIDE RECORDS SUMMARY | 2024-02-22 15:20 | XMS_ITS | Encounter Summary ---
Author Organization [facility] Address [address] [place] [address] Care Team Providers Care Defense Analyst Name Role Phone Annie Flores MD Primary Care Provider Encounter Details Date Type Department Care Team (Late st Contact Info) Description 06/19/2006 Results Only [facility] - Maple conversion [address] [place] [address] Tanner Cordero MD [facility] [place] [address] Social History Tobacco Use Types [...] ? ANNIE CARY ? Accession #: ? [id number] ? : ? 1950 (Age: 55) ??M [...] specimen is entirely submitted as (J). ??(Roberth Emery)/[facility] ?? End of Report [facility] 06/19/2006 06/20/2006 9:3 5 EST Tanner Cordero MD PATHOLOGY ORDERABLES [facility] [address] [place] [address] documented in this encounter Visit Diagnoses Not on filedocumented in this encounter Care Teams Defense Analyst Relationship Specialty Start Date End Date Annie Flores MD [address] [place] [phone] PCP - General 07/01/09 documented as of this encounter
--- OUTSIDE RECORDS SUMMARY | 2024-02-22 15:20 | XMS_ITS | Encounter Summary ---
Author Organization [facility] Address [address] [place] [address] Care Team Providers Care Coat Fitter Name Role Phone Jakub Amaya MD Primary Care Provider [phone] Encounter Details Date Type Department Care Team (Late st Contact Info) Description 01/19/2021 Lab Requisition [facility] Pathology & Laboratory Medicine - [address] [address] Outr Resulting Lab, Provider Social History Tobacco [...] 0.0 - 4.5 ng/mL 01/19/2021 16:54 EDT [facility] Blood VENOUS BLOOD / Unknown 01/18/2021 9:30 EDT 01/19/2021 16:04 EDT Narrative [facility] - 01/19/2021 16:54 EDT NOTE: Serum PSA concentration should not be interpreted as absolute evidence for the presence or absence of malignant disease. Assayed on Siemens [employer] [employer] XPT using chemiluminescent technology.??Values obtained by using different assay methods cannot be used interchangeably. Provider Outr Resulting Lab CHEMISTRY & BLOOD GAS ORDERABLES [facility] [address] [place] [address] documented in this encounter Visit Diagnoses Not on filedocumented in this encounter Care Teams Coat Fitter Relationship Specialty Start Date End Date Jakub Amaya MD [address] [place] [address] PCP - General 07/01/09 documented as of this encounter
[2024-02-22 20:31] LABS: Rheumatoid Factor <8.6 IU/mL (<12.0)
[2024-02-23 08:13] LABS: Cyclic Citrullinated Peptide <2.5 U/mL (<5.0)
[2024-02-23 16:04] LABS: ANA Interpretation Positive (Negative); ANA Titer Pattern 1:80 Speckled
== END 2024-02-22 15:17 | disposition home or self-care (01) ==
LOC: LBO 15:16
PROVIDERS: PCP Student in an Organized Health Care Education/Training Program; Visit Provider Student in an Organized Health Care Education/Training Program
DX: E03.9 Hypothyroidism, unspecified (principal); M25.50 Pain in unspecified joint
CPT/HCPCS: 36415; 80048; 86200; 81003; 84443; 86038; 86431

== ENCOUNTER 2024-12-25 10:33 | Outpatient (CLI) | payer MEDICARE, SELFPAY ==
--- NOTE | 2024-12-25 10:15 | DI.RAD_ITS ---
Exam(s) XR SHOULDER LT COMPLETE 2+V EXAM: XR SHOULDER LT COMPLETE 2+V CLINICAL HISTORY: BILATERAL SHOULDER PAIN. TECHNIQUE: 2D digital imaging was performed of the left shoulder. Two images were obtained. Grashe y and Y views were obtained. COMPARISON: No exams were available for comparison FINDINGS: BONES: No acute fracture is present. No bony destructive lesion is seen. JOINTS: There is marked narrowing of the glenohumeral joint with bone on bone. There is a moderate o steophyte at the inferior aspect of the humeral head. Moderate degenerative changes are seen at the acromioclavicular joint. SOFT TISSUE: There soft tissue calcifications superior to the humeral head consistent with calcific t endinitis. 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 DATA REPOSITORY: RADIATION DOSE DELIVERED:
--- NOTE | 2024-12-25 10:15 | DI.RAD_ITS ---
Exam(s) XR SHOULDER RT COMPLETE 2+V EXAM: XR SHOULDER RT COMPLETE 2+V CLINICAL HISTORY: BILATERAL SHOULDER PAIN. TECHNIQUE: 2D digital imaging was performed of the right shoulder. Two images were obtained. Axill alejandro and Grashey views were obtained. COMPARISON: No exams were available for comparison FINDINGS: BONES: No acute fracture is present. No bony destructive lesion is seen. JOINTS: There is marked narrowing of the glenohumeral joint with bone on bone. Moderate degenerative changes are seen at the acromioclavicular joint. SOFT TISSUE: Normal. IMPRESSION: Marked osteoarthritis of the right shoulder. DATA REPOSITORY: RADIATION DOSE DELIVERED:
== END 2024-12-25 10:34 | disposition home or self-care (01) ==
LOC: DIORS 10:33
PROVIDERS: PCP Student in an Organized Health Care Education/Training Program; Referring Provider Student in an Organized Health Care Education/Training Program; Visit Provider Student in an Organized Health Care Education/Training Program
DX: M25.511 Pain in right shoulder (principal); M25.512 Pain in left shoulder; S46.212A Strain of muscle, fascia and tendon of other parts of biceps, left arm, initial encounter; M19.011 Primary osteoarthritis, right shoulder; M19.012 Primary osteoarthritis, left shoulder; X50.9XXA Other and unspecified overexertion or strenuous movements or postures, initial encounter
CPT/HCPCS: 99214; 73030

== ENCOUNTER 2025-01-30 14:43 | Outpatient (REF) | payer MEDICARE, SELFPAY ==
[2025-01-30 20:10] LABS: Anion Gap 7.8 mmol/L (3-11); BUN 17 mg/dL (7-18); CO2 29.2 mmol/L (21.0-32.0); Calcium 8.9 mg/dL (8.5-10.1); Calculated LDL 149 mg/dL (<100); Chloride 103 mmol/L (98-107); Cholesterol 277 mg/dL (<200); Estimated GFR 64.25 (mL/min/1.73m2); Glucose 100 mg/dL (74-106); HDL Cholesterol 88 mg/dL (>or=40); Potassium 4.6 mmol/L (3.5-5.1); Sodium 140 mmol/L (136-145); TSH 6.15 uIU/mL (0.36-3.74); Triglyceride 200 mg/dL (<150)
== END 2025-01-30 14:44 | disposition home or self-care (01) ==
LOC: NCHCN 14:43
PROVIDERS: PCP Student in an Organized Health Care Education/Training Program; Visit Provider Student in an Organized Health Care Education/Training Program
DX: E78.5 Hyperlipidemia, unspecified (principal); E03.9 Hypothyroidism, unspecified
CPT/HCPCS: 80048; 80061; 84439; 84443

== ENCOUNTER 2025-04-30 11:01 | Outpatient (CLI) | payer MEDICARE, SELFPAY ==
[2025-04-30 12:32] LABS: TSH 2.35 uIU/mL (0.36-3.74)
== END 2025-04-30 11:02 | disposition home or self-care (01) ==
LOC: LBO 11:01
PROVIDERS: PCP Student in an Organized Health Care Education/Training Program; Visit Provider Student in an Organized Health Care Education/Training Program
DX: E03.9 Hypothyroidism, unspecified (principal)
CPT/HCPCS: 36415; 84439; 84443

== ENCOUNTER 2025-05-08 16:09 | Outpatient (REF) | payer MEDICARE, BC, SELFPAY ==
[2025-05-08 19:14] LABS: ESR 9 mm/hr (0-20)
[2025-05-08 19:20] LABS: Uric Acid 7.0 mg/dL (3.5-7.2)
== END 2025-05-08 16:10 | disposition home or self-care (01) ==
LOC: NCHCN 16:09
PROVIDERS: PCP Student in an Organized Health Care Education/Training Program; Visit Provider Student in an Organized Health Care Education/Training Program
DX: M25.571 Pain in right ankle and joints of right foot (principal)
CPT/HCPCS: 85652; 84550

== ENCOUNTER → 2025-05-28 20:09 | Outpatient (REF) | payer MEDICARE, SELFPAY ==
--- NOTE | 2025-05-28 20:23 | DI.RAD_ITS ---
Exam(s) XR CHEST 2V PA LATERAL EXAM: XR CHEST 2V PA LATERAL CLINICAL HISTORY: Hypoxia ICD-10: R09.02 TECHNIQUE: 2D digital imaging was performed of the chest. Two images were obtained. PA and lateral views were obtained. COMPARISON: CR CHEST 2 VIEWS PA,LAT from 07/16/2012 CR XR PORTABLE CHEST AP from 01/26/2023 FINDINGS: MEDIASTINUM: Normal. HEART: Normal. PULMONARY VASCULATURE: Normal. LUNGS: Clear. PLEURAL SPACE: No pleural effusion or pneumothorax. BONE:Within normal limits for the patient's age. OTHER FINDINGS:Normal. IMPRESSION: 1. No acute pulmonary findings. 2. The preliminary [facility] report was reviewed. DATA REPOSITORY: RADIATION DOSE DELIVERED:
--- NOTE | 2025-05-28 20:48 | DI.[facility]_ITS ---
PROCEDURE INFORMATION: Exam: XR Chest Exam date and time: 05/28/2025 8:19 PM Age: 74 years old Clinical indication: Other: Hypoxia TECHNIQUE: Imaging protocol: Radiologic exam of the chest. Views: 2 views. COMPARISON: CR XR PORTABLE CHEST AP 01/26/2023 1:35 PM FINDINGS: Lungs: Unremarkable. No consolidation. Pleural spaces: Unremarkable. No pleural effusion. No pneumothorax. Heart/Mediastinum: Unremarkable. No cardiomegaly. Bones/joints: Unremarkable. IMPRESSION: No acute findings. Dictated and Authenticated by: Dayton Potts MD. Orderin Laya Fuentes MD
== END ==
LOC: DI 20:09
PROVIDERS: PCP Student in an Organized Health Care Education/Training Program; Visit Provider Physician Assistant Medical
DX: R09.02 Hypoxemia (principal)
CPT/HCPCS: 71046

== ENCOUNTER 2025-05-28 20:32 | Outpatient (REF) | payer MEDICARE, SELFPAY ==
[2025-05-30 10:27] LABS: Lyme Ab w Rflx to Lyme Confirm Negative (Negative)
== END 2025-05-28 20:33 | disposition home or self-care (01) ==
LOC: LBN 20:32
PROVIDERS: PCP Student in an Organized Health Care Education/Training Program; Visit Provider Physician Assistant Medical
DX: L03.113 Cellulitis of right upper limb (principal)
CPT/HCPCS: 86618